=== PATIENT | female | born 1940 | race Caucasian/White ===

== ENCOUNTER 2020-06-24 12:06 | Outpatient (REF) | payer MEDICARE, SELFPAY ==
--- NOTE | 2020-06-24 | MM_ITS ---
EXAMINATION: MM SCREENING DIGITAL BREAST TOMOSYNTHESIS, BILATERAL CLINICAL INFORMATION: Screening. Asymptomatic. Family history breast cancer, mother. The lifetime risk of breast cancer based on the Tyrer-Cuzick Model is 3%. COMPARISON: Mammography: 06/20/2019, 06/03/2018 TECHNIQUE: Digital breast tomosynthesis is performed in both the craniocaudal and mediolateral oblique views along with computer-aided detection (CAD). Synthesized 2D images are generated from the tomosynthesis. FINDINGS: There are scattered areas of fibroglandular density (ACR BI-RADS breast composition Category b). There are no significant masses, abnormal calcifications, or other abnormalities. Parenchymal pattern is similar to prior exam. IMPRESSION: No mammographic evidence of malignancy. ASSESSMENT: BI-RADS 1: Negative RECOMMENDATION: Routine annual mammography screening. This patient's information was entered into a reminder system with a target due date for their next mammogram.
--- NOTE | 2020-06-24 13:29 | MM_ITS ---
EXAMINATION: BONE DENSITOMETRY CLINICAL INDICATION: Postmenopausal. COMPARISON: This is the patient's baseline examination. TECHNIQUE: Using a Source Audio DXA System (software version: 13.1) manufactured by [employer], dual-energy x-ray absorptiometry was performed of the lumbar spine and left hip. The images are of good technical quality. Summary results are attached. FINDINGS: AP SPINE L1-L4: BMD 1.318 g/cm2, Z-score 3.0, T-score 1.1, normal. LEFT FEMUR, NECK: BMD 0.716 g/cm2, Z-score -0.2, T-score -2.3, osteopenia. LEFT FEMUR, TOTAL: BMD 0.737 g/cm2, Z-score -0.2, T-score -2.1, osteopenia. IDENTIFIED RISK FACTORS: Height loss, secondary osteoporosis, glucocorticoids (chronic), menopause. HISTORY OF FRACTURE: None listed. MEDICATIONS: Calcium supplements or multivitamin, vitamin D. IMPRESSION: 1. DIAGNOSIS: Osteopenia based on the lowest T-score value of -2.3 in the femoral neck applying World Health Organization criteria. 2. 10-YEAR FRACTURE RISK PREDICTION, FRAX: Major osteoporotic fracture (clinical spine, forearm, hip or shoulder) 27.2%. Hip fracture 10.3%. 3. Treatment Recommendations: NOF guidelines recommend consideration for treatment in postmenopausal women and men age 50 and older presenting with the following: -A hip or vertebral (clinical or morphometric) fracture. -T-score less than or equal to -2.5 at the femoral neck or spine after appropriate evaluation to exclude secondary causes. -Low bone mass at the hip or spine and a 10-year fracture probability by FRAX of greater than or equal to 3% for hip fracture or greater than or equal to 20% for major osteoporotic fracture based on the [place] adapted WHO algorithm. 4. Other Recommendations: All treatment decisions require clinical judgment and consideration of individual patient factors, including patient preferences, comorbidities, previous drug use, risk factors not captured in the FRAX model (e.g. frailty, falls, vitamin D deficiency, increased bone turnover, interval significant decline in bone density) and possible under or overestimation of fracture risk by FRAX. Additional medical evaluation for secondary cause of low bone mineral density may be appropriate. FUTURE SCAN RECOMMENDATION: People with diagnosed cases of osteoporosis or at high risk for fracture should have regular bone mineral density tests. For patients eligible for Medicare, routine testing is allowed once every 2 years. The testing frequency can be increased to one year for patients who have rapidly progressing disease, those who are receiving or discontinuing medical therapy to restore bone mass, or have additional risk factors.
== END 2020-06-24 12:07 | disposition home or self-care (01) ==
LOC: HO.MAMMO 12:06
PROVIDERS: PCP Internal Medicine; Visit Provider Internal Medicine
DX: Z12.31 Encounter for screening mammogram for malignant neoplasm of breast (principal); M81.0 Age-related osteoporosis without current pathological fracture; Z80.3 Family history of malignant neoplasm of breast; Z79.52 Long term (current) use of systemic steroids; Z78.0 Asymptomatic menopausal state
CPT/HCPCS: 77063; 77067; 77080; 78014

== ENCOUNTER 2020-12-03 10:58 | Outpatient (REF) | payer MEDICARE, SELFPAY ==
[2020-12-03 13:14] LABS: MANUAL DIFF FLAG NO
[2020-12-03 13:37] LABS: Basophils Percent Auto 0.2 % (0-2); Eosinophils Percent Auto 0.1 % (0-4); Hematocrit 41.2 % (37-47); Hemoglobin 13.6 g/dl (12.0-16.0); Imm Gran Pct Auto 2.1 % (0.0-0.4); Lymphocytes Absolute Auto 1.9 X10*3/uL (1.2-4.9); Lymphocytes Percent Auto 13.4 % (20-40); Mean Corpuscular Hemoglobin 31.4 pg (27.0-33.0); Mean Corpuscular Volume 95.2 fL (80-98); Mean Platelet Volume 10.7 fL (9.4-12.3); Monocytes Absolute Auto 1.4 X10*3/uL (0.1-1.2); Monocytes Percent Auto 9.9 % (2-11); Neutrophils Absolute Auto 10.6 X10*3/uL (2.0-8.3); Neutrophils Percent Auto 74.3 % (45-73); Platelet Count 316 X10*3/uL (160-400); Red Blood Count 4.33 X10*6/uL (4.20-5.50); Red Cell Distribution Width 13.3 % (11.0-16.0); White Blood Count 14.3 X10*3/uL (4.8-10.8)
[2020-12-03 13:41] LABS: Alanine Aminotransferase 36 U/L (0-31); Albumin Level 3.6 g/dL (3.5-5.0); Alkaline Phosphatase 93 U/L (39-117); Anion Gap 14 (12-20); Aspartate Amino Transferase 41 U/L (5-31); Blood Urea Nitrogen 15 mg/dL (9-16); Calcium 8.9 mg/dL (8.4-10.2); Carbon Dioxide 29 mmol/L (22-29); Chloride 99 mmol/L (96-108); Estimated Glomerular Filt Rate > 60; Glucose Random 99 mg/dL (60-115); Potassium 4.2 mmol/L (3.3-5.1); Sodium 138 mmol/L (135-145); Total Protein 7.1 g/dL (6.5-8.0)
[2020-12-03 14:02] LABS: Glucose Urine UA NEG (NEG); Leukocyte Esterase Urine NEG (NEG); Nitrite Urine POS (NEG); PH 5.5 (5.0-8.0); Specific Gravity - Urine 1.025 (1.005-1.025); Urine Blood NEG (NEG); Urine Ketones 15 MG/DL (NEG); Urine Protein 1+ MG/DL (NEG-TRACE)
[2020-12-03 14:05] LABS: Appearance Urine CLOUDY; Color Urine YELLOW
[2020-12-03 14:29] LABS: Bacteria Urine 3+ /LPF; RBC Urine 0-2 /HPF (0); Squamous Epithelial Cell Urine 1+ /LPF
== END 2020-12-03 10:59 | disposition home or self-care (01) ==
LOC: HO.10HDL 10:58
PROVIDERS: Visit Provider Internal Medicine
DX: R10.13 Epigastric pain (principal)
CPT/HCPCS: 36415; 80053; 81001; 85025

== ENCOUNTER 2020-12-12 12:21 | Outpatient (REF) | payer MEDICARE, SELFPAY ==
--- NOTE | ~2020-12-12 | US_ITS ---
EXAMINATION: US ABDOMEN LIMITED CLINICAL INFORMATION: Other specified abnormal findings of blood chemistry. COMPARISON: None TECHNIQUE: Real-time imaging of the right upper quadrant abdominal viscera. FINDINGS: PANCREAS: There is an anechoic cyst in body of the pancreas measuring 0.8 x 0.6 x 0.8 cm. LIVER: Normal. The liver is normal in size. The liver contour is normal. Parenchymal echogenicity is normal. No focal hepatic lesion. There is no intrahepatic biliary duct dilatation seen. GALLBLADDER: Normal. The gallbladder is physiologically distended without evidence of stones, sludge, polyps, wall thickening or pericholecystic fluid. COMMON BILE DUCT: Normal in caliber measuring 0.6 cm in diameter. RIGHT KIDNEY: Normal. No hydronephrosis. No renal calculi or focal parenchymal lesions. The kidney measures 10.8 cm in maximum dimension. FREE FLUID: None. US/US abdomen limited IMPRESSION: There is an anechoic cyst in the body of the pancreas measuring 0.8 x 0.6 x 0.8 cm. Liver, gallbladder, CBD and the right kidney appears unremarkable
== END 2020-12-12 12:22 | disposition home or self-care (01) ==
LOC: HO.US 12:21
PROVIDERS: Visit Provider Internal Medicine
DX: R79.89 Other specified abnormal findings of blood chemistry (principal)
CPT/HCPCS: 76705

== ENCOUNTER 2021-03-04 12:23 | Outpatient (REF) | payer MEDICARE, SELFPAY ==
[2021-03-04 13:54] LABS: MANUAL DIFF FLAG NO
[2021-03-04 14:10] LABS: Basophils Percent Auto 0.5 % (0-2); Eosinophils Absolute Auto 0.1 X10*3/uL (0.0-0.4); Eosinophils Percent Auto 0.8 % (0-4); Hematocrit 42.2 % (37-47); Hemoglobin 13.4 g/dl (12.0-16.0); Imm Gran Abs Auto 0.01 X10*3/uL (0.00-0.03); Imm Gran Pct Auto 0.2 % (0.0-0.4); Lymphocytes Absolute Auto 1.9 X10*3/uL (1.2-4.9); Lymphocytes Percent Auto 31.7 % (20-40); Mean Corpuscular HGB Conc 31.8 g/dl (31.0-35.0); Mean Corpuscular Hemoglobin 31.2 pg (27.0-33.0); Mean Corpuscular Volume 98.4 fL (80-98); Mean Platelet Volume 11.6 fL (9.4-12.3); Monocytes Absolute Auto 0.4 X10*3/uL (0.1-1.2); Monocytes Percent Auto 6.7 % (2-11); Neutrophils Absolute Auto 3.6 X10*3/uL (2.0-8.3); Neutrophils Percent Auto 60.1 % (45-73); Platelet Count 250 X10*3/uL (160-400); Red Blood Count 4.29 X10*6/uL (4.20-5.50); Red Cell Distribution Width 13.2 % (11.0-16.0); White Blood Count 5.9 X10*3/uL (4.8-10.8)
[2021-03-04 14:34] LABS: Cholesterol 179 mg/dL; HDL Cholesterol 70 mg/dL; LDL Cholesterol Calculated 83 mg/dl; Triglycerides 133 mg/dL
[2021-03-05 07:28] LABS: HBS Num1 1.61 mIU/mL (0-7.99); HBsAGNum1 0.17 S/CO (0.00-0.99); Hepatitis B Core Antibody Nonreactive (Nonreactive); Hepatitis B Surface Antigen Negative (Negative); ~HepC Num1 0.06 S/CO (0.00-0.79); ~Hepatitis B Surface Antibody NONREACTIVE (Nonreactive); ~Hepatitis C Antibody Nonreactive (Nonreactive)
== END 2021-03-04 12:24 | disposition home or self-care (01) ==
LOC: HO.10HDL 12:23
PROVIDERS: Visit Provider Internal Medicine
DX: E78.00 Pure hypercholesterolemia, unspecified (principal); R79.89 Other specified abnormal findings of blood chemistry; R94.5 Abnormal results of liver function studies; K86.2 Cyst of pancreas
CPT/HCPCS: 36415; 80061; 85025; 86704; 86706; 86803; 87340

== ENCOUNTER 2021-03-26 09:54 | Outpatient (REF) | payer MEDICARE, SELFPAY ==
[2021-03-26 13:15] LABS: Appearance Urine CLEAR; Color Urine YELLOW; Glucose Urine UA NEG (NEG); Leukocyte Esterase Urine NEG (NEG); Nitrite Urine NEG (NEG); Specific Gravity - Urine <= 1.005 (1.005-1.025); Urine Blood NEG (NEG); Urine Ketones NEG (NEG); Urine Protein NEG (NEG-TRACE)
[2021-03-26 13:44] LABS: RBC Urine 0 /HPF (0); Squamous Epithelial Cell Urine TRACE /LPF; WBC Urine 0 /HPF (0-4)
== END 2021-03-26 09:55 | disposition home or self-care (01) ==
LOC: HO.10HDL 09:54
PROVIDERS: Visit Provider Internal Medicine
DX: R10.13 Epigastric pain (principal); R30.0 Dysuria
CPT/HCPCS: 81003

== ENCOUNTER 2021-04-17 12:38 | Outpatient (REF) | payer MEDICARE, SELFPAY ==
[2021-04-17 13:52] LABS: Alanine Aminotransferase 16 U/L (0-31); Albumin Level 4.3 g/dL (3.5-5.0); Alkaline Phosphatase 64 U/L (39-117); Amylase 43 U/L (28-100); Aspartate Amino Transferase 23 U/L (5-31); Bilirubin Direct 0.3 mg/dL (0.0-0.5); Bilirubin Total 1.1 mg/dL (0.0-1.0); Blood Urea Nitrogen 18 mg/dL (9-16); Estimated Glomerular Filt Rate > 60; Lipase 25 U/L (8-78); Total Protein 7.8 g/dL (6.5-8.0)
[2021-04-19 11:37] LABS: Carbohydrate Antigen 19-9 4 U/mL (<34)
== END 2021-04-17 12:39 | disposition home or self-care (01) ==
LOC: HO.10HDL 12:38
PROVIDERS: Visit Provider Internal Medicine
DX: K86.2 Cyst of pancreas (principal); R79.89 Other specified abnormal findings of blood chemistry
CPT/HCPCS: 36415; 80076; 82150; 82565; 83690; 84520; 86301

== ENCOUNTER 2021-04-28 12:55 | Outpatient (REF) | payer MEDICARE, SELFPAY ==
--- NOTE | ~2021-04-28 | CT_ITS ---
EXAMINATION: CT ABDOMEN AND PELVIS WITH CONTRAST CLINICAL INFORMATION: Elevated LFTs, pancreatic cyst. COMPARISON: None TECHNIQUE: Multidetector volumetric images were obtained from the superior aspect of the liver through the pubic symphysis following administration 85 mL of Omnipaque 350 intravenous contrast. Sagittal and coronal reformatted images were obtained on the technologist's workstation. Oral contrast: No. This CT examination was performed using dose optimization techniques as appropriate, variously including the following: *Automated exposure control *Adjustment of mA and/or kV according to patient size (this includes techniques or standardized protocols for targeted exams where dose is matched to indication/reason for exam; i.e. extremities or head) *Use of iterative reconstruction technique DLP: 335 mGy-cm FINDINGS: LUNG BASES: The lung bases are clear. The heart size is normal. LIVER, GALLBLADDER, AND BILIARY TREE: The liver is normal in size, shape, and attenuation. No focal hepatic lesion or biliary ductal dilatation is present. The gallbladder is unremarkable with no evidence of radiopaque gallstones, gallbladder wall thickening, or obvious pericholecystic inflammatory changes. PANCREAS: There is a cyst in the body of the pancreas measuring 1.0 x 0.6 x 0.6 cm. It is the same size on the ultrasound exam. No additional hypodense cyst or enhancing pancreatic mass seen. There is no pancreatic ductal dilatation. SPLEEN: Unremarkable. ADRENAL GLANDS: Unremarkable. KIDNEYS AND URETERS: Both kidneys are normal size, shape and position. No radiopaque renal calculi or hydronephrosis seen. There are bilateral extrarenal kidney pelvises. BLADDER: Unremarkable. GASTROINTESTINAL TRACT: There is scattered stool, oral contrast and gas seen throughout the colon without distention. Oral contrast-opacified small bowel loops are normal caliber. The appendix is not visualized well. There is no free air or free fluid. There are scattered diverticula seen throughout the sigmoid colon with nonspecific mild mural thickening. No pericolic fat stranding. No free fluid. ABDOMINAL WALL: No significant hernia is appreciated. LYMPH NODES: Normal. VASCULAR: Unremarkable. PELVIC VISCERA: The uterus is anteverted and appears unremarkable. No adnexal mass or free fluid seen. There are numerous collateral vessels seen in the lower pelvis, likely pelvic venous congestion. OSSEOUS STRUCTURES: There are degenerative vacuum disc phenomenon, spondylosis and loss of disc height at L2-L3 through L5-S1 disc levels. Grade 1 anterolisthesis L4-L5 is noted. There is mild superior endplate deformity L2 vertebra, likely old. No lytic process. CT/CT abdomen pelvis w con IMPRESSION: Small pancreatic head cyst appears simple cyst. The pancreas is unremarkable. The liver is mildly attenuated, but no focal lesion seen. No intrahepatic ductal dilatation. Bilateral extrarenal kidney pelvises. Sigmoid diverticulosis without diverticulitis. Suspect mild pelvic venous congestion.
[2021-04-28] MEDS: iohexoL 350 MG/ML 100 ML INFUS..BTL IV (15:24)
[2021-04-28] MEDS: Barium Sulfate Oral (Berry) 450 ML ORAL.SUSP 900 ML PO (15:24)
== END 2021-04-28 12:56 | disposition home or self-care (01) ==
LOC: HO.CT 12:55
PROVIDERS: PCP Internal Medicine; Visit Provider Internal Medicine
DX: K86.2 Cyst of pancreas (principal); R79.89 Other specified abnormal findings of blood chemistry
CPT/HCPCS: 74177; Q9967

== ENCOUNTER 2021-07-23 13:52 | Outpatient (REF) | payer MEDICARE, SELFPAY ==
--- NOTE | ~2021-07-23 | MM_ITS ---
EXAMINATION: MM SCREENING DIGITAL BREAST TOMOSYNTHESIS, BILATERAL CLINICAL INFORMATION: Screening. Asymptomatic. The lifetime risk of breast cancer based on the Tyrer-Cuzick Model is 4%. COMPARISON: Mammography: 06/24/2020, 06/20/2019, 06/03/2018 TECHNIQUE: Digital breast tomosynthesis is performed in both the craniocaudal and mediolateral oblique views along with computer-aided detection (CAD). Synthesized 2D images are generated from the tomosynthesis. FINDINGS: There are scattered areas of fibroglandular density (ACR BI-RADS breast composition Category b). There are no significant masses, abnormal calcifications, or other abnormalities. No significant changes from prior studies. MM/MM tomosynthesis screening BI IMPRESSION: No mammographic evidence of malignancy. ASSESSMENT: BI-RADS 1: Negative RECOMMENDATION: Routine annual mammography screening. This patient's information was entered into a reminder system with a target due date for their next mammogram.
== END 2021-07-23 13:53 | disposition home or self-care (01) ==
LOC: HO.MAMMO 13:52
PROVIDERS: Visit Provider Internal Medicine
DX: Z12.31 Encounter for screening mammogram for malignant neoplasm of breast (principal)
CPT/HCPCS: 77063; 77067

== ENCOUNTER 2021-10-06 14:17 | Outpatient (REF) | payer MEDICARE, SELFPAY ==
--- NOTE | ~2021-10-06 | US_ITS ---
EXAMINATION: ULTRASOUND EXTREMITY NONVASCULAR CLINICAL INFORMATION: Palpable lump. COMPARISON: None TECHNIQUE: Grayscale and color imaging of the soft tissues of the volar radial side of the left wrist. FINDINGS: Palpable abnormality corresponds to a superficial slightly complex cyst. This is lobulated in shape, and demonstrates areas of mild wall thickening and septation. This measures 1.2 x 0.8 x 1 cm. This may represent a ganglion. US/US extremity nonvascular IMPRESSION: Palpable abnormality corresponds to a minimally complex 1.2 x 0.8 x 1 cm cyst. This may represent a ganglion.
== END 2021-10-06 14:18 | disposition home or self-care (01) ==
LOC: HO.HMGCX 14:17
PROVIDERS: PCP Internal Medicine; Visit Provider Nurse Practitioner Family
DX: R22.30 Localized swelling, mass and lump, unspecified upper limb (principal)
CPT/HCPCS: 76882

== ENCOUNTER 2021-10-07 09:53 | Outpatient (REF) | payer MEDICARE, SELFPAY ==
[2021-10-07 13:44] LABS: MANUAL DIFF FLAG NO
[2021-10-07 13:47] LABS: Basophils Percent Auto 0.4 % (0-2); Eosinophils Absolute Auto 0.2 X10*3/uL (0.0-0.4); Eosinophils Percent Auto 2.2 % (0-4); Hematocrit 43.4 % (37.0-47.0); Hemoglobin 13.8 g/dl (12.0-16.0); Imm Gran Abs Auto 0.02 X10*3/uL (0.00-0.03); Imm Gran Pct Auto 0.3 % (0.0-0.4); Lymphocytes Absolute Auto 2.4 X10*3/uL (1.2-4.9); Lymphocytes Percent Auto 34.3 % (20-40); Mean Corpuscular HGB Conc 31.8 g/dl (31.0-35.0); Mean Corpuscular Hemoglobin 31.2 pg (27.0-33.0); Mean Corpuscular Volume 98.2 fL (80.0-98.0); Mean Platelet Volume 11.2 fL (9.4-12.3); Monocytes Absolute Auto 0.6 X10*3/uL (0.1-1.2); Monocytes Percent Auto 8.1 % (2-11); Neutrophils Absolute Auto 3.8 x10*3/uL (2.0-8.3); Neutrophils Percent Auto 54.7 % (45-73); Platelet Count 284 X10*3/uL (160-400); Red Blood Count 4.42 X10*6/uL (4.20-5.50); Red Cell Distribution Width 12.7 % (11.0-16.0); White Blood Count 6.9 X10*3/uL (4.8-10.8)
[2021-10-07 14:32] LABS: Alanine Aminotransferase 14 U/L (0-31); Albumin Level 4.1 g/dL (3.5-5.0); Alkaline Phosphatase 61 U/L (39-117); Anion Gap 14 (12-20); Aspartate Amino Transferase 23 U/L (5-31); Bilirubin Total 0.8 mg/dL (0.0-1.0); Blood Urea Nitrogen 17 mg/dL (9-16); Calcium 9.5 mg/dL (8.4-10.2); Carbon Dioxide 27 mmol/L (22-29); Chloride 104 mmol/L (96-108); Cholesterol 171 mg/dL; Estimated Glomerular Filt Rate > 60; Glucose Random 83 mg/dL (60-115); HDL Cholesterol 63 mg/dL; LDL Cholesterol Calculated 79 mg/dl; Potassium 4.2 mmol/L (3.3-5.1); Sodium 141 mmol/L (135-145); Total Protein 7.7 g/dL (6.5-8.0); Triglycerides 147 mg/dL
[2021-10-07 14:41] LABS: Thyroid Stimulating Hormone 1.08 uIU/mL (0.32-4.0); Vitamin D 25-OH Total 38.4 ng/mL (>30)
[2021-10-07 15:41] LABS: Folate 10.9 ng/mL (> or = 4.0); Vitamin B12 349 pg/mL (200-900)
== END 2021-10-07 09:54 | disposition home or self-care (01) ==
LOC: HO.10HDL 09:53
PROVIDERS: Visit Provider Internal Medicine
DX: E03.9 Hypothyroidism, unspecified (principal); E78.00 Pure hypercholesterolemia, unspecified; E78.1 Pure hyperglyceridemia
CPT/HCPCS: 36415; 80053; 80061; 82306; 82607; 82746; 84439; 84443; 85025

== ENCOUNTER → 2021-11-28 10:19 | Outpatient (BNVA) | payer MEDICARE, SELFPAY | PROVIDERS: PCP Internal Medicine; Visit Provider Surgery | DX: M67.432 Ganglion, left wrist (principal) | CPT/HCPCS: 99202 ==

== ENCOUNTER → 2022-04-17 14:59 | Outpatient (REF) | payer MEDICARE, SELFPAY ==
--- NOTE | 2022-04-17 15:06 | ECG_ITS ---
Test Reason : cp Blood Pressure : / mmHG Vent. Rate : 066 BPM Atrial Rate : 066 BPM P-R Int : 176 ms QRS Dur : 094 ms QT Int : 382 ms P-R-T Axes : 132 168 191 degrees QTc Int : 400 ms Suspect limb lead reversal, interpretation assumes no reversal Unusual P axis, possible ectopic atrial rhythm Right axis deviation ST & T wave abnormality, consider inferior ischemia Abnormal ECG No previous ECGs available Referred By: Helena Dhillon Electronically Signed By:
[2022-04-17 16:13] LABS: Blood Urea Nitrogen 17 mg/dL (9-16); Estimated Glomerular Filt Rate > 60
[2022-04-22 08:52] LABS: Carbohydrate Antigen 19-9 8 U/mL (<34)
== END ==
LOC: HO.CARD 14:59
PROVIDERS: Absent Provider Internal Medicine; PCP Internal Medicine; Visit Provider Nurse Practitioner Family
DX: Z01.818 Encounter for other preprocedural examination (principal); K86.2 Cyst of pancreas
CPT/HCPCS: 36415; 82565; 84520; 86301; 93005

== ENCOUNTER 2022-04-22 10:01 | Outpatient (REF) | payer MEDICARE, SELFPAY ==
--- NOTE | ~2022-04-22 | CT_ITS ---
EXAMINATION: CT ABDOMEN WITH CONTRAST CLINICAL INFORMATION: Pancreatic cyst. COMPARISON: CT abdomen and pelvis 04/28/2021. TECHNIQUE: Contiguous axial thin section helical images of the abdomen were performed following the administration of oral contrast and 85 mL of Omnipaque 350 intravenous contrast. The data set was reformatted in the coronal and sagittal planes and reviewed on an independent workstation. This CT examination was performed using dose optimization techniques as appropriate, variously including the following: *Automated exposure control *Adjustment of mA and/or kV according to patient size (this includes techniques or standardized protocols for targeted exams where dose is matched to indication/reason for exam; i.e. extremities or head) *Use of iterative reconstruction technique DLP: 136 mGy-cm FINDINGS: LUNG BASES: There is plate-like atelectasis in the left lower lobe and lingula. The heart size is normal. LIVER, GALLBLADDER, AND BILIARY TREE: The liver is homogeneous in density, normal size and contour. No focal lesion or intrahepatic duct dilatation seen. PANCREAS: There is a 1.0 x 0.7 cm cyst in the mid segment of pancreas with minimal distal ductal prominence best visualized on axial image 23/3. SPLEEN: The spleen is unremarkable and normal size. ADRENAL GLANDS AND KIDNEYS: Bilateral adrenal glands are symmetrical and normal. Both kidneys have symmetrical nephrograms and are normal size, shape and position. Both kidney nephrograms are normal size, shape and position. No radiopaque calculi, renal cysts or hydronephrosis seen. There are bilateral extrarenal kidney pelves. BOWEL LOOPS: There is scattered stool, oral contrast and gas seen throughout the colon without distention. The small bowel loops are normal caliber. Appendix is not visualized. No inflammatory process seen in the visualized images. LYMPH NODES: Normal. VASCULAR: Unremarkable. BONES: There is lateral thoracic scoliosis with degenerative disc changes at almost all lumbar disc levels with mild lateral spondylosis. CT/CT abdomen w con IMPRESSION: Stable 1 cm pancreatic body cyst. There is minimal distal pancreatic duct dilatation. No metastatic lesion seen in the abdomen or the liver at this time. No abnormality involving the liver or the spleen. Mild colonic diverticulosis. Fleischner guidelines were followed.
[2022-04-22] MEDS: iohexoL 350 MG/ML 100 ML INFUS..BTL IV (12:27)
[2022-04-22] MEDS: Barium Sulfate Oral (Vanilla) 450 ML ORAL.SUSP PO (12:28)
== END 2022-04-22 10:02 | disposition home or self-care (01) ==
LOC: HO.CT 10:01
PROVIDERS: PCP Internal Medicine; Visit Provider Internal Medicine
DX: K86.2 Cyst of pancreas (principal)
CPT/HCPCS: 74160; Q9967

== ENCOUNTER 2022-07-27 13:17 | Outpatient (REF) | payer MEDICARE, SELFPAY ==
--- NOTE | ~2022-07-27 | MM_ITS ---
EXAMINATION: MM SCREENING DIGITAL BREAST TOMOSYNTHESIS, BILATERAL CLINICAL INFORMATION: Screening. Asymptomatic. COMPARISON: Mammography: July 23, 2021 and studies dating back to March 25, 2016 TECHNIQUE: Digital breast tomosynthesis is performed in both the craniocaudal and mediolateral oblique views along with computer-aided detection (CAD). Synthesized 2D images are generated from the tomosynthesis. FINDINGS: There are scattered areas of fibroglandular density (ACR BI-RADS breast composition Category b). There are no significant masses, abnormal calcifications, or other abnormalities. MM/MM tomosynthesis screening BI IMPRESSION: No significant changes from prior exam. ASSESSMENT: BI-RADS 1: Negative RECOMMENDATION: Routine annual mammography screening. This patient's information was entered into a reminder system with a target due date for their next mammogram.
== END 2022-07-27 13:18 | disposition home or self-care (01) ==
LOC: HO.MAMMO 13:17
PROVIDERS: PCP Internal Medicine; Visit Provider Internal Medicine
DX: Z12.31 Encounter for screening mammogram for malignant neoplasm of breast (principal)
CPT/HCPCS: 77063; 77067

== ENCOUNTER 2022-08-20 13:19 | Outpatient (REF) | payer MEDICARE, SELFPAY ==
--- NOTE | ~2022-08-20 | MM_ITS ---
EXAMINATION: BONE DENSITOMETRY CLINICAL INDICATION: Age-related osteoporosis without current pathological fracture. COMPARISON: Baseline BD dated 06/24/2020. TECHNIQUE: Using a [employer] DXA System (software version: 13.1) manufactured by [employer], dual-energy x-ray absorptiometry was performed of the lumbar spine and left hip. The images are of good technical quality. Summary results are attached. FINDINGS: AP SPINE L1-L4 (excluding L2 and L3): The data of L1-L4 has been changed to exclude the L2 and L3 vertebral bodies, because degenerative changes at these levels may cause overestimation of lumbar spine density. Current: BMD 1.204 g/cm2, Z-score 2.3, T-score 0.3, normal, 3.4% decrease from baseline (<5% change is not significant). Baseline: BMD 1.246 g/cm2. LEFT FEMUR, NECK: Current: BMD 0.656 g/cm2, Z-score -0.4, T-score -2.7, osteoporosis. Baseline: BMD 0.716 g/cm2. LEFT FEMUR, TOTAL: Current: BMD 0.686 g/cm2, Z-score -0.4, T-score -2.6, osteoporosis, 6.9% decrease from baseline (<5% change is not significant). Baseline: BMD 0.737 g/cm2. IDENTIFIED RISK FACTORS: Height loss, history of fracture (adult), rheumatoid arthritis, menopause. HISTORY OF FRACTURE: Shoulder. MEDICATIONS: Calcium supplements or multivitamin, vitamin D. MM/XR DEXA axial skeleton IMPRESSION: 1. DIAGNOSIS: Osteoporosis based on the lowest T-score value of -2.7 in the femoral neck applying World Health Organization criteria. 2. 10-YEAR FRACTURE RISK PREDICTION, FRAX: According to the guidelines, FRAX calculation should only be performed on patients in the osteopenia bone density category. Therefore, FRAX was not performed on this patient. 3. Treatment Recommendations: NOF guidelines recommend consideration for treatment in postmenopausal women and men age 50 and older presenting with the following: -A hip or vertebral (clinical or morphometric) fracture. -T-score less than or equal to -2.5 at the femoral neck or spine after appropriate evaluation to exclude secondary causes. -Low bone mass at the hip or spine and a 10-year fracture probability by FRAX of greater than or equal to 3% for hip fracture or greater than or equal to 20% for major osteoporotic fracture based on the [place] adapted WHO algorithm. 4. Other Recommendations: All treatment decisions require clinical judgment and consideration of individual patient factors, including patient preferences, comorbidities, previous drug use, risk factors not captured in the FRAX model (e.g. frailty, falls, vitamin D deficiency, increased bone turnover, interval significant decline in bone density) and possible under or overestimation of fracture risk by FRAX. Additional medical evaluation for secondary cause of low bone mineral density may be appropriate. FUTURE SCAN RECOMMENDATION: People with diagnosed cases of osteoporosis or at high risk for fracture should have regular bone mineral density tests. For patients eligible for Medicare, routine testing is allowed once every 2 years. The testing frequency can be increased to one year for patients who have rapidly progressing disease, those who are receiving or discontinuing medical therapy to restore bone mass, or have additional risk factors.
== END 2022-08-20 13:20 | disposition home or self-care (01) ==
LOC: HO.MAMMO 13:19
PROVIDERS: PCP Internal Medicine; Visit Provider Internal Medicine
DX: Z13.820 Encounter for screening for osteoporosis (principal); Z78.0 Asymptomatic menopausal state; M85.859 Other specified disorders of bone density and structure, unspecified thigh; M81.0 Age-related osteoporosis without current pathological fracture
CPT/HCPCS: 77080

== ENCOUNTER 2022-09-08 14:41 | Outpatient (REF) | payer MEDICARE, SELFPAY ==
[2022-09-08 15:18] LABS: Appearance Urine Cloudy; Color Urine Yellow; Glucose Urine UA Negative (Negative); Leukocyte Esterase Urine Large (3+) (Negative); Nitrite Urine Negative (Negative); PH 6.5 (5.0-9.0); UMIC TRIGGER UACC YES; Urine Blood Moderate (2+) (Negative); Urine Ketones Negative (Negative); Urine Protein 30 (1+) mg/dL (Neg-Trace)
[2022-09-08 15:20] LABS: Bacteria Urine None Seen (None Seen); Hyaline Casts Urine 0-2 /LPF (0-2); RBC Urine >20 /HPF (0-2); Squamous Epithelial Cell Urine 0-2 /HPF (0-2); UACC Culture Trigger YES; WBC Urine >50 /HPF (0-5)
== END 2022-09-08 14:42 | disposition home or self-care (01) ==
LOC: HO.LAB 14:41
PROVIDERS: PCP Internal Medicine; Visit Provider Internal Medicine
DX: N39.0 Urinary tract infection, site not specified (principal)
CPT/HCPCS: 81001; 87086; 87088; 87186

== ENCOUNTER 2023-02-05 10:36 | Outpatient (REF) | payer MEDICARE, SELFPAY ==
[2023-02-05 13:24] LABS: MANUAL DIFF FLAG NO
[2023-02-05 13:33] LABS: Basophils Percent Auto 0.6 % (0-2); Eosinophils Absolute Auto 0.1 X10*3/uL (0.0-0.4); Eosinophils Percent Auto 1.8 % (0-4); Hematocrit 41.9 % (37.0-47.0); Hemoglobin 13.5 g/dl (12.0-16.0); Imm Gran Abs Auto 0.02 X10*3/uL (0.00-0.03); Imm Gran Pct Auto 0.3 % (0.0-0.4); Lymphocytes Absolute Auto 2.2 X10*3/uL (1.2-4.9); Lymphocytes Percent Auto 31.3 % (20-40); Mean Corpuscular HGB Conc 32.2 g/dl (31.0-35.0); Mean Corpuscular Hemoglobin 31.5 pg (27.0-33.0); Mean Corpuscular Volume 97.7 fL (80.0-98.0); Mean Platelet Volume 10.9 fL (9.4-12.3); Monocytes Absolute Auto 0.6 X10*3/uL (0.1-1.2); Monocytes Percent Auto 7.9 % (2-11); Neutrophils Absolute Auto 4.1 x10*3/uL (2.0-8.3); Neutrophils Percent Auto 58.1 % (45-73); Platelet Count 263 X10*3/uL (160-400); Red Blood Count 4.29 X10*6/uL (4.20-5.50); Red Cell Distribution Width 12.9 % (11.0-16.0); White Blood Count 7.1 X10*3/uL (4.8-10.8)
[2023-02-05 13:58] LABS: Alanine Aminotransferase 17 U/L (0-31); Alkaline Phosphatase 67 U/L (39-117); Anion Gap 11 (12-20); Aspartate Amino Transferase 23 U/L (5-31); Blood Urea Nitrogen 14 mg/dL (9-16); Calcium 9.3 mg/dL (8.4-10.2); Carbon Dioxide 28 mmol/L (22-29); Chloride 104 mmol/L (96-108); Cholesterol 172 mg/dL; Estimated Glomerular Filt Rate > 60; Glucose Random 86 mg/dL (60-115); HDL Cholesterol 63 mg/dL; LDL Cholesterol Calculated 83 mg/dl; Potassium 4.4 mmol/L (3.3-5.1); Sodium 139 mmol/L (135-145); Total Protein 7.3 g/dL (6.5-8.0); Triglycerides 134 mg/dL
[2023-02-05 14:26] LABS: Folate 12.9 ng/mL (> or = 4.0); Free T4 (Free Thyroxine) 1.12 ng/dL (0.71-1.85); Thyroid Stimulating Hormone 1.15 uIU/mL (0.32-4.0); Vitamin B12 390 pg/mL (200-900); Vitamin D 25-OH Total 47.9 ng/mL (>30)
== END 2023-02-05 10:37 | disposition home or self-care (01) ==
LOC: HO.10HDL 10:36
PROVIDERS: Visit Provider Internal Medicine
DX: E03.9 Hypothyroidism, unspecified (principal); E78.00 Pure hypercholesterolemia, unspecified; M81.0 Age-related osteoporosis without current pathological fracture
CPT/HCPCS: 36415; 80053; 80061; 82306; 82607; 82746; 84439; 84443; 85025

== ENCOUNTER 2023-08-02 13:29 | Outpatient (REF) | payer MEDICARE, SELFPAY | END 2023-08-02 13:30 | disposition home or self-care (01) | LOC: HO.MAMMO 13:29 | PROVIDERS: Visit Provider Internal Medicine | DX: Z12.31 Encounter for screening mammogram for malignant neoplasm of breast (principal) | CPT/HCPCS: 77063; 77067 ==

== ENCOUNTER → 2023-08-02 13:30 | Outpatient (BNV) | payer MEDICARE, SELFPAY | PROVIDERS: Visit Provider Radiology Diagnostic Radiology | DX: Z12.31 Encounter for screening mammogram for malignant neoplasm of breast (principal) | CPT/HCPCS: 77063; 77067 ==

== ENCOUNTER 2023-08-18 10:21 | Outpatient (AMB) | payer MEDICARE, SELFPAY ==
[2023-08-18 10:23] VITALS: BP 156/92; PULSE 72; O2SAT 98; BMI 23.5
--- NOTE | 2023-08-18 10:24 | A.OFFVIS_ITS ---
Intake Vital Signs 08/18/23 10:23 08/18/23 11:16 Height 5 ft 5 in Weight 141 lb 2 oz BMI 23.5 BP 156/92 H 140/90 H Blood Pressure Location Lt brachial Lt brachial Position Sitting Sitting Pulse 72 Pulse Source Pulse Oximeter Pulse Oximetry (%) 98 Oxygen Delivery Method Room Air Intake Visit Reasons: hypothyroid/ Physical Probate Paralegal Required: No Accompanied by: Self / Same As Patient Allergies No Known Allergies Allergy (Verified 08/18/23 10:24) Medication List - Last Reconciled 08/18/23 by Claudia Smalls MD atenolol 75 mg (1.5 x 50 mg) PO DAILY 90 days calcium carbonate-vitamin D3 600 mg-5 mcg (200 unit) caps PO collagen (bovine) 100% 1 appl topical DAILY cranberry 400 mg PO DAILY levothyroxine 100 mcg PO DAILY 90 days [id number] 500 mcg- 750 mg (Nicotinamide (with chromium)) 1 tab PO DAILY HPI hypothyroid/ Physical HPI Details 83-year-old female with hypertension, hy pothyroidism, hypercholesterolemia history of meningioma osteoporosis coming in for physical exam last seen in January 2023. Patient has bone density is up-to-date mammogram is up-to-date. [facility] Medical History (Updated 08/18/23 @ 11:11 by Claudia Smalls MD) COVID-19 virus infection Ganglion, left wrist Skin lump of arm Osteopenia Cervical spinal stenosis Hypertriglyceridemia Meningioma Osteopenia Hypothyroidism Hypertension Polymyalgia rheumatica Surgical History History of colonoscopy History of tonsillectomy and adenoidectomy History of tubal ligation Family History Father Alzheimers disease Mother Breast cancer Maternal Grandmother CVD (cardiovascular disease) Maternal Grandfather No problems noted. Paternal Grandmother CVD (cardiovascular disease) Paternal Grandfather No problems noted. Social History (Updated 08/18/23 @ 11:27 by Claudia Smalls MD) [facility] Alcohol intake: current Alcohol intake frequency: a few times a week Alcohol type: wine Comment: 3x a week 2 glasses Patient Tobacco Use Status: Former Tobacco user Tobacco use type: Cigarette Years Smoked: 1979 e-Cigarette/Vaping Use: Never Used Second Hand Smoke Exposure: Yes service: No 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al status: retired Cognitive needs: No Hearing needs: No Vision needs: Yes (Glasses) Questionnaire Medicare Wellness Checkup What is your age?: 80 or older What gender do you identify with?: female During the past 4 weeks, how much have you been bothered by emotional problems such as feeling anxious, depressed, irritable, sad or downhearted, and blue?: n ot at all During the past 4 weeks, has your physical & emotional health limited your social activities with family, friends, neighbors, or groups?: not at all During the past 4 weeks, how much bodily pain have you generally had?: very mild pain During the past 4 weeks, was someone available to help you if you needed & wanted help?: yes, as much as I wanted During the past 4 weeks, what was the hardest physical activity you could do for at least 2 minutes?: very heavy Can you get to places out of walking distance without help? (For eg., can you travel alone on buses, taxis or drive your car?): Yes Can you go shopping for groceries or clothes without someone's help?: Yes Can you prepare your own meals?: Yes Can you do your housework without help?: Yes Because of any health problems, do you need the help of another person with your personal care needs such as eating, bathing, dressing or getting around the house?: No Can you handle your own money without help?: Yes During the past 4 weeks, how would you rate your health in general?: excellent During the past 4 weeks how have things been going for you?: very well; could hardly better Are you having difficulties driving your car?: no During past 4 weeks, have you been bothered by the following: never: Falling or dizzy when standing up, Sexual problems?, Trouble eating well?, Teeth or denture problems?, Problems using the telephone? and Tiredness or fatigue? Have you fallen 2 or more times in the past year?: No Are you afraid of falling?: No Are you a smoker?: no During the past 4 weeks, how many drinks of wine, beer, or other alcoholic beverages did you have?: 2-5 drinks per week Do you exercise for about 20 minutes 3 or more times a week?: yes, most of the time Have you been given information to help with the following?: no: Hazards in your house that might hurt you? and no: Keeping track of your medications? How often do you have trouble taking medicines the way you have been told to take them?: I always take medicine as prescribed How confident are you that you can control & manage most of your health problems?: very confident What is your race?: White PHQ-9 Over the last 2 weeks, how often have you been bothered by any of the following problems? 1. Little interest or pleasure in doing things: not at all 2. Feeling down, depressed, or hopeless: not at all 3. Trouble falling or staying asleep, or sleeping too much: several days 4. Feeling tired or having little energy: not at all 5. Poor appetite or overeating: not at all 6. Feeling bad about yourself - or that you are a failure or have let yourself or your family down: not at all 7. Trouble concentrating on things, such as reading the newspaper or watching television: not at all 8. Moving or speaking so slowly that other people could have noticed. Or the opposite - being so fidgety or restless that you have been moving around a lot more than usual: not at all 9. Thoughts that you would be better off or of hurting yourself in some way: not at all Total score: 1 Depression Screening Interpretation: Positive Depression Screening Done: Yes Source: Developed by Drs. Franklyn Gutiérrez, Ariane Walsh, Handy Helm and colleagues, with an educational elayne from [employer]. Review of Systems Const Denies poor appetite and Denies weakness Eyes Denies no additional complaints ENT Reports Normal hearing present, Denies dizziness, Denies nasal congestion, Denies tinnitus and Denies sore throat Card Denies chest pain, Denies syncope, Denies rapid heart rate and Denies dyspnea Resp Denies cough and Denies dyspnea GI Denies change in stool character, Reports constipation, Denies diarrhea, Denies nausea and Denies vomiting Denies urinary frequency, Denies difficulty voiding and Denies dysuria Neuro Reports Normal hearing present, Denies confusion, Denies dizziness, Denies syncope and Denies weakness Psych Denies confusion Physical Exam Vital Signs: Last Vital Signs Pulse 72 08/18/23 10:23 BP 140/90 H 08/18/23 11:16 Pulse Ox 98 08/18/23 10:23 Oxygen Delivery Method Room Air 08/18/23 10:23 BMI result Body Mass Index 23.5 Const General: No confusion Orientation/consciousness: No confusion HEENT Head: Yes normocephalic Ears: external ears normal and TM's normal bilaterally Face and sinus: Yes normal facial exam Mouth: moist mucous membranes Throat: Yes tonsils normal Eyes Conjunctivae: conjunctivae normal Pupils: Equal, round and reactive pupils present and Pupil accommodation reflex normal Direct Ophthalmoscopy: normal light reflex Neck Neck: No lymphadenopathy Thyroid: Thyroid normal Chest Chest palpation & inspection: normal inspection of the chest Resp Effort & Inspection: normal respiratory effort and no audible wheezes Auscultation: clear to auscultation bilaterally, no crackles, no wheezes and lung sounds not diminished Cardio Rate: regular rate Rhythm: regular rhythm Peripheral pulses: radial pulses present and dorsalis pedis present GI Palpation (GI): no masses Auscultation: normal bowel sounds and normoactive bowel sounds Rectal Exam - Female: deferred Skin General skin exam: no rashes or lesions noted Rashes: no rashes Neuro General: No confusion Cranial nerves: Yes Equal, round and reactive pupils present and Yes Normal hearing present Cognition (Neuro): normal cognition Gait exam (Neuro): Normal gait present Motor exam (neuro): 5/5 motor strength present throughout Deep tendon reflexes (DTR's): Right brachioradialis reflex intensity grade: 2+, Left brachioradialis reflex intensity grade: 2+, Right patellar reflex intensity grade: 2+ and Left patellar reflex intensity grade: 2+ Extrem General: No edema Assessment & Plan Assessment & Plan (1) Medicare annual wellness visit, initial: Code(s): Z00.00 - Encounter for general adult medical examination without abnormal findings (2) Hypertension: Code(s): I10 - Essential (primary) hypertension Qualifiers: Hypertension type: essential hypertension Qualified Code(s): I10 - Essential (primary) hypertension Plan: Continue with blood pressure medication. Decrease salt intake and exercise patient on atenolol 75 mg once a day (3) Hypothyroidism: Code(s): E03.9 - Hypothyroidism, unspecified Qualifiers: Hypothyroidism type: acquired Qualified Code(s): E03.9 - Hypothyroidism, unspecified Plan: Continue with thyroid medication January 2023 last blood work (4) Hypertriglyceridemia: Code(s): E78.1 - Pure hyperglyceridemia Plan: Avoid fried foods, chicken skin, eggs, butter margarine, pastries and meat. Be it pork or beef they have a lot of cholesterol January 2023 last blood work LDL goal of less than 130 and triglyceride of less than 150 (5) Osteoporosis: Comment: August 2022 Code(s): M81.0 - Age-related osteoporosis without current pathological fracture Plan: Continue with calcium and vitamin-D and discussion about medications for bone strengthening Medications: Refilled levothyroxine 100 mcg PO DAILY 90 days 90 tabs 3RF E03.9 - Hypothyroidism, unspecified atenolol 75 mg (1.5 x 50 mg) PO DAILY 90 days 135 tabs 3RF I10 - Essential (primary) hypertension Quality Reporting (2019) Depression/Bipolar (159/160/161/177) PHQ-9: Total score: 1 Coding Level of Care Code Medicare Subsequent (G0439) Diagnoses Medicare annual wellness visit, initial Z00.00 Essential hypertension I10 Hypertension type: essential hypertension Acquired hypothyroidism E03.9 Hypothyroidism type: acquired Hypertriglyceridemia E78.1 Osteoporosis M81.0
[2023-08-18 11:16] VITALS: BP 140/90
== END 2023-08-18 11:44 | disposition home or self-care (01) ==
PROVIDERS: Visit Provider Internal Medicine
DX: Z00.00 Encounter for general adult medical examination without abnormal findings (principal); I10 Essential (primary) hypertension; E03.9 Hypothyroidism, unspecified; E78.1 Pure hyperglyceridemia; M81.0 Age-related osteoporosis without current pathological fracture; Z86.011 Personal history of benign neoplasm of the brain
CPT/HCPCS: G0439

== ENCOUNTER 2023-08-31 11:58 | Outpatient (REF) | payer MEDICARE, SELFPAY ==
[2023-08-31 14:32] LABS: Blood Urea Nitrogen 17 mg/dL (9-16); Estimated Glomerular Filt Rate > 60
[2023-09-01 09:49] LABS: Carbohydrate Antigen 19-9 16 U/mL (<34)
== END 2023-08-31 11:59 | disposition home or self-care (01) ==
LOC: HO.10HDL 11:58
PROVIDERS: Visit Provider Internal Medicine
DX: K86.2 Cyst of pancreas (principal)
CPT/HCPCS: 36415; 82565; 84520; 86301

== ENCOUNTER 2023-09-15 08:43 | Outpatient (REF) | payer MEDICARE, SELFPAY ==
[2023-09-15] MEDS: iohexoL 350 MG/ML 100 ML INFUS..BTL 85 ML IV (11:31)
== END 2023-09-15 08:44 | disposition home or self-care (01) ==
LOC: HO.CT 08:43
PROVIDERS: PCP Internal Medicine; Visit Provider Internal Medicine
DX: K86.2 Cyst of pancreas (principal)
CPT/HCPCS: 74177; Q9967

== ENCOUNTER 2023-12-23 11:10 | Outpatient (AMB) | payer MEDICARE, SELFPAY ==
[2023-12-23 11:12] VITALS: BP 144/78; PULSE 72; O2SAT 97; BMI 23.3
--- NOTE | 2023-12-23 11:12 | A.OFFPC_ITS ---
Vital Signs 12/23/23 11:12 Height 5 ft 5 in Weight 140 lb 0.8 oz BMI 23.3 BP 144/78 H Blood Pressure Location Lt brachial Position Sitting Pulse 72 Pulse Source Pulse Oximeter Pulse Oximetry (%) 97 Oxygen Delivery Method Room Air Intake Visit Reasons: Follow up Intake Note: Patient is here to follow up Tallow Pumper Required: No Allergies No Known Allergies Allergy (Verified 12/23/23 11:12) Tobacco use date assessed: 12/23/23 Fall risk assessment: No Falls in past year Last assessed Fall Risk: 12/23/23 Dental Screening Dental Screen Date: 12/23/23 Did you have a dental visit in the last 12 months?: Yes Did you have a dental problem in the last 6 months where you did not have access to dental care?: No Was dental information given to patient?: Patient has dentist HPI Follow up HPI Details 83-year-old female with hypertension, hy pothyroidism hypercholesterolemia osteoporosis last seen in July 2023. Patient's bone density is due in July 2024. Mammogram is up-to-date. Review of the notes in September [address] scan of the abdomen due to concerns about pancreatic cyst in comparison to April 2022. Assessment.: Stable cystic focus of the pancreatic head 1 x 0.7 cm noted mesenteric lymph nodes abdomen question of mesenteric adenitis/panniculitis. Small hiatal hernia colonic diverticulosis pelvic venous insufficiency grade 2 anterolisthesis L4-L5 stable superior endplate compression deformity of the L2 [facility] Medical History (Updated 12/23/23 @ 11:25 by Claudia Smalls MD) Osteopenia COVID-19 virus infection Ganglion, left wrist Skin lump of arm Cervical spinal stenosis Hypertriglyceridemia Meningioma Hypothyroidism Hypertension Polymyalgia rheumatica Surgical History History of colonoscopy History of tonsillectomy and adenoidectomy History of tubal ligation Family History Father Alzheimers disease Mother Breast cancer Maternal Grandmother CVD (cardiovascular disease) Maternal Grandfather No problems noted. Paternal Grandmother CVD (cardiovascular disease) Paternal Grandfather No problems noted. Social History (Updated 08/18/23 @ 11:27 by Claudia Smalls MD) Housing: Condominium Alcohol intake: current Alcohol intake frequency: a few times a week Alcohol type: wine Comment: 3x a week 2 glasses Patient Tobacco Use Status: Former Tobacco user Tobacco use type: Cigarette Years Smoked: 1979 e-Cigarette/Vaping Use: Never Used Second Hand Smoke Exposure: Yes service: No 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al status: retired Cognitive needs: No Hearing needs: No Vision needs: Yes (Glasses) Questionnaire Thrive Questionnaire Date Thrive assessed: 02/09/23 AUDIT C Alcohol Use Questionnaire (AUDIT-C) 1. How often do you have a drink containing alcohol?: Monthly or less 2. How many drinks containing alcohol do you have on a typical day when you are drinking?: 1 or 2 3. How often do you have six or more drinks on one occasion?: Never Total Score: 1 Score Reviewed/Action Taken: Yes SILVIA-7 AMB Questionnaire SILVIA-7 Date SILVIA - 7 assessed: 02/09/23 Source: Developed by Drs. Franklyn Gutiérrez, Ariane Walsh, Handy Helm and colleagues, with an educational elayne from [employer]. Physical exam (Primary Care) Vital Signs: Last Vital Signs Pulse 72 12/23/23 11:12 BP 144/78 H 12/23/23 11:12 Pulse Ox 97 12/23/23 11:12 Oxygen Delivery Method Room Air 12/23/23 11:12 BMI result Body Mass Index 23.3 Tobacco/Smoking Status: Tobacco use Status Tobacco use date assessed 12/23/23 12/23/23 11:20 Patient Tobacco Use Status Former Tobacco user 12/23/23 11:20 Tobacco use type Cigarette 12/23/23 11:20 e-Cigarette/Vaping Use Never Used 12/23/23 11:20 Thrive Assessment: Date of Thrive Assessment Date Thrive assessed 02/09/23 12/23/23 11:20 Const General: alert; No acute distress Eyes Conjunctivae: conjunctivae normal Resp Auscultation: clear to auscultation bilaterally Cardio Rate: regular rate Rhythm: regular rhythm GI Inspection: Yes normal to inspection Extrem General: Yes normal to inspection and No edema Assessment and Plan Assessment & Plan (1) Pancreatic cyst: Comment: April 2022, September 2023 stable 1 x 0.7 cm Code(s): K86.2 - Cyst of pancreas Plan: September 2023 MRI done stable (2) Hypertension: Code(s): I10 - Essential (primary) hypertension Qualifiers: Hypertension type: essential hypertension Qualified Code(s): I10 - Essential (primary) hypertension Plan: Continue with blood pressure medication. Decrease salt intake and exercise on atenolol 75 mg once a day. Advised to monitor the BP and record (3) Hypothyroidism: Code(s): E03.9 - Hypothyroidism, unspecified Qualifiers: Hypothyroidism type: acquired Qualified Code(s): E03.9 - Hypothyroidism, unspecified Plan: Continue with thyroid medication advised blood work (4) Osteoporosis: Comment: August 2022 Code(s): M81.0 - Age-related osteoporosis without current pathological fracture Plan: Continue with calcium and vitamin-D. (5) Ganglion, left wrist: Code(s): M67.432 - Ganglion, left wrist Plan: reassurance Orders: Orders Complete Blood Count Auto Diff Today E03.9 - Hypothyroidism, unspecified Lipid Panel Today E03.9 - Hypothyroidism, unspecified, E78.00 - Pure hypercholesterolemia, unspecified Vitamin D 25-OH Total Today E03.9 - Hypothyroidism, unspecified Comprehensive Met. Panel Today E03.9 - Hypothyroidism, unspecified Free T4 (Free Thyroxine) Today E03.9 - Hypothyroidism, unspecified Thyroid Stimulating Hormone Today E03.9 - Hypothyroidism, unspecified Vitamin B12 and Folate Today E03.9 - Hypothyroidism, unspecified Coding Level of Care Code Est Pt Level 4 (53536) Diagnoses Pancreatic cyst K86.2 Essential hypertension I10 Hypertension type: essential hypertension Acquired hypothyroidism E03.9 Hypothyroidism type: acquired Osteoporosis M81.0 Ganglion, left wrist M67.432
== END 2023-12-23 11:44 | disposition home or self-care (01) ==
PROVIDERS: PCP Internal Medicine; Visit Provider Internal Medicine
DX: K86.2 Cyst of pancreas (principal); I10 Essential (primary) hypertension; E03.9 Hypothyroidism, unspecified; M81.0 Age-related osteoporosis without current pathological fracture; M67.432 Ganglion, left wrist
CPT/HCPCS: 99214

== ENCOUNTER 2024-02-11 10:15 | Outpatient (REF) | payer MEDICARE, SELFPAY ==
[2024-02-11 13:12] LABS: MANUAL DIFF FLAG NO
[2024-02-11 13:28] LABS: Basophils Absolute Auto 0.1 X10*3/uL (0.0-0.2); Basophils Percent Auto 0.8 % (0-2); Eosinophils Absolute Auto 0.1 X10*3/uL (0.0-0.4); Eosinophils Percent Auto 1.6 % (0-4); Hemoglobin 13.4 g/dl (12.0-16.0); Imm Gran Abs Auto 0.02 X10*3/uL (0.00-0.03); Imm Gran Pct Auto 0.3 % (0.0-0.4); Lymphocytes Absolute Auto 2.2 X10*3/uL (1.2-4.9); Lymphocytes Percent Auto 35.9 % (20-40); Mean Corpuscular HGB Conc 33.5 g/dl (31.0-35.0); Mean Corpuscular Hemoglobin 32.7 pg (27.0-33.0); Mean Corpuscular Volume 97.6 fL (80.0-98.0); Mean Platelet Volume 10.4 fL (9.4-12.3); Monocytes Absolute Auto 0.5 X10*3/uL (0.1-1.2); Monocytes Percent Auto 8.4 % (2-11); Neutrophils Absolute Auto 3.3 x10*3/uL (2.0-8.3); Platelet Count 286 X10*3/uL (160-400); Red Cell Distribution Width 12.7 % (11.0-16.0); White Blood Count 6.2 X10*3/uL (4.8-10.8)
[2024-02-11 13:47] LABS: Alanine Aminotransferase 14 U/L (0-31); Albumin Level 4.1 g/dL (3.5-5.0); Alkaline Phosphatase 59 U/L (39-117); Anion Gap 11 (12-20); Aspartate Amino Transferase 23 U/L (5-31); Bilirubin Total 0.9 mg/dL (0.0-1.0); Blood Urea Nitrogen 13 mg/dL (9-16); Calcium 9.8 mg/dL (8.4-10.2); Carbon Dioxide 27 mmol/L (22-29); Chloride 107 mmol/L (96-108); Cholesterol 145 mg/dL (<200); Estimated Glomerular Filt Rate > 60; Glucose Random 98 mg/dL (60-115); HDL Cholesterol 72 mg/dL (>40); LDL Cholesterol Calculated 55 mg/dL (<100); Potassium 4.1 mmol/L (3.3-5.1); Sodium 141 mmol/L (135-145); Total Protein 7.7 g/dL (6.5-8.0); Triglycerides 93 mg/dL (<150)
[2024-02-11 14:11] LABS: Free T4 (Free Thyroxine) 1.31 ng/dL (0.71-1.85); Thyroid Stimulating Hormone 0.65 uIU/mL (0.32-4.0); Vitamin D 25-OH Total 45.1 ng/mL (>30)
[2024-02-11 14:12] LABS: Folate 9.6 ng/mL (> or = 4.0); Vitamin B12 343 pg/mL (200-900)
== END 2024-02-11 10:16 | disposition home or self-care (01) ==
LOC: HO.10HDL 10:15
PROVIDERS: Visit Provider Internal Medicine
DX: E03.9 Hypothyroidism, unspecified (principal); E78.00 Pure hypercholesterolemia, unspecified
CPT/HCPCS: 36415; 80053; 80061; 82306; 82607; 82746; 84439; 84443; 85025

== ENCOUNTER 2024-05-05 09:22 | Outpatient (AMB) | payer MEDICARE, SELFPAY ==
[2024-05-05 09:24] VITALS: BP 138/76; PULSE 74; O2SAT 99; BMI 23.3
--- NOTE | 2024-05-05 09:25 | MHC.PC.OV ---
Vital Signs 05/05/24 09:24 Height 5 ft 5 in Weight 140 lb 0.2 oz BMI 23.3 BP 138/76 Blood Pressure Location Lt brachial Position Sitting Pulse 74 Pulse Source Pulse Oximeter Pulse Oximetry (%) 99 Oxygen Delivery Method Room Air Intake Visit Reasons: Hypertension Outreach Representative Required: No Allergies No Known Allergies Allergy (Verified 05/05/24 09:25) Medication List - Last Reconciled 05/05/24 by Claudia Smalls MD atenolol 50 mg PO DAILY 90 days calcium carbonate-vitamin D3 600 mg-5 mcg (200 unit) caps PO collagen (bovine) 100% 1 appl topical DAILY cranberry 400 mg PO DAILY levothyroxine 100 mcg PO DAILY 90 days [id number]-egs-Tb-mdy-vxlht 500 mcg- 750 mg (Nicotinamide (with chromium)) 1 tab PO DAILY Tobacco use date assessed: 12/23/23 Fall risk assessment: No Falls in past year Last assessed Fall Risk: 05/05/24 Dental Screening Dental Screen Date: 12/23/23 HPI Hypertension HPI Details 83-year-old female with hypertension, hypothyroidism osteoporosis coming in for follow-up. December 2023 last seen patient's bone density is up-to-date 09/08/2022 mammogram is up-to-date. 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 patient brought in BP machine. BP at home is < 110 SBP [facility] Medical History (Updated 12/23/23 @ 11:25 by Claudia Smalls MD) Osteopenia COVID-19 virus infection Ganglion, left wrist Skin lump of arm Cervical spinal stenosis Hypertriglyceridemia Meningioma Hypothyroidism Hypertension Polymyalgia rheumatica Surgical History History of colonoscopy History of tonsillectomy and adenoidectomy History of tubal ligation Family History Father Alzheimers disease Mother Breast cancer Maternal Grandmother CVD (cardiovascular disease) Maternal Grandfather No problems noted. Paternal Grandmother CVD (cardiovascular disease) Paternal Grandfather No problems noted. Social History (Updated 08/18/23 @ 11:27 by Claudia Smalls MD) [facility]: [facility] Alcohol intake: current Alcohol intake frequency: a few times a week Alcohol type: wine Comment: 3x a week 2 glasses Patient Tobacco Use Status: Former Tobacco user Tobacco use type: Cigarette Years Smoked: 1979 e-Cigarette/Vaping Use: Never Used Second Hand Smoke Exposure: Yes service: No 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al status: retired Cognitive needs: No Hearing needs: No Vision needs: Yes (Glasses) Questionnaire Thrive Questionnaire Date Thrive assessed: 02/09/23 AUDIT C Alcohol Use Questionnaire (AUDIT-C) 1. How often do you have a drink containing alcohol?: Monthly or less 2. How many drinks containing alcohol do you have on a typical day when you are drinking?: 1 or 2 3. How often do you have six or more drinks on one occasion?: Never Total Score: 1 Score Reviewed/Action Taken: Yes SILVIA-7 AMB Questionnaire SILVIA-7 Date SILVIA - 7 assessed: 02/09/23 Source: Developed by Drs. Franklyn Gutiérrez, Ariane Walsh, Handy Helm and colleagues, with an educational elayne from [employer]. Physical exam (Primary Care) Vital Signs: Last Vital Signs Pulse 74 05/05/24 09:24 BP 138/76 05/05/24 09:24 Pulse Ox 99 05/05/24 09:24 Oxygen Delivery Method Room Air 05/05/24 09:24 BMI result Body Mass Index 23.3 Tobacco/Smoking Status: Tobacco use Status Tobacco use date assessed 12/23/23 05/05/24 09:26 Patient Tobacco Use Status Former Tobacco user 05/05/24 09:26 Tobacco use type Cigarette 05/05/24 09:26 e-Cigarette/Vaping Use Never Used 05/05/24 09:26 Thrive Assessment: Date of Thrive Assessment Date Thrive assessed 02/09/23 05/05/24 09:26 Const General: alert; No acute distress Eyes Conjunctivae: conjunctivae normal Resp Auscultation: clear to auscultation bilaterally Cardio Rate: regular rate Rhythm: regular rhythm GI Inspection: Yes normal to inspection Extrem General: Yes normal to inspection and No edema Assessment and Plan Assessment & Plan (1) Hypertension: Code(s): I10 - Essential (primary) hypertension Qualifiers: Hypertension type: essential hypertension Qualified Code(s): I10 - Essential (primary) hypertension Plan: Continue with blood pressure medication. Decrease salt intake and exercise atenolol 75 mg once a but decrease to 50 mg QD (2) Hypothyroidism: Code(s): E03.9 - Hypothyroidism, unspecified Qualifiers: Hypothyroidism type: acquired Qualified Code(s): E03.9 - Hypothyroidism, unspecified Plan: continue with thyroid med (3) Hypertriglyceridemia: Code(s): E78.1 - Pure hyperglyceridemia Plan: resolved Medications: Changed From atenolol 75 mg (1.5 x 50 mg) PO DAILY 90 days 135 tabs 3RF I10 - Essential (primary) hypertension To atenolol 50 mg PO DAILY 90 tabs 3RF 90 days I10 - Essential (primary) hypertension Coding Level of Care Code Est Pt Level 4 (61975) Diagnoses Essential hypertension I10 Hypertension type: essential hypertension Acquired hypothyroidism E03.9 Hypothyroidism type: acquired Hypertriglyceridemia E78.1
== END 2024-05-05 10:16 | disposition home or self-care (01) ==
PROVIDERS: PCP Internal Medicine; Visit Provider Internal Medicine
DX: I10 Essential (primary) hypertension (principal); E03.9 Hypothyroidism, unspecified; E78.1 Pure hyperglyceridemia
CPT/HCPCS: 99214

== ENCOUNTER 2024-05-07 16:46 | Inpatient (IN) | payer MEDICARE, SELFPAY ==
--- NOTE | ~2024-05-07 | MR_ITS ---
EXAMINATION: MR ABDOMEN WITHOUT CONTRAST CLINICAL INFORMATION: Dilated common duct. Evaluate for common duct stone. Abdominal pain. COMPARISON: Abdomen CT from 04/28/2021, 04/22/2022, 09/15/2023 and 05/07/2024. Ultrasound from 05/07/2024. TECHNIQUE: MR imaging examination of the abdomen is performed on a high-field magnet without use of intravenous contrast. The examination includes heavily T2-weighted MRCP sequences. FINDINGS: LUNG BASES: Trace right pleural effusion and mild atelectasis in posterior right lower lobe. LIVER: Liver has normal size, contour and parenchymal signal. No evidence of liver mass, cirrhotic morphology or steatosis. GALLBLADDER AND BILIARY TREE: Again noted is mild gallbladder hydrops. There is no edema within the gallbladder wall. No cholelithiasis. The common bile duct is chronically dilated. It currently measures up to 1.3 cm transverse diameter and has normal smooth contour. No focal ductal stricture or choledocholithiasis. The common duct previously measured up to 1 cm diameter on 04/28/2021, 04/22/2022 and 09/15/2023. PANCREAS: Pancreatic and peripancreatic edema from acute interstitial pancreatitis without focal organized peripancreatic collection. No pancreatic divisum. There is no evidence of a pancreatic head mass. The pancreatic duct is normal in size and measures up to 3-4 mm diameter. A simple cyst within the superior pancreatic body is 1.3 cm maximum dimension and is closely juxtaposed to the nondilated pancreatic duct; however, no overtly visible communication between this cyst and the duct. This simple cyst has a stable appearance compared to 04/28/2021 and 04/22/2022. SPLEEN: Normal. ADRENAL GLANDS: Normal. KIDNEYS: Kidneys are normal in size. No hydronephrosis. BOWEL AND PERITONEUM: No dilated bowel loops. Small amount of free fluid is present within the abdomen. There is edema of mesenteric fat in this patient with acute pancreatitis. VASCULATURE: Abdominal aorta is normal in caliber. Inferior vena cava is normal. LYMPH NODES: No pathologic sized lymph nodes in the abdomen. 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 MR/MR MRCP IMPRESSION: * Acute interstitial pancreatitis with abdominal ascites. No organized peripancreatic fluid collection. * Again noted is mild gallbladder hydrops. No evidence of cholelithiasis or choledocholithiasis. The common bile duct is chronically dilated and currently measures 1.3 cm transverse diameter compared to 1 cm on 09/15/2023. There is no evidence of an obstructing pancreatic head or ampullary lesion. * A small simple cyst within the superior pancreatic body is stable compared to 04/28/2021.
--- NOTE | ~2024-05-07 | US_ITS ---
EXAMINATION: US ABDOMEN LIMITED CLINICAL INFORMATION: Abdominal pain; question cholecystitis or pancreatitis. COMPARISON: CT abdomen and pelvis dated 05/07/2024. TECHNIQUE: Real-time imaging of the right upper quadrant abdominal viscera. FINDINGS: PANCREAS: Limited. The visualized pancreatic head and body are normal in appearance. The remainder of the pancreas is obscured from visualization by the overlying bowel gas. LIVER: Normal. The liver is normal in size. The liver contour is normal. Parenchymal echogenicity is normal. No focal hepatic lesion. There is mild intrahepatic biliary duct dilatation seen. GALLBLADDER: Normal. The gallbladder is physiologically distended without evidence of stones, sludge, polyps, wall thickening or pericholecystic fluid. COMMON BILE DUCT: Increased in caliber, measuring 1.4 cm in diameter. RIGHT KIDNEY: At the interpolar aspect, an 8 mm benign, simple cyst is seen, for which no imaging follow-up is recommended. No hydronephrosis. No renal calculi or focal parenchymal lesions. The kidney measures 10.5 cm in maximum dimension. FREE FLUID: There is minimal perihepatic and pericholecystic ascites. US/US abdomen limited IMPRESSION: The gallbladder is mildly hydropic. There is mild pericholecystic and perihepatic ascites. Common bile duct dilatation is noted to 1.4 cm, and is there is mild intrahepatic biliary ductal dilatation. No obstruction pancreatic mass or choledocholithiasis is seen. Consider further evaluation with abdominal MRI/MRCP.
--- NOTE | ~2024-05-07 | CT_ITS ---
EXAMINATION: CT ABDOMEN AND PELVIS WITH CONTRAST CLINICAL INFORMATION: Abdominal pain, new pancreatitis COMPARISON: CT abdomen/pelvis 09/15/2023 TECHNIQUE: Multiple axial images were obtained from the superior aspect of the liver through the pubic symphysis after the administration of 85 mL of intravenous Omnipaque. Images were evaluated on independent dedicated 3-D workstation and 3-D images were reconstructed with concurrent radiologist supervision and subsequently interpreted. Oral contrast was not administered. This CT examination was performed using dose optimization techniques as appropriate, variously including the following: *Automated exposure control *Adjustment of mA and/or kV according to patient size (this includes techniques or standardized protocols for targeted exams where dose is matched to indication/reason for exam; i.e. extremities or head) *Use of iterative reconstruction technique DLP: 4 7 mGy-cm FINDINGS: LUNG BASES: Hypoventilatory changes. CARDIOMEDIASTINUM: The visualized heart is normal in size without pericardial effusion. No coronary artery calcification. LIVER: Homogeneous in attenuation. Normal in size. GALLBLADDER: Hydropic. Trace pericholecystic fluid, particularly at the tip. Dependently layering gallstones BILIARY SYSTEM: Mild intrahepatic biliary ductal dilation. CBD measures 1 cm. PANCREAS: Homogeneous in attenuation without contour deforming masses. Peripancreatic edema consistent with pancreatitis. SPLEEN: Normal in size. GENITOURINARY: Bilateral kidneys demonstrate symmetric enhancement. No perinephric fluid collection. No renal calculi. No hydroureteronephrosis. ADRENAL GLANDS: Unremarkable. REPRODUCTIVE: Uterus and and bilateral adnexa are unremarkable. GASTROINTESTINAL: The visualized alimentary tract is normal in course. No evidence of obstruction. APPENDIX: The appendix is seen in its entirety and is unremarkable. PERITONEUM: No pneumoperitoneum. No intra-abdominal fluid collection. VASCULATURE: The abdominal aorta is normal in course and caliber. LYMPH NODES: No pathologically enlarged abdominal or pelvic lymph nodes. SOFT TISSUES/MUSCULOSKELETAL: Severe multilevel degenerative changes of the lumbar spine, worst at L4-L5 where there is grade 1 anterolisthesis severe bilateral neural foraminal stenosis. No acute fractures or focal CT/CT abdomen pelvis w IV con IMPRESSION: 1. Acute pancreatitis. 2. Hydropic and fluid-filled gallbladder with trace pericholecystic fluid, dilated CBD, mildly dilated intrahepatic ducts. These findings may represent early cholecystitis from Mirizzi physiology as a result of extrinsic sherri-pancreatic edema. Fleischner guidelines were followed.
--- NOTE | 2024-05-07 16:53 | ED_ITS ---
HPI - Abdominal Pain General Chief Complaint: Abdominal Pain Stated Complaint: abd pain Time Seen by Provider: 05/07/24 18:08 Source: patient, family (daughter) and RN notes reviewed Limitations: no limitations History of Present Illness HPI narrative: 83-year-old female who has a history of hypothyroidism, hypertension, presents for evaluation of abdominal pain. Patient states that around noon time, the patient was eating a banana and black Nilesh cobbler where shortly after she began to have sharp, mid abdominal pain. She has also had nausea and vomiting. The pain has been constant and is progressively worsening since that time. She denies any diarrhea. No sick contacts. She has not tried any medication for this. The patient has otherwise been feeling well. She has been eating and drinking normally. She denies any URI symptoms. Related Data Home Medications ?Medication ?Instructions ?Recorded ?Confirmed calcium carbonate 600 mg-vitamin 1 cap PO DAILY 11/21/20 05/08/24 D3 5 mcg (200 unit) capsule levomefolate 500 mcg-niacinamide 1 tab PO DAILY 01/05/22 05/08/24 750 jc-kvzfzp-Fw-selen-chrom tablet (Nicotinamide (with chromium)) cranberry 400 mg capsule 400 mg PO DAILY 02/09/23 05/08/24 levothyroxine 100 mcg tablet 100 mcg PO MOTUWETHFRSA 05/08/24 05/08/24 Previous Rx's ?Medication ?Instructions ?Recorded atenolol 50 mg tablet 50 mg PO DAILY 90 days #90 tabs 05/05/24 Allergies Allergy/AdvReac Type Severity Reaction Status Date / Time No Known Allergies Allergy Verified 05/07/24 16:56 Review of Systems Constitutional: Denies chills and Denies fever(s) Eyes: Denies change in vision and Denies other (No redness.) Cardiovascular: Denies chest pain, Denies palpitations, Denies dyspnea, Denies dyspnea on exertion and Denies orthopnea Respiratory: Denies cough, Denies dyspnea and Denies dyspnea on exertion Gastrointestinal: Reports abdominal pain, Denies melena, Reports bloating, Denies hematochezia, Denies diarrhea, Reports nausea and Reports vomiting Genitourinary: Denies dysuria and Denies urinary urgency Musculoskeletal: Denies back pain, Denies muscle weakness and Denies numbness Denies focal weakness and Denies numbness Psychiatric: Denies depression Endocrine: Denies palpitations [facility] Past Medical History Medical History Osteopenia COVID-19 virus infection Ganglion, left wrist Skin lump of arm Cervical spinal stenosis Hypertriglyceridemia Meningioma Hypothyroidism Hypertension Polymyalgia rheumatica Surgical History History of colonoscopy History of tonsillectomy and adenoidectomy History of tubal ligation Family History Family History Father Alzheimers disease Mother Breast cancer Maternal Grandmother CVD (cardiovascular disease) Maternal Grandfather No problems noted. Paternal Grandmother CVD (cardiovascular disease) Paternal Grandfather No problems noted. Social History Social History Household Members: None Housing: Condominium Alcohol intake: current Alcohol intake frequency: a few times a week Alcohol type: wine Comment: 3x a week 2 glasses Patient Tobacco Use Status: Former Tobacco user Tobacco use type: Cigarette Years Smoked: 1979 e-Cigarette/Vaping Use: Never Used Second Hand Smoke Exposure: Yes Advance Directives Date on File: 05/08/24 service: No 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al status: retired Cognitive needs: No Hearing needs: No Vision needs: Yes (Glasses) Physical Exam ED Vital Signs: Vital Signs - 24 hr 05/07/24 16:54 Temperature 97.6 F Pulse Rate 70 Respiratory Rate 18 Blood Pressure 142/78 H Pulse Oximetry 100 Oxygen Delivery Method Room Air BMI result Body Mass Index 23.0 Well-appearing and nontoxic. Appears to be uncomfortable Resp Auscultation: clear to auscultation bilaterally Cardio Rate: regular rate Rhythm: regular rhythm GI Other: Abdomen is soft. There is mid upper and mid abdominal tenderness. There is no right upper quadrant tenderness. No Llanos's sign. No peritoneal signs. No CVAT. Extrem Other: No calf tenderness or pedal edema Course Course Course Narrative: This is a Rapid Medical Exam performed in triage by Zulma Mancera PA-C. Full HPI, ROS and PE to be performed by primary ED provider. 83yo F w/PMHx hypothyroid, HTN, HLD, presenting to the ED c/o epigastric abdominal pain radiating to back after eating banana and blackberry cobbler with associated nausea and vomiting. States emesis looked red, ?blood. denies CP/SOB PE: abdomen soft w/epigastric / RUQ ttp, no CVAT Plan: EKG, labs, UA Reevaluation(s) Reevaluation #1: 7:[address] Tripathi made aware of the patient. Workup continues. 8:00 p.m. patient with leukocytosis of 13. Urinalysis unremarkable. Viral swab testing is pending at this time. CT results pending at this time. We will also order ultrasound with attention to the gallbladder for additional detail. 10:[address] returned confirming acute pancreatitis. Also comments regarding changes to the gallbladder, no stones. Ultrasound results are pending at this time. Dr. Tripathi notified. Discussed with Dr. Aguilar. Medical Decision Making Medical Decision Making [facility] Narrative: 83-year-old female who has a history of hypothyroidism, hypertension and hyper triglyceridemia presents with rather abrupt onset of abdominal pain and nausea and vomiting. Found to have lipase greater than 3000. This is new for the patient. She does have a history of pancreatic cysts which has been monitored by her PCP, last CT scan demonstrating stable cyst in August of 2023. Check CT today. IV fluids and antiemetics as well as analgesia. Patient will likely need to be brought into the hospital for further evaluation and management. Previous imaging does not demonstrate any cholelithiasis and LFTs are normal therefore suspect lower suspicion for acute cholecystitis. Previous review of patient's lipid panel without significant elevation. Patient with no recent trauma, illness, or new medications. Differential Diagnosis Differential Diagnoses: The differential diagnosis associated with the presentation includes Malignancy Pancreatitis Cholecystitis Metabolic abnormality Viral syndrome Medication reaction Admission/Observation Consideration of admission/observation: Escalation of care including admission/observation considered Patient will likely be brought into the hospital for further evaluation management Consult Healthcare Provider Management of the patient was discussed with: Hospitalist Lab Data [facility] Lab Attestation statement: I reviewed the patient's lab results. 05/08/24 04:44 05/08/24 04:43 Labs: Lab Results 05/07/24 05/07/24 05/07/24 Range/Units 17:15 17:29 19:54 WBC 13.0 H (4.8-10.8) X10*3/uL RBC 4.38 (4.20-5.50) X10*6/uL Hgb 14.3 (12.0-16.0) g/dl Hct 42.1 (37.0-47.0) % MCV 96.1 (80.0-98.0) fL MCH 32.6 (27.0-33.0) pg MCHC 34.0 (31.0-35.0) g/dl RDW 12.9 (11.0-16.0) % Plt Count 270 (160-400) X10*3/uL MPV 9.7 (9.4-12.3) fL Immature Gran % (Auto) 0.5 H (0.0-0.4) % Neut % (Auto) 78.6 H (45-73) % Lymph % (Auto) 16.3 L (20-40) % [place] % (Auto) 4.1 (2-11) % Eos % (Auto) 0.3 (0-4) % Baso % (Auto) 0.2 (0-2) % Lymph # (Auto) 2.1 (1.2-4.9) X10*3/uL [place] # (Auto) 0.5 (0.1-1.2) X10*3/uL Eos # (Auto) 0.0 (0.0-0.4) X10*3/uL Baso # (Auto) 0.0 (0.0-0.2) X10*3/uL Abs Immat Gran (auto) 0.07 H (0.00-0.03) X10*3/uL Absolute Neuts (auto) 10.2 H (2.0-8.3) x10*3/uL Absolute Nucleated RBC 0.000 (0.0-0.012) X10*3/uL Nucleated RBC % (auto) 0.0 (0.0-0.2) /100WBC Sodium 142 (135-145) mmol/L Potassium 3.6 (3.3-5.1) mmol/L Chloride 105 (96-108) mmol/L Carbon Dioxide 22 (22-29) mmol/L Anion Gap 19 (12-20) BUN 15 (9-16) mg/dL Creatinine 0.80 (0.5-1.4) mg/dL Estim Creat Clear Calc 49.8 Estimated GFR > 60 Random Glucose 126 H (60-115) mg/dL Calcium 10.1 (8.4-10.2) mg/dL Magnesium 1.7 (1.6-2.6) mg/dL Total Bilirubin 1.0 (0.0-1.0) mg/dL Direct Bilirubin 0.3 (0.0-0.5) mg/dL AST 39 H (5-31) U/L ALT 23 (0-31) U/L Alkaline Phosphatase 64 (39-117) U/L Troponin I High Sens < 2.7 (<3.5-17.0) ng/L Total Protein 8.2 H (6.5-8.0) g/dL Albumin 4.3 (3.5-5.0) g/dL Triglycerides 143 (<150) mg/dL Lipase > 3000 H (8-78) U/L Urine Color Yellow Urine Appearance Clear Urine pH 5.5 (5.0-9.0) Ur Specific [place] 1.015 (1.005-1.025) Urine Protein Negative (Neg-Trace) mg/dL Urine Glucose (UA) Negative (Negative) mg/dL Urine Ketones Trace (Negative) mg/dL Urine Blood Negative (Negative) Urine Nitrite Negative (Negative) Ur Leukocyte Esterase Small (1+) H (Negative) Urine RBC 0-2 (0-2) /HPF Urine WBC 0-5 (0-5) /HPF Ur Squamous Epith Cells 0-2 (0-2) /HPF Urine Bacteria None Seen (None Seen) Hyaline Casts 0-2 (0-2) /LPF Influenza Type A (PCR) NEGATIVE (Negative) Influenza Type B (PCR) NEGATIVE (Negative) RSV RNA Qual (PCR) NEGATIVE (Negative) SARS-CoV-2 RNA (RT-PCR) NEGATIVE (Negative) Independent Interpretation I performed an independent interpretation of an: EKG Radiology Impression Discussion of test interpretation with radiology: I have reviewed the radiologist's reading. Radiologist Impression: [address] [address] [address] Scan Report Signed Patient: Tanisha Estrella MR#: [id number] : 1940 Acct:[id number] Age/Sex: 83 / F ADM Date: 05/07/24 Loc: HO.ED Attending Dr: Ordering Physician: Oliver Grimm Date of Service: 05/07/24 Procedure(s): CT abdomen pelvis w IV con Accession Number(s): [id number] cc: Claudia Smalls MD; Oliver Grimm~ EXAMINATION: CT ABDOMEN AND PELVIS WITH CONTRAST CLINICAL INFORMATION: Abdominal pain, new pancreatitis COMPARISON: CT abdomen/pelvis 09/15/2023 TECHNIQUE: Multiple axial images were obtained from the superior aspect of the liver through the pubic symphysis after the administration of 85 mL of intravenous Omnipaque. Images were evaluated on independent dedicated 3-D workstation and 3-D images were reconstructed with concurrent radiologist supervision and subsequently interpreted. Oral contrast was not administered. This CT examination was performed using dose optimization techniques as appropriate, variously including the following: *Automated exposure control *Adjustment of mA and/or kV according to patient size (this includes techniques or standardized protocols for targeted exams where dose is matched to indication/reason for exam; i.e. extremities or head) *Use of iterative reconstruction technique DLP: 4 7 mGy-cm FINDINGS: LUNG BASES: Hypoventilatory changes. CARDIOMEDIASTINUM: The visualized heart is normal in size without pericardial effusion. No coronary artery calcification. LIVER: Homogeneous in attenuation. Normal in size. GALLBLADDER: Hydropic. Trace pericholecystic fluid, particularly at the tip. Dependently layering gallstones BILIARY SYSTEM: Mild intrahepatic biliary ductal dilation. CBD measures 1 cm. PANCREAS: Homogeneous in attenuation without contour deforming masses. Peripancreatic edema consistent with pancreatitis. SPLEEN: Normal in size. GENITOURINARY: Bilateral kidneys demonstrate symmetric enhancement. No perinephric fluid collection. No renal calculi. No hydroureteronephrosis. ADRENAL GLANDS: Unremarkable. REPRODUCTIVE: Uterus and and bilateral adnexa are unremarkable. GASTROINTESTINAL: The visualized alimentary tract is normal in course. No evidence of obstruction. APPENDIX: The appendix is seen in its entirety and is unremarkable. PERITONEUM: No pneumoperitoneum. No intra-abdominal fluid collection. VASCULATURE: The abdominal aorta is normal in course and caliber. LYMPH NODES: No pathologically enlarged abdominal or pelvic lymph nodes. SOFT TISSUES/MUSCULOSKELETAL: Severe multilevel degenerative changes of the lumbar spine, worst at L4-L5 where there is grade 1 anterolisthesis severe bilateral neural foraminal stenosis. No acute fractures or focal CT/CT abdomen pelvis w IV con IMPRESSION: 1. Acute pancreatitis. 2. Hydropic and fluid-filled gallbladder with trace pericholecystic fluid, dilated CBD, mildly dilated intrahepatic ducts. These findings may represent early cholecystitis from Mirizzi physiology as a result of extrinsic sherri-pancreatic edema. Fleischner guidelines were followed. 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 History obtained from or confirmed by: Other (Daughter) External Record Review External record reviewed: Outpatient record, Prior outpatient labs and Primary care record Prescription Management I considered prescription management with: Pain Medication Chronic Conditions Patient?s care impacted by: Hypertension Medications Administered Generic Name Dose Route Start Last Admin Trade Name Freq PRN Reason Stop Dose Admin Enoxaparin Sodium 40 mg 05/07/24 22:00 05/07/24 22:36 Enoxaparin Sodium 40 Mg/0.4 Ml Syringe SUBCUT 40 mg Q24H MOIRA Administration Lactated Ringer's 1,000 mls @ 125 mls/hr 05/07/24 22:00 05/08/24 07:55 Lr IVCONT 0 mls/hr .Q8H MOIRA Infusion Melatonin 6 mg 05/07/24 22:00 05/08/24 03:40 Melatonin 3 Mg Tablet PO 6 mg BEDTIME PRN Administration Insomnia Sodium Chloride 3 ml 05/08/24 00:00 05/08/24 07:58 0.9 % Sodium Chloride Flush 3 Ml Syringe IVFLUSH Not Given QSHIFT MOIRA Discontinued Medications Generic Name Dose Route Start Last Admin Trade Name Freq PRN Reason Stop Dose Admin Sodium Chloride 1,000 mls @ 999 mls/hr 05/07/24 19:15 05/07/24 21:19 Ns IV 05/07/24 20:15 Infused .Q1H1M MOIRA Infusion Iohexol 85 ml 05/07/24 19:41 05/07/24 19:41 Iohexol 350 Mg/Ml 100 Ml Infus..Btl IV 05/07/24 19:42 85 ml ONCE ONE Administration Morphine Sulfate 4 mg 05/07/24 19:09 05/07/24 20:04 Morphine Sulfate 4 Mg/Ml Cartridge IVPUSH 05/07/24 19:10 4 mg ONCE ONE Administration Protocol Ondansetron HCl 4 mg 05/07/24 19:09 05/07/24 20:04 Ondansetron Hcl 4 Mg/2 Ml Vial IVPUSH 05/07/24 19:10 4 mg ONCE ONE Administration Discharge Plan Discharge Clinical Impression: Acute pancreatitis Qualifiers: Pancreatitis type: unspecified pancreatitis type Acute pancreatitis complication: no infection or necrosis Qualified Code(s): K85.90 - Acute pancreatitis without necrosis or infection, unspecified Patient Disposition: Admitted As Inpatient Interventions: Admission Worksheet (ED) Last Done: 05/08/24 07:50 Discharge Date/Time: 05/08/24 08:08
[2024-05-07 16:54] VITALS: BP 142/78; PULSE 70; RESP 18; TEMP 36.4; O2SAT 100; BMI 23.0
--- NOTE | 2024-05-07 16:56 | ECG_ITS ---
Test Reason : ABDOMINAL PAIN Blood Pressure : / mmHG Vent. Rate : 062 BPM Atrial Rate : 062 BPM P-R Int : 178 ms QRS Dur : 096 ms QT Int : 442 ms P-R-T Axes : 073 009 -06 degrees QTc Int : 448 ms Normal sinus rhythm ST & T wave abnormality, consider anterior ischemia Abnormal ECG When compared with ECG of 17-APR-2022 15:05, No significant change was found Referred By: Zulma Mancera Electronically Signed By:TRACY SIN
[2024-05-07 17:21] LABS: MANUAL DIFF FLAG NO
[2024-05-07 17:22] LABS: Basophils Percent Auto 0.2 % (0-2); Eosinophils Percent Auto 0.3 % (0-4); Hematocrit 42.1 % (37.0-47.0); Hemoglobin 14.3 g/dl (12.0-16.0); Imm Gran Abs Auto 0.07 X10*3/uL (0.00-0.03); Imm Gran Pct Auto 0.5 % (0.0-0.4); Lymphocytes Absolute Auto 2.1 X10*3/uL (1.2-4.9); Lymphocytes Percent Auto 16.3 % (20-40); Mean Corpuscular Hemoglobin 32.6 pg (27.0-33.0); Mean Corpuscular Volume 96.1 fL (80.0-98.0); Mean Platelet Volume 9.7 fL (9.4-12.3); Monocytes Absolute Auto 0.5 X10*3/uL (0.1-1.2); Monocytes Percent Auto 4.1 % (2-11); Neutrophils Absolute Auto 10.2 x10*3/uL (2.0-8.3); Neutrophils Percent Auto 78.6 % (45-73); Platelet Count 270 X10*3/uL (160-400); Red Blood Count 4.38 X10*6/uL (4.20-5.50); Red Cell Distribution Width 12.9 % (11.0-16.0)
[2024-05-07 17:42] LABS: Alanine Aminotransferase 23 U/L (0-31); Albumin Level 4.3 g/dL (3.5-5.0); Alkaline Phosphatase 64 U/L (39-117); Anion Gap 19 (12-20); Aspartate Amino Transferase 39 U/L (5-31); Bilirubin Direct 0.3 mg/dL (0.0-0.5); Blood Urea Nitrogen 15 mg/dL (9-16); Calcium 10.1 mg/dL (8.4-10.2); Carbon Dioxide 22 mmol/L (22-29); Chloride 105 mmol/L (96-108); Creatinine Clr Calc Pharmacy 49.8; Estimated Glomerular Filt Rate > 60; Glucose Random 126 mg/dL (60-115); Magnesium 1.7 mg/dL (1.6-2.6); Potassium 3.6 mmol/L (3.3-5.1); Sodium 142 mmol/L (135-145); Total Protein 8.2 g/dL (6.5-8.0)
[2024-05-07 17:45] LABS: Appearance Urine Clear; Color Urine Yellow; Glucose Urine UA Negative (Negative); Leukocyte Esterase Urine Small (1+) (Negative); Nitrite Urine Negative (Negative); PH 5.5 (5.0-9.0); Specific Gravity - Urine 1.015 (1.005-1.025); UMIC TRIGGER UACC YES; Urine Blood Negative (Negative); Urine Ketones Trace mg/dL (Negative); Urine Protein Negative (Neg-Trace)
[2024-05-07 17:47] LABS: Troponin-I High Sensitivity < 2.7 ng/L (<3.5-17.0)
[2024-05-07 17:52] LABS: Lipase > 3000 U/L (8-78)
[2024-05-07 18:11] LABS: Bacteria Urine None Seen (None Seen); Hyaline Casts Urine 0-2 /LPF (0-2); RBC Urine 0-2 /HPF (0-2); Squamous Epithelial Cell Urine 0-2 /HPF (0-2); UACC Culture Trigger YES; WBC Urine 0-5 /HPF (0-5)
[2024-05-07] MEDS: iohexoL 350 MG/ML 100 ML INFUS..BTL 85 ML IV (19:41)
[2024-05-07] MEDS: 0.9 % Sodium Chloride 1,000 ML 999 ML IV (19:59)
[2024-05-07] MEDS: ondansetron HCL 4 MG/2 ML VIAL IVPUSH (20:04)
[2024-05-07] MEDS: Morphine Sulfate 4 MG/ML CARTRIDGE IVPUSH (20:04)
[2024-05-07 20:36] LABS: Influenza A PCR NEGATIVE (Negative); Influenza B PCR NEGATIVE (Negative); Resp Syncy Virus RNA Qual PCR NEGATIVE (Negative); SARS COV2 PCR INHOUSE NEGATIVE (Negative)
[2024-05-07 20:50] LABS: Triglycerides 143 mg/dL (<150)
--- NOTE | 2024-05-07 22:01 | P.HPHOSP_ITS ---
History of Present Illness Date of Service: 05/07/24 Chief Complaint: Abdominal pain This is a 83-year-old female with pertinent history of hypertension, hypothyroidism who presents to the emergency department for evaluation of abdominal pain. Patient states it started on the day of presentation. She has been having epigastric pain since noon on the day of presentation that is intermittent and radiating to the back. The pain is sharp and without any relieving factors. Also has had multiple episodes of nonbloody emesis with nausea throughout the day. Unable to tolerate p.o. intake. No history of similar episodes of pancreatitis in the past. Patient states she had a mild abdominal discomfort a few years ago and had a CT scan done when she was told that she has a pancreatic cyst. Patient has been following up and states her cyst has been stable. No fever, chills, chest discomfort, palpitations, shortness of breath, changes in urinary or bowel habits. In the emergency department, lipase found to be elevated and imaging concerning for acute pancreatitis. Review of Systems 2 Constitutional: Constitutional: Reports fatigue, Reports malaise and Reports poor appetite Cardiovascular: Cardiovascular: Reports no additional cardiovascular complaints Respiratory: Respiratory: Reports no additional respiratory complaints Gastrointestinal: Gastrointestinal: Reports abdominal pain, Reports nausea and Reports vomiting Genitourinary: Genitourinary: Reports no additional female genitourinary complaints Endocrine: Endocrine: Reports fatigue [facility] Medical History Osteopenia COVID-19 virus infection Ganglion, left wrist Skin lump of arm Cervical spinal stenosis Hypertriglyceridemia Meningioma Hypothyroidism Hypertension Polymyalgia rheumatica Family History Father Alzheimers disease Mother Breast cancer Maternal Grandmother CVD (cardiovascular disease) Maternal Grandfather No problems noted. Paternal Grandmother CVD (cardiovascular disease) Paternal Grandfather No problems noted. Surgical History History of colonoscopy History of tonsillectomy and adenoidectomy History of tubal ligation Social [facility] Alcohol intake: current Alcohol intake frequency: a few times a week Alcohol type: wine Comment: 3x a week 2 glasses Patient Tobacco Use Status: Former Tobacco user Tobacco use type: Cigarette Years Smoked: 1979 e-Cigarette/Vaping Use: Never Used Second Hand Smoke Exposure: Yes Advance Directives: Yes Advance Directives Information Provided: No Advance Directives on File: No Nutrition Risks: No Nutritional Risk service: No 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al status: retired Cognitive needs: No Hearing needs: No Vision needs: Yes (Glasses) Meds Allergies Allergy/AdvReac Type Severity Reaction Status Date / Time No Known Allergies Allergy Verified 05/07/24 16:56 Home Medications ?Medication ?Instructions ?Recorded ?Confirmed ?Last Taken ?Type calcium carbonate 600 mg-vitamin cap PO 11/21/20 05/05/24 Unknown History D3 5 mcg (200 unit) capsule collagen (bovine) 100 % topical 1 appl topical DAILY 03/04/21 05/05/24 Unknown History powder levomefolate 500 mcg-niacinamide 1 tab PO DAILY 01/05/22 05/05/24 Unknown History 750 bg-hgnmbh-Nv-selen-chrom tablet (Nicotinamide (with chromium)) cranberry 400 mg capsule 400 mg PO DAILY 02/09/23 05/05/24 Unknown History Physical Exam 2 Vital Signs and Narrative: Vital Signs: Last Vital Signs Temp 97.6 F 05/07/24 16:54 Pulse 70 05/07/24 16:54 Resp 18 05/07/24 16:54 BP 142/78 H 05/07/24 16:54 Pulse Ox 100 05/07/24 16:54 O2 Del Method Room Air 05/07/24 16:54 BMI result Body Mass Index 23.0 Middle-aged female lying in bed in no distress Neck supple, no JVD Regular rate and rhythm, S1-S2 heard Regular breath sounds bilaterally, no wheezing or crackles appreciated Abdomen with epigastric tenderness, no rigidity, no rebound tenderness Patient is awake, alert and oriented to self, place, time and person ; no focal motor deficit Psych: Normal mood No pedal edema Results Labs 05/07/24 17:15 05/07/24 17:15 Labs: Laboratory Results - last 24 hr 05/07/24 05/07/24 05/07/24 17:15 17:29 19:54 MCV 96.1 MCH 32.6 MCHC 34.0 RDW 12.9 Plt Count 270 MPV 9.7 Immature Gran % (Auto) 0.5 H Neut % (Auto) 78.6 H Lymph % (Auto) 16.3 L [place] % (Auto) 4.1 Eos % (Auto) 0.3 Baso % (Auto) 0.2 Lymph # (Auto) 2.1 [place] # (Auto) 0.5 Eos # (Auto) 0.0 Baso # (Auto) 0.0 Abs Immat Gran (auto) 0.07 H Absolute Neuts (auto) 10.2 H Absolute Nucleated RBC 0.000 Nucleated RBC % (auto) 0.0 Anion Gap 19 Estim Creat Clear Calc 49.8 Estimated GFR > 60 Random Glucose 126 H Calcium 10.1 Magnesium 1.7 Total Bilirubin 1.0 Direct Bilirubin 0.3 AST 39 H ALT 23 Alkaline Phosphatase 64 Troponin I High Sens < 2.7 Total Protein 8.2 H Albumin 4.3 Triglycerides 143 Lipase > 3000 H Urine Color Yellow Urine Appearance Clear Urine pH 5.5 Ur Specific [place] 1.015 Urine Protein Negative Urine Glucose (UA) Negative Urine Ketones Trace Urine Blood Negative Urine Nitrite Negative Ur Leukocyte Esterase Small (1+) H Urine RBC 0-2 Urine WBC 0-5 Ur Squamous Epith Cells 0-2 Urine Bacteria None Seen Hyaline Casts 0-2 Influenza Type A (PCR) NEGATIVE Influenza Type B (PCR) NEGATIVE RSV RNA Qual (PCR) NEGATIVE SARS-CoV-2 RNA (RT-PCR) NEGATIVE Imaging Radiologist's Impressions: Impressions Abdomen/Pelvis CT 05/07/24 19:42 IMPRESSION: 1. Acute pancreatitis. 2. Hydropic and fluid-filled gallbladder with trace pericholecystic fluid, dilated CBD, mildly dilated intrahepatic ducts. These findings may represent early cholecystitis from Mirizzi physiology as a result of extrinsic sherri-pancreatic edema. Fleischner guidelines were followed. Assessment and Plan (1) Acute pancreatitis: Qualifiers: Acute pancreatitis complication: no infection or necrosis Pancreatitis type: unspecified pancreatitis type Qualified Code(s): K85.90 - Acute pancreatitis without necrosis or infection, unspecified Status: Acute Plan This is a 83-year-old female with pertinent history of hypertension, hypothyroidism who presents to the emergency department for evaluation of abdominal pain. Patient states it started on the day of presentation. #. Acute pancreatitis: Will admit patient and continue IV crystalloid resuscitation. NPO for bowel rest. IV opioids p.r.n. for analgesia. Pericholecystic fluid likely in the setting of pancreatitis. Noted dilated common bile duct, will obtain MRCP although liver enzymes okay. Triglyceride level normal. No significant alcohol use #. Reactive leukocytosis. No sepsis #. Hypothyroidism: On Synthroid #. Hypertension: On atenolol Med rec pending DVT prophylaxis: Lovenox Full code Admit as inpatient and will require two night minimum hospital stay for IV crystalloid resuscitation, IV opioids (as above), which is not possible in a lesser acute setting. Quality Stroke Does the patient have a stroke diagnosis?: No VTE Prior VTE?: No VTE Risk Level:: Medical - moderate - high VTE Device Contraindication: Treatment Not Indicated VTE Drug Contraindication: N/A - Med Ordered
[2024-05-07] MEDS: Lactated Ringers 1,000 ML 125 ML IVCONT (22:36)
[2024-05-07] MEDS: Enoxaparin Sodium 40 MG/0.4 ML SYRINGE SUBCUT (22:36)
[2024-05-07 22:41] VITALS: BP 121/61; PULSE 78; RESP 18; TEMP 36.8; O2SAT 97
--- NOTE | 2024-05-07 23:41 | PC.NURSE ---
t is being admitted for Pancreatitis ( not significant alcohol use) and fluid filled gallbladder with possible cholecystitis .Pt came in with mid abd pain that started at noon yesterday after eating a banana and blueberry cobbler. A/ox4 and ambulatory. Very sweet! PMH: hypothyroid, HTN. Pain medication PRN. 20 RAC. MRCP. NPO. Normal triglycerides. Lipase greater than 3000. IV : 20g LAC
[2024-05-08] VITALS (7 sets, daily range): BP systolic 100–128; BP diastolic 55–67; PULSE 58–84; RESP 12–18; TEMP 36.1–37.1; O2SAT 94–98
[2024-05-08] MEDS: Melatonin 3 MG TABLET 6 MG PO (03:40)
[2024-05-08 04:56] LABS: MANUAL DIFF FLAG NO
[2024-05-08 04:57] LABS: Basophils Percent Auto 0.2 % (0-2); Imm Gran Abs Auto 0.05 X10*3/uL (0.00-0.03); Imm Gran Pct Auto 0.4 % (0.0-0.4); Lymphocytes Absolute Auto 1.7 X10*3/uL (1.2-4.9); Lymphocytes Percent Auto 14.6 % (20-40); Mean Corpuscular HGB Conc 33.3 g/dl (31.0-35.0); Mean Corpuscular Hemoglobin 32.3 pg (27.0-33.0); Mean Platelet Volume 9.6 fL (9.4-12.3); Monocytes Absolute Auto 0.7 X10*3/uL (0.1-1.2); Monocytes Percent Auto 5.8 % (2-11); Neutrophils Absolute Auto 9.2 x10*3/uL (2.0-8.3); Platelet Count 244 X10*3/uL (160-400); Red Blood Count 4.02 X10*6/uL (4.20-5.50); Red Cell Distribution Width 13.1 % (11.0-16.0); White Blood Count 11.6 X10*3/uL (4.8-10.8)
[2024-05-08 05:13] LABS: Anion Gap 12 (12-20); Blood Urea Nitrogen 11 mg/dL (9-16); Calcium 8.7 mg/dL (8.4-10.2); Carbon Dioxide 25 mmol/L (22-29); Chloride 107 mmol/L (96-108); Creatinine Clr Calc Pharmacy 52.4; Estimated Glomerular Filt Rate > 60; Glucose Random 119 mg/dL (60-115); Potassium 3.9 mmol/L (3.3-5.1); Sodium 140 mmol/L (135-145)
[2024-05-08] MEDS: Lactated Ringers 1,000 ML 125 ML IVCONT ×2 (07:27→19:25)
--- NOTE | 2024-05-08 07:56 | PC.NURSE ---
Med rec not yet completed by pharmacy patient with home meds at bedside asking to take morning meds, provider aware and stating okay. Brought to MRI by transport, fluids paused.
--- NOTE | 2024-05-08 09:28 | PHA.MEDREC ---
Addendum entered by Paz Rivera [facility] 05/08/24 09:33: reviewed Original Note: Pharmacy Consult ? Medication Reconciliation Pharmacy has completed the medication reconciliation. Spoke to patient to confirm med list. Patient states she takes Levothyroxine 100 mcg sat - wed and off on sundays.
--- NOTE | 2024-05-08 10:32 | MHC.CM.PN ---
IMM DELIVERED PT LIVES ALONE. PT IS INDEPENDENT/+DRIVES. +HCP, COPY AT HOME, COPY REQUESTED OR TO BRING TO PCP OFFICE [facility] [place] FILE. PCP DR. POMPA. DP: HOME, NO SERVICES IS THE GOAL. FAMILY WILL TRANSPORT HOME. CM WILL CONTINUE TO FOLLOW FOR ANY CHANGE TO DC PLAN/NEEDS.
--- NOTE | 2024-05-08 11:02 | HO.PM.IMPN ---
Subjective Subjective Date of Service: 05/09/24 Interval History: Being followed for acute pancreatitis. Patient denies abdominal pain, no nausea, no vomiting, no diarrhea is NPO receiving IV fluids. Drinks wine couple times a week. Review of Systems All other system reviewed and are negative Physical Exam Vital Signs: Vital Signs: Last Vital Signs Temp 96.9 F 05/08/24 08:52 Pulse 84 05/08/24 08:52 Resp 12 05/08/24 08:52 BP 118/59 L 05/08/24 08:52 Pulse Ox 97 05/08/24 08:52 O2 Del Method Room Air 05/08/24 08:52 BMI result Body Mass Index 23.0 Const: Other: General resting comfortably in no acute distress. Neck no JVD. CVS regular rate rhythm, Respiratory lungs clear to auscultation, no respiratory distress, no wheeze, no rhonchi. Gastrointestinal abdomen soft, mild tenderness, bowel sounds audible, no guarding , no rigidity. Extremities no edema. Neuro non focal Skin no rash now Psych appropriate affect. Objective Data Active Medications Acetaminophen (Acetaminophen 325 Mg Tablet) 650 mg PO Q6H PRN PRN Reason: Pain, Mild (Pain Scale 1-3), fever or headache Calcium Carbonate (Calcium Carbonate 750 Mg Tab.Chew) 750 mg PO Q4H PRN PRN Reason: Heartburn Enoxaparin Sodium (Enoxaparin Sodium 40 Mg/0.4 Ml Syringe) 40 mg SUBCUT Q24H [facility] Last Admin: 05/07/24 22:36 Dose: 40 mg Documented By: DARNELL Lactated Ringer's (Lr) 1,000 mls @ 125 mls/hr IVCONT .Q8H [facility] Last Infusion: 05/08/24 07:55 Dose: 0 mls/hr Documented By: KACI Magnesium Hydroxide (Milk Of Magnesia 30 Ml Oral.Susp) 30 ml PO DAILY PRN PRN Reason: Constipation Melatonin (Melatonin 3 Mg Tablet) 6 mg PO BEDTIME PRN PRN Reason: Insomnia Last Admin: 05/08/24 03:40 Dose: 6 mg Documented By: DARNELL Morphine Sulfate (Morphine Sulfate 4 Mg/Ml Cartridge) 4 mg IVPUSH Q4H PRN; Protocol PRN Reason: Pain, Severe (Pain Scale 7-10) Ondansetron HCl (Ondansetron Hcl 4 Mg/2 Ml Vial) 4 mg IVPUSH Q8H PRN PRN Reason: Nausea and Vomiting Sodium Chloride (0.9 % Sodium Chloride Flush 3 Ml Syringe) 3 ml IVFLUSH QSHIFT [facility] Last Admin: 05/08/24 07:58 Dose: Not Given Documented By: KACI Non-Admin Reason: IV Running Labs 05/09/24 05:35 05/09/24 05:35 Labs: Laboratory Results - last 24 hr 05/07/24 05/07/24 05/07/24 17:15 17:29 19:54 MCV 96.1 MCH 32.6 MCHC 34.0 RDW 12.9 Plt Count 270 MPV 9.7 Immature Gran % (Auto) 0.5 H Neut % (Auto) 78.6 H Lymph % (Auto) 16.3 L [place] % (Auto) 4.1 Eos % (Auto) 0.3 Baso % (Auto) 0.2 Lymph # (Auto) 2.1 [place] # (Auto) 0.5 Eos # (Auto) 0.0 Baso # (Auto) 0.0 Abs Immat Gran (auto) 0.07 H Absolute Neuts (auto) 10.2 H Absolute Nucleated RBC 0.000 Nucleated RBC % (auto) 0.0 Anion Gap 19 Estim Creat Clear Calc 49.8 Estimated GFR > 60 Random Glucose 126 H Calcium 10.1 Magnesium 1.7 Total Bilirubin 1.0 Direct Bilirubin 0.3 AST 39 H ALT 23 Alkaline Phosphatase 64 Troponin I High Sens < 2.7 Total Protein 8.2 H Albumin 4.3 Triglycerides 143 Lipase > 3000 H Urine Color Yellow Urine Appearance Clear Urine pH 5.5 Ur Specific [place] 1.015 Urine Protein Negative Urine Glucose (UA) Negative Urine Ketones Trace Urine Blood Negative Urine Nitrite Negative Ur Leukocyte Esterase Small (1+) H Urine RBC 0-2 Urine WBC 0-5 Ur Squamous Epith Cells 0-2 Urine Bacteria None Seen Hyaline Casts 0-2 Influenza Type A (PCR) NEGATIVE Influenza Type B (PCR) NEGATIVE RSV RNA Qual (PCR) NEGATIVE SARS-CoV-2 RNA (RT-PCR) NEGATIVE 05/08/24 05/08/24 04:43 04:44 MCV 97.0 MCH 32.3 MCHC 33.3 RDW 13.1 Plt Count 244 MPV 9.6 Immature Gran % (Auto) 0.4 Neut % (Auto) 79.0 H Lymph % (Auto) 14.6 L [place] % (Auto) 5.8 Eos % (Auto) 0.0 Baso % (Auto) 0.2 Lymph # (Auto) 1.7 [place] # (Auto) 0.7 Eos # (Auto) 0.0 Baso # (Auto) 0.0 Abs Immat Gran (auto) 0.05 H Absolute Neuts (auto) 9.2 H Absolute Nucleated RBC 0.000 Nucleated RBC % (auto) 0.0 Anion Gap 12 Estim Creat Clear Calc 52.4 Estimated GFR > 60 Random Glucose 119 H Calcium 8.7 D Magnesium Total Bilirubin Direct Bilirubin AST ALT Alkaline Phosphatase Troponin I High Sens Total Protein Albumin Triglycerides Lipase Urine Color Urine Appearance Urine pH Ur Specific [place] Urine Protein Urine Glucose (UA) Urine Ketones Urine Blood Urine Nitrite Ur Leukocyte Esterase Urine RBC Urine WBC Ur Squamous Epith Cells Urine Bacteria Hyaline Casts Influenza Type A (PCR) Influenza Type B (PCR) RSV RNA Qual (PCR) SARS-CoV-2 RNA (RT-PCR) Microbiology Microbiology Results: Microbiology 05/07/24 17:29 Urine Culture - Preliminary Urine clean catch - Clean Catch Midstream Gram negative percy Assessment and Plan (1) Acute pancreatitis: Status: Acute Plan 83-year-old female with pertinent history of hypertension, hypothyroidism who presents to the emergency department for evaluation of abdominal pain and admitted with. #. Acute pancreatitis: Unknown etiology, feels better abd pain improved. No history of alcohol abuse, normal triglyceride,, abdominal ultrasound showed CBD dilatation with mild intrahepatic biliary ductal dilatation, no obstruction, pancreatic mass or choledocholithiasis noted, hydropic and fluid -filled gallbladder cont. IVF , NPO , IV opioids p.r.n. for analgesia. Follow abdominal MRI Follow electrolytes, phosphorus, CBC GI consult #. leukocytosis. Trending down, no sepsis. #. Hypothyroidism: Continue levothyroxine #. Hypertension: Soft BP hold atenolol 50 mg DVT prophylaxis: Lovenox Full code Will require continued inpatient hospitalization for IV crystalloid resuscitation, IV opioids (as above), and further workup for acute pancreatitis and expert consultation, which is not possible in a lesser acute setting. Quality Stroke Does the patient have a stroke diagnosis?: No VTE Prior VTE?: No VTE Risk Level:: Medical - moderate - high VTE Device Contraindication: Treatment Not Indicated VTE Drug Contraindication: N/A - Med Ordered
--- NOTE | 2024-05-08 19:04 | PM.EVENT ---
Event Note Date of Service: 05/08/24 Event Note: GI Consult-Full note dictated Imp: Acute and rapidly resolving pancreatitis. Clinically stable and appears well. Denies any sig. EtOH, new meds, nor family history of pancreatitis. Diff dx: Passage of tiny biliary stone given the clinical history. Given the stable appearance of her previously known pancreatic cyst I do not think the cyst is playing a role in her presentation. Rec: Supportive care, slowly advance diet, F/U labs. Surgery consult to comment on GB U/S and possible need for CCY, although given no obvious sign of gallstones or CBD stones I would be inclined to hold off on a CCY at this point unless she has recurrent problems going forward. D/W patient in detail and she is comfortable with this plan. Thanks Time Spent With Patient Time: Total time managing care of this patient today ____ minutes.
[2024-05-08] MEDS: Enoxaparin Sodium 40 MG/0.4 ML SYRINGE SUBCUT (21:53)
[2024-05-09 03:24] VITALS: BP 110/55; PULSE 70; RESP 18; TEMP 37.1; O2SAT 96
[2024-05-09] MEDS: Lactated Ringers 1,000 ML 125 ML IVCONT ×3 (03:32→19:40)
--- NOTE | 2024-05-09 05:46 | CONS_ITS ---
DATE OF SERVICE: 05/08/2024 REASON FOR CONSULTATION: Acute pancreatitis and known history of pancreatic cyst. HISTORY OF PRESENT ILLNESS: The patient is an 83-year-old female well known to me from previous office visits, who came into the hospital yesterday with the acute onset of upper abdominal pain with associated nausea and vomiting. The patient has a known history of an asymptomatic and incidental pancreatic cyst diagnosed in 2020 on a routine abdominal ultrasound. Since then, she has been followed with periodic CT scans and CA 19-9 levels. The pancreatic cyst is felt to be quite benign and has been described as 1 cm in size without any significant changes on the periodic CT scans. There has been no sign of any worrisome changes over the years with that. The patient has never had a history of pancreatitis. She does not use any significant amount of alcohol. She denies any known family history of pancreatic disease. She has not been on any new medication and does not have any history of known gallstones or hypertriglyceridemia. Yesterday, she was feeling well but then developed the acute onset of upper abdominal pain, which was followed by some vomiting. The vomiting subsided, but her pain persisted, which prompted her ER visit. She was found to have a lipase of over [address] scan findings consistent with some pancreatitis. Since admission overnight, she has been feeling much better today. She has some mild tenderness when she palpates her abdomen, but denies any ongoing pain nor any further vomiting. She has been passing some flatus, but has not had a bowel movement. She denies any urinary symptoms and is passing urine easily. She denies any chest pain or shortness of breath. MEDICATIONS: Her medications at home included atenolol, calcium, levothyroxine. Her medications here in the hospital include acetaminophen, Lovenox, levothyroxine, melatonin, morphine p.r.n., Zofran p.r.n. PAST MEDICAL HISTORY: Known 1 cm pancreatic cyst that has been followed for 3 years. There have been no significant changes within it and no suspicious findings. CA 19-9 levels have been normal. She had a negative screening colonoscopy in 2005. Has history of hypertension and hypothyroidism. She has a history of meningioma. Her surgeries include tubal ligation, tonsils and adenoids, and cataracts. SOCIAL HISTORY: She is a . She does not smoke. She has occasional alcohol during the week, but certainly nothing significant and no recent history of binging. FAMILY HISTORY: Negative for GI malignancy nor pancreatic disease. REVIEW OF SYSTEMS: CONSTITUTIONAL: Up until the day of admission, she was feeling well with good energy and good appetite. SKIN: No rash, no pruritus. CARDIAC: No chest pain. PULMONARY: No coughing or hemoptysis. GI: As above. She had been enjoying a good appetite without any significant heartburn or dysphagia. Her bowel movements have been regular and without any signs of bleeding. There has been no signs of jaundice nor unintentional weight loss. NEUROLOGIC: No headache or seizures. URINARY: No dysuria, no hematuria. PHYSICAL EXAMINATION: GENERAL: The patient is a pleasant, alert, comfortable-appearing female. VITAL SIGNS: Have been stable and she has been afebrile. SKIN: Warm and dry. Nonjaundiced. Anicteric sclerae. Moist mucous membranes. NECK: Supple. CHEST: Clear. CARDIAC: Normal S1, S2. ABDOMEN: Soft, nondistended. Normal bowel sounds with some mild diffuse tenderness but without mass, rebound, or guarding. EXTREMITIES: Without edema. LABORATORIES: White blood cell count 13,000, hemoglobin 14.3, platelets 270,000. Normal electrolytes, BUN and creatinine. LFTs normal except for an AST of 39. Lipase was over 3000. Triglyceride level 143. IMAGING STUDIES: Have included a CT scan of the abdomen and pelvis describing some CT changes consistent with some mild pancreatitis, but without any sign of necrosis nor mass. The gallbladder appeared to be consistent with hydrops and filled with fluid without any sign of stones. The common bile duct did appear dilated, but without any sign of choledocholithiasis. Her abdominal ultrasound describes a physiologically distended gallbladder, but without any sign of stones, sludge, nor any surrounding fluid. The bile duct was 1.4 cm. She had an MRCP with MRI of the abdomen as well. This again describes gallbladder changes consistent with hydrops, but without any gallbladder wall edema. There were no gallstones. The common bile duct was 1.3 cm but again without any sign of filling defects. Of note, the common duct has been dilated up to 1 cm since at least 2020. The pancreas showed changes again consistent with some pancreatitis with some edema, but without any sign of necrosis. There was no sign of any mass. The pancreatic duct appeared normal. A simple cyst is again seen in the pancreatic body measuring 1.3 cm and appeared unchanged from previous studies in 2020 and 2021. IMPRESSION: In regard to the patient's acute pancreatitis, the etiology of that is not entirely clear given her history of no new medication, no sign of gallstones, and no history of significant alcohol use. I do not think the known pancreatic cyst is playing a role here given its very stable appearance and no pancreatic duct abnormalities. Given the changes in the gallbladder on some of the imaging studies, she may harbor some tiny stones that are just not visualized as she may very well have passed a small stone causing the acute pancreatitis, but with rapid resolution. Her normal LFTs would tend to go against that, but again this was a small stone, it may have caused her problem with the acute pancreatitis, but without causing any elevated liver tests. At this point, she appears to be very stable and without any worrisome signs. At this point, I would recommend simply continuing supportive care. I think her diet can be slowly advanced. I would recommend surgical consultation for their opinion regarding the gallbladder and her pancreatitis as to whether or not they would recommend cholecystectomy. However, in my opinion, I suspect she would not need a cholecystectomy at this time given no definitive gallstones and her rapid improvement. However, I did advise her that if she does not have a cholecystectomy in the immediate future, then I would simply observe her, but if she continues to have episodes of pancreatitis, then strongly consider a cholecystectomy going forward. I do not think she requires an ERCP given the studies negative for common duct stones. Again, I do not think the pancreatic cyst is playing a role in her symptoms and it continues to remain quite stable in size and quite benign in appearance. Therefore, I would not recommend any other intervention in that regard. Assuming she does not need a cholecystectomy during this admission in the surgeon's opinion and she continues to improve clinically, I would then simply advance her diet, then hopefully discharge her within 24 hours. I did review this in detail with the patient and she is comfortable with that plan. Thank you for the consultation. MD DEBI Barajas/JANINE / [phone]
[2024-05-09 05:59] LABS: Hematocrit 34.2 % (37.0-47.0); Hemoglobin 11.2 g/dl (12.0-16.0); Mean Corpuscular HGB Conc 32.7 g/dl (31.0-35.0); Mean Corpuscular Hemoglobin 31.8 pg (27.0-33.0); Mean Corpuscular Volume 97.2 fL (80.0-98.0); Mean Platelet Volume 10.1 fL (9.4-12.3); Platelet Count 208 X10*3/uL (160-400); Red Blood Count 3.52 X10*6/uL (4.20-5.50); Red Cell Distribution Width 13.2 % (11.0-16.0); White Blood Count 11.8 X10*3/uL (4.8-10.8)
[2024-05-09] MEDS: Levothyroxine Sodium 100 MCG TABLET PO (06:08)
[2024-05-09 06:17] LABS: Alanine Aminotransferase 59 U/L (0-31); Albumin Level 3.1 g/dL (3.5-5.0); Alkaline Phosphatase 52 U/L (39-117); Anion Gap 13 (12-20); Aspartate Amino Transferase 63 U/L (5-31); Bilirubin Direct 0.6 mg/dL (0.0-0.5); Bilirubin Total 1.7 mg/dL (0.0-1.0); Blood Urea Nitrogen 6 mg/dL (9-16); Calcium 8.7 mg/dL (8.4-10.2); Carbon Dioxide 25 mmol/L (22-29); Chloride 106 mmol/L (96-108); Creatinine Clr Calc Pharmacy 56.2; Estimated Glomerular Filt Rate > 60; Glucose Random 99 mg/dL (60-115); Phosphorus 2.7 mg/dL (2.7-4.5); Potassium 3.9 mmol/L (3.3-5.1); Sodium 140 mmol/L (135-145); Total Protein 5.9 g/dL (6.5-8.0)
[2024-05-09 06:28] LABS: Lipase 344 U/L (8-78)
[2024-05-09 07:28] VITALS: BP 114/63; PULSE 86; RESP 18; TEMP 36.6; O2SAT 94
--- NOTE | 2024-05-09 08:06 | PM.CNGS ---
History of Present Illness Consult details Consult date: 05/09/24 Narrative: Patient is an 83-year-old female who presents here with epigastric abdominal pain. Since her admission, she has had complete improvement in fact the resolution of her symptoms. Workup demonstrated findings suggestive of pancreatitis. She has never had such symptoms before. She denies any excessive alcohol use. No family history of pancreatitis. No unusual medications. Patient has not had any biliary symptoms in the past. She otherwise has regular bowel habits. Never been jaundiced before. Mild elevation of LFTs and lipase. Chart was reviewed and patient evaluated. Patient has history of pancreatic cyst. Patient was also undergone GI consultation. [facility] Past Medical History Medical History Osteopenia COVID-19 virus infection Ganglion, left wrist Skin lump of arm Cervical spinal stenosis Hypertriglyceridemia Meningioma Hypothyroidism Hypertension Polymyalgia rheumatica Family History Family History Father Alzheimers disease Mother Breast cancer Maternal Grandmother CVD (cardiovascular disease) Maternal Grandfather No problems noted. Paternal Grandmother CVD (cardiovascular disease) Paternal Grandfather No problems noted. Surgical History Surgical History History of colonoscopy History of tonsillectomy and adenoidectomy History of tubal ligation Social History Social History Household Members: None [facility] Alcohol intake: current Alcohol intake frequency: a few times a week Alcohol type: wine Comment: 3x a week 2 glasses Patient Tobacco Use Status: Former Tobacco user Tobacco use type: Cigarette Years Smoked: 1979 e-Cigarette/Vaping Use: Never Used Second Hand Smoke Exposure: Yes Advance Directives Date on File: 05/08/24 service: No 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al status: retired Cognitive needs: No Hearing needs: No Vision needs: Yes (Glasses) Meds Allergies Allergy/AdvReac Type Severity Reaction Status Date / Time No Known Allergies Allergy Verified 05/07/24 16:56 Active Medications: Current Medications Acetaminophen (Acetaminophen 325 Mg Tablet) 650 mg PO Q6H PRN PRN Reason: Pain, Mild (Pain Scale 1-3), fever or headache Calcium Carbonate (Calcium Carbonate 750 Mg Tab.Chew) 750 mg PO Q4H PRN PRN Reason: Heartburn Enoxaparin Sodium (Enoxaparin Sodium 40 Mg/0.4 Ml Syringe) 40 mg SUBCUT Q24H [facility] Last Admin: 05/08/24 21:53 Dose: 40 mg Lactated Ringer's (Lr) 1,000 mls @ 125 mls/hr IVCONT .Q8H [facility] Last Admin: 05/09/24 03:32 Dose: 125 mls/hr Levothyroxine Sodium (Levothyroxine Sodium 100 Mcg Tablet) 100 mcg PO [id number] [facility] Last Admin: 05/09/24 06:08 Dose: 100 mcg Magnesium Hydroxide (Milk Of Magnesia 30 Ml Oral.Susp) 30 ml PO DAILY PRN PRN Reason: Constipation Melatonin (Melatonin 3 Mg Tablet) 6 mg PO BEDTIME PRN PRN Reason: Insomnia Last Admin: 05/08/24 03:40 Dose: 6 mg Morphine Sulfate (Morphine Sulfate 4 Mg/Ml Cartridge) 4 mg IVPUSH Q4H PRN; Protocol PRN Reason: Pain, Severe (Pain Scale 7-10) Ondansetron HCl (Ondansetron Hcl 4 Mg/2 Ml Vial) 4 mg IVPUSH Q8H PRN PRN Reason: Nausea and Vomiting Sodium Chloride (0.9 % Sodium Chloride Flush 3 Ml Syringe) 3 ml IVFLUSH QSHIFT [facility] Last Admin: 05/09/24 06:38 Dose: Not Given Home Medications ?Medication ?Instructions ?Recorded ?Confirmed ?Last Taken ?Type calcium carbonate 600 mg-vitamin 1 cap PO DAILY 11/21/20 05/08/24 05/07/24 History D3 5 mcg (200 unit) capsule levomefolate 500 mcg-niacinamide 1 tab PO DAILY 01/05/22 05/08/24 05/07/24 History 750 me-uqdugc-Uz-selen-chrom tablet (Nicotinamide (with chromium)) cranberry 400 mg capsule 400 mg PO DAILY 02/09/23 05/08/24 05/07/24 History levothyroxine 100 mcg tablet 100 mcg PO MOTUWETHFRSA 05/08/24 05/08/24 05/07/24 History Physical Exam Vital Signs: Vital Signs: Last Vital Signs Temp 97.8 F 05/09/24 07:28 Pulse 86 05/09/24 07:28 Resp 18 05/09/24 07:28 BP 114/63 05/09/24 07:28 Pulse Ox 94 05/09/24 07:28 O2 Del Method Room Air 05/09/24 07:28 BMI result Body Mass Index 23.0 Eyes: Other: Anicteric GI: Other: Abdomen is soft, benign, nontender Results Labs 05/09/24 05:35 05/09/24 05:35 Labs: Abnormal lab results 05/09/24 Range/Units 05:35 WBC 11.8 H (4.8-10.8) X10*3/uL RBC 3.52 L (4.20-5.50) X10*6/uL Hgb 11.2 L (12.0-16.0) g/dl Hct 34.2 L (37.0-47.0) % BUN 6 L (9-16) mg/dL Total Bilirubin 1.7 H (0.0-1.0) mg/dL Direct Bilirubin 0.6 H (0.0-0.5) mg/dL AST 63 H (5-31) U/L ALT 59 H (0-31) U/L Total Protein 5.9 L (6.5-8.0) g/dL Albumin 3.1 L (3.5-5.0) g/dL Lipase 344 H (8-78) U/L Short CBC 05/09/24 Range/Units 05:35 WBC 11.8 H (4.8-10.8) X10*3/uL Hgb 11.2 L (12.0-16.0) g/dl Hct 34.2 L (37.0-47.0) % Plt Count 208 (160-400) X10*3/uL BMP 05/09/24 05:35 Sodium 140 Potassium 3.9 Chloride 106 Carbon Dioxide 25 BUN 6 L Creatinine 0.71 Calcium 8.7 Liver Function 05/09/24 Range/Units 05:35 Total Bilirubin 1.7 H (0.0-1.0) mg/dL Direct Bilirubin 0.6 H (0.0-0.5) mg/dL AST 63 H (5-31) U/L ALT 59 H (0-31) U/L Alkaline Phosphatase 52 (39-117) U/L Albumin 3.1 L (3.5-5.0) g/dL Urine 05/07/24 Range/Units 17:29 Urine Color Yellow Urine Appearance Clear Urine pH 5.5 (5.0-9.0) Ur Specific [place] 1.015 (1.005-1.025) Urine Protein Negative (Neg-Trace) mg/dL Urine Glucose (UA) Negative (Negative) mg/dL All other labs normal. Assessment and Plan (1) Acute pancreatitis: Qualifiers: Acute pancreatitis complication: no infection or necrosis Pancreatitis type: unspecified pancreatitis type Qualified Code(s): K85.90 - Acute pancreatitis without necrosis or infection, unspecified Status: Acute Plan Awaiting GI input as well as final reading of MRCP indirect further therapy based on these results. Addendum; At present, patient is completely asymptomatic. MRCP shows no concerning her acute pathology although was hydrops of gallbladder and the patient is asymptomatic at present from this. A/P continue conservative therapy. Advance diet as tolerated, out of bed, incentive spirometry, serial labs and exams. Further interventions and studies will be directed by the patient's clinical course. At present patient is stable. Procedures Date of Service Date of Service: 05/09/24
--- NOTE | 2024-05-09 12:03 | HO.PM.IMPN ---
Subjective Subjective Date of Service: 05/09/24 Interval History: Feels better tolerating clear liquid diet, mild tenderness to palpation otherwise denies pain no nausea, no vomiting, no fevers, no chills, no other acute issues overnight. Review of Systems All other system reviewed and are negative. Physical Exam Vital Signs: Vital Signs: Last Vital Signs Temp 97.8 F 05/09/24 07:28 Pulse 86 05/09/24 07:28 Resp 18 05/09/24 07:28 BP 114/63 05/09/24 07:28 Pulse Ox 94 05/09/24 07:28 O2 Del Method Room Air 05/09/24 07:28 BMI result Body Mass Index 23.0 Const: Other: General resting comfortably in no acute distress. Neck no JVD. CVS regular rate rhythm, Respiratory lungs clear to auscultation, no respiratory distress, no wheeze, no rhonchi. Gastrointestinal abdomen soft, mild diffuse tenderness, no right upper quadrant tenderness, bowel sounds audible, no guarding , no rigidity. Extremities no edema. Neuro non focal Skin no rash Psych appropriate affect. Objective Data Active Medications Acetaminophen (Acetaminophen 325 Mg Tablet) 650 mg PO Q6H PRN PRN Reason: Pain, Mild (Pain Scale 1-3), fever or headache Calcium Carbonate (Calcium Carbonate 750 Mg Tab.Chew) 750 mg PO Q4H PRN PRN Reason: Heartburn Enoxaparin Sodium (Enoxaparin Sodium 40 Mg/0.4 Ml Syringe) 40 mg SUBCUT Q24H [facility] Last Admin: 05/08/24 21:53 Dose: 40 mg Documented By: BENJAMIN Lactated Ringer's (Lr) 1,000 mls @ 125 mls/hr IVCONT .Q8H [facility] Last Admin: 05/09/24 11:05 Dose: 125 mls/hr Documented By: DABIsidoro Levothyroxine Sodium (Levothyroxine Sodium 100 Mcg Tablet) 100 mcg PO [id number] [facility] Last Admin: 05/09/24 06:08 Dose: 100 mcg Documented By: BENJAMIN Magnesium Hydroxide (Milk Of Magnesia 30 Ml Oral.Susp) 30 ml PO DAILY PRN PRN Reason: Constipation Melatonin (Melatonin 3 Mg Tablet) 6 mg PO BEDTIME PRN PRN Reason: Insomnia Last Admin: 05/08/24 03:40 Dose: 6 mg Documented By: DARNELL Morphine Sulfate (Morphine Sulfate 4 Mg/Ml Cartridge) 4 mg IVPUSH Q4H PRN; Protocol PRN Reason: Pain, Severe (Pain Scale 7-10) Ondansetron HCl (Ondansetron Hcl 4 Mg/2 Ml Vial) 4 mg IVPUSH Q8H PRN PRN Reason: Nausea and Vomiting Sodium Chloride (0.9 % Sodium Chloride Flush 3 Ml Syringe) 3 ml IVFLUSH QSHIFT [facility] Last Admin: 05/09/24 06:38 Dose: Not Given Documented By: JEMAL Non-Admin Reason: IV Running Labs 05/09/24 05:35 05/09/24 05:35 Labs: Laboratory Results - last 24 hr 05/09/24 05:35 MCV 97.2 MCH 31.8 MCHC 32.7 RDW 13.2 Plt Count 208 MPV 10.1 Absolute Nucleated RBC 0.000 Nucleated RBC % (auto) 0.0 Anion Gap 13 Estim Creat Clear Calc 56.2 Estimated GFR > 60 Random Glucose 99 Calcium 8.7 Phosphorus 2.7 Total Bilirubin 1.7 H Direct Bilirubin 0.6 H AST 63 H ALT 59 H Alkaline Phosphatase 52 Total Protein 5.9 L Albumin 3.1 L Lipase 344 H Microbiology Microbiology Results: Microbiology 05/07/24 17:29 Urine Culture - Final Urine clean catch - Clean Catch Midstream Escherichia coli Assessment and Plan (1) Acute pancreatitis: Status: Acute Plan 83-year-old female with pertinent history of hypertension, hypothyroidism who presents to the emergency department for evaluation of abdominal pain and admitted with. #. Acute pancreatitis: Unknown etiology, feels better abd pain improved. No history of alcohol abuse, normal triglyceride,, abdominal ultrasound showed CBD dilatation with mild intrahepatic biliary ductal dilatation, no obstruction, pancreatic mass or choledocholithiasis noted, hydropic and fluid -filled gallbladder abdominal MRI showed interstitial pancreatitis with abdominal ascites, mild gallbladder hydrops no evidence of cholelithiasis or choledocholithiasis. A simple cyst within the superior pancreatic body is stable Mild elevated LFTs likely due to acute pancreatitis, no worsening abdominal pain. Lipase 344 down from 3000 Seen by General surgery they recommend to follow clinical course Case discussed with Dr. Benton full gradually advanced diet monitor liver enzymes, electrolytes, phosphorus, CBC #. leukocytosis. Likely due to acute pancreatitis stable #. Hypothyroidism: Continue levothyroxine #. Hypertension: Soft BP continue to hold atenolol 50 mg DVT prophylaxis: Lovenox Full code Will require continued inpatient hospitalization for close monitoring of electrolytes, liver enzymes and follow up on clinical course for acute pancreatitis and Quality Stroke Does the patient have a stroke diagnosis?: No VTE Prior VTE?: No VTE Risk Level:: Medical - moderate - high VTE Device Contraindication: Treatment Not Indicated VTE Drug Contraindication: N/A - Med Ordered
[2024-05-09 15:56] VITALS: BP 130/69; PULSE 77; RESP 18; TEMP 36.9; O2SAT 96
[2024-05-09 19:55] VITALS: BP 124/62; PULSE 78; RESP 18; TEMP 37; O2SAT 94
[2024-05-09] MEDS: Enoxaparin Sodium 40 MG/0.4 ML SYRINGE SUBCUT (21:25)
[2024-05-10 03:48] VITALS: BP 131/59; PULSE 69; RESP 16; TEMP 36.6; O2SAT 95
[2024-05-10] MEDS: Levothyroxine Sodium 100 MCG TABLET PO (06:08)
[2024-05-10 06:35] LABS: Hematocrit 32.3 % (37.0-47.0); Hemoglobin 10.8 g/dl (12.0-16.0); Mean Corpuscular HGB Conc 33.4 g/dl (31.0-35.0); Mean Corpuscular Hemoglobin 32.1 pg (27.0-33.0); Mean Corpuscular Volume 96.1 fL (80.0-98.0); Mean Platelet Volume 10.8 fL (9.4-12.3); Platelet Count 210 X10*3/uL (160-400); Red Blood Count 3.36 X10*6/uL (4.20-5.50); White Blood Count 13.1 X10*3/uL (4.8-10.8)
[2024-05-10 07:02] LABS: Alanine Aminotransferase 37 U/L (0-31); Alkaline Phosphatase 53 U/L (39-117); Anion Gap 9 (12-20); Aspartate Amino Transferase 33 U/L (5-31); Bilirubin Direct 0.5 mg/dL (0.0-0.5); Bilirubin Total 1.5 mg/dL (0.0-1.0); Blood Urea Nitrogen 4 mg/dL (9-16); Calcium 8.9 mg/dL (8.4-10.2); Carbon Dioxide 30 mmol/L (22-29); Chloride 104 mmol/L (96-108); Creatinine Clr Calc Pharmacy 60.4; Estimated Glomerular Filt Rate > 60; Glucose Random 96 mg/dL (60-115); Lipase 97 U/L (8-78); Potassium 3.8 mmol/L (3.3-5.1); Sodium 139 mmol/L (135-145)
[2024-05-10 07:49] VITALS: BP 114/58; PULSE 67; RESP 16; TEMP 36.5; O2SAT 93
--- NOTE | 2024-05-10 07:50 | P.PNGS_ITS ---
Subjective Subjective Date of Service: 05/10/24 Interval history: Patient tolerating her diet . Passing some flatus. Mild epigastric discomfort. Labs show improvement of LFTs and lipase Physical Exam 2 Vital Signs: Vital Signs: Last Vital Signs Temp 97.7 F 05/10/24 07:49 Pulse 67 05/10/24 07:49 Resp 16 05/10/24 07:49 BP 114/58 L 05/10/24 07:49 Pulse Ox 93 05/10/24 07:49 O2 Del Method Room Air 05/10/24 07:49 BMI result Body Mass Index 23.0 GI: Other: Abdomen is soft. Mild epigastric tenderness but without evidence of guarding, rebound, or rigidity Objective Data Active Medications Acetaminophen (Acetaminophen 325 Mg Tablet) 650 mg PO Q6H PRN PRN Reason: Pain, Mild (Pain Scale 1-3), fever or headache Calcium Carbonate (Calcium Carbonate 750 Mg Tab.Chew) 750 mg PO Q4H PRN PRN Reason: Heartburn Enoxaparin Sodium (Enoxaparin Sodium 40 Mg/0.4 Ml Syringe) 40 mg SUBCUT Q24H [facility] Last Admin: 05/09/24 21:25 Dose: 40 mg Documented By: BENJAMIN Levothyroxine Sodium (Levothyroxine Sodium 100 Mcg Tablet) 100 mcg PO [id number]@0600 [facility] Last Admin: 05/10/24 06:08 Dose: 100 mcg Documented By: BENJAMIN Magnesium Hydroxide (Milk Of Magnesia 30 Ml Oral.Susp) 30 ml PO DAILY PRN PRN Reason: Constipation Melatonin (Melatonin 3 Mg Tablet) 6 mg PO BEDTIME PRN PRN Reason: Insomnia Last Admin: 05/08/24 03:40 Dose: 6 mg Documented By: DARNELL Morphine Sulfate (Morphine Sulfate 4 Mg/Ml Cartridge) 4 mg IVPUSH Q4H PRN; Protocol PRN Reason: Pain, Severe (Pain Scale 7-10) Ondansetron HCl (Ondansetron Hcl 4 Mg/2 Ml Vial) 4 mg IVPUSH Q8H PRN PRN Reason: Nausea and Vomiting Sodium Chloride (0.9 % Sodium Chloride Flush 3 Ml Syringe) 3 ml IVFLUSH QSHIFT [facility] Last Admin: 05/10/24 00:41 Dose: Not Given Documented By: BENJAMIN Non-Admin Reason: IV Running Labs 05/10/24 05:22 05/10/24 05:22 Labs: Laboratory Results - last 24 hr 05/10/24 05:22 MCV 96.1 MCH 32.1 MCHC 33.4 RDW 13.0 Plt Count 210 MPV 10.8 Absolute Nucleated RBC 0.000 Nucleated RBC % (auto) 0.0 Anion Gap 9 L Estim Creat Clear Calc 60.4 Estimated GFR > 60 Random Glucose 96 Calcium 8.9 Total Bilirubin 1.5 H Direct Bilirubin 0.5 AST 33 H ALT 37 H Alkaline Phosphatase 53 Total Protein 6.0 L Albumin 3.0 L Lipase 97 H Microbiology Microbiology Results: Microbiology 05/07/24 17:29 Urine Culture - Final Urine clean catch - Clean Catch Midstream Escherichia coli Procedures Date of Service Date of Service: 05/10/24 Progress Note: A&P Assessment and plan (1) Acute pancreatitis: Status: Acute Plan Clinically improving labs also improving. Precise etiology unclear of patient's pancreatitis. No evidence of cholelithiasis or choledocholithiasis. Hydrops of gallbladder on MRCP. At present, continue current plan. Awaiting GI input. Time Spent With Patient Time: Total time managing care of this patient today ____ minutes. Quality Stroke Does the patient have a stroke diagnosis?: No VTE Prior VTE?: No VTE Risk Level:: Medical - moderate - high VTE Device Contraindication: Treatment Not Indicated VTE Drug Contraindication: N/A - Med Ordered
[2024-05-10] MEDS: 0.9 % Sodium Chloride Flush 3 ML SYRINGE IVFLUSH (08:23)
--- NOTE | 2024-05-10 11:26 | MHC.CM.PN ---
IMM 05/08/24 Per MD rounds patient is planned for discharge today. Patient will dc to home self care. She has arranged for her spouse to provide transportation home.
--- NOTE | 2024-05-10 11:39 | PM.DS ---
DS: Providers Provider Date of Service: 05/10/24 Date of admission: 05/07/24 22:00 Date of discharge: 05/10/24 Primary care physician: Claudia Smalls MD Consults: 05/08/24 08:08 Consult to Gastroenterology Routine Consulting Provider: Franklyn Benton Reason for consultation: pancreatitis Has provider been notified: No 05/09/24 06:00 Consult to General Surgery [place]ine [place] [facility] [place] [facility] Reason for consultation: Acute pancreatitis, abnormal GB U/S, dilated CBD Has provider been notified: No DS: Diagnosis Discharge Diagnosis (1) Acute pancreatitis: Status: Acute DS: Summary Hospital Course Hospital Course: History of presenting illness: Date of Service: 05/07/24 Chief Complaint: Abdominal pain This is a 83-year-old female with pertinent history of hypertension, hypothyroidism who presents to the emergency department for evaluation of abdominal pain. Patient states it started on the day of presentation. She has been having epigastric pain since noon on the day of presentation that is intermittent and radiating to the back. The pain is sharp and without any relieving factors. Also has had multiple episodes of nonbloody emesis with nausea throughout the day. Unable to tolerate p.o. intake. No history of similar episodes of pancreatitis in the past. Patient states she had a mild abdominal discomfort a few years ago and had a CT scan done when she was told that she has a pancreatic cyst. Patient has been following up and states her cyst has been stable. No fever, chills, chest discomfort, palpitations, shortness of breath, changes in urinary or bowel habits. In the emergency department, lipase found to be elevated and imaging concerning for acute pancreatitis. Hospital course: 83-year-old female with pertinent history of hypertension, hypothyroidism who presents to the emergency department for evaluation of abdominal pain , and diagnosed to have acute pancreatitis admitted to medical floor treated with IV fluids, analgesics labs were monitored closely lipase improved significantly from 3000 to 344, etiology of pancreatitis remains unclear ,no history of alcohol abuse, normal triglyceride,, abdominal ultrasound showed CBD dilatation with mild intrahepatic biliary ductal dilatation, no obstruction, pancreatic mass or choledocholithiasis, noted hydropic and fluid filled gallbladder , abdominal MRI showed interstitial pancreatitis with abdominal ascites, mild gallbladder hydrops, no evidence of cholelithiasis or choledocholithiasis. A simple cyst within the superior pancreatic body is stable, noted to have mildly elevated LFTs that improved, patient diet was gradually advanced Currently she is asymptomatic tolerating diet therefore discharged home with recommendations to follow low-fat diet and outpatient follow-up with measuring machine tender PCP and return to check with recurrent symptoms. Persistent mild leukocytosis likely due to pancreatitis and reactive recommend outpatient follow-up. In regard to chronic medical issues hypothyroidism recommend to continue levothyroxine For hypertension noted to have soft blood pressure therefore atenolol discontinued recommend outpatient blood pressure monitoring. Time Attestation Discharge Coordination Time (in mins): 36 Quality: Safe Use of Opioids Does Pt have an Active Cancer Diagnosis on the Problem List?: No Quality: Stroke Does the patient have a stroke diagnosis?: No Physical Exam Vital Signs: Vital Signs: Last Vital Signs Temp 97.7 F 05/10/24 07:49 Pulse 67 05/10/24 07:49 Resp 16 05/10/24 07:49 BP 114/58 L 05/10/24 07:49 Pulse Ox 93 05/10/24 07:49 O2 Del Method Room Air 05/10/24 07:49 BMI result Body Mass Index 23.0 Const: Other: General resting comfortably in no acute distress. Neck no JVD. CVS regular rate rhythm, Respiratory lungs clear to auscultation, no respiratory distress, no wheeze, no rhonchi. Gastrointestinal abdomen soft, non tender, bowel sounds audible, no guarding , no rigidity. Extremities no edema. Neuro non focal Skin no rash Psych appropriate affect. DS: Data Data Completed and Pending Labs on day of discharge: Laboratory Results - last 24 hr 05/10/24 05:22 WBC 13.1 H RBC 3.36 L Hgb 10.8 L Hct 32.3 L MCV 96.1 MCH 32.1 MCHC 33.4 RDW 13.0 Plt Count 210 MPV 10.8 Absolute Nucleated RBC 0.000 Nucleated RBC % (auto) 0.0 Sodium 139 Potassium 3.8 Chloride 104 Carbon Dioxide 30 H Anion Gap 9 L BUN 4 L Creatinine 0.66 Estim Creat Clear Calc 60.4 Estimated GFR > 60 Random Glucose 96 Calcium 8.9 Total Bilirubin 1.5 H Direct Bilirubin 0.5 AST 33 H ALT 37 H Alkaline Phosphatase 53 Total Protein 6.0 L Albumin 3.0 L Lipase 97 H Discharge Plan Discharge Anticipated Discharge Date/Time: 05/10/24 11:33 Patient Disposition: Home, Self-Care Discharge Diagnosis: Acute pancreatitis Referrals: Claudia Smalls MD [Primary Care Provider] - 1 Week German Blunt MD [Physician] - 1 Week Discharge Medications: Continued levothyroxine 100 mcg tablet 100 mcg PO MOTUWETHFRSA Rx Instructions: Off Sundays calcium carbonate-vitamin D3 600 mg calcium- 200 unit capsule 1 cap PO DAILY cranberry 400 mg capsule 400 mg PO DAILY Rx Instructions: administer with a meal Nicotinamide (with chromium) 500 mcg- 750 mg tablet 1 tab PO DAILY Discontinued atenolol 50 mg tablet 50 mg PO DAILY 90 Days Qty: 90 3RF Discharge Orders: Discharge Order (Routine); Ordered 05/10/24 Ordered By: Bernarda Mena Diet: Low fat, low cholesterol Activity on Discharge: As tolerated Stand Alone Forms: Patient Portal Discharge page Print Language: Honduran Care Plan Goals: Acute pancreatitis, resolved Follow low-fat diet Health Concerns: Soft BP, hold atenolol resume atenolol 25 mg daily if noted to have systolic BP greater than 135 Plan of Treatment: Outpatient follow-up with measuring machine tender Dr. Benton call for appointment Outpatient follow-up with Dr. Smalls Assessment: As above Discharge Date/Time: 05/10/24 12:39
== END 2024-05-10 12:39 | disposition home or self-care (01) | DRG 439 ==
LOC: HO.ED 22:01 → HO.EDOVER 22:07 → HO.S3 05-08 07:49
PROVIDERS: Physician Assistant; Admitting Provider Student in an Organized Health Care Education/Training Program; Emergency Provider Emergency Medicine; PCP Internal Medicine; Visit Provider Hospitalist
DX: K85.80 Other acute pancreatitis without necrosis or infection (principal); K82.1 Hydrops of gallbladder; K86.2 Cyst of pancreas; R18.8 Other ascites; E03.9 Hypothyroidism, unspecified; I10 Essential (primary) hypertension; M35.3 Polymyalgia rheumatica; Z20.822 Contact with and (suspected) exposure to COVID-19; Z79.890 Hormone replacement therapy; Z79.899 Other long term (current) drug therapy
CPT/HCPCS: 0241U; 36415; 74177; 74181; 76705; 80048; 80076; 81001; 83690; 83735; 84100; 84478; 84484; 85025; 85027; 87086; 87088; 87186; 93005; 99285; J1650; J2270; J2405; J7120; Q9967

== ENCOUNTER → 2024-05-07 22:00 | Outpatient (BNV) | payer MEDICARE, SELFPAY | PROVIDERS: Admitting Provider Student in an Organized Health Care Education/Training Program; Emergency Provider Emergency Medicine; PCP Internal Medicine; Visit Provider Surgery | DX: K85.90 Acute pancreatitis without necrosis or infection, unspecified (principal) | CPT/HCPCS: 99222; 99232 ==

== ENCOUNTER → 2024-05-07 22:00 | Outpatient (BNV) | payer MEDICARE, SELFPAY | PROVIDERS: Admitting Provider Student in an Organized Health Care Education/Training Program; Emergency Provider Emergency Medicine; PCP Internal Medicine; Visit Provider Student in an Organized Health Care Education/Training Program | DX: K85.90 Acute pancreatitis without necrosis or infection, unspecified (principal) | CPT/HCPCS: 99222; 99232; 99233; 99239 ==

== ENCOUNTER 2024-05-17 08:10 | Outpatient (AMB) | payer MEDICARE, SELFPAY ==
--- NOTE | 2024-05-17 08:26 | A.OFFVIS_ITS ---
Intake Visit Reasons: acute pancreatitis Allergies No Known Allergies Allergy (Verified 05/07/24 16:56) HPI Comments Details: Patient was just for follow-up status post recent hospitalization for upper abdominal pain. She has complete resolution of her symptoms. Fascia was on vacation over the weekend in [place] and and has been eating , moving her bowels and has no abdominal symptoms. [facility] Medical History Osteopenia COVID-19 virus infection Ganglion, left wrist Skin lump of arm Cervical spinal stenosis Hypertriglyceridemia Meningioma Hypothyroidism Hypertension Polymyalgia rheumatica Surgical History History of colonoscopy History of tonsillectomy and adenoidectomy History of tubal ligation Family History Father Alzheimers disease Mother Breast cancer Maternal Grandmother CVD (cardiovascular disease) Maternal Grandfather No problems noted. Paternal Grandmother CVD (cardiovascular disease) Paternal Grandfather No problems noted. Social History Household Members: None Housing: Condominium Alcohol intake: current Alcohol intake frequency: a few times a week Alcohol type: wine Comment: 3x a week 2 glasses Patient Tobacco Use Status: Former Tobacco user Tobacco use type: Cigarette Years Smoked: 1979 e-Cigarette/Vaping Use: Never Used Second Hand Smoke Exposure: Yes Advance Directives Date on File: 05/08/24 service: No 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al status: retired Cognitive needs: No Hearing needs: No Vision needs: Yes (Glasses) Physical Exam Eyes Other: Anicteric GI Other: Abdomen is soft, benign. Nontender. Assessment & Plan Assessment & Plan (1) Pancreatitis: Code(s): K85.90 - Acute pancreatitis without necrosis or infection, unspecified Category: Surgical Plan At present, patient has no acute surgical issues. I do not think she needs to have her gallbladder out because I am not convinced that this was the cause of her symptoms. At present, patient has been given dietary suggestions and will otherwise follow-up p.r.n.. All questions answered. Coding Level of Care Code Est Pt Level 4 (56864) Diagnoses Pancreatitis K85.90
== END 2024-05-17 08:29 | disposition home or self-care (01) ==
PROVIDERS: PCP Internal Medicine; Visit Provider Surgery
DX: K85.90 Acute pancreatitis without necrosis or infection, unspecified (principal)
CPT/HCPCS: 99214

== ENCOUNTER → 2024-05-17 08:10 | Outpatient (BNVA) | payer MEDICARE, SELFPAY | PROVIDERS: PCP Internal Medicine; Visit Provider Surgery | DX: K85.90 Acute pancreatitis without necrosis or infection, unspecified (principal) | CPT/HCPCS: 99212 ==

== ENCOUNTER 2024-05-18 11:19 | Outpatient (AMB) | payer MEDICARE, SELFPAY ==
[2024-05-18 11:49] VITALS: BP 138/80; PULSE 67; O2SAT 97; BMI 22.8
--- NOTE | 2024-05-18 11:49 | MHC.PC.OV ---
Vital Signs 05/18/24 11:49 Height 5 ft 6 in Weight 141 lb BMI 22.8 BP 138/80 Blood Pressure Location Lt brachial Position Sitting Pulse 67 Pulse Source Pulse Oximeter Pulse Oximetry (%) 97 Oxygen Delivery Method Room Air Intake Visit Reasons: TCM Pancreatitis follow up discharged on 05/10/24 Box Spring Maker Required: No Accompanied by: Self / Same As Patient Allergies No Known Allergies Allergy (Verified 05/18/24 11:52) Medication List - Last Reconciled 05/18/24 by Clarissa Maya PA-C calcium carbonate-vitamin D3 600 mg-5 mcg (200 unit) 1 cap PO DAILY cranberry 400 mg PO DAILY levothyroxine 100 mcg PO MOTUWETHFRSA [id number] 500 mcg- 750 mg (Nicotinamide (with chromium)) 1 tab PO DAILY Tobacco use date assessed: 12/23/23 Last assessed Fall Risk: 05/18/24 Dental Screening Dental Screen Date: 12/23/23 HPI TCM Pancreatitis follow up discharged on 05/10/24 HPI Details 83-year-old female with hypertension, hypothyroidism osteoporosis coming in hospital discharge follow up. In review of the notes, patient was seen in [facility] [place] [place] [facility] 05/07/2024 for evaluation of abdominal pain found to have pancreatitis and admitted to medical floor for treatment with IV fluids, analgesics, and lab monitoring. Abdominal MRI showed interstitial pancreatitis with abdominal ascites and no evidence of gallstones. Patient became asymptomatic and tolerating diet so was discharged home with recommendations to follow a low-fat diet and outpatient follow up with Gastroenterology and primary care. Patient was discharged 05/10/2024. Patient was seen by General surgery 05/18/2024 was found to have complete resolution of her symptoms. No need for cholecystectomy and given dietary suggestions to follow up p.r.n. Patient states her bowel movements have been normal and she is no longer having abdominal pain. She has been following general surgery's recommended diet and has been doing well. She has no other concerns at this time. TCM TCM Information Date of Discharge 05/10/24 Discharged From [facility] Medical History Osteopenia COVID-19 virus infection Ganglion, left wrist Skin lump of arm Cervical spinal stenosis Hypertriglyceridemia Meningioma Hypothyroidism Hypertension Polymyalgia rheumatica Surgical History History of colonoscopy History of tonsillectomy and adenoidectomy History of tubal ligation Family History Father Alzheimers disease Mother Breast cancer Maternal Grandmother CVD (cardiovascular disease) Maternal Grandfather No problems noted. Paternal Grandmother CVD (cardiovascular disease) Paternal Grandfather No problems noted. Social History Household Members: None Housing: Condominium Alcohol intake: current Alcohol intake frequency: a few times a week Alcohol type: wine Comment: 3x a week 2 glasses Patient Tobacco Use Status: Former Tobacco user Tobacco use type: Cigarette Years Smoked: 1979 e-Cigarette/Vaping Use: Never Used Second Hand Smoke Exposure: Yes Advance Directives Date on File: 05/08/24 service: No 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al status: retired Cognitive needs: No Hearing needs: No Vision needs: Yes (Glasses) Questionnaire PHQ-9 Over the last 2 weeks, how often have you been bothered by any of the following problems? 1. Little interest or pleasure in doing things: not at all 2. Feeling down, depressed, or hopeless: not at all 3. Trouble falling or staying asleep, or sleeping too much: several days 4. Feeling tired or having little energy: not at all 5. Poor appetite or overeating: not at all 6. Feeling bad about yourself - or that you are a failure or have let yourself or your family down: not at all 7. Trouble concentrating on things, such as reading the newspaper or watching television: not at all 8. Moving or speaking so slowly that other people could have noticed. Or the opposite - being so fidgety or restless that you have been moving around a lot more than usual: not at all 9. Thoughts that you would be better off or of hurting yourself in some way: not at all Total score: 1 Depression Screening Interpretation: Positive Depression Screening Done: Yes Source: Developed by Drs. Franklyn Gutiérrez, Ariane Walsh, Handy Helm and colleagues, with an educational elayne from [employer] Thrive Questionnaire Date Thrive assessed: 05/08/24 AUDIT C Alcohol Use Questionnaire (AUDIT-C) 1. How often do you have a drink containing alcohol?: Monthly or less 2. How many drinks containing alcohol do you have on a typical day when you are drinking?: 1 or 2 3. How often do you have six or more drinks on one occasion?: Never Total Score: 1 Score Reviewed/Action Taken: Yes SILVIA-7 AMB Questionnaire SILVIA-7 Date SILVIA - 7 assessed: 05/18/24 Feeling nervous, anxious, or on edge: 0 = Not at all Not being able to stop or control worryin = Not at all Worrying too much about different things: 0 = Not at all Trouble relaxin = Not at all Being so restless that it is hard to sit still: 0 = Not at all Becoming easily annoyed or irritable: 0 = Not at all Feeling afraid as if something awful might happen: 0 = Not at all Total SILVIA-7 score (0-4 normal; 5-9 mild; 10-14 moderate; 15-21 severe): 0 Source: Developed by Drs. Franklyn Gutiérrez, Ariane Walsh, Handy Helm and colleagues, with an educational elayne from [employer] SILVIA-7 Assessment Billing SILVIA-7 Assessment Tool: SILVIA-7 Assessment 78653 Review of Systems Const Denies body aches, Denies chills and Denies fever(s) Eyes Reports no additional complaints Card Denies chest pain and Denies dyspnea Resp Denies cough and Denies dyspnea GI Denies abdominal pain, Denies constipation, Denies diarrhea, Denies nausea and Denies vomiting Reports no additional complaints Musc Reports no additional complaints and Denies abnormal gait Skin/Breast Reports system reviewed and no additional complaints, except as documented Neuro Denies abnormal gait Psych Reports no additional complaints Physical exam (Primary Care) BMI result Body Mass Index 22.8 Tobacco/Smoking Status: Tobacco use Status Tobacco use date assessed 12/23/23 05/18/24 11:49 Patient Tobacco Use Status Former Tobacco user 05/18/24 11:49 Tobacco use type Cigarette 05/18/24 11:49 e-Cigarette/Vaping Use Never Used 05/18/24 11:49 Depression Screening Interpretation: Positive Thrive Assessment: Date of Thrive Assessment Date Thrive assessed 05/08/24 05/18/24 11:49 Const General: cooperative, healthy appearing, comfortable and no acute distress Orientation/consciousness: patient oriented x3 HENMT Head: Yes normocephalic Ears: hearing grossly normal bilaterally General nose exam: Normal external nose present Eyes General: appearance normal, both eyes and all related structures Conjunctivae: conjunctivae normal Neck Neck: Yes full ROM and Yes no lymphadenopathy Resp Effort & Inspection: normal respiratory effort Cardio Rate: regular rate Rhythm: regular rhythm GI Inspection: Yes normal to inspection Palpation (GI): Soft to palpation, not firm, nontender, no guarding, not rigid and No Rebound tenderness present Skin General skin exam: no rashes or lesions noted Neuro General: patient oriented x3 Gait exam (Neuro): Normal gait present Extrem General: Yes normal to inspection, Yes full ROM and No edema Psych Affect: normal affect Attitude: cooperative Insight: Good insight present (Psych) Judgement: Good judgement present (Psych) Assessment and Plan Assessment & Plan (1) Pancreatitis: Code(s): K85.90 - Acute pancreatitis without necrosis or infection, unspecified Plan: Symptoms have resolved at this time and she has been advancing a solid diet with no issue and bowel movements have been normal. She did recently see General surgery who did not see a surgical problem and advised to follow up as needed. Continue to monitor for your symptoms and any changes in abdominal pain or bowel habits should be re-evaluated. We will order for repeat liver test to monitor downtrend. Follow up as needed. Plan This note was constructed using voice recognition software. While every effort has been made to ensure accuracy and mold making plastics sheets supervisor, still areas may have been included sometimes these areas may affect the content or meeting of the given symptoms. Total time spent caring for the patient today was 30 minutes. This includes time spent before the visit reviewing the chart, time spent during the visit, and time spent after the visit and documentation. Orders: Orders Liver Panel Today K85.90 - Acute pancreatitis without necrosis or infection, unspecified Coding Level of Care Code TCM Mod MDM <= 7 Days Diagnoses Pancreatitis K85.90 Additional Codes SILVIA-7 Assessment Billing - SILVIA-7 Assessment Tool: SILVIA-7 Assessment [id number] ([id number])
== END 2024-05-18 12:13 | disposition home or self-care (01) ==
PROVIDERS: PCP Internal Medicine
DX: K85.90 Acute pancreatitis without necrosis or infection, unspecified (principal)
CPT/HCPCS: 99213

== ENCOUNTER 2024-05-31 10:21 | Outpatient (REF) | payer MEDICARE, SELFPAY ==
[2024-05-31 13:27] LABS: Alanine Aminotransferase 12 U/L (0-31); Albumin Level 3.9 g/dL (3.5-5.0); Alkaline Phosphatase 64 U/L (39-117); Aspartate Amino Transferase 19 U/L (5-31); Bilirubin Direct 0.3 mg/dL (0.0-0.5); Bilirubin Total 0.8 mg/dL (0.0-1.0); Total Protein 7.6 g/dL (6.5-8.0)
== END 2024-05-31 10:22 | disposition home or self-care (01) ==
LOC: HO.10HDL 10:21
DX: K85.90 Acute pancreatitis without necrosis or infection, unspecified (principal)
CPT/HCPCS: 36415; 80076

== ENCOUNTER → 2024-08-07 13:15 | Outpatient (BNV) | payer MEDICARE, SELFPAY | PROVIDERS: PCP Internal Medicine; Visit Provider Internal Medicine | DX: Z12.31 Encounter for screening mammogram for malignant neoplasm of breast (principal) | CPT/HCPCS: 77063; 77067 ==

== ENCOUNTER 2024-08-07 13:18 | Outpatient (REF) | payer MEDICARE, SELFPAY ==
--- NOTE | ~2024-08-07 | MM_ITS ---
EXAMINATION: MM SCREENING DIGITAL BREAST TOMOSYNTHESIS, BILATERAL CLINICAL INFORMATION: Screening. Asymptomatic. COMPARISON: Mammography: Comparison is made with available priors TECHNIQUE: Digital breast mammography with tomosynthesis is performed in both the craniocaudal and mediolateral oblique views along with computer-aided detection (CAD). FINDINGS: There are scattered areas of fibroglandular density (ACR BI-RADS breast composition Category b). There are no significant masses, abnormal calcifications, or other abnormalities. MM/MM tomosynthesis screening BI IMPRESSION: No mammographic evidence of malignancy. ASSESSMENT: BI-RADS BI-RADS 1 - Negative RECOMMENDATION: Routine annual mammography screening. 1 year F/U This examination should not preclude the clinical evaluation of a suspicious palpable abnormality. This patient's information was entered into a reminder system with a target due date for their next mammogram. Electronically signed by: Edith Tapia DO 08/15/2024 03:20 PM ADDIE
== END 2024-08-07 13:19 | disposition home or self-care (01) ==
LOC: HO.MAMMO 13:18
PROVIDERS: PCP Internal Medicine; Visit Provider Internal Medicine
DX: Z12.31 Encounter for screening mammogram for malignant neoplasm of breast (principal)
CPT/HCPCS: 77063; 77067

== ENCOUNTER 2024-08-13 17:39 | Inpatient (IN) | payer MEDICARE, SELFPAY ==
--- NOTE | ~2024-08-13 | US_ITS ---
EXAMINATION: US ABDOMEN LIMITED CLINICAL INFORMATION: Abnormal gallbladder on CT. Acute pancreatitis. COMPARISON: MRCP 08/14/2024. CT abdomen and pelvis 08/13/2024. Ultrasound abdomen limited 05/07/2024 and 12/12/2020. TECHNIQUE: Real-time imaging of the right upper quadrant abdominal viscera. Limited visualization due to bowel gas. FINDINGS: PANCREAS: Trace fluid adjacent to the pancreatic head. Limited visualization. A 1.2 cm pancreatic cyst. A 1.3 cm pancreatic cyst was identified on MR MRCP of 05/08/2024. LIVER: Unremarkable hepatic echogenicity. Limited visualization. Mild intrahepatic biliary ductal dilatation redemonstrated. GALLBLADDER: Gallbladder again appears distended, hydropic. There is mild irregularity of the gallbladder wall. Gallbladder thickness of 0.3 cm, borderline. Small amount of pericholecystic fluid. No gallstones appreciated. COMMON BILE DUCT: Abnormal in caliber measuring 1.3 cm in diameter. RIGHT KIDNEY: No hydronephrosis. No renal calculi. Limited visualization. A 1.6 cm mid pole cyst with benign features for which no additional imaging is indicated. The kidney measures 11.1 cm in maximum dimension. FREE FLUID: None. ADDITIONAL FINDINGS: Possible small right pleural effusion incidentally noted on limited images. Small amount of perihepatic and pericholecystic ascites. US/US abdomen limited IMPRESSION: 1. Gallbladder again appears distended, hydropic. There is mild irregularity of the gallbladder wall. Gallbladder thickness of 0.3 cm, borderline. Small amount of pericholecystic fluid. No gallstones appreciated. 2. Common bile duct abnormal in caliber measuring 1.3 cm in diameter. Mild intrahepatic biliary ductal dilatation redemonstrated. 3. A 1.2 cm pancreatic cyst. A 1.3 cm pancreatic cyst was identified on MR MRCP of 05/08/2024. 4. Possible small right pleural effusion incidentally noted on limited images. 5. Small amount of perihepatic and pericholecystic ascites. Electronically signed by: Linda Voss MD 08/16/2024 10:05 AM [facility] [place]
--- NOTE | ~2024-08-13 | MR_ITS ---
EXAMINATION: MR ABDOMEN WITHOUT AND WITH CONTRAST CLINICAL INFORMATION: Abdominal pain. Dilated common bile duct. CT abdomen and pelvis 08/13/2024. COMPARISON: CT abdomen and pelvis 08/13/2024. MRI MRCP 05/08/2024. TECHNIQUE: MR imaging examination of the abdomen is performed on a high-field magnet without use of intravenous contrast. The examination includes heavily T2-weighted MRCP sequences. FINDINGS: LUNG BASES: Trace bilateral pleural effusions. LIVER, GALLBLADDER, AND BILIARY TREE: Liver is mildly enlarged measuring 19 cm in the craniocaudal dimension, similar to prior exam. No hepatic steatosis. No focal hepatic lesion. Again noted mild gallbladder hydrops with the dilated gallbladder measuring up to 4.6 cm in diameter. There is mild gallbladder wall thickening. No definite gallstones. Mild dilation of the central intrahepatic bile ducts. Stable chronic dilation of the common bile duct measuring up to 1.3 cm. No definite filling defects along the course of the CBD. PANCREAS: Again noted 1.3 cm cystic lesion within the superior body of the pancreas closely juxtaposed to the nondilated pancreatic duct. No discrete communication with the pancreatic duct. Peripancreatic edema is noted. SPLEEN: Normal size. No focal lesion. ADRENAL GLANDS: Unremarkable. KIDNEYS: The kidneys are normal in size. No hydronephrosis. Bilateral lower pole peripelvic cysts are again noted, for which no dedicated follow-up imaging is required. GASTROINTESTINAL TRACT: There is no evidence of bowel obstruction. Trace abdominopelvic ascites. There is edema of the mesenteric fat in the left mid abdomen. LYMPHOVASCULAR STRUCTURES : No dominant lymphadenopathy. The abdominal aorta is normal in caliber. Dilated left ovarian vein better visualized on recent CT. OSSEOUS: Again noted levoscoliotic curvature of the lumbar spine with advanced multilevel spondylosis of the lumbar spine. MR/MR MRCP IMPRESSION: 1. Peripancreatic edema and edema of the mesenteric fat in the left mid abdomen. Correlate for clinical signs of acute pancreatitis. 2. Mild gallbladder hydrops and wall thickening, unchanged from prior exam. Stable dilated common bile duct measuring up to 1.3 cm in transverse diameter without definite filling defects. 3. Stable simple cyst/cystic lesion within the superior pancreatic body. 4. Trace bilateral pleural effusions and abdominopelvic ascites. Electronically signed by: Magdiel Irizarry MD 08/15/2024 02:10 PM EST [facility]
--- NOTE | ~2024-08-13 | CT_ITS ---
EXAMINATION: CT ABDOMEN AND PELVIS WITH CONTRAST CLINICAL INFORMATION: Pancreatitis COMPARISON: CT abdomen pelvis 05/06/2024 TECHNIQUE: Multidetector volumetric imaging was performed from the superior aspect of the liver through the pubic symphysis with intravenous contrast. A total of 85 mL of Omnipaque 350 was utilized for the study. Sagittal and coronal reformatted images were obtained on the technologist's workstation. This CT examination was performed using dose optimization techniques as appropriate, variously including the following: *Automated exposure control *Adjustment of mA and/or kV according to patient size (this includes techniques or standardized protocols for targeted exams where dose is matched to indication/reason for exam; i.e. extremities or head) *Use of iterative reconstruction technique DLP: 430 mGy-cm FINDINGS: LUNG BASES: The visualized lung bases are unremarkable. LIVER, GALLBLADDER, AND BILIARY TREE: The liver is enlarged measuring 18 cm in greatest length. No focal hepatic lesion. The common bile duct is dilated at 1 cm. There is some mild prominent central biliary duct dilatation, slightly more than prior. The gallbladder is markedly distended/hydropic with some mild wall thickening (with some enhancement) with no evidence of definite radiopaque gallstones or obvious pericholecystic inflammatory changes. PANCREAS: Peripancreatic edema is seen. Similar finding on the 05/07/2024 CT scan but today the superior slightly worse with a slight increase in fluid. No drainable collection is seen. There is a cyst at the junction of the neck and body of pancreas measuring 1.1 x 0.8 x 0.7 cm (3:30 and medina images) which is unchanged from prior. SPLEEN: Unremarkable. ADRENAL GLANDS: Unremarkable. KIDNEYS AND URETERS: The kidneys are normal in size, shape, and attenuation. No hydronephrosis, hydroureter, or calculi seen. No perinephric stranding. BLADDER: Unremarkable. GASTROINTESTINAL TRACT: There is colonic diverticulosis without diverticulitis is The small and large bowel are unremarkable. The appendix is unremarkable. ABDOMINAL WALL: No significant hernia is appreciated. LYMPH NODES: No retroperitoneal lymphadenopathy. The VASCULAR: The portal venous system appears normal. No suspect splenic vein thrombosis is seen. No pseudoaneurysms are detected. 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 PELVIC VISCERA: The uterus and adnexa are unremarkable. There is a tiny amount of free fluid present in the pelvis. OSSEOUS STRUCTURES: Marked degenerative changes are present throughout the lumbar spine. There is grade 1 anterolisthesis of L4 upon L5. There is a scoliosis convex to right. No bony destructive lesions are seen. CT/CT abdomen pelvis w IV con IMPRESSION: 1. Peripancreatic edema is again seen, slightly worse than prior. No drainable collection is seen. Findings are compatible with pancreatitis. 2. There is a 1.1 cm cyst at the junction of the neck and body of the pancreas which is unchanged from prior. 3. The gallbladder is markedly distended/hydropic with some mild wall thickening and enhancement. No radiopaque gallstones are seen. 4. There is mildly dilated common bile duct with mild intrahepatic biliary ductal prominence, slightly worsened than prior. 5. Other incidental findings as described above. Fleischner guidelines were followed. Electronically signed by: Vinnie Zaragoza MD 08/13/2024 09:47 PM [facility] [place]
--- NOTE | 2024-08-13 17:56 | ED.ABDPAIN ---
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 MRI abdomen showed hydrops of gallbladder patient's symptoms improved remarkably cleared by the surgery and GI comes back again as since noon having the pain again in the mid abdomen radiating to the back associated with nausea vomiting x2 no fever no chills no urinary symptoms no history of kidney stone no history of alcohol use Related Data Home Medications ?Medication ?Instructions ?Recorded ?Confirmed calcium 600 mg (as 1 cap PO DAILY 11/21/20 08/13/24 carbonate)-vitamin D3 5 mcg (200 unit) capsule levomefolate 500 mcg-niacinamide 1 tab PO DAILY 01/05/22 08/13/24 750 qn-hbtxbl-Mk-selen-chrom tablet (Nicotinamide (with chromium)) cranberry 400 mg capsule 400 mg PO DAILY 02/09/23 08/13/24 levothyroxine 100 mcg tablet 100 mcg PO MOTUWETHFRSA 05/08/24 08/13/24 atenolol 50 mg tablet 50 mg PO DAILY 08/13/24 08/13/24 Allergies Allergy/AdvReac Type Severity Reaction Status Date / Time No Known Allergies Allergy Verified 08/13/24 18:03 Review of Systems Review of Systems Yes all other systems are reviewed and are negative [facility] Past Medical History Medical History Osteopenia COVID-19 virus infection Ganglion, left wrist Skin lump of arm Cervical spinal stenosis Hypertriglyceridemia Meningioma Hypothyroidism Hypertension Polymyalgia rheumatica Surgical History History of colonoscopy History of tonsillectomy and adenoidectomy History of tubal ligation Family History Family History Father Alzheimers disease Mother Breast cancer Maternal Grandmother CVD (cardiovascular disease) Maternal Grandfather No problems noted. Paternal Grandmother CVD (cardiovascular disease) Paternal Grandfather No problems noted. Social History Social History Household Members: None Housing: Condominium Alcohol intake: current Alcohol intake frequency: a few times a week Alcohol type: wine Comment: 3x a week 2 glasses Patient Tobacco Use Status: Former Tobacco user Tobacco use type: Cigarette Years Smoked: 1980 Smoked in Last 30 Days: No e-Cigarette/Vaping Use: Never Used Second Hand Smoke Exposure: Yes Use of substances other than those prescribed or required for medical reasons: No Advance Directives: Yes Advance Directives on File: Yes Advance Directives Date on File: 05/08/24 Nutrition Risks: No Nutritional Risk service: No 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al status: retired Cognitive needs: No Hearing needs: No Vision needs: Yes (Glasses) Physical Exam ED Vital Signs: Vital Signs - 24 hr 08/13/24 17:59 08/13/24 20:26 08/13/24 20:37 Temperature 97.5 F 97.9 F Pulse Rate 71 70 Respiratory Rate 16 18 16 Blood Pressure 135/82 145/77 H Pulse Oximetry 97 98 Oxygen Delivery Method Room Air Room Air 08/13/24 20:38 Temperature Pulse Rate Respiratory Rate 16 Blood Pressure 139/78 Pulse Oximetry 98 Oxygen Delivery Method Room Air BMI result Body Mass Index 23.4 Appearance: Alert. Oriented X3. No acute distress. Eyes: No pallor or icterus ENT: Pharynx normal. Oral Mucosa moist Neck: Normal inspection. Neck supple. CVS: Normal heart rate and rhythm. Pulses normal. Respiratory: No respiratory distress. Equal air entry bilateral, no wheezing/rales/rhonchi Abdomen: Soft and tenderness mid abdomen Bowel sounds are present, no mass palpable, no CVA tenderness Skin: Skin warm and dry. Normal skin color. Normal skin turgor. Extremities: No lower extremity edema. No calf tenderness Neuro: Oriented X 3. No motor deficit. Course Course Course Narrative: This is a rapid medial exam. deferred additional HPI, ROS, PE to primary provider. 84 yo female with history of pancreatic cyst, pancreatitis with admission in april, HTN, hypothyroidism here with complaints upper abdominal pain with radiation to the back/vomiting since 12pm. Feels similar to previous episode of pancreatitis. Will obtain labs, UA, EKG GIO -Pelon Milan APRN Medical Decision Making Medical Decision Making MDM Narrative: Patient has acute pancreatitis of idiopathic etiology with similar presentation few months ago with rapid improvement. Will admit patient for further evaluation by GI no drainable fluid collection noticed Differential Diagnosis Differential Diagnoses: The differential diagnosis associated with the presentation includes Admission/Observation Consideration of admission/observation: Escalation of care including admission/observation considered Consult Healthcare Provider Management of the patient was discussed with: Hospitalist Lab Data MDM Lab Attestation statement: I reviewed the patient's lab results. 08/13/24 18:52 08/13/24 18:52 Labs: Lab Results 08/13/24 08/13/24 08/13/24 Range/Units 18:14 18:52 20:04 WBC 11.4 H (4.8-10.8) X10*3/uL RBC 4.49 D (4.20-5.50) X10*6/uL Hgb 14.1 D (12.0-16.0) g/dl Hct 42.7 D (37.0-47.0) % MCV 95.1 (80.0-98.0) fL MCH 31.4 (27.0-33.0) pg MCHC 33.0 (31.0-35.0) g/dl RDW 13.2 (11.0-16.0) % Plt Count 284 D (160-400) X10*3/uL MPV 9.7 (9.4-12.3) fL Immature Gran % (Auto) 0.4 (0.0-0.4) % Neut % (Auto) 85.7 H (45-73) % Lymph % (Auto) 10.2 L (20-40) % [place] % (Auto) 3.4 (2-11) % Eos % (Auto) 0.1 (0-4) % Baso % (Auto) 0.2 (0-2) % Lymph # (Auto) 1.2 (1.2-4.9) X10*3/uL [place] # (Auto) 0.4 (0.1-1.2) X10*3/uL Eos # (Auto) 0.0 (0.0-0.4) X10*3/uL Baso # (Auto) 0.0 (0.0-0.2) X10*3/uL Abs Immat Gran (auto) 0.04 H (0.00-0.03) X10*3/uL Absolute Neuts (auto) 9.8 H (2.0-8.3) x10*3/uL Absolute Nucleated RBC 0.000 (0.0-0.012) X10*3/uL Nucleated RBC % (auto) 0.0 (0.0-0.2) /100WBC Sodium 140 (135-145) mmol/L Potassium 3.8 (3.3-5.1) mmol/L Chloride 104 (96-108) mmol/L Carbon Dioxide 27 (22-29) mmol/L Anion Gap 13 (12-20) BUN 13 (9-16) mg/dL Creatinine 0.86 (0.5-1.4) mg/dL Estim Creat Clear Calc 43.8 Estimated GFR > 60 Random Glucose 124 H (60-115) mg/dL Calcium 9.7 D (8.4-10.2) mg/dL Total Bilirubin 0.8 (0.0-1.0) mg/dL Direct Bilirubin 0.3 (0.0-0.5) mg/dL AST 59 H (5-31) U/L ALT 31 (0-31) U/L Alkaline Phosphatase 64 (39-117) U/L Troponin I High Sens Cancelled Total Protein 7.8 (6.5-8.0) g/dL Albumin 4.1 (3.5-5.0) g/dL Triglycerides (<150) mg/dL Lipase > 3000 H (8-78) U/L Urine Color Yellow Urine Appearance Clear Urine pH 7.0 (5.0-9.0) Ur Specific [place] 1.020 (1.005-1.025) Urine Protein Trace (Neg-Trace) mg/dL Urine Glucose (UA) Negative (Negative) mg/dL Urine Ketones Trace (Negative) mg/dL Urine Blood Negative (Negative) Urine Nitrite Negative (Negative) Ur Leukocyte Esterase Negative (Negative) 08/13/24 Range/Units 21:35 WBC (4.8-10.8) X10*3/uL RBC (4.20-5.50) X10*6/uL Hgb (12.0-16.0) g/dl Hct (37.0-47.0) % MCV (80.0-98.0) fL MCH (27.0-33.0) pg MCHC (31.0-35.0) g/dl RDW (11.0-16.0) % Plt Count (160-400) X10*3/uL MPV (9.4-12.3) fL Immature Gran % (Auto) (0.0-0.4) % Neut % (Auto) (45-73) % Lymph % (Auto) (20-40) % [place] % (Auto) (2-11) % Eos % (Auto) (0-4) % Baso % (Auto) (0-2) % Lymph # (Auto) (1.2-4.9) X10*3/uL [place] # (Auto) (0.1-1.2) X10*3/uL Eos # (Auto) (0.0-0.4) X10*3/uL Baso # (Auto) (0.0-0.2) X10*3/uL Abs Immat Gran (auto) (0.00-0.03) X10*3/uL Absolute Neuts (auto) (2.0-8.3) x10*3/uL Absolute Nucleated RBC (0.0-0.012) X10*3/uL Nucleated RBC % (auto) (0.0-0.2) /100WBC Sodium (135-145) mmol/L Potassium (3.3-5.1) mmol/L Chloride (96-108) mmol/L Carbon Dioxide (22-29) mmol/L Anion Gap (12-20) BUN (9-16) mg/dL Creatinine (0.5-1.4) mg/dL Estim Creat Clear Calc Estimated GFR Random Glucose (60-115) mg/dL Calcium (8.4-10.2) mg/dL Total Bilirubin (0.0-1.0) mg/dL Direct Bilirubin (0.0-0.5) mg/dL AST (5-31) U/L ALT (0-31) U/L Alkaline Phosphatase (39-117) U/L Troponin I High Sens Total Protein (6.5-8.0) g/dL Albumin (3.5-5.0) g/dL Triglycerides 84 (<150) mg/dL Lipase (8-78) U/L Urine Color Urine Appearance Urine pH (5.0-9.0) Ur Specific [place] (1.005-1.025) Urine Protein (Neg-Trace) mg/dL Urine Glucose (UA) (Negative) mg/dL Urine Ketones (Negative) mg/dL Urine Blood (Negative) Urine Nitrite (Negative) Ur Leukocyte Esterase (Negative) Independent Interpretation I performed an independent interpretation of an: EKG and CT Scan Interpretation: Normal sinus rhythm heart rate 68 beats per minute normal interval incomplete right bundle-branch block no acute STT wave changes no acute ischemia Radiology Impression Discussion of test interpretation with radiology: I have reviewed the radiologist's reading. Radiologist Impression: [address] [address] [address] Scan Report Signed Patient: Tanisha Estrella MR#: [id number] : 1940 Acct:[id number] Age/Sex: 84 / F ADM Date: 08/13/24 Loc: .ED Attending Dr: Ordering Physician: Robert Feliciano MD Date of Service: 08/13/24 Procedure(s): CT abdomen pelvis w IV con Accession Number(s): [id number] cc: Claudia Smalls MD; Robert Feliciano MD~ EXAMINATION: CT ABDOMEN AND PELVIS WITH CONTRAST CLINICAL INFORMATION: Pancreatitis COMPARISON: CT abdomen pelvis 05/06/2024 TECHNIQUE: Multidetector volumetric imaging was performed from the superior aspect of the liver through the pubic symphysis with intravenous contrast. A total of 85 mL of Omnipaque 350 was utilized for the study. Sagittal and coronal reformatted images were obtained on the technologist's workstation. This CT examination was performed using dose optimization techniques as appropriate, variously including the following: *Automated exposure control *Adjustment of mA and/or kV according to patient size (this includes techniques or standardized protocols for targeted exams where dose is matched to indication/reason for exam; i.e. extremities or head) *Use of iterative reconstruction technique DLP: 430 mGy-cm FINDINGS: LUNG BASES: The visualized lung bases are unremarkable. LIVER, GALLBLADDER, AND BILIARY TREE: The liver is enlarged measuring 18 cm in greatest length. No focal hepatic lesion. The common bile duct is dilated at 1 cm. There is some mild prominent central biliary duct dilatation, slightly more than prior. The gallbladder is markedly distended/hydropic with some mild wall thickening (with some enhancement) with no evidence of definite radiopaque gallstones or obvious pericholecystic inflammatory changes. PANCREAS: Peripancreatic edema is seen. Similar finding on the 05/07/2024 CT scan but today the superior slightly worse with a slight increase in fluid. No drainable collection is seen. There is a cyst at the junction of the neck and body of pancreas measuring 1.1 x 0.8 x 0.7 cm (3:30 and [facility] images) which is unchanged from prior. SPLEEN: Unremarkable. ADRENAL GLANDS: Unremarkable. KIDNEYS AND URETERS: The kidneys are normal in size, shape, and attenuation. No hydronephrosis, hydroureter, or calculi seen. No perinephric stranding. BLADDER: Unremarkable. GASTROINTESTINAL TRACT: There is colonic diverticulosis without diverticulitis is The small and large bowel are unremarkable. The appendix is unremarkable. ABDOMINAL WALL: No significant hernia is appreciated. LYMPH NODES: No retroperitoneal lymphadenopathy. The VASCULAR: The portal venous system appears normal. No suspect splenic vein thrombosis is seen. No pseudoaneurysms are detected. 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 PELVIC VISCERA: The uterus and adnexa are unremarkable. There is a tiny amount of free fluid present in the pelvis. OSSEOUS STRUCTURES: Marked degenerative changes are present throughout the lumbar spine. There is grade 1 anterolisthesis of L4 upon L5. There is a scoliosis convex to right. No bony destructive lesions are seen. CT/CT abdomen pelvis w IV con IMPRESSION: 1. Peripancreatic edema is again seen, slightly worse than prior. No drainable collection is seen. Findings are compatible with pancreatitis. 2. There is a 1.1 cm cyst at the junction of the neck and body of the pancreas which is unchanged from prior. 3. The gallbladder is markedly distended/hydropic with some mild wall thickening and enhancement. No radiopaque gallstones are seen. 4. There is mildly dilated common bile duct with mild intrahepatic biliary ductal prominence, slightly worsened than prior. 5. Other incidental findings as described above. Fleischner guidelines were followed. Electronically signed by: Vinnie Zaragoza MD 08/13/2024 09:47 PM [facility] Medications Administered Generic Name Dose Route Start Last Admin Trade Name Freq PRN Reason Stop Dose Admin Enoxaparin Sodium 40 mg 08/13/24 23:00 08/14/24 00:45 Enoxaparin Sodium 40 Mg/0.4 Ml Syringe SUBCUT 40 mg Q24H MOIRA Administration Lactated Ringer's 1,000 mls @ 125 mls/hr 08/13/24 21:45 08/13/24 22:03 Lr IVCONT 125 mls/hr .Q8H MOIRA Administration Morphine Sulfate 4 mg 08/13/24 22:12 08/14/24 00:45 Morphine Sulfate 4 Mg/Ml Cartridge IVPUSH 4 mg Q4H PRN Administration Pain, Severe (Pain Scale 7-10) Protocol Sodium Chloride 3 ml 08/14/24 00:00 08/14/24 00:54 0.9 % Sodium Chloride Flush 3 Ml Syringe IVFLUSH Not Given QSHIFT MOIRA Discontinued Medications Generic Name Dose Route Start Last Admin Trade Name Freq PRN Reason Stop Dose Admin Sodium Chloride 1,000 mls @ 999 mls/hr 08/13/24 19:58 08/13/24 21:40 Ns IV 08/13/24 20:58 Infused .Q1H1M ONE Infusion Iohexol 85 ml 08/13/24 21:16 08/13/24 21:16 Iohexol 350 Mg/Ml 100 Ml Infus..Btl IV 08/13/24 21:17 85 ml ONCE ONE Administration Morphine Sulfate 4 mg 08/13/24 20:06 08/13/24 20:37 Morphine Sulfate 4 Mg/Ml Cartridge IVPUSH 08/13/24 20:07 4 mg ONCE ONE Administration Protocol Ondansetron HCl 4 mg 08/13/24 20:07 08/13/24 20:36 Ondansetron Hcl 4 Mg/2 Ml Vial IVPUSH 08/13/24 20:08 4 mg ONCE ONE Administration Discharge Plan Discharge Clinical Impression: Acute pancreatitis Patient Disposition: Admitted As Inpatient
[2024-08-13 17:59] VITALS: BP 135/82; PULSE 71; RESP 16; TEMP 36.4; O2SAT 97; BMI 23.4
--- NOTE | 2024-08-13 18:01 | ECG_ITS ---
Test Reason : EPIGASTRIC PAIN Blood Pressure : / mmHG Vent. Rate : 068 BPM Atrial Rate : 068 BPM P-R Int : 192 ms QRS Dur : 096 ms QT Int : 420 ms P-R-T Axes : 066 021 030 degrees QTc Int : 446 ms Normal sinus rhythm Possible Left atrial enlargement Incomplete right bundle branch block Nonspecific ST and T wave abnormality Abnormal ECG When compared with ECG of 07-MAY-2024 17:01, No significant changes seen Referred By: Abigail Milan Electronically Signed By:EMILY RAMIREZ
[2024-08-13 18:56] LABS: MANUAL DIFF FLAG NO
[2024-08-13 19:05] LABS: Basophils Percent Auto 0.2 % (0-2); Eosinophils Percent Auto 0.1 % (0-4); Hematocrit 42.7 % (37.0-47.0); Hemoglobin 14.1 g/dl (12.0-16.0); Imm Gran Abs Auto 0.04 X10*3/uL (0.00-0.03); Imm Gran Pct Auto 0.4 % (0.0-0.4); Lymphocytes Absolute Auto 1.2 X10*3/uL (1.2-4.9); Lymphocytes Percent Auto 10.2 % (20-40); Mean Corpuscular Hemoglobin 31.4 pg (27.0-33.0); Mean Corpuscular Volume 95.1 fL (80.0-98.0); Mean Platelet Volume 9.7 fL (9.4-12.3); Monocytes Absolute Auto 0.4 X10*3/uL (0.1-1.2); Monocytes Percent Auto 3.4 % (2-11); Neutrophils Absolute Auto 9.8 x10*3/uL (2.0-8.3); Neutrophils Percent Auto 85.7 % (45-73); Platelet Count 284 X10*3/uL (160-400); Red Blood Count 4.49 X10*6/uL (4.20-5.50); Red Cell Distribution Width 13.2 % (11.0-16.0); White Blood Count 11.4 X10*3/uL (4.8-10.8)
[2024-08-13 19:22] LABS: Alanine Aminotransferase 31 U/L (0-31); Albumin Level 4.1 g/dL (3.5-5.0); Alkaline Phosphatase 64 U/L (39-117); Anion Gap 13 (12-20); Aspartate Amino Transferase 59 U/L (5-31); Bilirubin Direct 0.3 mg/dL (0.0-0.5); Bilirubin Total 0.8 mg/dL (0.0-1.0); Blood Urea Nitrogen 13 mg/dL (9-16); Calcium 9.7 mg/dL (8.4-10.2); Carbon Dioxide 27 mmol/L (22-29); Chloride 104 mmol/L (96-108); Creatinine Clr Calc Pharmacy 43.8; Estimated Glomerular Filt Rate > 60; Glucose Random 124 mg/dL (60-115); Potassium 3.8 mmol/L (3.3-5.1); Sodium 140 mmol/L (135-145); Total Protein 7.8 g/dL (6.5-8.0)
[2024-08-13 19:34] LABS: Lipase > 3000 U/L (8-78)
[2024-08-13 20:15] LABS: Appearance Urine Clear; Color Urine Yellow; Glucose Urine UA Negative (Negative); Leukocyte Esterase Urine Negative (Negative); Nitrite Urine Negative (Negative); Urine Blood Negative (Negative); Urine Ketones Trace mg/dL (Negative); Urine Protein Trace mg/dL (Neg-Trace)
--- NOTE | 2024-08-13 20:24 | PC.NURSE ---
Patient is alert and oriented x4, VSS. Patient complaints of 10/10 epigastric pain with mild nausea. Patient observed ambulating to a restroom independently with a steady gait. 20 G IV line established in R AC. Patient's daughter at bedside, call richards within patients reach.
[2024-08-13 20:26] VITALS: BP 145/77; PULSE 70; RESP 18; TEMP 36.6; O2SAT 98
[2024-08-13] MEDS: 0.9 % Sodium Chloride 1,000 ML 999 ML IV (20:36)
[2024-08-13] MEDS: ondansetron HCL 4 MG/2 ML VIAL IVPUSH (20:36)
[2024-08-13 20:37] VITALS: RESP 16
[2024-08-13] MEDS: Morphine Sulfate 4 MG/ML CARTRIDGE IVPUSH (20:37)
[2024-08-13 20:38] VITALS: BP 139/78; RESP 16; O2SAT 98
--- NOTE | 2024-08-13 20:39 | PC.NURSE ---
Patient medicated per MAR.
[2024-08-13] MEDS: iohexoL 350 MG/ML 100 ML INFUS..BTL 85 ML IV (21:16)
[2024-08-13 21:50] LABS: Triglycerides 84 mg/dL (<150)
[2024-08-13] MEDS: Lactated Ringers 1,000 ML 125 ML IVCONT (22:03)
--- NOTE | 2024-08-13 22:13 | PM.IMHP ---
History of Present Illness Date of Service: 08/13/24 Chief Complaint: Abdominal pain This is a 84-year-old female with pertinent history of hypertension, hypothyroidism who presents to the emergency department for evaluation of abdominal pain. Patient states it started on the day of presentation. She has been having epigastric pain since noon on the day of presentation that is constant and radiating to the back. The pain is sharp and without any relieving factors. It feels similar to the pain of pancreatitis for which she was admitted 2 months ago. Also has had multiple episodes of nonbloody emesis with nausea throughout the day. Unable to tolerate p.o. intake. She states that she has had a stable pancreatic cyst for many years now. No fever, chills, chest discomfort, palpitations, shortness of breath, changes in urinary or bowel habits. In the emergency department, lipase found to be elevated and imaging concerning for acute pancreatitis. Of note, patient was admitted in April, for acute pancreatitis when etiology of the pancreatitis was unclear. Review of Systems Constitutional: Constitutional: Reports fatigue and Reports poor appetite Cardiovascular: Cardiovascular: Reports no additional cardiovascular complaints Respiratory: Respiratory: Reports no additional respiratory complaints Gastrointestinal: Gastrointestinal: Reports abdominal pain, Reports nausea and Reports vomiting Genitourinary: Genitourinary: Reports no additional female genitourinary complaints Endocrine: Endocrine: Reports fatigue [facility] Medical History Osteopenia COVID-19 virus infection Ganglion, left wrist Skin lump of arm Cervical spinal stenosis Hypertriglyceridemia Meningioma Hypothyroidism Hypertension Polymyalgia rheumatica Family History Father Alzheimers disease Mother Breast cancer Maternal Grandmother CVD (cardiovascular disease) Maternal Grandfather No problems noted. Paternal Grandmother CVD (cardiovascular disease) Paternal Grandfather No problems noted. Surgical History History of colonoscopy History of tonsillectomy and adenoidectomy History of tubal ligation Social History Household Members: None [facility] Alcohol intake: current Alcohol intake frequency: a few times a week Alcohol type: wine Comment: 3x a week 2 glasses Patient Tobacco Use Status: Former Tobacco user Tobacco use type: Cigarette Years Smoked: 1980 Smoked in Last 30 Days: No e-Cigarette/Vaping Use: Never Used Second Hand Smoke Exposure: Yes Use of substances other than those prescribed or required for medical reasons: No Advance Directives: Yes Advance Directives on File: Yes Advance Directives Date on File: 05/08/24 service: No 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al status: retired Cognitive needs: No Hearing needs: No Vision needs: Yes (Glasses) Meds Allergies Allergy/AdvReac Type Severity Reaction Status Date / Time No Known Allergies Allergy Verified 08/13/24 18:03 Active Medications: Current Medications Lactated Ringer's (Lr) 1,000 mls @ 125 mls/hr IVCONT .Q8H MOIRA Last Admin: 08/13/24 22:03 Dose: 125 mls/hr Home Medications ?Medication ?Instructions ?Recorded ?Confirmed ?Last Taken ?Type calcium 600 mg (as 1 cap PO DAILY 11/21/20 08/13/24 05/07/24 History carbonate)-vitamin D3 5 mcg (200 unit) capsule levomefolate 500 mcg-niacinamide 1 tab PO DAILY 01/05/22 08/13/24 05/07/24 History 750 vc-gjruqs-Kv-selen-chrom tablet (Nicotinamide (with chromium)) cranberry 400 mg capsule 400 mg PO DAILY 02/09/23 08/13/24 05/07/24 History levothyroxine 100 mcg tablet 100 mcg PO MOTUWETHFRSA 05/08/24 08/13/24 05/07/24 History atenolol 50 mg tablet 50 mg PO DAILY 08/13/24 08/13/24 Unknown History Physical Exam Vital Signs and Narrative: Vital Signs: Last Vital Signs Temp 97.9 F 08/13/24 20:26 Pulse 70 08/13/24 20:26 Resp 16 08/13/24 20:38 BP 139/78 08/13/24 20:38 Pulse Ox 98 08/13/24 20:38 O2 Del Method Room Air 08/13/24 20:38 BMI result Body Mass Index 23.4 Middle-aged female lying in bed in no distress Neck supple, no JVD Regular rate and rhythm, S1-S2 heard Regular breath sounds bilaterally, no wheezing or crackles appreciated Abdomen with epigastric tenderness, no rigidity, no rebound tenderness Patient is awake, alert and oriented to self, place, time and person ; no focal motor deficit Psych: Normal mood No pedal edema Results Labs 08/13/24 18:52 08/13/24 18:52 Labs: Laboratory Results - last 24 hr 08/13/24 08/13/24 08/13/24 18:14 18:52 20:04 MCV 95.1 MCH 31.4 MCHC 33.0 RDW 13.2 Plt Count 284 D MPV 9.7 Immature Gran % (Auto) 0.4 Neut % (Auto) 85.7 H Lymph % (Auto) 10.2 L [place] % (Auto) 3.4 Eos % (Auto) 0.1 Baso % (Auto) 0.2 Lymph # (Auto) 1.2 [place] # (Auto) 0.4 Eos # (Auto) 0.0 Baso # (Auto) 0.0 Abs Immat Gran (auto) 0.04 H Absolute Neuts (auto) 9.8 H Absolute Nucleated RBC 0.000 Nucleated RBC % (auto) 0.0 Anion Gap 13 Estim Creat Clear Calc 43.8 Estimated GFR > 60 Random Glucose 124 H Calcium 9.7 D Total Bilirubin 0.8 Direct Bilirubin 0.3 AST 59 H ALT 31 Alkaline Phosphatase 64 Troponin I High Sens Cancelled Total Protein 7.8 Albumin 4.1 Triglycerides Lipase > 3000 H Urine Color Yellow Urine Appearance Clear Urine pH 7.0 Ur Specific [place] 1.020 Urine Protein Trace Urine Glucose (UA) Negative Urine Ketones Trace Urine Blood Negative Urine Nitrite Negative Ur Leukocyte Esterase Negative 08/13/24 21:35 MCV MCH MCHC RDW Plt Count MPV Immature Gran % (Auto) Neut % (Auto) Lymph % (Auto) [place] % (Auto) Eos % (Auto) Baso % (Auto) Lymph # (Auto) [place] # (Auto) Eos # (Auto) Baso # (Auto) Abs Immat Gran (auto) Absolute Neuts (auto) Absolute Nucleated RBC Nucleated RBC % (auto) Anion Gap Estim Creat Clear Calc Estimated GFR Random Glucose Calcium Total Bilirubin Direct Bilirubin AST ALT Alkaline Phosphatase Troponin I High Sens Total Protein Albumin Triglycerides 84 Lipase Urine Color Urine Appearance Urine pH Ur Specific [place] Urine Protein Urine Glucose (UA) Urine Ketones Urine Blood Urine Nitrite Ur Leukocyte Esterase Imaging Radiologist's Impressions: Impressions Abdomen/Pelvis CT 08/13/24 21:02 IMPRESSION: 1. Peripancreatic edema is again seen, slightly worse than prior. No drainable collection is seen. Findings are compatible with pancreatitis. 2. There is a 1.1 cm cyst at the junction of the neck and body of the pancreas which is unchanged from prior. 3. The gallbladder is markedly distended/hydropic with some mild wall thickening and enhancement. No radiopaque gallstones are seen. 4. There is mildly dilated common bile duct with mild intrahepatic biliary ductal prominence, slightly worsened than prior. 5. Other incidental findings as described above. Fleischner guidelines were followed. Electronically signed by: Vinnie Zaragoza MD 08/13/2024 09:47 PM [facility] Assessment and Plan (1) Acute pancreatitis: Status: Acute Plan This is a 83-year-old female with pertinent history of hypertension, hypothyroidism who presents to the emergency department for evaluation of abdominal pain. Patient states it started on the day of presentation. #. Acute pancreatitis: Will admit patient and continue IV crystalloid resuscitation. NPO for bowel rest. IV opioids p.r.n. for analgesia. Pericholecystic fluid in the setting of pancreatitis. Noted dilated common bile duct which is worse compared to previous imaging, will obtain MRCP although liver enzymes okay. Triglyceride level normal. No significant alcohol use #. Reactive leukocytosis due to above. No sepsis #. Hypothyroidism: On Synthroid #. Hypertension: On atenolol Med rec pending DVT prophylaxis: Lovenox Full code Admit as inpatient and will require two night minimum hospital stay for IV crystalloid resuscitation, IV opioids (as above), which is not possible in a lesser acute setting. Specialist consult pending Quality Stroke Does the patient have a stroke diagnosis?: No VTE Prior VTE?: No VTE Risk Level:: Medical - moderate - high VTE Device Contraindication: Treatment Not Indicated VTE Drug Contraindication: N/A - Med Ordered
[2024-08-14] VITALS (7 sets, daily range): BP systolic 96–133; BP diastolic 43–74; PULSE 70–89; RESP 16–20; TEMP 36.4–36.9; O2SAT 90–94
[2024-08-14] MEDS: Morphine Sulfate 4 MG/ML CARTRIDGE IVPUSH ×2 (00:45→07:22)
[2024-08-14] MEDS: Enoxaparin Sodium 40 MG/0.4 ML SYRINGE SUBCUT ×2 (00:45→22:18)
--- NOTE | 2024-08-14 03:19 | PC.NURSE ---
Stat MR MRCP will be done this morning. Dr Tripathi aware. Patient just arrived to S3 room 368 from ED.
[2024-08-14 05:32] LABS: MANUAL DIFF FLAG NO
[2024-08-14 05:38] LABS: Basophils Percent Auto 0.2 % (0-2); Eosinophils Percent Auto 0.2 % (0-4); Hematocrit 41.4 % (37.0-47.0); Hemoglobin 13.5 g/dl (12.0-16.0); Imm Gran Abs Auto 0.04 X10*3/uL (0.00-0.03); Imm Gran Pct Auto 0.3 % (0.0-0.4); Lymphocytes Absolute Auto 2.3 X10*3/uL (1.2-4.9); Mean Corpuscular HGB Conc 32.6 g/dl (31.0-35.0); Mean Corpuscular Hemoglobin 31.3 pg (27.0-33.0); Mean Corpuscular Volume 96.1 fL (80.0-98.0); Mean Platelet Volume 10.1 fL (9.4-12.3); Monocytes Absolute Auto 0.8 X10*3/uL (0.1-1.2); Monocytes Percent Auto 6.7 % (2-11); Neutrophils Absolute Auto 9.1 x10*3/uL (2.0-8.3); Neutrophils Percent Auto 73.6 % (45-73); Platelet Count 277 X10*3/uL (160-400); Red Blood Count 4.31 X10*6/uL (4.20-5.50); Red Cell Distribution Width 13.4 % (11.0-16.0); White Blood Count 12.3 X10*3/uL (4.8-10.8)
[2024-08-14] MEDS: Lactated Ringers 1,000 ML 125 ML IVCONT ×3 (05:53→22:16)
[2024-08-14 05:54] LABS: Anion Gap 14 (12-20); Blood Urea Nitrogen 11 mg/dL (9-16); Calcium 9.5 mg/dL (8.4-10.2); Carbon Dioxide 26 mmol/L (22-29); Chloride 104 mmol/L (96-108); Creatinine Clr Calc Pharmacy 47.7; Estimated Glomerular Filt Rate > 60; Glucose Random 100 mg/dL (60-115); Potassium 3.9 mmol/L (3.3-5.1); Sodium 140 mmol/L (135-145)
[2024-08-14 08:04] LABS: Alanine Aminotransferase 25 U/L (0-31); Albumin Level 3.7 g/dL (3.5-5.0); Aspartate Amino Transferase 39 U/L (5-31); Bilirubin Direct 0.3 mg/dL (0.0-0.5); Bilirubin Total 0.9 mg/dL (0.0-1.0)
[2024-08-14 08:10] LABS: Alkaline Phosphatase 69 U/L (39-117); Lipase 1178 U/L (8-78)
--- NOTE | 2024-08-14 08:16 | PHA.MEDREC ---
Addendum entered by Dirk Rosales 08/14/24 08:46: Reviewed Original Note: Pharmacy Consult ? Medication Reconciliation Pharmacy reviewed med rec done by nursing. Spoke with patient and she told me her medications and confirmed they matched on our med rec. The patient confirmed her Levothyroxine 100mcg tab daily on Mondays, Tuesdays, Wednesday, , Wednesday and Wednesday and states she never takes it on Sundays and states shes been doing it like this for a while and its been working for her. She confirmed she took her medications yesterday morning.
--- NOTE | 2024-08-14 12:35 | MHC.CM.PN ---
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 KYM POMPA PT'S HCP DAUGHTER ASHIA MORENO, PT'S INSURANCE IS MEDICARE, IMM DELIVERED. DCP, HOME NO SERVICES VIA PRIVATE TRANSPORT.
--- NOTE | 2024-08-14 14:10 | P.PNIM_ITS ---
Subjective Subjective Date of Service: 08/14/24 Interval History: seen and examined this morning follow up for pancreatitis abdominal pain controlled with IV narcotics Review of Systems Review of Systems: Yes all other systems are reviewed and are negative Constitutional Constitutional: Denies chills and Denies fever(s) Cardiovascular Cardiovascular: Denies chest pain, Denies palpitations and Denies dyspnea Respiratory Respiratory: Denies cough and Denies dyspnea Gastrointestinal Gastrointestinal: Reports abdominal pain Endocrine Endocrine: Denies palpitations Physical Exam 2 Vital Signs: Vital Signs: Last Vital Signs Temp 97.7 F 08/14/24 11:21 Pulse 76 08/14/24 11:21 Resp 18 08/14/24 11:21 BP 103/57 L 08/14/24 11:21 Pulse Ox 93 08/14/24 11:21 O2 Del Method Room Air 08/14/24 11:21 BMI result Body Mass Index 23.4 Const: General: cooperative, comfortable, no acute distress, alert and awake Nutritional Appearance: average body habitus Orientation/consciousness: p atient oriented x3 Resp: Effort & Inspection: normal respiratory effort, able to speak in complete sentences, no respiratory distress and no use of accessory muscles A uscultation: clear to auscultation bilaterally Cardio: Rate: regular rate GI: Inspection: No distended Palpation (GI): Soft to palpation and nontender Neuro: General: patient oriented x3, moves all extremities and CN's II-XI intact bilaterally Extrem: General: Yes no pedal edema Objective Data Active Medications Acetaminophen (Acetaminophen 325 Mg Tablet) 650 mg PO Q6H PRN PRN Reason: Pain, Mild (Pain Scale 1-3), fever or headache Calcium Carbonate (Calcium Carbonate 750 Mg Tab.Chew) 750 mg PO Q4H PRN PRN Reason: Heartburn Enoxaparin Sodium (Enoxaparin Sodium 40 Mg/0.4 Ml Syringe) 40 mg SUBCUT Q24H [facility] Last Admin: 08/14/24 00:45 Dose: 40 mg Documented By: MITESH Lactated Ringer's (Lr) 1,000 mls @ 125 mls/hr IVCONT .Q8H [facility] Last Admin: 08/14/24 05:53 Dose: 125 mls/hr Documented By: BENJAMIN Levothyroxine Sodium (Levothyroxine Sodium 100 Mcg Tablet) 100 mcg PO MOTUWETHFRSA@0600 [facility] Magnesium Hydroxide (Milk Of Magnesia 30 Ml Oral.Susp) 30 ml PO DAILY PRN PRN Reason: Constipation Melatonin (Melatonin 3 Mg Tablet) 6 mg PO BEDTIME PRN PRN Reason: Insomnia Morphine Sulfate (Morphine Sulfate 4 Mg/Ml Cartridge) 4 mg IVPUSH Q4H PRN; Protocol PRN Reason: Pain, Severe (Pain Scale 7-10) Last Admin: 08/14/24 07:22 Dose: 4 mg Documented By: BONI Ondansetron HCl (Ondansetron Hcl 4 Mg/2 Ml Vial) 4 mg IVPUSH Q8H PRN PRN Reason: Nausea and Vomiting Sodium Chloride (0.9 % Sodium Chloride Flush 3 Ml Syringe) [facility] Last Admin: 08/14/24 07:07 Dose: Not Given Documented By: BONI Non-Admin Reason: IV Running Labs 08/14/24 05:04 08/14/24 05:04 Labs: Laboratory Results - last 24 hr 08/13/24 08/13/24 08/13/24 18:14 18:52 20:04 MCV 95.1 MCH 31.4 MCHC 33.0 RDW 13.2 Plt Count 284 D MPV 9.7 Immature Gran % (Auto) 0.4 Neut % (Auto) 85.7 H Lymph % (Auto) 10.2 L [place] % (Auto) 3.4 Eos % (Auto) 0.1 Baso % (Auto) 0.2 Lymph # (Auto) 1.2 [place] # (Auto) 0.4 Eos # (Auto) 0.0 Baso # (Auto) 0.0 Abs Immat Gran (auto) 0.04 H Absolute Neuts (auto) 9.8 H Absolute Nucleated RBC 0.000 Nucleated RBC % (auto) 0.0 Anion Gap 13 Estim Creat Clear Calc 43.8 Estimated GFR > 60 Random Glucose 124 H Calcium 9.7 D Total Bilirubin 0.8 Direct Bilirubin 0.3 AST 59 H ALT 31 Alkaline Phosphatase 64 Troponin I High Sens Cancelled Total Protein 7.8 Albumin 4.1 Triglycerides Lipase > 3000 H Urine Color Yellow Urine Appearance Clear Urine pH 7.0 Ur Specific [place] 1.020 Urine Protein Trace Urine Glucose (UA) Negative Urine Ketones Trace Urine Blood Negative Urine Nitrite Negative Ur Leukocyte Esterase Negative 08/13/24 08/14/24 21:35 05:04 MCV 96.1 MCH 31.3 MCHC 32.6 RDW 13.4 Plt Count 277 MPV 10.1 Immature Gran % (Auto) 0.3 Neut % (Auto) 73.6 H Lymph % (Auto) 19.0 L [place] % (Auto) 6.7 Eos % (Auto) 0.2 Baso % (Auto) 0.2 Lymph # (Auto) 2.3 [place] # (Auto) 0.8 Eos # (Auto) 0.0 Baso # (Auto) 0.0 Abs Immat Gran (auto) 0.04 H Absolute Neuts (auto) 9.1 H Absolute Nucleated RBC 0.000 Nucleated RBC % (auto) 0.0 Anion Gap 14 Estim Creat Clear Calc 47.7 Estimated GFR > 60 Random Glucose 100 Calcium 9.5 Total Bilirubin 0.9 Direct Bilirubin 0.3 AST 39 H ALT 25 Alkaline Phosphatase 69 Troponin I High Sens Total Protein 7.0 Albumin 3.7 Triglycerides 84 Lipase 1178 H Urine Color Urine Appearance Urine pH Ur Specific [place] Urine Protein Urine Glucose (UA) Urine Ketones Urine Blood Urine Nitrite Ur Leukocyte Esterase Assessment and Plan (1) Acute pancreatitis: Status: Acute Plan This is a 83-year-old female with pertinent history of hypertension, hypothyroidism who presents to the emergency department for evaluation of abdominal pain. Patient states it started on the day of presentation. Acute pancreatitis similar admission for pnacreatitis in april, at that time unclear etiology NPO for bowel rest IV opioids p.r.n. for analgesia. Triglyceride level normal. No significant alcohol use Noted dilated common bile duct which is worse compared to previous imaging, will obtain MRCP although liver enzymes okay GI consult pending lipase trending down Reactive leukocytosis due to above. No sepsis Hypothyroidism: continue Synthroid Hypertension: hold atenolol for soft bp DVT prophylaxis: Lovenox Full code Admit as inpatient and will require two night minimum hospital stay for IV crystalloid resuscitation, IV opioids (as above), which is not possible in a lesser acute setting. Specialist consult pending Quality Stroke Does the patient have a stroke diagnosis?: No VTE Prior VTE?: No VTE Risk Level:: Medical - moderate - high VTE Device Contraindication: Treatment Not Indicated VTE Drug Contraindication: N/A - Med Ordered
[2024-08-14] MEDS: Acetaminophen 325 MG TABLET 650 MG PO (17:57)
--- NOTE | 2024-08-14 19:08 | PM.EVENT ---
Event Note Date of Service: 08/14/24 Event Note: GI Consult-Full note dictated-Daughter present Imp: Recurrent acute pancreatitis of unclear etiology--? related to her known pancreatic cyst, ? occult gallstones/choledocholithiasis. She is clinically improving re: the acute pancreatitis Rec: Supportive care, NPO for now. Recheck GB U/S, check MRCP results, F/U labs in AM. We reviewed potential need for CCY, ERCP, and/or Endoscopic U/S depending on the results of the MRCP and GB U/S. D/W patient and her daughter in detail. They are comfortable with this plan. Thanks Time Spent With Patient Time: Total time managing care of this patient today ____ minutes.
[2024-08-15] VITALS (8 sets, daily range): BP systolic 100–135; BP diastolic 57–77; PULSE 71–127; RESP 17–18; TEMP 36.8–37.3; O2SAT 94–97
--- NOTE | 2024-08-15 03:59 | CONS_ITS ---
DATE OF SERVICE: 08/14/2024 REASON FOR CONSULTATION: Acute pancreatitis. HISTORY OF PRESENT ILLNESS: This has been obtained from the patient and her daughter who is with her at the bedside, as well as from the medical record. The patient is an 84-year-old female, well known to me with an underlying history of pancreatic cyst, as well as a recent episode of acute pancreatitis this past April. 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 She was admitted here in April for an episode of acute pancreatitis. That was her 1st episode of that. The etiology of that was not clear. She did have imaging with an abdominal ultrasound, CT scan, and MRI. The pancreatic cyst was noted and there was radiographic evidence of pancreatitis, but other than that there did not appear to be any other significant abnormality such as a mass, gallstones, nor choledocholithiasis. She was seen by Dr. Blunt from Surgery and he did not think she needed a cholecystectomy. She did get better very quickly from that and I did see her in June in followup and she was doing well at that point. She has continued to do well up until yesterday when she developed the recurrent episodes of acute abdominal pain with some vomiting consistent with her previous episode of pancreatitis last April. She came to the ER and was found to have pancreatitis based on her CT scan and laboratories. Since admission yesterday, she is feeling better, but is still having some tenderness in the abdomen. She has had no further vomiting. She denies any diarrhea. She has not noticed any jaundice. She denies any signs of GI bleeding at home. She does not use any significant amounts of alcohol. There is no family history of pancreatic disease. MEDICATIONS: At home included levothyroxine and atenolol. PAST MEDICAL HISTORY: Known pancreatic cyst since at least 2020. She has had multiple imaging studies in followup and CA-19-9 levels that have been negative for any worrisome changes or progression of the cyst. Acute pancreatitis in April of 2024. Hypertension. Hypothyroidism. Meningioma. Negative screening colonoscopy in 2005. She has had tubal ligation, tonsillectomy, adenoidectomy, and cataract surgery. FAMILY HISTORY: Negative for GI malignancy nor pancreatic disease. SOCIAL HISTORY: She is a . Her from pancreatic cancer. She is retired. She does not smoke nor use any significant amounts of alcohol. REVIEW OF SYSTEMS: CONSTITUTIONAL: Up until yesterday, she was feeling very well with good appetite and good energy. SKIN: No rash. No pruritus. CARDIAC: No chest pain. PULMONARY: No coughing or hemoptysis. GI: As above. URINARY: No dysuria. No hematuria. NEUROLOGIC: No headache or seizures. PHYSICAL EXAMINATION: GENERAL: The patient is a pleasant, alert, comfortable-appearing female. SKIN: Warm and dry. Nonjaundiced. Anicteric sclerae. Moist mucous membranes. NECK: Supple. CARDIAC: Normal S1, S2. ABDOMEN: Soft. Bowel sounds are normal. There was some slight tenderness in the upper abdomen. There is no palpable mass. EXTREMITIES: Without edema. LABORATORY DATA: White blood cell count 11.4, hemoglobin 14.1. Hemoglobin today is 13.5. Normal electrolytes. Lipase was over 3000 yesterday and today is 1178. Liver profiles have been normal other than minimally elevated AST of 59 yesterday and 39 today. Triglyceride level was normal at 84. Calcium level is normal at 9.5. Normal electrolytes and renal function. Her CT scan of the abdomen today shows some slightly dilated intrahepatic bile ducts and a distended gallbladder. There is no evidence of any gallstones or choledocholithiasis. The pancreas appeared consistent with pancreatitis similar to that of April of 2024. Her known pancreatic cyst at the junction of the neck and body of the pancreas was unchanged as well. IMPRESSION: The patient presents with recurrent acute pancreatitis of unclear etiology at this time. Clinically, she is already improving and does not appear toxic nor have any other worrisome findings on exam or by laboratories. At this point, I will continue supportive care and advance diet as tolerated. She will have followup laboratories in the morning. In regard to the etiology of the pancreatitis, I will check the results of the MRCP to again inspect for any sign of choledocholithiasis or any other pancreatic or biliary ductal abnormalities. She will have a repeat gallbladder ultrasound to reassess for small gallstones. I did advise her that depending upon the results of everything, then options for further workup and treatment could be a cholecystectomy, ERCP, and/or an endoscopic ultrasound. If indeed she is now found to have gallstones, then we may want another surgical consult to consider cholecystectomy. If the ultrasound does not show any sign of stones, then I would hold off on a cholecystectomy. At that point, I would then recommend endoscopic ultrasound for further evaluation of the pancreatic cyst and the pancreatic duct in regard to any etiology of pancreatitis on that basis. I would reserve ERCP for any sign of choledocholithiasis or significant pancreatic ductal disease. This has all been discussed in detail with the patient and her daughter. They are comfortable with the plan. Thank you for the consultation. MD DEBI Barajas/JANINE / [id number] MTDD
[2024-08-15] MEDS: Levothyroxine Sodium 100 MCG TABLET PO (05:11)
[2024-08-15 05:46] LABS: MANUAL DIFF FLAG NO
[2024-08-15 05:49] LABS: Basophils Percent Auto 0.2 % (0-2); Eosinophils Percent Auto 0.1 % (0-4); Hematocrit 36.7 % (37.0-47.0); Hemoglobin 12.1 g/dl (12.0-16.0); Imm Gran Abs Auto 0.07 X10*3/uL (0.00-0.03); Imm Gran Pct Auto 0.5 % (0.0-0.4); Lymphocytes Absolute Auto 1.4 X10*3/uL (1.2-4.9); Lymphocytes Percent Auto 10.3 % (20-40); Mean Corpuscular Hemoglobin 31.9 pg (27.0-33.0); Mean Corpuscular Volume 96.8 fL (80.0-98.0); Mean Platelet Volume 10.2 fL (9.4-12.3); Monocytes Absolute Auto 0.9 X10*3/uL (0.1-1.2); Monocytes Percent Auto 6.6 % (2-11); Neutrophils Percent Auto 82.3 % (45-73); Platelet Count 239 X10*3/uL (160-400); Red Blood Count 3.79 X10*6/uL (4.20-5.50); Red Cell Distribution Width 13.4 % (11.0-16.0); White Blood Count 13.4 X10*3/uL (4.8-10.8)
[2024-08-15] MEDS: Lactated Ringers 1,000 ML 125 ML IVCONT ×2 (06:03→14:07)
[2024-08-15 06:08] LABS: Alanine Aminotransferase 13 U/L (0-31); Albumin Level 3.4 g/dL (3.5-5.0); Alkaline Phosphatase 54 U/L (39-117); Anion Gap 15 (12-20); Aspartate Amino Transferase 27 U/L (5-31); Bilirubin Direct 0.6 mg/dL (0.0-0.5); Bilirubin Total 1.5 mg/dL (0.0-1.0); Blood Urea Nitrogen 8 mg/dL (9-16); Calcium 8.7 mg/dL (8.4-10.2); Carbon Dioxide 23 mmol/L (22-29); Chloride 101 mmol/L (96-108); Creatinine Clr Calc Pharmacy 51.6; Estimated Glomerular Filt Rate > 60; Glucose Fasting 96 mg/dL (60-99); Lipase 175 U/L (8-78); Potassium 3.7 mmol/L (3.3-5.1); Sodium 135 mmol/L (135-145); Total Protein 6.4 g/dL (6.5-8.0)
[2024-08-15] MEDS: Morphine Sulfate 4 MG/ML CARTRIDGE 2 MG IVPUSH (06:09)
--- NOTE | 2024-08-15 14:39 | P.PNIM_ITS ---
Subjective Subjective Date of Service: 08/15/24 Interval History: seen and examined this morning follow up pancreatitis still with abdominal pain, no nausea or vomtiting Review of Systems Review of Systems: Yes all other systems are reviewed and are negative Constitutional Constitutional: Denies chills and Denies fever(s) Physical Exam 2 Vital Signs: Vital Signs: Last Vital Signs Temp 98.3 F 08/15/24 11:43 Pulse 127 H 08/15/24 11:43 Resp 18 08/15/24 11:43 BP 125/74 08/15/24 11:43 Pulse Ox 95 08/15/24 11:43 O2 Del Method Room Air 08/15/24 11:43 BMI result Body Mass Index 23.4 Const: General: cooperative, comfortable, no acute distress, alert and awake Nutritional Appearance: average body habitus Orientation/consciousness: p atient oriented x3 Resp: Effort & Inspection: normal respiratory effort, able to speak in complete sentences, no respiratory distress and no use of accessory muscles A uscultation: clear to auscultation bilaterally Cardio: Rate: regular rate GI: Inspection: No distended Palpation (GI): Soft to palpation and nontender Neuro: General: patient oriented x3, moves all extremities and CN's II-XI intact bilaterally Extrem: General: Yes no pedal edema Objective Data Active Medications Acetaminophen (Acetaminophen 325 Mg Tablet) 650 mg PO Q6H PRN PRN Reason: Pain, Mild (Pain Scale 1-3), fever or headache Last Admin: 08/14/24 17:57 Dose: 650 mg Documented By: BONI Calcium Carbonate (Calcium Carbonate 750 Mg Tab.Chew) 750 mg PO Q4H PRN PRN Reason: Heartburn Enoxaparin Sodium (Enoxaparin Sodium 40 Mg/0.4 Ml Syringe) 40 mg SUBCUT Q24H [facility] Last Admin: 08/14/24 22:18 Dose: 40 mg Documented By: MAURA Lactated Ringer's (Lr) 1,000 mls @ 125 mls/hr IVCONT .Q8H [facility] Last Admin: 08/15/24 14:07 Dose: 125 mls/hr Documented By: UMER Levothyroxine Sodium (Levothyroxine Sodium 100 Mcg Tablet) 100 mcg PO MOTUWETHFRSA@0600 [facility] Last Admin: 08/15/24 05:11 Dose: 100 mcg Documented By: MAURA Magnesium Hydroxide (Milk Of Magnesia 30 Ml Oral.Susp) 30 ml PO DAILY PRN PRN Reason: Constipation Melatonin (Melatonin 3 Mg Tablet) 6 mg PO BEDTIME PRN PRN Reason: Insomnia Morphine Sulfate (Morphine Sulfate 4 Mg/Ml Cartridge) 2 mg IVPUSH Q4H PRN; Protocol PRN Reason: Pain, Severe (Pain Scale 7-10) Last Admin: 08/15/24 06:09 Dose: 2 mg Documented By: MAURA Ondansetron HCl (Ondansetron Hcl 4 Mg/2 Ml Vial) 4 mg IVPUSH Q8H PRN PRN Reason: Nausea and Vomiting Sodium Chloride (0.9 % Sodium Chloride Flush 3 Ml Syringe) 3 ml IVFLUSH QSHIFT [facility] Last Admin: 08/15/24 08:02 Dose: Not Given Documented By: UMER Non-Admin Reason: IV Running Labs 08/15/24 05:22 08/15/24 05:22 Labs: Laboratory Results - last 24 hr 08/15/24 05:22 MCV 96.8 MCH 31.9 MCHC 33.0 RDW 13.4 Plt Count 239 MPV 10.2 Immature Gran % (Auto) 0.5 H Neut % (Auto) 82.3 H Lymph % (Auto) 10.3 L [place] % (Auto) 6.6 Eos % (Auto) 0.1 Baso % (Auto) 0.2 Lymph # (Auto) 1.4 [place] # (Auto) 0.9 Eos # (Auto) 0.0 Baso # (Auto) 0.0 Abs Immat Gran (auto) 0.07 H Absolute Neuts (auto) 11.0 H Absolute Nucleated RBC 0.000 Nucleated RBC % (auto) 0.0 Anion Gap 15 Estim Creat Clear Calc 51.6 Estimated GFR > 60 Fasting Glucose 96 Calcium 8.7 D Total Bilirubin 1.5 H Direct Bilirubin 0.6 H AST 27 ALT 13 Alkaline Phosphatase 54 Total Protein 6.4 L Albumin 3.4 L Lipase 175 H Assessment and Plan (1) Acute pancreatitis: Status: Acute Plan This is a 83-year-old female with pertinent history of hypertension, hypothyroidism who presents to the emergency department for evaluation of abdominal pain. Patient states it started on the day of presentation. Acute pancreatitis similar admission for pnacreatitis in april, at that time unclear etiology NPO for bowel rest IV opioids p.r.n. for analgesia. Triglyceride level normal. No significant alcohol use Noted dilated common bile duct which is slightly worse compared to previous imaging lipase trending down slight increase in bili MRI, abdominal US pending GI following Reactive leukocytosis due to above. No sepsis Hypothyroidism: continue Synthroid Hypertension: atenolol on hold for soft bp, HR increasing, bp stable, will start lower dose of atenolol monitor closely DVT prophylaxis: Lovenox Full code requires ongoing inpatient hospital stay for IV crystalloid resuscitation, IV opioids (as above), which is not possible in a lesser acute setting. Specialist consult pending Quality Stroke Does the patient have a stroke diagnosis?: No VTE Prior VTE?: No VTE Risk Level:: Medical - moderate - high VTE Device Contraindication: Treatment Not Indicated VTE Drug Contraindication: N/A - Med Ordered
[2024-08-15] MEDS: atenoloL 25 MG TABLET PO (15:13)
--- NOTE | 2024-08-15 18:52 | PM.GIPN ---
Subjective Subjective Date of Service: 08/15/24 Interval History: Patient reports feeling better. Tolerating liquids. Denies pain but her abdomen is tender . No N/V. Passing flatus and urine Critical Care Time (minutes): 0 Physical Exam Vital Signs: Vital Signs: Last Vital Signs Temp 98.6 F 08/15/24 15:05 Pulse 114 H 08/15/24 15:08 Resp 17 08/15/24 15:05 BP 135/77 08/15/24 15:05 Pulse Ox 97 08/15/24 15:05 O2 Del Method Room Air 08/15/24 15:05 BMI result Body Mass Index 23.4 Const: General: cooperative, healthy appearing, comfortable, no acute distress, well developed, alert and awake Eyes: Sclerae: sclerae normal GI: Other: Abd-Soft, Nondistended, no mass, slight epigastric tenderness Objective Data Labs 08/15/24 05:22 08/15/24 05:22 Labs: Laboratory Results - last 24 hr 08/15/24 05:22 WBC 13.4 H RBC 3.79 L Hgb 12.1 Hct 36.7 L MCV 96.8 MCH 31.9 MCHC 33.0 RDW 13.4 Plt Count 239 MPV 10.2 Immature Gran % (Auto) 0.5 H Neut % (Auto) 82.3 H Lymph % (Auto) 10.3 L [place] % (Auto) 6.6 Eos % (Auto) 0.1 Baso % (Auto) 0.2 Lymph # (Auto) 1.4 [place] # (Auto) 0.9 Eos # (Auto) 0.0 Baso # (Auto) 0.0 Abs Immat Gran (auto) 0.07 H Absolute Neuts (auto) 11.0 H Absolute Nucleated RBC 0.000 Nucleated RBC % (auto) 0.0 Sodium 135 Potassium 3.7 Chloride 101 Carbon Dioxide 23 Anion Gap 15 BUN 8 L Creatinine 0.73 Estim Creat Clear Calc 51.6 Estimated GFR > 60 Fasting Glucose 96 Calcium 8.7 D Total Bilirubin 1.5 H Direct Bilirubin 0.6 H AST 27 ALT 13 Alkaline Phosphatase 54 Total Protein 6.4 L Albumin 3.4 L Lipase 175 H Imaging MRI - abdomen: Radiologist's impression: IMPRESSION: 1. Peripancreatic edema and edema of the mesenteric fat in the left mid abdomen. Correlate for clinical signs of acute pancreatitis. 2. Mild gallbladder hydrops and wall thickening, unchanged from prior exam. Stable dilated common bile duct measuring up to 1.3 cm in transverse diameter without definite filling defects. 3. Stable simple cyst/cystic lesion within the superior pancreatic body. 4. Trace bilateral pleural effusions and abdominopelvic ascites. Procedures Date of Service Date of Service: 08/15/24 Progress Note: A&P Assessment and plan (1) Acute pancreatitis: Status: Acute (2) Pancreatic cyst: Status: Acute Assessment and Plan: Imp: She has rapidly improved similar to her previous episode over the summer and currently appears well. Etiology of her pancreatitis remains unclear....? related to the pancreatic cyst with effect on the pancreatic duct, nonvisualized tiny stones in her gallbladder and common bile duct, occult pancreatic neoplasm? Rec: Await final U/S report, although it appears negative for stones. F/U labs in AM. If she remains stable then advance diet and try to discharge later in the day on Wednesday, 08/16. I will then arrange for an outpatient Endoscopic U/S and possible ERCP at [facility]. I did advise her that if the pancreatitis recurs once she is home she should go to [facility] ER for admission and they can do the testing there as an inpatient. She understood and was comfortable with the plan Thanks Time Spent With Patient Time: Total time managing care of this patient today ____ minutes. Quality Stroke Does the patient have a stroke diagnosis?: No VTE Prior VTE?: No VTE Risk Level:: Medical - moderate - high VTE Device Contraindication: Treatment Not Indicated VTE Drug Contraindication: N/A - Med Ordered
[2024-08-15] MEDS: Enoxaparin Sodium 40 MG/0.4 ML SYRINGE SUBCUT (22:03)
[2024-08-16 03:47] VITALS: BP 105/55; PULSE 85; RESP 16; TEMP 37.1; O2SAT 95
[2024-08-16] MEDS: Levothyroxine Sodium 100 MCG TABLET PO (05:31)
[2024-08-16 07:13] LABS: Alanine Aminotransferase 8 U/L (0-31); Albumin Level 3.4 g/dL (3.5-5.0); Alkaline Phosphatase 62 U/L (39-117); Anion Gap 15 (12-20); Aspartate Amino Transferase 24 U/L (5-31); Bilirubin Direct 0.6 mg/dL (0.0-0.5); Bilirubin Total 1.6 mg/dL (0.0-1.0); Blood Urea Nitrogen 6 mg/dL (9-16); Calcium 8.8 mg/dL (8.4-10.2); Carbon Dioxide 25 mmol/L (22-29); Chloride 100 mmol/L (96-108); Estimated Glomerular Filt Rate > 60; Glucose Random 95 mg/dL (60-115); Lipase 33 U/L (8-78); Potassium 3.6 mmol/L (3.3-5.1); Sodium 136 mmol/L (135-145); Total Protein 6.8 g/dL (6.5-8.0)
[2024-08-16 08:00] VITALS: BP 149/72; PULSE 77; RESP 16; TEMP 36.9; O2SAT 92
[2024-08-16 08:33] VITALS: BP 117/63; PULSE 84; RESP 16; TEMP 37.1; O2SAT 93
[2024-08-16] MEDS: atenoloL 25 MG TABLET PO (08:37)
[2024-08-16] MEDS: 0.9 % Sodium Chloride Flush 3 ML SYRINGE IVFLUSH (08:38)
--- NOTE | 2024-08-16 11:42 | MHC.CM.PN ---
EMR REVIEWED AND PER MD ROUNDS, PT'S DIET WILL BE ADVANCED, IF TOLERATED, MAY DC LATER TODAY. CM WILL CONTINUE TO FOLLOW FOR PLAN.
[2024-08-16 12:00] VITALS: BP 118/65; PULSE 76; RESP 16; TEMP 36.9; O2SAT 95
--- NOTE | 2024-08-16 12:44 | PM.DS ---
DS: Providers Provider Date of Service: 08/16/24 Date of admission: 08/13/24 22:12 Date of discharge: 08/16/24 Primary care physician: Claudia Smalls MD Consults: 08/13/24 22:15 Consult to Gastroenterology Routine Consulting Provider: Franklyn Benton Reason for consultation: pancreatitis DS: Diagnosis Discharge Diagnosis (1) Acute pancreatitis: Status: Acute (2) Pancreatic cyst: Status: Acute DS: Summary Hospital Course Hospital Course: 84-year-old female with pertinent history of hypertension, hypothyroidism who presents to the emergency department for evaluation of abdominal pain. Patient states it started on the day of presentation. She has been having epigastric pain since noon on the day of presentation that is constant and radiating to the back. The pain is sharp and without any relieving factors. It feels similar to the pain of pancreatitis for which she was admitted 2 months ago. Also has had multiple episodes of nonbloody emesis with nausea throughout the day. Unable to tolerate p.o. intake. She states that she has had a stable pancreatic cyst for many years now. No fever, chills, chest discomfort, palpitations, shortness of breath, changes in urinary or bowel habits. In the emergency department, lipase found to be elevated and imaging concerning for acute pancreatitis. Of note, patient was admitted in April, for acute pancreatitis when etiology of the pancreatitis was unclear. Hospital Course Patient admitted to general medical floor and initially kept NPO. Was seen by GI in consultation. This presentation was similar to past presentations; ultrasound was done which did not show any acute changes and failed to demonstrate any stones. Her diet was advanced and she tolerated this well. At this point she will be discharged to home and will follow up with Dr. Benton in the office for outpatient workup. Time Attestation Discharge Coordination Time (in mins): 35 Quality: Safe Use of Opioids Does Pt have an Active Cancer Diagnosis on the Problem List?: No Quality: Stroke Does the patient have a stroke diagnosis?: No Physical Exam Vital Signs: Vital Signs: Last Vital Signs Temp 98.4 F 08/16/24 12:00 Pulse 76 08/16/24 12:00 Resp 16 08/16/24 12:00 BP 118/65 08/16/24 12:00 Pulse Ox 95 08/16/24 12:00 O2 Del Method Room Air 08/16/24 12:00 BMI result Body Mass Index 23.4 Const: Other: Awake alert no acute distress Resp: Other: Clear to auscultation bilaterally no rales rhonchi or wheezes Cardio: Other: No S4; positive S1-S2; no S3 murmurs rubs or gallops GI: Other: Soft nontender nondistended normoactive bowel sounds Extrem: Other: No edema bilaterally DS: Data Data Completed and Pending Labs on day of discharge: Laboratory Results - last 24 hr 08/16/24 05:56 Sodium 136 Potassium 3.6 Chloride 100 Carbon Dioxide 25 Anion Gap 15 BUN 6 L Creatinine 0.66 Estim Creat Clear Calc 57.0 Estimated GFR > 60 Random Glucose 95 Calcium 8.8 Total Bilirubin 1.6 H Direct Bilirubin 0.6 H AST 24 ALT 8 Alkaline Phosphatase 62 Total Protein 6.8 Albumin 3.4 L Lipase 33 Discharge Plan Discharge Anticipated Discharge Date/Time: 08/16/24 11:55 Patient Disposition: Home, Self-Care Discharge Diagnosis: Acute pancreatitis Referrals: Po,Claudia Mojica MD [Primary Care Provider] - 1 Week Discharge Medications: Continued levothyroxine 100 mcg tablet 100 mcg PO MOTUWETHFRSA@0600 Rx Instructions: Off Sundays atenolol 50 mg tablet 50 mg PO DAILY calcium carbonate-vitamin D3 600 mg calcium- 200 unit capsule 1 cap PO DAILY cranberry 400 mg capsule 400 mg PO DAILY Rx Instructions: administer with a meal Nicotinamide (with chromium) 500 mcg- 750 mg tablet 1 tab PO DAILY Discharge Orders: Discharge Order (Routine); Ordered 08/16/24 Ordered By: Sharif Moore Diet: Advance to usual diet Activity on Discharge: As tolerated Stand Alone Forms: Patient Portal Discharge page Print Language: Andorran Care Plan Goals: Resume all medications as taken prior to the hospital. There have been no changes to your regimen Health Concerns: Continued to advance her diet with small amounts each day. Plan of Treatment: Dr. Benton's office will call you for follow up endoscopy date Assessment: See discharge summary Discharge Date/Time: 08/16/24 15:48
--- NOTE | 2024-08-16 13:23 | MHC.CM.PN ---
DP: PT HAS BEEN MEDICALLY CLEARED FOR DC HOME, NO SERVICES. PT HAS OWN RIDE HOME
== END 2024-08-16 15:48 | disposition home or self-care (01) | DRG 439 ==
LOC: HO.ED 21:04 → HO.EDOVER 22:16 → HO.S3 08-14 01:25
PROVIDERS: Internal Medicine; Nurse Practitioner Family; Physician Assistant Medical; Admitting Provider Student in an Organized Health Care Education/Training Program; Emergency Provider Internal Medicine; PCP Internal Medicine; Visit Provider Hospitalist
DX: K85.90 Acute pancreatitis without necrosis or infection, unspecified (principal); K86.2 Cyst of pancreas; E03.9 Hypothyroidism, unspecified; I10 Essential (primary) hypertension; M35.3 Polymyalgia rheumatica; Z87.891 Personal history of nicotine dependence; Z79.890 Hormone replacement therapy; Z79.899 Other long term (current) drug therapy
CPT/HCPCS: 36415; 74177; 74181; 76705; 80048; 80076; 81003; 83690; 84478; 85025; 93005; 99285; J1650; J2270; J2405; J7120; Q9967

== ENCOUNTER → 2024-08-13 18:01 | Outpatient (BNV) | payer MEDICARE, SELFPAY | PROVIDERS: Admitting Provider Student in an Organized Health Care Education/Training Program; Emergency Provider Internal Medicine; PCP Internal Medicine; Visit Provider Internal Medicine | DX: R94.31 Abnormal electrocardiogram [ECG] [EKG] (principal) | CPT/HCPCS: 93010 ==

== ENCOUNTER → 2024-08-13 22:12 | Outpatient (BNV) | payer MEDICARE, SELFPAY | PROVIDERS: Admitting Provider Student in an Organized Health Care Education/Training Program; Emergency Provider Internal Medicine; PCP Internal Medicine; Visit Provider Student in an Organized Health Care Education/Training Program | DX: K85.90 Acute pancreatitis without necrosis or infection, unspecified (principal); K86.2 Cyst of pancreas | CPT/HCPCS: 99222; 99232; 99239 ==

== ENCOUNTER 2024-08-28 09:53 | Outpatient (AMB) | payer MEDICARE, SELFPAY ==
--- NOTE | 2024-08-28 09:55 | A.OFFPC_ITS ---
Vital Signs 08/28/24 09:56 Height 5 ft 5 in Weight 136 lb 8 oz BMI 22.7 BP 130/72 Blood Pressure Location Lt brachial Position Sitting Pulse 73 Pulse Source Pulse Oximeter Pulse Oximetry (%) 98 Oxygen Delivery Method Room Air Intake Visit Reasons: HDF/HMC/Pancreatitis/DC 08/16/24 Intake Note: Patient is here for hospital discharge follow up. Patient was discharged from [facility] on 08/16/24. Information Security Risk Analyst Required: No Deputy Harbormaster: Not Required per policy Accompanied by: Self / Same As Patient Allergies No Known Allergies Allergy (Verified 08/28/24 09:56) Medication List - Last Reconciled 08/28/24 by Clarissa Maya PA-C atenolol 50 mg PO DAILY calcium carbonate-vitamin D3 600 mg-5 mcg (200 unit) 1 cap PO DAILY cranberry 400 mg PO DAILY levothyroxine 100 mcg PO MOTUWETHFRSA@0600 [id number] 500 mcg- 750 mg (Nicotinamide (with chromium)) 1 tab PO DAILY Tobacco use date assessed: 08/28/24 Fall risk assessment: No Falls in past year Last assessed Fall Risk: 08/28/24 Dental Screening Dental Screen Date: 12/23/23 HPI HDF/HMC/Pancreatitis/DC 08/16/24 HPI Details 84-year-old female with past medical his tory of hypertension, hypothyroidism, osteoporosis last seen April 2024 coming in for hospital discharge follow up. In review of the notes patient was seen in [facility] ED 08/13/2024 for epigastric pain while in the ED lipase elevated and imaging concerning for pancreatitis and patient was admitted for further evaluation. Patient was seen by GI consultation, diet was advanced and patient was tolerating p.o. advised to follow up outpatient with Dr. Benton. Patient was discharged home 08/16/2024. Patient has appointment scheduled with Dr. Benton in December and has ERCP scheduled for 09/07/2024. Her pain has resolved at this time and she has advanced diet back to normal diet. Denies any nausea, vomiting, diarrhea or abdominal pain at this time. She has no acute concerns. [facility] Medical History Pancreatic cyst Osteopenia COVID-19 virus infection Ganglion, left wrist Skin lump of arm Cervical spinal stenosis Hypertriglyceridemia Meningioma Hypothyroidism Hypertension Polymyalgia rheumatica Surgical History History of colonoscopy History of tonsillectomy and adenoidectomy History of tubal ligation Family History Father Alzheimers disease Mother Breast cancer Maternal Grandmother CVD (cardiovascular disease) Maternal Grandfather No problems noted. Paternal Grandmother CVD (cardiovascular disease) Paternal Grandfather No problems noted. Social History Household Members: None Housing: Condominium Do you presently have visiting nurse or other home services: No Alcohol intake: current Alcohol intake frequency: a few times a week Alcohol type: wine Comment: 3x a week 2 glasses Patient Tobacco Use Status: Former Tobacco user Tobacco use type: Cigarette Years Smoked: 1979 e-Cigarette/Vaping Use: Never Used Second Hand Smoke Exposure: Yes Advance Directives Date on File: 05/08/24 service: No 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al status: retired Cognitive needs: No Hearing needs: No Vision needs: Yes (Glasses) Questionnaire Thrive Questionnaire Date Thrive assessed: 08/14/24 SILVIA-7 AMB Questionnaire SILVIA-7 Date SILVIA - 7 assessed: 05/18/24 Source: Developed by Drs. Franklyn Gutiérrez, Ariane Walsh, Handy Helm and colleagues, with an educational elayne from [employer]. Review of Systems Const Denies body aches, Denies chills, Denies fever(s), Denies headache(s) and Denies poor appetite Eyes Reports no additional complaints ENT Denies dysphagia, Denies dizziness, Denies headache(s) and Denies odynophagia Card Denies chest pain, Denies syncope, Denies edema, Denies irregular heart rhythm, Denies lightheadedness and Denies dyspnea Resp Denies cough and Denies dyspnea GI Denies abdominal pain, Denies constipation, Denies dysphagia, Denies diarrhea, Denies nausea, Denies odynophagia and Denies vomiting Reports no additional complaints Musc Reports no additional complaints and Denies abnormal gait Skin/Breast Reports system reviewed and no additional complaints, except as documented Neuro Denies abnormal gait, Denies dizziness, Denies syncope and Denies headache(s) Psych Reports no additional complaints Physical exam (Primary Care) Vital Signs: Last Vital Signs Pulse 73 08/28/24 09:56 BP 130/72 08/28/24 09:56 Pulse Ox 98 08/28/24 09:56 Oxygen Delivery Method Room Air 08/28/24 09:56 BMI result Body Mass Index 22.7 Tobacco/Smoking Status: Tobacco use Status Tobacco use date assessed 08/28/24 08/28/24 10:01 Patient Tobacco Use Status Former Tobacco user 08/28/24 10:01 Tobacco use type Cigarette 08/28/24 10:01 e-Cigarette/Vaping Use Never Used 08/28/24 10:01 Thrive Assessment: Date of Thrive Assessment Date Thrive assessed 08/14/24 08/28/24 10:01 Const General: cooperative, healthy appearing, comfortable and no acute distress Orientation/consciousness: patient oriented x3 HENMT Head: Yes normocephalic Ears: hearing grossly normal bilaterally General nose exam: Normal external nose present Eyes General: appearance normal, both eyes and all related structures Conjunctivae: conjunctivae normal Neck Neck: Yes full ROM and Yes no lymphadenopathy Resp Effort & Inspection: normal respiratory effort Auscultation: clear to auscultation bilaterally, no crackles, no rales, no rhonchi and no wheezes Cardio Rate: regular rate Rhythm: regular rhythm GI Palpation (GI): Soft to palpation, not firm, nontender, no guarding, not rigid, no masses and No Rebound tenderness present Skin General skin exam: no rashes or lesions noted Neuro General: patient oriented x3 Gait exam (Neuro): Normal gait present Extrem General: Yes normal to inspection, Yes full ROM and No edema Psych Affect: normal affect Attitude: cooperative Insight: Good insight present (Psych) Judgement: Good judgement present (Psych) Coding Level of Care Code Est Pt Level 3 (06642) Diagnoses Pancreatitis K85.90 Essential hypertension I10 Hypertension type: essential hypertension Hypertriglyceridemia E78.1 Assessment & Plan Assessment & Plan (1) Pancreatitis: Code(s): K85.90 - Acute pancreatitis without necrosis or infection, unspecified Category: Surgical Plan: Patient had episode of recurrent pancreatitis she does have stable pancreatic cysts on imaging. Advised to follow up with Dr. Benton for outpatient workup of recurrent pancreatitis. Scheduled ERCP August 2024 (2) Hypertension: Code(s): I10 - Essential (primary) hypertension Category: Medical Qualifiers: Hypertension type: essential hypertension Qualified Code(s): I10 - Essential (primary) hypertension Plan: Continue on current blood pressure medication. Avoid salt intake and encourage healthy diet and regular exercise. (3) Hypertriglyceridemia: Code(s): E78.1 - Pure hyperglyceridemia Category: Medical Plan: Avoid foods that are high in cholesterol such as red meat, fried foods, eggs and baked goods. Triglyceride goal of less than 150 and LDL goal of less than 130. Plan This note was constructed using voice recognition software. While every effort has been made to ensure accuracy and electrical line worker, still areas may have been included sometimes these areas may affect the content or meeting of the given symptoms. Total time spent caring for the patient today was 20 minutes. This includes time spent before the visit reviewing the chart, time spent during the visit, and time spent after the visit and documentation. Orders: Orders Lipid Panel Today E78.00 - Pure hypercholesterolemia, unspecified
[2024-08-28 09:56] VITALS: BP 130/72; PULSE 73; O2SAT 98; BMI 22.7
== END 2024-08-28 10:29 | disposition home or self-care (01) ==
PROVIDERS: PCP Internal Medicine
DX: K85.90 Acute pancreatitis without necrosis or infection, unspecified (principal); I10 Essential (primary) hypertension; E78.1 Pure hyperglyceridemia

== ENCOUNTER → 2024-08-28 09:53 | Outpatient (BNVA) | payer MEDICARE, SELFPAY | PROVIDERS: PCP Internal Medicine | DX: K85.90 Acute pancreatitis without necrosis or infection, unspecified (principal); I10 Essential (primary) hypertension; E78.1 Pure hyperglyceridemia | CPT/HCPCS: 99212 ==

== ENCOUNTER 2024-08-30 10:50 | Outpatient (REF) | payer MEDICARE, SELFPAY ==
[2024-08-30 13:12] LABS: Cholesterol 128 mg/dL (<200); HDL Cholesterol 45 mg/dL (>40); LDL Cholesterol Calculated 58 mg/dL (<100); Triglycerides 125 mg/dL (<150)
== END 2024-08-30 10:51 | disposition home or self-care (01) ==
LOC: HO.10HDL 10:50
DX: E78.00 Pure hypercholesterolemia, unspecified (principal)
CPT/HCPCS: 36415; 80061

== ENCOUNTER 2024-09-18 10:41 | Outpatient (REF) | payer MEDICARE, SELFPAY ==
--- NOTE | ~2024-09-18 | XR_ITS ---
EXAMINATION: XR HAND 3 OR MORE VIEWS LEFT, XR HAND 3 OR MORE VIEWS RIGHT HISTORY: M79.642 - Pain in left hand COMPARISON: There are no prior studies available for comparison. FINDINGS: Six views of the bilateral hands are submitted. The bones are osteopenic. There is no fracture or dislocation. On the right, there is moderate narrowing of the MCP joints. There is volar subluxation of the 2nd 3rd, and 4th MCP joints. There are small osteophytes noted involving the head of the 3rd metacarpal. There is lateral subluxation at the 5th MCP joint. On the left, there is narrowing and volar subluxation of the 2nd, 3rd, and 4th MCP joints. The soft tissues are unremarkable. XR/XR hand RT min 3V IMPRESSION: Narrowing and subluxation of the MCP joints of the bilateral hands as described. Electronically signed by: Franklyn Balderrama MD 09/26/2024 01:04 PM ADDIE
--- NOTE | ~2024-09-18 | XR_ITS ---
EXAMINATION: XR HAND 3 OR MORE VIEWS LEFT, XR HAND 3 OR MORE VIEWS RIGHT HISTORY: M79.642 - Pain in left hand COMPARISON: There are no prior studies available for comparison. FINDINGS: Six views of the bilateral hands are submitted. The bones are osteopenic. There is no fracture or dislocation. On the right, there is moderate narrowing of the MCP joints. There is volar subluxation of the 2nd 3rd, and 4th MCP joints. There are small osteophytes noted involving the head of the 3rd metacarpal. There is lateral subluxation at the 5th MCP joint. On the left, there is narrowing and volar subluxation of the 2nd, 3rd, and 4th MCP joints. The soft tissues are unremarkable. XR/XR hand LT min 3V IMPRESSION: Narrowing and subluxation of the MCP joints of the bilateral hands as described. Electronically signed by: Franklyn Balderrama MD 09/26/2024 01:04 PM ADDIE
== END 2024-09-18 10:42 | disposition home or self-care (01) ==
LOC: HO.HOSX 10:41
PROVIDERS: Visit Provider Physician Assistant
DX: M79.641 Pain in right hand (principal); M79.642 Pain in left hand; S63.296A Dislocation of distal interphalangeal joint of right little finger, initial encounter; M65.341 Trigger finger, right ring finger; M72.0 Palmar fascial fibromatosis [Dupuytren]
CPT/HCPCS: 73130; 99202

== ENCOUNTER 2024-09-18 14:31 | Outpatient (AMB) | payer MEDICARE, SELFPAY ==
--- NOTE | 2024-09-18 14:40 | A.OFFVIS_ITS ---
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 Patient reports bilateral hand pain and finger locking and catching for a little over 3 years that has been gradually getting worse with her right hand being the worse. She was seen a couple of years ago at [facility] and was referred to OT and a brace was given to use with activities. Hx of trigger finger injections in both hands. She has had numbness and tingling in mostly all of her fingers. No recent tx. 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 She denies injury. She states she does have a history of trigger finger. No surgery on either hand. She states for a couple of years she has noticed some triggering and has also experienced something that resembles a dislocation of her MCP joints in her right hand. She is able to self reduce these. She also has a fibrotic nodule in the palmar aspect of her right hand. She did see a hand specialist at [facility] who gave her a hand orthosis. She states she does not wear this often as she recommended. She is right-hand dominant. She does notice on the left hand there is some triggering and also some early subluxation of the digits. COUNT INCLUDES THE [facility] Medical History (Updated 09/18/24 @ 15:08 by Yumiko Hernandez PA-C) Pancreatic cyst Osteopenia COVID-19 virus infection Ganglion, left wrist Skin lump of arm Cervical spinal stenosis Hypertriglyceridemia Meningioma Hypothyroidism Hypertension Polymyalgia rheumatica Surgical History Hx of endoscopy History of colonoscopy History of tonsillectomy and adenoidectomy History of tubal ligation Family History Father Alzheimers disease Mother Breast cancer Maternal Grandmother CVD (cardiovascular disease) Maternal Grandfather No problems noted. Paternal Grandmother CVD (cardiovascular disease) Paternal Grandfather No problems noted. Social History Household Members: None Housing: Condominium Do you presently have visiting nurse or other home services: No Alcohol intake: current Alcohol intake frequency: a few times a week Alcohol type: wine Comment: 3x a week 2 glasses Patient Tobacco Use Status: Former Tobacco user Tobacco use type: Cigarette Years Smoked: 1979 e-Cigarette/Vaping Use: Never Used Second Hand Smoke Exposure: Yes Advance Directives Date on File: 05/08/24 service: No 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al status: retired Cognitive needs: No Hearing needs: No Vision needs: Yes (Glasses) Review of Systems Const All systems reviewed & are unremarkable except as noted in HPI and below Physical Exam Const General: cooperative and no acute distress Orientation/consciousness: patient oriented x3 Resp Effort & Inspection: normal respiratory effort and able to speak in complete sentences Cardio Peripheral pulses: Peripheral pulses 2+ throughout Neuro General: patient oriented x3 Extrem Other: Right hand skin intact. Notable ulnar deviation of her 4th and 5th digit. Dupuytren's along the palmar aspect of the right hand in line with the 2nd and 3rd digit. She does have triggering along the ring finger. With flexion and extension of the MCPs there is notable subluxation and reduction of the MCP joints from the 2nd 3rd 4th and 5th digit. Left hand skin intact. Triggering of the ring finger present. No significant subluxation through the MCP joints. Neurovascularly intact. Results Reviewed Results Reviewed: X-rays of the right hand obtained in the office today show subluxation of the small finger MCP joint. There is also notable ulnar deviation at the MCP joints of the 2nd 3rd and 4th digit. 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 X-rays of the left hand obtained in the office today are negative for any acute or chronic abnormalities. Assessment & Plan Assessment & Plan (1) Trigger ring finger of right hand: Code(s): M65.341 - Trigger finger, right ring finger Category: Medical (2) Dupuytren's contracture of right hand: Code(s): M72.0 - Palmar fascial fibromatosis [Dupuytren] Category: Medical (3) Dislocation of MCP joint of hand: Code(s): S63.269A - Dislocation of metacarpophalangeal joint of unspecified finger, initial encounter Category: Medical (4) Trigger finger, left ring finger: Code(s): M65.342 - Trigger finger, left ring finger Category: Medical Plan I discussed with the patient the likely condition at this time which seems to be at the very least subluxation of her MCP joints of the right hand which are self reducible. She also seems to have some triggering of her fingers along with a Dupuytren's contracture. At the very least we may be able to perform a trigger released or Dupuytren's release. I did briefly discuss the extent of this procedure and the healing process. I did discuss the potential for a fusion of her MCP joint to prevent subluxation or dislocation of the joint so that she would at least have some function of her hand to do fine motor skills. I told her she would need to meet with Dr. Smith directly to discuss this further to see if it would even be an option. She is open to discussion and will be booked with Dr. Smith to further discuss. I did offer to perform an EMG study since she was experiencing some numbness in bilateral hands only in the morning. I explained this could be positional. She would like to see how this goes over the next few weeks. She will contact us if she changes her mind and would like to proceed. Otherwise follow up with Dr. Smith to discuss further treatment options. Orders: Orders XR hand RT min 3V 09/18/24 M79.641 - Pain in right hand XR hand LT min 3V 09/18/24 M79.642 - Pain in left hand Coding Level of Care Code New Pt Level 4 (59723) Complex EM visit Add On [id number] Diagnoses Trigger ring finger of right hand M65.341 Dupuytren's contracture of right hand M72.0 Dislocation of MCP joint of hand S63.269A Trigger finger, left ring finger M65.342
== END 2024-09-18 15:08 | disposition home or self-care (01) ==
PROVIDERS: PCP Internal Medicine; Visit Provider Orthopaedic Surgery
DX: M65.341 Trigger finger, right ring finger (principal); M72.0 Palmar fascial fibromatosis [Dupuytren]; S63.269A Dislocation of metacarpophalangeal joint of unspecified finger, initial encounter; M65.342 Trigger finger, left ring finger
CPT/HCPCS: 99204; G2211

== ENCOUNTER → 2024-09-18 14:34 | Outpatient (BNV) | payer MEDICARE, SELFPAY | PROVIDERS: Visit Provider Radiology Diagnostic Radiology | DX: S63.200A Unspecified subluxation of right index finger, initial encounter (principal); S63.202A Unspecified subluxation of right middle finger, initial encounter; S63.204A Unspecified subluxation of right ring finger, initial encounter; S63.201A Unspecified subluxation of left index finger, initial encounter; S63.203A Unspecified subluxation of left middle finger, initial encounter; S63.205A Unspecified subluxation of left ring finger, initial encounter | CPT/HCPCS: 73130 ==

== ENCOUNTER 2024-09-25 11:29 | Outpatient (AMB) | payer MEDICARE, SELFPAY ==
--- NOTE | 2024-09-25 11:32 | A.OFFVIS_ITS ---
Vital Signs 09/25/24 11:38 Height 5 ft 5 in Weight 138 lb BMI 23.0 BP 154/70 H Blood Pressure Location Lt brachial Position Sitting Pulse 74 Intake Visit Reasons: Acute pancreatitis Intake Note: Patient referred by Dr. Benton for lap cholectomy and IOC. Diagnosed with acute pancreatitis. Patient c/o: denies diarrhea, constipation. No jaundice. Finishing Technician Required: No Accompanied by: Self / Same As Patient Allergies No Known Allergies Allergy (Verified 09/25/24 11:37) HPI Comments Details: Patient presents here. She was seen in the summer because of bouts of gallstone pancreatitis. Workup including a recent endoscopic ultrasound demonstrates microlithiasis of the gallbladder. She was seen by GI who referred her here for laparoscopic possible open cholecystectomy and cholangiogram. Patient has had recurrent bouts of gallstone pancreatitis and would like to have the culprit gallbladder removed. As noted above, patient was seen in the summer. Chart was reviewed and patient evaluated [facility] Medical History (Updated 09/18/24 @ 15:08 by Yumiko Hernandez PA-C) Pancreatic cyst Osteopenia COVID-19 virus infection Ganglion, left wrist Skin lump of arm Cervical spinal stenosis Hypertriglyceridemia Meningioma Hypothyroidism Hypertension Polymyalgia rheumatica Surgical History Hx of endoscopy History of colonoscopy History of tonsillectomy and adenoidectomy History of tubal ligation Family History Father Alzheimers disease Mother Breast cancer Maternal Grandmother CVD (cardiovascular disease) Maternal Grandfather No problems noted. Paternal Grandmother CVD (cardiovascular disease) Paternal Grandfather No problems noted. Social History Household Members: None Housing: Condominium Do you presently have visiting nurse or other home services: No Alcohol intake: current Alcohol intake frequency: a few times a week Alcohol type: wine Comment: 3x a week 2 glasses Patient Tobacco Use Status: Former Tobacco user Tobacco use type: Cigarette Years Smoked: 1979 e-Cigarette/Vaping Use: Never Used Second Hand Smoke Exposure: Yes Advance Directives Date on File: 05/08/24 service: No 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al status: retired Cognitive needs: No Hearing needs: No Vision needs: Yes (Glasses) Physical Exam Vital Signs: Last Vital Signs Pulse 74 09/25/24 11:38 BP 154/70 H 09/25/24 11:38 BMI result Body Mass Index 23.0 Eyes Other: Anicteric Chest Other: Chest breath sounds bilaterally hs 1 in 2 GI Other: Abdomen is soft, benign. Prior tubal ligation Assessment & Plan Assessment & Plan (1) Gallstone pancreatitis: Code(s): K85.10 - Biliary acute pancreatitis without necrosis or infection Category: Surgical Plan Risks, benefits, alternatives laparoscopic possible open cholecystectomy with cholangiogram were reviewed with the patient and included but not limited to bleeding, infection, recurrence of symptoms, numbness, pain, scarring, bowel or bile duct injury or leak and the patient wishes to proceed. All questions answered. Arrangements were made for this Coding Level of Care Code Est Pt Level 5 (66687) Diagnoses Gallstone pancreatitis K85.10
[2024-09-25 11:38] VITALS: BP 154/70; PULSE 74; BMI 23.0
== END 2024-09-25 13:08 | disposition home or self-care (01) ==
PROVIDERS: PCP Internal Medicine; Referring Provider Internal Medicine; Visit Provider Surgery
DX: K85.10 Biliary acute pancreatitis without necrosis or infection (principal)
CPT/HCPCS: 99214

== ENCOUNTER → 2024-09-25 11:29 | Outpatient (BNVA) | payer MEDICARE, SELFPAY | PROVIDERS: PCP Internal Medicine; Referring Provider Internal Medicine; Visit Provider Surgery | DX: K85.10 Biliary acute pancreatitis without necrosis or infection (principal) | CPT/HCPCS: 99212 ==

== ENCOUNTER 2024-09-28 12:28 | Outpatient (AMB) | payer MEDICARE, SELFPAY ==
[2024-09-28 12:40] VITALS: BP 122/68; PULSE 77; O2SAT 98; BMI 22.8
--- NOTE | 2024-09-28 12:40 | AM.OFFVISMDC ---
Intake Vital Signs 09/28/24 12:40 Height 5 ft 5 in Weight 137 lb BMI 22.8 BP 122/68 Blood Pressure Location Lt brachial Position Sitting Pulse 77 Pulse Source Pulse Oximeter Pulse Oximetry (%) 98 Oxygen Delivery Method Room Air Intake Visit Reasons: AWV G0438 Allergies No Known Allergies Allergy (Verified 09/28/24 12:41) Medication List - Last Reconciled 09/28/24 by Claudia Smalls MD atenolol 50 mg PO DAILY calcium carbonate-vitamin D3 600 mg-5 mcg (200 unit) 1 cap PO DAILY cranberry 400 mg PO DAILY levothyroxine 100 mcg PO MOTUWETHFRSA@0600 ixlowelqx-U2-cgc-Ks-lba-uinvl 500 mcg- 750 mg (Nicotinamide (with chromium)) 1 tab PO DAILY HPI AWV G0438 HPI Details The patient is an 84-year-old female presenting for an annual wellness visit and management of chronic conditions including recent hospitalizations for recurrent pancreatitis. She has a history of essential hypertension, hypothyroidism, osteoporosis, microlithiasis, and gallstone pancreatitis. Recurrent pancreatitis episodes have been persistent, with multiple recent hospital admissions. An endoscopy showed microlithiasis, and the patient is scheduled for a laparoscopic cholecystectomy due to gallstone pancreatitis. She was initially evaluated by gastroenterology and advised against an ERCP due to the presence of jack particles rather than a definite stone, posing a risk of further complications. The patient also has a diagnosis of hiatal hernia identified during a procedure with no significant reflux symptoms aside from occasional burping. Her blood pressure was notably low during a recent hospitalization, resulting in temporary cessation of atenolol, now resumed at 50 mg once daily for blood pressure control. Hyperlipidemia was once noted but now is under control. The patient reports a history of osteoporosis, with concerns regarding bisphosphonate treatment (notably alendronate) and its side effects, expressed disinterest in treatment initiation without prior fracture history. She also has concerns regarding her hands, including a diagnosis of trigger finger managed conservatively. She reports experiencing symptoms of possible carpal tunnel syndrome. - Vaccinations: Up-to-date on tetanus, shingles, flu, pneumonia, and COVID-19 vaccinations - Bone density concerns discussed: Patient is not keen on bisphosphonate therapy without fracture history - Dietary guidance: Emphasis on plant proteins and reduced animal proteins - Regular aerobic exercises reported - Triglycerides discussed and noted to be under control - Reports limited alcohol consumption (one martini or two glasses of wine, 2-3 times per week) - Previously smoked, currently abstaining from tobacco - No recreational drug use - Engages in regular aerobic exercises and daily morning exercises - Mentioned previously knitting, which may have contributed to hand symptoms - Cardiovascular: Denies dizziness, chest pain, syncope - Gastrointestinal: Denies nausea, vomiting, reports past pancreatitis - Musculoskeletal: Denies falls recently, reports trigger finger symptoms - Neurological: Reports hand numbness and possible carpal tunnel symptoms - ENT: Denies difficulty swallowing, reports postnasal drip, absent hearing issues - Genitourinary: Reports variable nocturia up to 4-5 times PFSH Medical History (Updated 09/28/24 @ 13:05 by Claudia Smalls MD) Pancreatic cyst Osteopenia COVID-19 virus infection Ganglion, left wrist Skin lump of arm Cervical spinal stenosis Meningioma Hypothyroidism Hypertension Polymyalgia rheumatica Surgical History (Updated 09/25/24 @ 11:50 by German Blunt MD) Hx of endoscopy History of colonoscopy History of tonsillectomy and adenoidectomy History of tubal ligation Family History Father Alzheimers disease Mother Breast cancer Maternal Grandmother CVD (cardiovascular disease) Maternal Grandfather No problems noted. Paternal Grandmother CVD (cardiovascular disease) Paternal Grandfather No problems noted. Social History Household Members: None Housing: Condominium Do you presently have visiting nurse or other home services: No Alcohol intake: current Alcohol intake frequency: a few times a week Alcohol type: wine Comment: 3x a week 2 glasses Patient Tobacco Use Status: Former Tobacco user Tobacco use type: Cigarette Years Smoked: 1979 e-Cigarette/Vaping Use: Never Used Second Hand Smoke Exposure: Yes Advance Directives Date on File: 05/08/24 service: No 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al status: retired Cognitive needs: No Hearing needs: No Vision needs: Yes (Glasses) Questionnaire Medicare Wellness Checkup What is your age?: 80 or older What gender do you identify with?: female During the past 4 weeks, how much have you been bothered by emotional problems such as feeling anxious, depressed, irritable, sad or downhearted, and blue?: slightly During the past 4 weeks, has your physical & emotional health limited your social activities with family, friends, neighbors, or groups?: not at all During the past 4 weeks, how much bodily pain have you generally had?: no pain During the past 4 weeks, was someone available to help you if you needed & wanted help?: yes, as much as I wanted During the past 4 weeks, what was the hardest physical activity you could do for at least 2 minutes?: heavy Can you get to places out of walking distance without help? (For eg., can you travel alone on buses, taxis or drive your car?): Yes Can you go shopping for groceries or clothes without someone's help?: Yes Can you prepare your own meals?: Yes Can you do your housework without help?: Yes Because of any health problems, do you need the help of another person with your personal care needs such as eating, bathing, dressing or getting around the house?: No Can you handle your own money without help?: Yes During the past 4 weeks, how would you rate your health in general?: very good During the past 4 weeks how have things been going for you?: pretty well Are you having difficulties driving your car?: no Do you always fasten your seat belt when you are in a car?: yes, usually During past 4 weeks, have you been bothered by the following: never: Falling or dizzy when standing up, Sexual problems?, Trouble eating well?, Teeth or denture problems?, Problems using the telephone? and Tiredness or fatigue? Have you fallen 2 or more times in the past year?: No Are you afraid of falling?: Yes Are you a smoker?: no During the past 4 weeks, how many drinks of wine, beer, or other alcoholic beverages did you have?: 2-5 drinks per week Do you exercise for about 20 minutes 3 or more times a week?: yes, all the time Have you been given information to help with the following?: no: Hazards in your house that might hurt you? and no: Keeping track of your medications? How often do you have trouble taking medicines the way you have been told to take them?: I always take medicine as prescribed How confident are you that you can control & manage most of your health problems?: very confident What is your race?: White PHQ-9 Over the last 2 weeks, how often have you been bothered by any of the following problems? 1. Little interest or pleasure in doing things: not at all 2. Feeling down, depressed, or hopeless: not at all 3. Trouble falling or staying asleep, or sleeping too much: several days 4. Feeling tired or having little energy: not at all 5. Poor appetite or overeating: not at all 6. Feeling bad about yourself - or that you are a failure or have let yourself or your family down: not at all 7. Trouble concentrating on things, such as reading the newspaper or watching television: not at all 8. Moving or speaking so slowly that other people could have noticed. Or the opposite - being so fidgety or restless that you have been moving around a lot more than usual: not at all 9. Thoughts that you would be better off or of hurting yourself in some way: not at all Total score: 1 Depression Screening Interpretation: Positive Depression Screening Done: Yes Source: Developed by Drs. Franklyn Gutiérrez, Ariane Walsh, Handy Helm and colleagues, with an educational elayne from [employer]. Thrive Questionnaire Date Thrive assessed: 09/28/24 I am a: Patient What is your living situation today?: I have a steady place to live Within the past 12 months, did the food you bought not last and you didn't have the money to get more?: Never true Within the past 12 months, did you worry whether your food would run out before you got money to buy more?: Never true Do you have trouble paying for medicines?: No Do you have trouble getting transportation to medical appointments?: No Do you have trouble paying your heating and electricity bill?: No Do you have trouble taking care of your child, family member or friend?: No Do you have trouble with day-to-day activities such as bathing, preparing meals, shopping, managing finances, etc.?: No Are you currently unemployed and looking for a job?: No Are you interested in more education?: No Currently or been in a relationship where the following occur: No concerns reported THRIVE Score: 0 SILVIA-7 AMB Questionnaire SILVIA-7 Date SILVIA - 7 assessed: 09/28/24 Feeling nervous, anxious, or on edge: 0 = Not at all Not being able to stop or control worryin = Not at all Worrying too much about different things: 0 = Not at all Trouble relaxin = Not at all Being so restless that it is hard to sit still: 0 = Not at all Becoming easily annoyed or irritable: 0 = Not at all Feeling afraid as if something awful might happen: 0 = Not at all Total SILVIA-7 score (0-4 normal; 5-9 mild; 10-14 moderate; 15-21 severe): 0 Source: Developed by Drs. Franklyn Gutiérrez, Ariane Walsh, Handy Helm and colleagues, with an educational elayne from [employer]. Review of Systems Const Denies poor appetite and Denies weakness Eyes Denies no additional complaints ENT Reports Normal hearing present, Denies dizziness, Denies nasal congestion, Denies tinnitus and Denies sore throat Card Denies chest pain, Denies syncope, Denies rapid heart rate and Denies dyspnea Resp Denies cough and Denies dyspnea GI Denies change in stool character, Reports constipation, Denies diarrhea, Denies nausea and Denies vomiting Denies urinary frequency, Denies difficulty voiding and Denies dysuria Neuro Reports Normal hearing present, Denies confusion, Denies dizziness, Denies syncope and Denies weakness Psych Denies confusion Physical Exam Vital Signs: Last Vital Signs Pulse 77 09/28/24 12:40 BP 122/68 09/28/24 12:40 Pulse Ox 98 09/28/24 12:40 Oxygen Delivery Method Room Air 09/28/24 12:40 BMI result Body Mass Index 22.8 Const General: No confusion Orientation/consciousness: No confusion HEENT Head: Yes normocephalic Ears: external ears normal and TM's normal bilaterally Face and sinus: Yes normal facial exam Mouth: moist mucous membranes Throat: Yes tonsils normal Eyes Conjunctivae: conjunctivae normal Pupils: Equal, round and reactive pupils present and Pupil accommodation reflex normal Direct Ophthalmoscopy: normal light reflex Neck Neck: No lymphadenopathy Thyroid: Thyroid normal Chest Chest palpation & inspection: normal inspection of the chest Resp Effort & Inspection: normal respiratory effort and no audible wheezes Auscultation: clear to auscultation bilaterally, no crackles, no wheezes and lung sounds not diminished Cardio Rate: regular rate Rhythm: regular rhythm Peripheral pulses: radial pulses present and dorsalis pedis present GI Palpation (GI): no masses Auscultation: normal bowel sounds and normoactive bowel sounds Rectal Exam - Female: deferred Skin General skin exam: no rashes or lesions noted Rashes: no rashes Neuro General: No confusion Cranial nerves: Yes Equal, round and reactive pupils present and Yes Normal hearing present Cognition (Neuro): normal cognition Gait exam (Neuro): Normal gait present Motor exam (neuro): 5/5 motor strength present throughout Deep tendon reflexes (DTR's): Right brachioradialis reflex intensity grade: 2+, Left brachioradialis reflex intensity grade: 2+, Right patellar reflex intensity grade: 2+ and Left patellar reflex intensity grade: 2+ Extrem General: No edema Assessment & Plan Assessment & Plan (1) Medicare annual wellness visit, subsequent: Code(s): Z00.00 - Encounter for general adult medical examination without abnormal findings (2) Gallstone pancreatitis: Code(s): K85.10 - Biliary acute pancreatitis without necrosis or infection (3) Trigger finger, left ring finger: Code(s): M65.342 - Trigger finger, left ring finger (4) Dupuytren's contracture of right hand: Code(s): M72.0 - Palmar fascial fibromatosis [Dupuytren] (5) Hypertension: Code(s): I10 - Essential (primary) hypertension Qualifiers: Hypertension type: essential hypertension Qualified Code(s): I10 - Essential (primary) hypertension (6) Hypothyroidism: Code(s): E03.9 - Hypothyroidism, unspecified Qualifiers: Hypothyroidism type: acquired Qualified Code(s): E03.9 - Hypothyroidism, unspecified (7) Osteoporosis: Comment: August 2022 Code(s): M81.0 - Age-related osteoporosis without current pathological fracture Plan: decline bone density. Plan - Labs: Blood count, sodium, potassium, kidney function within normal limits; cholesterol and triglycerides within target levels - Procedures: Endoscopy revealed microlithiasis and a 3 cm sliding hiatal hernia - Continue current hypertension management with atenolol 50 mg daily - Monitor thyroid function under current medication regimen - Proceed with planned laparoscopic cholecystectomy for gallstone pancreatitis - Manage osteoporosis through lifestyle modifications; medication deferred - Monitor lipid levels regularly; maintain dietary and lifestyle modifications - For trigger finger, continue conservative management; follow-up as needed - Evaluate for carpal tunnel syndrome; consider orthopedic assessment if symptoms persist - Regular follow-up visits to monitor chronic conditions During our discussion, I outlined the current management of her chronic conditions, including the risks and benefits of her medications. The expected laparoscopic cholecystectomy was reviewed, covering the reasons for proceeding based on her recurrent pancreatitis and microlithiasis findings. I confirmed the status of her vaccinations and evaluated her concerns regarding osteoporosis treatment alternatives, noting the absence of recent fractures precludes the necessity. We also discussed her overall bone health and the potential side effects of bisphosphonates. I reassured her on lifestyle factors to mitigate her chronic conditions, encouraging adherence to her current healthy lifestyle practices and follow-up if any new symptoms develop. - Prepare for upcoming laparoscopic cholecystectomy as scheduled - Continue taking prescribed medications, including atenolol, calcium, and vitamin D - Maintain a healthy diet with emphasis on plant proteins, reduce high-fat foods if experiencing diarrhea - Regular physical activity as discussed - Monitor blood pressure regularly and report any significant changes - Follow up in six months or sooner if symptoms worsen or new symptoms develop - Continue to avoid smoking and moderate alcohol consumption - Use hand supports as needed for comfort with hand symptoms - Report any new or worsening symptoms promptly Medications: Refilled atenolol 50 mg PO DAILY 90 tabs 3RF Quality Reporting (2019) Depression/Bipolar (159/160/161/177) PHQ-9: Total score: 1 Coding Level of Care Code Medicare Subsequent (G0439) Diagnoses Medicare annual wellness visit, subsequent Z00.00 Gallstone pancreatitis K85.10 Trigger finger, left ring finger M65.342 Dupuytren's contracture of right hand M72.0 Essential hypertension I10 Hypertension type: essential hypertension Acquired hypothyroidism E03.9 Hypothyroidism type: acquired Osteoporosis M81.0
== END 2024-09-28 13:28 | disposition home or self-care (01) ==
PROVIDERS: PCP Internal Medicine; Visit Provider Internal Medicine
DX: Z00.00 Encounter for general adult medical examination without abnormal findings (principal); K85.10 Biliary acute pancreatitis without necrosis or infection; M65.342 Trigger finger, left ring finger; M72.0 Palmar fascial fibromatosis [Dupuytren]; I10 Essential (primary) hypertension; E03.9 Hypothyroidism, unspecified; M81.0 Age-related osteoporosis without current pathological fracture

== ENCOUNTER 2024-10-12 08:03 | Day surgery (SDC) | payer MEDICARE, SELFPAY ==
[2024-10-10 13:54] VITALS: BMI 22.8
--- NOTE | 2024-10-11 10:46 | MHC.SHP ---
Pre-Procedural Eval Section A - 24 Hr Update-Section A only Date of Service: 10/12/24 The patient is an INPATIENT: No Changes since office visit: No Cold of Flu in the past 2 weeks, No New Medical Problems, No Changes in Medication and No Patient answered all questions Section B - Complete if H&P > 30 days Chief Complaint: Biliary acute pancreatitis without necrosis or inf Allergies: Allergies Allergy/AdvReac Type Severity Reaction Status Date / Time No Known Allergies Allergy Verified 09/28/24 12:41 Review of Systems Sugical H&P ROS: Negative: Constitution, Cardiovascular, Respiratory, Neurological, Psychiatric, Hem-Onc, Allergic/Immunologic, Gastrointestinal, Genitourinary, Musculoskeletal, Integumentary, Endocrine and Eyes/Ears/Nose/Throat Exam Surgical H&P Exam: Normal: HEENT, Normal: Heart, Normal: Lungs, Normal: Extremities, Normal: Abdomen, Normal: Skin and Normal: Neurological Plan I have reviewed the history and physical and performed a pertinent physical examination on my patient. No changes have occurred unless specified. Time Spent With Patient Time: Total time managing care of this patient today ____ minutes.
--- NOTE | ~2024-10-12 | FL_ITS ---
EXAMINATION: FL GUIDANCE ONLY HISTORY: LAP ZO WITH CHOLANGIOGRAM COMPARISON: Correlation is made with an MRCP dated 08/14/2024. TECHNIQUE: Fluoroscopy time: 1 minute, 11.6 seconds. Cumulative Dose: 13.70 mGy. Images: 5. FINDINGS: Images demonstrate opacification of the common bile duct, pancreatic duct, and intrahepatic biliary radicles. The common bile duct is dilated. There is a filling defect in the common bile duct which may represent an air bubble or calculus. The pancreatic duct in the head is dilated. There is a change in caliber of the pancreatic duct in the region of the pancreatic neck. There is extravasation of contrast. FL/FL guidance in OR IMPRESSION: Fluoroscopy during procedure. Please see procedure report for additional information. Electronically signed by: Franklyn Balderrama MD 10/13/2024 07:57 AM ADDIE RP
[2024-10-12 08:58] VITALS: BP 137/81; PULSE 67; RESP 14; TEMP 36.6; O2SAT 98; BMI 22.5
[2024-10-12] MEDS: Lactated Ringers 1,000 ML 100 ML IVCONT (09:20)
--- NOTE | 2024-10-12 11:15 | P.CONAN_ITS ---
Documented by User: Lyssa Lopez NP 10/11/24 09:24 HPI - Anesthesia Eval Consult details Narrative: 84yo F for Cholecystectomy Laparoscopic, possible open with cholangiogram PMFSH Active Problems Active Problems: All Active Problems Medicare annual wellness visit, subsequent (Acute) Gallstone pancreatitis (Acute) Trigger finger, left ring finger (Acute) Dislocation of MCP joint of hand (Acute) Dupuytren's contracture of right hand (Acute) Trigger ring finger of right hand (Acute) Pancreatitis (Acute) Medicare annual wellness visit, initial (Acute) Osteoporosis (Acute) Ganglion, left wrist (Acute) Cataract (Acute) Preoperative clearance (Acute) LFT elevation (Acute) Contact dermatitis (Acute) Dyspepsia (Acute) Meningioma (Acute) Hypothyroidism (Acute) Hypertension (Acute) Past Medical History Medical History Pancreatic cyst Osteopenia COVID-19 virus infection Ganglion, left wrist Skin lump of arm Cervical spinal stenosis Meningioma Hypothyroidism Hypertension Polymyalgia rheumatica Family History Family History Father Alzheimers disease Mother Breast cancer Maternal Grandmother CVD (cardiovascular disease) Maternal Grandfather No problems noted. Paternal Grandmother CVD (cardiovascular disease) Paternal Grandfather No problems noted. Surgical History Surgical History Hx of endoscopy History of colonoscopy History of tonsillectomy and adenoidectomy History of tubal ligation Social History Social History Household Members: None Housing: Condominium Are you a primary skin care therapist to a significant other at home: No Do you presently have visiting nurse or other home services: No Alcohol intake: current Alcohol intake frequency: 0-2 drinks per day Alcohol type: wine Comment: 3x a week 2 glasses Patient Tobacco Use Status: Former Tobacco user Tobacco use type: Cigarette Years Smoked: 1979 e-Cigarette/Vaping Use: Never Used Second Hand Smoke Exposure: Yes Use of substances other than those prescribed or required for medical reasons: No Have you been hit, kicked, punched, or otherwise hurt by someone within the past year? If so, by whom?: No Are you DNR?: No Advance Directives: No Advance Directives Information Provided: Yes Advance Directives on File: No Advance Directives Date on File: 05/08/24 Recently lost weight without trying: No Nutrition Risks: No Nutritional Risk Patient : No service: No 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al status: retired Cognitive needs: No Hearing needs: No Vision needs: Yes (Glasses) Meds Allergies Allergy/AdvReac Type Severity Reaction Status Date / Time No Known Allergies Allergy Verified 10/12/24 09:03 Home Medications ?Medication ?Instructions ?Recorded ?Confirmed ?Last Taken ?Type calcium 600 mg (as 1 cap PO DAILY 11/21/20 10/10/24 08/13/24 History carbonate)-vitamin D3 5 mcg (200 unit) capsule levomefolate 500 mcg-niacinamide 1 tab PO DAILY 01/05/22 10/10/24 08/13/24 History 750 sg-agheao-Fm-selen-chrom tablet (Nicotinamide (with chromium)) cranberry 400 mg capsule 400 mg PO DAILY 02/09/23 10/10/24 08/13/24 History levothyroxine 100 mcg tablet 100 mcg PO MOTUWETHFRSA@0600 05/08/24 10/12/24 10/12/24 History Exam Height,Weight and Vital Signs: Height 5 ft 5 in Weight 62.142 kg Assessment and Plan Assessment Anesthesia Assessment: Chart Reviewed Documented by User: Hilda Davidson DO 10/12/24 11:54 [facility] [place] Past Medical History Medical History Pancreatic cyst Osteopenia COVID-19 virus infection Ganglion, left wrist Skin lump of arm Cervical spinal stenosis Meningioma Hypothyroidism Hypertension Polymyalgia rheumatica Family History Family History Father Alzheimers disease Mother Breast cancer Maternal Grandmother CVD (cardiovascular disease) Maternal Grandfather No problems noted. Paternal Grandmother CVD (cardiovascular disease) Paternal Grandfather No problems noted. Family history of problems with anesthesia: No Surgical History Surgical History Hx of endoscopy History of colonoscopy History of tonsillectomy and adenoidectomy History of tubal ligation History of Problems with Anesthesia: No Social History Social History Household Members: None [facility] Are you a primary skin care therapist to a significant other at home: No Do you presently have visiting nurse or other home services: No Alcohol intake: current Alcohol intake frequency: 0-2 drinks per day Alcohol type: wine Comment: 3x a week 2 glasses Patient Tobacco Use Status: Former Tobacco user Tobacco use type: Cigarette Years Smoked: 1979 e-Cigarette/Vaping Use: Never Used Second Hand Smoke Exposure: Yes Use of substances other than those prescribed or required for medical reasons: No Have you been hit, kicked, punched, or otherwise hurt by someone within the past year? If so, by whom?: No Are you DNR?: No Advance Directives: No Advance Directives Information Provided: Yes Advance Directives on File: No Advance Directives Date on File: 05/08/24 Recently lost weight without trying: No Nutrition Risks: No Nutritional Risk Patient : No service: No 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al status: retired Cognitive needs: No Hearing needs: No Vision needs: Yes (Glasses) Meds Allergies Allergy/AdvReac Type Severity Reaction Status Date / Time No Known Allergies Allergy Verified 10/12/24 09:03 Home Medications ?Medication ?Instructions ?Recorded ?Confirmed ?Last Taken ?Type calcium 600 mg (as 1 cap PO DAILY 11/21/20 10/10/24 08/13/24 History carbonate)-vitamin D3 5 mcg (200 unit) capsule levomefolate 500 mcg-niacinamide 1 tab PO DAILY 01/05/22 10/10/24 08/13/24 History 750 fu-efkuvv-Wx-selen-chrom tablet (Nicotinamide (with chromium)) cranberry 400 mg capsule 400 mg PO DAILY 02/09/23 10/10/24 08/13/24 History levothyroxine 100 mcg tablet 100 mcg PO MOTUWETHFRSA@0600 05/08/24 10/12/24 10/12/24 History Exam Exam Date and Time: 10/12/24 1115 Height,Weight and Vital Signs: Height 5 ft 5 in Weight 62.142 kg Vital Signs Temperature 97.9 F 10/12/24 08:58 Pulse Rate 67 10/12/24 08:58 Respiratory Rate 14 10/12/24 08:58 Blood Pressure 137/81 10/12/24 08:58 Pulse Oximetry 98 10/12/24 08:58 Oxygen Delivery Method Room Air 10/12/24 08:58 Temperature 97.9 F 10/12/24 08:58 Pulse Rate 67 10/12/24 08:58 Respiratory Rate 14 10/12/24 08:58 Blood Pressure 137/81 10/12/24 08:58 Pulse Oximetry 98 10/12/24 08:58 Oxygen Delivery Method Room Air 10/12/24 08:58 Airway Mallampati Class: II TM Dist: >3cm Neck ROM: Full Loose/Missing/Broken Teeth: No (patient denies any loose or broken teeth) Heart: S1S2 Lungs: CTAB Assessment and Plan Assessment Anesthesia Assessment: Anesthesia Plan Discussed and Chart Reviewed Final Anesthetic Review Family History of Problems with Anesthesia: No History of Problems with Anesthesia: No NPO: Yes ASA Class: II Final Preanesthetic Review: No Changes in Pt Med Stat, Meds/Allgs Chart Reviewed, Consent Obtained/Reviewed and Anes Risks/Benef Reviewed Patient Risk: Low Procedure Risk: Intermediate Anesthetic Plan Anesthetic Plan: GA and Agree w/ Assess. and Plan Disposition: Standard PACU
[2024-10-12 12:50] VITALS: BP 117/60; PULSE 60; RESP 12; TEMP 36.1; O2SAT 97
[2024-10-12 12:55] VITALS: BP 134/70; PULSE 60; RESP 14; O2SAT 100
[2024-10-12 13:00] VITALS: BP 142/65; PULSE 60; RESP 14; O2SAT 100
[2024-10-12 13:05] VITALS: BP 133/73; PULSE 59; RESP 14; O2SAT 100
--- NOTE | 2024-10-12 13:08 | P.OP_ITS ---
Operative Note Operative Note Date of Service: 10/12/24 Narrative: Preoperative diagnosis: [] Symptomatic gallbladder, history of gallstone pancreatitis Postop diagnosis: [] The same, incarcerated umbilical hernia (2 cm in size) Procedure [] laparoscopic cholecystectomy with cholangiogram, primary open repair of incarcerated umbilical hernia. Surgeon: [] Jose Raul Java Front End Web Developer: [] Quynh Type of Anesthesia: [] General Indication for surgery: [] Intraoperative findings demonstrated a gallbladder with significant omental adhesions to it. Patient had a very dilated common bile duct which was visualized directly as well as on cholangiogram. Cholangiogram demonstrated free flow of contrast into the extrahepatic biliary system but it just trickled into the duodenum. Question of a distal common bile duct either stone or stricture. This will be addressed postoperatively when the patient sees me with GI consultation. Findings: [] Patient brought to the operating room, placed on operative table supine position, after an adequate level of general anesthesia was induced, the patient's abdomen is prepped and draped in usual sterile fashion using a supraumbilical curvilinear incision, Mccall technique was used to insufflate abdominal cavity to 15 mm of CO2 after the umbilical hernia was dissected free from the posterior aspect of the umbilicus and opened. Incarcerated omental contents were reduced.. Upper midline and right subcostal ports were placed under direct laparoscopic view, the patient placed in reverse Trendelenburg position, tilted to the left. Findings were as noted above. Gallbladder was grasped using laparoscopic graspers and retracted superiorly and laterally. All of dense omental adhesions swept off the gallbladder with the hilum was approached. Markedly dilated common bile duct as noted above was encountered. Cystic artery and cystic duct were each identified, circumferentially skeletonized, traced directly into the gallbladder, and critical view obtained. A clip was placed on the gallbladder side of the cystic duct and a cholecy stodochotomytomy performed and cholangiogram catheter placed into the cystic duct and findings of the cholangiogram were as noted above. Cystic duct proximally was clipped x3 and cystic duct transected. Cystic artery was similarly clipped proximally x2, distally x1, and transected. Gallbladder which was moderately intrahepatic was then cauterized in the gallbladder fossa using Bovie. Specimen placed in an Endo-Catch bag, a retrieved through the umbilical port. Abdominal cavity was very copiously irrigated and secured hemostasis. All ports removed under direct laparoscopic view. Wounds were closed in the following manner; umbilical wound which was the site of the hernia which was used as the umbilical port site, had its fascia reapproximated using interrupted 0 Vicryl sutures. Skin wounds were closed using subcuticular 4-0 Vicryl sutures followed by Steri-Strips and sterile dressings. Wounds were infiltrated 0.5% Marcaine at completion. Sponge, needle, and instrument counts reported correct. Patient tolerated the procedure well and emerged from anesthesia stable condition. EBL minimal
[2024-10-12 13:20] VITALS: BP 129/66; PULSE 71; RESP 18; TEMP 36.4; O2SAT 98
== END 2024-10-12 14:05 | disposition home or self-care (01) ==
PROVIDERS: PCP Internal Medicine; Visit Provider Surgery
PROC: 0FT44ZZ Resection of Gallbladder, Percutaneous Endoscopic Approach (ICD-10-PCS; CPT 47562; principal; 2024-10-12 11:00)
DX: K81.1 Chronic cholecystitis (principal); K82.8 Other specified diseases of gallbladder; K83.8 Other specified diseases of biliary tract; K42.0 Umbilical hernia with obstruction, without gangrene; Q44.1 Other congenital malformations of gallbladder; K86.2 Cyst of pancreas; I10 Essential (primary) hypertension; E03.9 Hypothyroidism, unspecified; M85.80 Other specified disorders of bone density and structure, unspecified site; M35.3 Polymyalgia rheumatica; Z79.899 Other long term (current) drug therapy; Z87.891 Personal history of nicotine dependence
CPT/HCPCS: 47563; 49592; 88304; C1726; J0131; J0690; J1100; J1610; J2003; J2371; J2405; J2704; J2795; J3010; Q9967

== ENCOUNTER → 2024-10-12 08:03 | Outpatient (BNV) | payer MEDICARE, SELFPAY | PROVIDERS: PCP Internal Medicine; Visit Provider Surgery | DX: K85.10 Biliary acute pancreatitis without necrosis or infection (principal); K42.0 Umbilical hernia with obstruction, without gangrene | CPT/HCPCS: 47562 ==

== ENCOUNTER 2024-10-23 11:12 | Outpatient (AMB) | payer MEDICARE, SELFPAY ==
--- NOTE | 2024-10-23 11:14 | MHC.OFFVIS ---
Intake Visit Reasons: S/P lap kael Intake Note: Patient here s/p laparoscopic cholecystectomy with cholangiogram, primary open repair of incarcerated umbilical hernia. Patient reports incisions healing well. Patient c/o: no longer taking rx pain meds. Surgery: 10-12-[address] Driver Required: No Accompanied by: Self / Same As Patient Allergies No Known Allergies Allergy (Verified 10/23/24 11:16) HPI Comments Details: Status post laparoscopic cholecystectomy with cholangiogram and incidental umbilical hernia repair. She is doing quite well. Tolerating a diet. Having regular bowel habits. No GI issues or complaints. Increasing her activity level. At present no incisional issues. [facility] Medical History (Updated 10/18/24 @ 15:44 by BHUPINDER Corbin) Incarcerated inguinal hernia (10/12/24) Pancreatic cyst Osteopenia COVID-19 virus infection Ganglion, left wrist Skin lump of arm Cervical spinal stenosis Meningioma Hypothyroidism Hypertension Polymyalgia rheumatica Surgical History (Updated 10/23/24 @ 11:31 by German Blunt MD) History of cholecystectomy Hx of endoscopy History of colonoscopy History of tonsillectomy and adenoidectomy History of tubal ligation Family History Father Alzheimers disease Mother Breast cancer Maternal Grandmother CVD (cardiovascular disease) Maternal Grandfather No problems noted. Paternal Grandmother CVD (cardiovascular disease) Paternal Grandfather No problems noted. Social History Household Members: None Housing: Condominium Are you a primary lawn care worker to a significant other at home: No Do you presently have visiting nurse or other home services: No Alcohol intake: current Alcohol intake frequency: 0-2 drinks per day Alcohol type: wine Comment: 3x a week 2 glasses Patient Tobacco Use Status: Former Tobacco user Tobacco use type: Cigarette Years Smoked: 1979 e-Cigarette/Vaping Use: Never Used Second Hand Smoke Exposure: Yes Advance Directives Date on File: 05/08/24 service: No 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al status: retired Cognitive needs: No Hearing needs: No Vision needs: Yes (Glasses) Physical Exam Eyes Other: Anicteric GI Other: Abdomen is soft. All wounds clean dry and intact healing well Assessment & Plan Assessment & Plan (1) Status post laparoscopic cholecystectomy: Code(s): Z90.49 - Acquired absence of other specified parts of digestive tract Category: Surgical Plan From a surgical perspective, patient was doing well will otherwise follow-up p.r.n.. I spoke with Dr. Benton, her furnishings conservator regarding her cholangiogram findings , and he told me that the patient was scheduled to see him for follow-up as well. We will confirm that with his office. All questions answered. Coding Level of Care Code Global (47451) Diagnoses Status post laparoscopic cholecystectomy Z90.49
--- OUTSIDE RECORDS SUMMARY | 2024-10-23 12:27 | XMS_ITS | Clinical Summary ---
Author Organization [employer] [facility] Address [address] [place] [address] Care Team Providers Care Superintendent Factory Name Role Phone Unavailable Primary Care Provider Unavailabl e Surgical History Surgery Date Site/Laterality Comments APPENDECTOMY PROCEDURE:APPENDECTOMY TUBAL LIGATION PROCEDURE:TUBAL LIGATION TONSILLECTOMY PROCEDURE:TONSILLECTOMY COLONOSCOPY 2008 PROCEDURE:COLONOSCOPY;COMMENT:Normal Dr Benton Medical History Medical History Date Comments Hypertension DX:Hypertension Hypothyroidism DX:Hypothyroidis m Osteopenia DX:Osteopenia;CO MMENT:03/2016 Osteopenia T-1.5 hip FRAX 25%/5.3% History of tobacco abuse DX:Hist ory of tobacco abuse;COMMENT:Quit > 10 years ago Screening for colon cancer DX:Sc reening for colon cancer;COMMENT:[address] Benton Screening for osteoporosis DX:Sc reening for osteoporosis;COMMENT:2011, 03/2016 Osteopenia Screening for breast cancer DX:S creening for breast cancer;COMMENT:02/2015 benign, 03/2016 benign, 04/2017 benign, 05/2018 neg PMR (polymyalgia rheumatica) ([facility]) 2014 DX:PMR (polymyalgia rheumatica) ([facility]);COMMENT:tapered off Prednisone 01/2016 Dr Smith Cervical spinal stenosis DX:Cerv ical spinal stenosis;COMMENT:02/2015 MRI-C mild stenosis C4-5 with severe cervical spondylosis Syncope DX:Syncope Meningioma, cerebral ([facility]/HCC) D X:Meningioma, cerebral ([facility]);COMMENT:01/2019 MRI-B: small parasagittal posterior frontal meningioma: repeat MRI 6 months Family History Medical History Relation Name Comments Arthritis Brother No Known Problems Daughter 1 No Known Problems Daughter 2 No Known Problems Daughter 3 No Known Problems Daughter 4 Dementia Father Hyperlipidemia Maternal Grandmother Cancer Mother Cancer Mother's Sister 1 Cancer Mother's Sister 2 No Known Problems Son Relation Name Status Comments Brother Alive Daughter 1 Alive Daughter 2 Alive Daughter 3 Alive Daughter 4 Alive Father Maternal Grandfather Maternal Grandmother Mother Breast Mother's Sister 1 Mother's Sister 2 Paternal Grandfather Paternal Grandmother Son Alive Social History Tobacco Use Types Packs/Day Years Used Date Smoking Tobacco: Former Cigarettes Q uit: 03/01/2008 Smokeless Tobacco: Never Alcohol Use Standard Drinks/Week Comments Yes 0 (1 standard drink = 0.6 oz pur e alcohol) Sex and Gender Information Value Date Recorded Sex Assigned at Not on file Gender Identity Not on file Sexual Orientation Not on file Obstetrics History Plan of Treatment Health Maintenance Due Date Last Done Comments Zoster Vaccines (1 of 2) 1990 Pneumococcal Vaccine: 65+ Ye ars (1 of 1 - PCV) 2005 RSV Immunization Patients 60 + Years Old (1 - 1-dose 75+ series) 2015 COVID-19 Vaccine ( - 2023-2 5 season) 2024 Influenza Vaccine (#1) 2024 06/02/2018 DTaP,Tdap,and Td Vaccines (2 - Td or Tdap) 03/01/2028 03/01/2018 HIB Vaccines Aged Out No longer eligi ble based on patient's age to complete this topic HPV Vaccines Aged Out No longer eligi ble based on patient's age to complete this topic Hepatitis A Vaccines Aged Out No long er eligible based on patient's age to complete this topic Hepatitis B Vaccines Aged Out No long er eligible based on patient's age to complete this topic IPV Vaccines Aged Out No longer eligi ble based on patient's age to complete this topic MMR Vaccines Aged Out No longer eligi ble based on patient's age to complete this topic Meningococcal ACWY Vaccine Aged Out N o longer eligible based on patient's age to complete this topic RSV Immunization Patients Un kemi 20 months Aged Out No longer eligible b ased on patient's age to complete this topic Varicella Vaccines Aged Out No longer eligible based on patient's age to complete this topic
--- OUTSIDE RECORDS SUMMARY | 2024-10-23 12:27 | XMS_ITS | Clinical Summary ---
Author Organization [facility] Address [address] [place] [address] Care Team Providers Care Senior Ui Software Engineer Name Role Phone Unavailable Primary Care Provider Unavailabl e Allergies No known active allergies Medications Medication Sig Dispensed Refills Start Date End Date Status Calcium Carbonate-Vit D-Min (CALCIUM 1200 PO) Take by mouth. 0 Active atenolol (TENORMIN) tablet 50 mg Taking 1 1/2 tablets for a total of 75 mg daily 135 tablet 3 08/19/2019 Active levothyroxine (SYNTHROID, LEVOXYL) tablet 100 mcgIndications:Hypoth yroidism, unspecified type Take 1 tablet (100 mcg total) by mouth every morning on an empty stomach. 90 tablet 3 05/16/2020 Active Active Problems Problem Noted Date Diagnosed Date Essential hypertension 03/01/2018 Hypothyroidism 03/01/2018 Osteopenia Immunizations Name Administration Dates Next Due Influenza Trivalent (Fluzone High Dose) 0.7 mL (65yrs &>) 06/02/2018 Tdap 03/01/2018 Family History Medical History Relation Name Comments Arthritis Brother No Sig Med Hx Daughter 1 No Sig Med Hx Daughter 2 No Sig Med Hx Daughter 3 No Sig Med Hx Daughter 4 Dementia Father Cancer Maternal Aunt 1 Cancer Maternal Aunt 2 Hyperlipidemia Maternal Grandmother Cancer Mother No Sig Med Hx Son Relation Name Status Comments Brother Alive Daughter 1 Alive Daughter 2 Alive Daughter 3 Alive Daughter 4 Alive Father Maternal Aunt 1 Maternal Aunt 2 Maternal Grandfather Maternal Grandmother Mother Breast Paternal Grandfather Paternal Grandmother Son Alive Social History Tobacco Use Types Packs/Day Years Used Date Smoking Tobacco: Former Cigarettes Q uit: 03/01/2008 Smokeless Tobacco: Never Alcohol Use Standard Drinks/Week Comments Yes 0 (1 standard drink = 0.6 oz pur e alcohol) socail Sex and Gender Information Value Date Recorded Sex Assigned at Female 01/03/2019 11:50 AM EDT Gender Identity Female 01/03/2019 11:50 AM EDT Sexual Orientation Straight 01/03/2019 11 :50 AM EDT Last Filed Vital Signs Vital Sign Reading Time Taken Comments Blood Pressure 130/80 06/27/2019 10:37 AM EDT Pulse 65 06/27/2019 10:37 AM EDT Temperature 36.6 ??C (97.8 ??F) 06/27/2019 10:37 AM E DT Respiratory Rate 16 06/27/2019 10:37 AM EDT Oxygen Saturation 99% 06/27/2019 10:37 AM EDT Inhaled Oxygen Concentration - - Weight 64.6 kg (142 lb 6.4 oz) 06/27/2019 10:37 AM EDT Height 166.4 cm (5' 5.5 ) 06/27/2019 10:37 AM ED T Body Mass Index 23.34 06/27/2019 10:37 AM EDT Plan of Treatment Health Maintenance Due Date Last Done Comments COVID-19 Vaccine (#1) 1940 Pneumococcal Vaccine (1 of 1 - PCV) 2005 RSV Adult > 60+ Yrs or (1 - 1-dose 75+ series) 2015 Depression Screening 06/27/2020 06/27/2019, 06/27/2019, 06/27/2019, Additional history exists Fall Risk Assessment 06/27/2020 06/27/2019, 06/27/2019, 06/27/2019, Additional history exists Preventative Health Evaluation 06/27/2020 06/27/2019, 06/27/2019, 06/02/2018 Osteoporosis Screening (DEXA Scan) 12/25/2021 12/26/2019 (Declined), 03/20/2016 Influenza Vaccine (#1) 2024 06/02/2018 DTap / Tdap / Td (2 - Td or Tdap) 03/01/2028 03/01/2018 Shingrix-Zoster Vaccine Completed 03/03/2019, 11/29 Hepatitis B Vaccines Aged Out No long er eligible based on patient's age to complete this topic RSV Ped < 20 months Aged Out No longe r eligible based on patient's age to complete this topic
== END 2024-10-23 11:25 | disposition home or self-care (01) ==
PROVIDERS: PCP Internal Medicine; Visit Provider Surgery
DX: Z90.49 Acquired absence of other specified parts of digestive tract (principal)
CPT/HCPCS: 99024

== ENCOUNTER → 2024-10-23 11:12 | Outpatient (BNVA) | payer MEDICARE, SELFPAY | PROVIDERS: PCP Internal Medicine; Visit Provider Surgery | DX: Z90.49 Acquired absence of other specified parts of digestive tract (principal) | CPT/HCPCS: 99212 ==

== ENCOUNTER 2024-10-24 09:29 | Outpatient (AMB) | payer MEDICARE, SELFPAY ==
--- NOTE | 2024-10-24 09:47 | MHC.OFFVIS ---
Intake Visit Reasons: OV- R hand MCP, chronic subluxation, ? fusion Intake Note: Tanisha 84 yr old female presents today to discuss the potential for a right hand fusion of her MCP joint to prevent subluxation or dislocation of the joint, trigger release and dupuytren's contracture. Currently states she is doing well but continues to have wrist pain. She brought in a brace that was made for her a while back when she was seen with to keep her fingers extended but she has not worn it in a while. Allergies No Known Allergies Allergy (Verified 10/24/24 09:55) HPI HPI OV- R hand MCP, chronic subluxation, ? fusion: Details: Tanisha is an 84 year old right hand dominant woman who presents with multiple complaints. Her chief complaint today is of locking and catching of her left ring finger. She is hopeful that this might be a trigger finger, and something that we can fix. She was last seen by Elissa on 09/18/2024. At that time she was noted to have active subluxation of the right small finger MCP joint which is also reducible by the patient. This has been happening for some time, and she brought in a hand orthosis that had been given to her by the OT is that work with Dr. Hoskins. She said she was told to wear it when she does activities like gardening, but finds that it really does not help, and thus she does not wear it. She is worried about the Dupuytren's cords that she has an each of her palms and wonders if Xiaflex might be indicated, as she has been reading about that. She also complains of numbness in all her fingers bilaterally. Symptoms intermittent, but daily. She denies this being worse at night ON LICENSE OF [facility] Medical History (Updated 10/24/24 @ 12:17 by Cuong Mujica) Incarcerated inguinal hernia (10/12/24) Pancreatic cyst Osteopenia COVID-19 virus infection Ganglion, left wrist Skin lump of arm Cervical spinal stenosis Meningioma Hypothyroidism Hypertension Polymyalgia rheumatica Surgical History (Updated 10/23/24 @ 11:31 by German Blunt MD) History of cholecystectomy Hx of endoscopy History of colonoscopy History of tonsillectomy and adenoidectomy History of tubal ligation Family History Father Alzheimers disease Mother Breast cancer Maternal Grandmother CVD (cardiovascular disease) Maternal Grandfather No problems noted. Paternal Grandmother CVD (cardiovascular disease) Paternal Grandfather No problems noted. Social History (Updated 10/24/24 @ 09:57 by RUBIA Barros) Household Members: None Housing: Condominium Are you a primary palliative care physician to a significant other at home: No Do you presently have visiting nurse or other home services: No Alcohol intake: current Alcohol intake frequency: 0-2 drinks per day Alcohol type: wine Comment: 3x a week 2 glasses Patient Tobacco Use Status: Former Tobacco user Tobacco use type: Cigarette Years Smoked: 1979 e-Cigarette/Vaping Use: Never Used Second Hand Smoke Exposure: Yes Advance Directives Date on File: 05/08/24 service: No 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al status: retired 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 Cognitive needs: No Hearing needs: No Vision needs: Yes (Glasses) Review of Systems Const All systems reviewed & are unremarkable except as noted in HPI and below Physical Exam Const General: cooperative, healthy appearing and no acute distress Orientation/consciousness: patient oriented x3 HEENT Head: Yes normocephalic and Yes atraumatic Eyes EOM: EOMs intact bilaterally Resp Effort & Inspection: normal respiratory effort and able to speak in complete sentences Cardio Jugular venous distension: no JVD Skin General skin exam: turgor normal Rashes: no rashes Neuro General: patient oriented x3 Extrem Other: Evaluation of Bilateral Upper Extremity: The patient is alert, oriented, and in no acute distress Neuro: Median, Ulnar, Radial nerves motor and sensory intact and sensation is normal to the tips of all digits Vascular: Cap refill brisk ROM: She can make a fist and extend all her digits Occasional subluxation of the small finger with activity, which resolves on its own. Subluxation of the left ring finger EDC tendon ulnarly when making a fist Skin: No lacerations or abrasions. General: No Ecchymosis. No Erythema or evidence of infection. There is a Dupuytrens cord in the right hand traversing the mid-palm, without contractures There is a Dupuytrens cord in the left hand traversing the 1st webspace, without contractures Radiographs: 3 views of the bilateral hands from 09/18/24 were reviewed by me today in clinic. On the left: no fractures or dislocations. There are some arthritic changes at the IP joint of the thumb, and in the 1st 3rd and 4th MCP joints. Some generalized arthritic changes that are fairly mild. On the right: No fractures. The 5th MCP joint is ulnarly subluxated/dislocated in this radiograph. Her arthritic changes are somewhat worse on the right particularly in the DRUJ. 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 She is hesitant to proceed with surgery, given her age and the fact that she lives alone, but she is willing to consider this option if necessary 2. Left Dupuytrens disease With a cord traversing the 1st webspace No evidence of contracture 3. Right Dupuytrens disease With a cord traversing the mid-palm No evidence of contracture I educated her about this condition She is able to place her hands flat on a table surface No intervention warranted at this time, neither surgery nor Xiaflex 4. Right small finger MCP joint subluxation Occurs with certain hand motions Not particularly painful I do not recommend an arthrodesis She has an old hand orthosis from Dr. Hoskins, which unfortunately does not prevent subluxation with activities If this becomes more problematic, next steps would include sending her to OT for a new orthosis, to decrease subluxation when worn with activities 5. Bilateral hand numbness To all digits Symptoms intermittent, but daily I educated her about carpal & cubital tunnel syndrome I ordered a NCS to assess for peripheral nerve compression She will follow up when completed for review Please note that greater than 40 minutes was spent with this patient going over the history, evaluating the patient and radiographs, formulating possible treatment options, discussing them with the patient, and documenting the visit. Scribed for Christal Smith MD by Cuong Mujica, medical assistant secretary, on 10/24/24 at 10:10 AM, EST. 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
--- OUTSIDE RECORDS SUMMARY | 2024-10-24 09:59 | XMS_ITS | Clinical Summary ---
Author Organization [facility] Address [address] [place] [address] Care Team Providers Care Middle School Art Teacher Name Role Phone Unavailable Primary Care Provider [...]
--- OUTSIDE RECORDS SUMMARY | 2024-10-24 09:59 | XMS_ITS | Clinical Summary ---
Author Organization [facility] Address [address] [place] [address] Care Team Providers Care Knot Saw Operator Name Role Phone Unavailable Primary Care Provider [...] 04/2017 benign, 05/2018 neg PMR (polymyalgia rheumatica) ([facility]) 2014 DX:PMR (polymyalgia rheumatica) ([facility]);COMMENT:tapered off Prednisone 01/2016 Dr Smith Cervical spinal stenosis DX:Cerv ical spinal stenosis;COMMENT:02/2015 MRI-C mild stenosis C4-5 with severe cervical spondylosis Syncope DX:Syncope Meningioma, cerebral ([facility]/HCC) D X:Meningioma, cerebral ([facility]);COMMENT:01/2019 MRI-B: small parasagittal posterior frontal meningioma: repeat [...]
== END 2024-10-24 10:35 | disposition home or self-care (01) ==
PROVIDERS: PCP Internal Medicine; Visit Provider Orthopaedic Surgery
DX: M66.242 Spontaneous rupture of extensor tendons, left hand (principal); S63.216A Subluxation of metacarpophalangeal joint of right little finger, initial encounter; M72.0 Palmar fascial fibromatosis [Dupuytren]
CPT/HCPCS: 99215

== ENCOUNTER → 2024-10-24 09:29 | Outpatient (BNVA) | payer MEDICARE, SELFPAY | PROVIDERS: PCP Internal Medicine; Visit Provider Orthopaedic Surgery | DX: M66.242 Spontaneous rupture of extensor tendons, left hand (principal); M72.0 Palmar fascial fibromatosis [Dupuytren]; S63.269D Dislocation of metacarpophalangeal joint of unspecified finger, subsequent encounter | CPT/HCPCS: 99212 ==

== ENCOUNTER 2024-10-27 11:53 | Outpatient (REF) | payer MEDICARE, SELFPAY ==
--- OUTSIDE RECORDS SUMMARY | 2024-10-27 12:54 | XMS_ITS | Patient Health Record ---
Author Organization [facility] Address [address] [place] [address] Care Team Providers Care Aws Solution Architect Name Role Phone Po Claudia MONIQUE Primary Care Provider Franklyn Johnson Unavailable [phone] ALLERGIES No Known Allergies RESULTS Component Value Reference Range Notes Liver Panel Reviewed date:05/09/2024 09:04:30 AM Interpretation: Performing Lab:[facility], [address] [place] [phone] Notes/Report: Bilirubin Total 1.7 0.0-1.0 mg/dL Bilirubin Direct 0.6 0.0-0.5 mg/dL Aspartate Amino Transferase 63 5-31 U/L Alanine Aminotransferase 59 0-31 U/L Total Protein 5.9 6.5-8.0 g/dL Albumin Level 3.1 3.5-5.0 g/dL Alkaline Phosphatase 52 39-117 U/L Basic Metabolic Panel Reviewed date:05/09/2024 09:04:44 AM Interpretation: Performing Lab:[address] [phone] Notes/Report: Sodium 140 135-145 mmol/L Potassium 3.9 3.3-5.1 mmol/L Chloride 106 96-108 mmol/L Carbon Dioxide 25 22-29 mmol/L Anion Gap 13 12-20 Blood Urea Nitrogen 6 9-16 mg/dL Creatinine 0.71 0.5-1.4 mg/dL Creatinine Clr Calc Pharmacy 56.2 Provided height and weight: 167.64 cm, 64.6 kg. eGFR (calculated from the MDRD study equation) and eCrCl (calculated from the Cockcroft-Gault equation) are based on different parameters and may not yield comparable results. If eCrCl result is absurd, please check patient's height/weight. Estimated Glomerular Filt Rate > 60 NOTE: For -Nepalese individuals, multiply the result by 1.210. Chronic Kidney Disease: Estimated GFR < 60 mL/min/1.73m2 Severe Kidney Disease: Estimated GFR < 15 mL/min/1.73m2 Glucose Random 99 60-115 mg/dL Calcium 8.7 8.4-10.2 mg/dL Phosphorus Reviewed date:05/09/2024 09:04:50 AM Interpretation: Performing Lab:[facility], [address] [place] [phone] Notes/Report: Phosphorus 2.7 2.7-4.5 mg/dL Lipase Reviewed date:05/09/2024 09:04:57 AM Interpretation: Performing Lab:[facility], [address] [place] [phone] Notes/Report: Lipase 344 8-78 U/L Liver Panel Reviewed date:05/10/2024 04:41:30 PM Interpretation: Performing Lab:[facility], [address] [place] [phone] Notes/Report: Bilirubin Total 1.5 0.0-1.0 mg/dL Bilirubin Direct 0.5 0.0-0.5 mg/dL Aspartate Amino Transferase 33 5-31 U/L Alanine Aminotransferase 37 0-31 U/L Total Protein 6.0 6.5-8.0 g/dL Albumin Level 3.0 3.5-5.0 g/dL Alkaline Phosphatase 53 39-117 U/L Basic Metabolic Panel Reviewed date:05/10/2024 04:41:44 PM Interpretation: Performing Lab:[facility], [address] [place] [phone] Notes/Report: Sodium 139 135-145 mmol/L Potassium 3.8 3.3-5.1 mmol/L Chloride 104 96-108 mmol/L Carbon Dioxide 30 22-29 mmol/L Anion Gap 9 12-20 Blood Urea Nitrogen 4 9-16 mg/dL Creatinine 0.66 0.5-1.4 mg/dL Creatinine Clr Calc Pharmacy 60.4 Provided height and weight: 167.64 cm, 64.6 kg. eGFR (calculated from the MDRD study equation) and eCrCl (calculated from the Cockcroft-Gault equation) are based on different parameters and may not yield comparable results. If eCrCl result is absurd, please check patient's height/weight. Estimated Glomerular Filt Rate > 60 NOTE: For -Nepalese individuals, multiply the result by 1.210. Chronic Kidney Disease: Estimated GFR < 60 mL/min/1.73m2 Severe Kidney Disease: Estimated GFR < 15 mL/min/1.73m2 Glucose Random 96 60-115 mg/dL Calcium 8.9 8.4-10.2 mg/dL Lipase Reviewed date:05/10/2024 04:41:51 PM Interpretation: Performing Lab:[facility], [address] [place] [phone] Notes/Report: Lipase 97 8-78 U/L Complete Blood Count Auto Di ff Reviewed date:08/15/2024 01:01:42 PM Interpretation: Performing Lab:[facility], [address] [place] [phone] Notes/Report: White Blood Count 13.4 4.8-10.8 X10*3/uL Red Blood Count 3.79 4.20-5.50 X10*6/uL Hemoglobin 12.1 12.0-16.0 g/dl Hematocrit 36.7 37.0-47.0 % Mean Corpuscular Volume 96.8 80.0-98.0 fL Mean Corpuscular Hemoglobin 31.9 27.0-33.0 pg Mean Corpuscular HGB Conc 33.0 31.0-35.0 g/dl Red Cell Distribution Width 13.4 11.0-16.0 % Platelet Count 239 160-400 X10*3/uL Mean Platelet Volume 10.2 9.4-12.3 fL Neutrophils Percent Auto 82.3 45-73 % Imm Gran Pct Auto 0.5 0.0-0.4 % Lymphocytes Percent Auto 10.3 20-40 % Monocytes Percent Auto 6.6 2-11 % Eosinophils Percent Auto 0.1 0-4 % Basophils Percent Auto 0.2 0-2 % NRBC Pct Auto 0.0 0.0-0.2 /100WBC Neutrophils Absolute Auto 11.0 2.0-8.3 x10*3/u L Imm Gran Abs Auto 0.07 0.00-0.03 X10*3/uL Lymphocytes Absolute Auto 1.4 1.2-4.9 X10*3/u L Monocytes Absolute Auto 0.9 0.1-1.2 X10*3/uL Eosinophils Absolute Auto 0.0 0.0-0.4 X10*3/u L Basophils Absolute Auto 0.0 0.0-0.2 X10*3/uL NRBC Abs Auto 0.000 0.0-0.012 X10*3/uL Liver Panel Reviewed date:08/15/2024 01:02:00 PM Interpretation: Performing Lab:[facility], [address] [place] [phone] Notes/Report: Bilirubin Total 1.5 0.0-1.0 mg/dL Bilirubin Direct 0.6 0.0-0.5 mg/dL Aspartate Amino Transferase 27 5-31 U/L Alanine Aminotransferase 13 0-31 U/L Total Protein 6.4 6.5-8.0 g/dL Albumin Level 3.4 3.5-5.0 g/dL Alkaline Phosphatase 54 39-117 U/L Basic Metabolic Panel Fastin g Reviewed date:08/15/2024 01:02:23 PM Interpretation: Performing Lab:[facility], [address] [place] [phone] Notes/Report: Sodium 135 135-145 mmol/L Potassium 3.7 3.3-5.1 mmol/L Chloride 101 96-108 mmol/L Carbon Dioxide 23 22-29 mmol/L Anion Gap 15 12-20 Blood Urea Nitrogen 8 9-16 mg/dL Creatinine 0.73 0.5-1.4 mg/dL Creatinine Clr Calc Pharmacy 51.6 Provided height and weight: 165.1 cm, 63.8 kg. eGFR (calculated from the MDRD study equation) and eCrCl (calculated from the Cockcroft-Gault equation) are based on different parameters and may not yield comparable results. If eCrCl result is absurd, please check patient's height/weight. Estimated Glomerular Filt Rate > 60 Chronic Kidney Disease: Estimated GFR < 60 mL/min/1.73m2 Severe Kidney Disease: Estimated GFR < 15 mL/min/1.73m2 Glucose Fasting 96 60-99 mg/dL Calcium 8.7 8.4-10.2 mg/dL Lipase Reviewed date:08/15/2024 01:02:31 PM Interpretation: Performing Lab:[facility], [address] [place] [phone] Notes/Report: Lipase 175 8-78 U/L US abdomen limited Reviewed date:08/16/2024 11:49:39 PM Interpretation: Performing Lab: Notes/Report: [address] [address] Ultrasound Report Signed Patient: Tanisha Arrieta MR#: [id number] : 1940 Acct:[id number] Age/Sex: 84 / F ADM Date: 08/13/24 Loc: HO.S3 368-[address]: Carlotta BLUNT Ordering Physician: Franklyn Benton MD Date of Service: 08/15/24 Procedure(s): US abdomen limited Accession Number(s): [id number] cc: Claudia Smalls MD; Franklyn Benton MD EXAMINATION: US ABDOMEN LIMITED CLINICAL INFORMATION: Abnormal gallbladder on CT. Acute pancreatitis. COMPARISON: MRCP 08/14/2024. CT abdomen and pelvis 08/13/2024. Ultrasound abdomen limited 05/07/2024 and 12/12/2020. TECHNIQUE: Real-time imaging of the right upper quadrant abdominal viscera. Limited visualization due to bowel gas. FINDINGS: PANCREAS: Trace fluid adjacent to the pancreatic head. Limited visualization. A 1.2 cm pancreatic cyst. A 1.3 cm pancreatic cyst was identified on MR MRCP of 05/08/2024. LIVER: Unremarkable hepatic echogenicity. Limited visualization. Mild intrahepatic biliary ductal dilatation redemonstrated. GALLBLADDER: Gallbladder again appears distended, hydropic. There is mild irregularity of the gallbladder wall. Gallbladder thickness of 0.3 cm, borderline. Small amount of pericholecystic fluid. No gallstones appreciated. COMMON BILE DUCT: Abnormal in caliber measuring 1.3 cm in diameter. RIGHT KIDNEY: No hydronephrosis. No renal calculi. Limited visualization. A 1.6 cm mid pole cyst with benign features for which no additional imaging is indicated. The kidney measures 11.1 cm in maximum dimension. FREE FLUID: None. ADDITIONAL FINDINGS: Possible small right pleural effusion incidentally noted on limited images. Small amount of perihepatic and pericholecystic ascites. US/US abdomen limited IMPRESSION: 1. Gallbladder again appears distended, hydropic. There is mild irregularity of the gallbladder wall. Gallbladder thickness of 0.3 cm, borderline. Small amount of pericholecystic fluid. No gallstones appreciated. 2. Common bile duct abnormal in caliber measuring 1.3 cm in diameter. Mild intrahepatic biliary ductal dilatation redemonstrated. 3. A 1.2 cm pancreatic cyst. A 1.3 cm pancreatic cyst was identified on MR MRCP of 05/08/2024. 4. Possible small right pleural effusion incidentally noted on limited images. 5. Small amount of perihepatic and pericholecystic ascites. Electronically signed by: Linda Voss MD 08/16/2024 10:05 AM [facility] Dictated By: Linda Voss MD Signed By: <Electronically signed by Linda Voss MD in OV> 08/16/24 1005 DD/ 0737 TD/TT: 08/15/24 0751 Hand Upper And Bottom Lacer: Liver Panel Reviewed date:08/16/2024 11:49:04 PM Interpretation: Performing Lab:[facility], [address] [place] [phone] Notes/Report: Bilirubin Total 1.6 0.0-1.0 mg/dL Bilirubin Direct 0.6 0.0-0.5 mg/dL Aspartate Amino Transferase 24 5-31 U/L Alanine Aminotransferase 8 0-31 U/L Total Protein 6.8 6.5-8.0 g/dL Albumin Level 3.4 3.5-5.0 g/dL Alkaline Phosphatase 62 39-117 U/L Basic Metabolic Panel Reviewed date:08/16/2024 11:49:11 PM Interpretation: Performing Lab:[facility], [address] [place] [phone] Notes/Report: Sodium 136 135-145 mmol/L Potassium 3.6 3.3-5.1 mmol/L Chloride 100 96-108 mmol/L Carbon Dioxide 25 22-29 mmol/L Anion Gap 15 12-20 Blood Urea Nitrogen 6 9-16 mg/dL Creatinine 0.66 0.5-1.4 mg/dL Creatinine Clr Calc Pharmacy 57.0 Provided height and weight: 165.1 cm, 63.8 kg. eGFR (calculated from the MDRD study equation) and eCrCl (calculated from the Cockcroft-Gault equation) are based on different parameters and may not yield comparable results. If eCrCl result is absurd, please check patient's height/weight. Estimated Glomerular Filt Rate > 60 Chronic Kidney Disease: Estimated GFR < 60 mL/min/1.73m2 Severe Kidney Disease: Estimated GFR < 15 mL/min/1.73m2 Glucose Random 95 60-115 mg/dL Calcium 8.8 8.4-10.2 mg/dL Lipase Reviewed date:08/16/2024 11:49:19 PM Interpretation: Performing Lab:[facility], [address] [place] [phone] Notes/Report: Lipase 33 8-78 U/L REASON FOR REFERRAL Reason pancreatitis gallsto taina Diagnosis 1 Pancreatitis, gallst one (K85.10) [facility] Referring Provider First Name Franklyn Referring Provider Last Name Chetan Referring Provider Speciality Gastroente rology Referred Provider German Blunt Referral Priority Routine Referral Appointment Date 09/25/2024 MEDICATIONS Medication SIG (Take, Route, Frequency, Duration) Notes Start Date End Date Status Nicotinamide w/Wdcq-Faldgi-DI Active Cranberry 425 MG as directed Orally Active Atenolol 50 MG 1 tablet and half Or al Once a day Active Levothyroxine Sodium 100 MCG Oral for 90 Active Calcium + Vitamin D3 600-5 MG-MCG 1 tablet with a meal Orally Once a day for 30 day(s) Active IMMUNIZATIONS Vaccine Route Administration Date Status Comme nts Influenza Unknown 05/21/2020 Administered Influenza Unknown 05/21/2021 Administered Influenza Unknown 06/23/2023 Administered SOCIAL HISTORY Tobacco Use: Social History Observation Description Date Details (start date - stop date) Never Smoker NA - NA Sex Assigned At : Social History Observation Description Sex Assigned At Unknown Tobacco Use/Smoking Question Answer Notes Patient is a nonsmoker Alcohol Screen Question Answer Notes Did you have a drink contain ing alcohol in the past year? Yes How often did you have a dri nk containing alcohol in the past year? Never (0 point) How many drinks did you have on a typical day when you were drinking in the past year? 1 or 2 drinks (0 point) How often did you have 6 or more drinks on one occasion in the past year? Never (0 point) Points 0 Interpretation Negative PROBLEMS Problem Type ICD Code Onset Dates Problem Status W/U Status Risk SNOMED Code Notes Problem Pancreatic cyst (K86.2) Active confirmed 98936076 Problem Elevated liver function tests (R79.89) Active confirmed 848673720 Problem History of acute pancreatitis (Z87.19) Active confirmed History of gastrointestinal disease (790389630) VITAL SIGNS Blood pressure diastolic 00 mm Hg 10/24/2024 Height 65 in 10/24/2024 Blood pressure systolic 00 mm Hg 10/24/2024 Weight 131 lbs 10/24/2024 BMI 21.80 kg/m2 10/24/2024 Encounters Encounter Location Date Provider Diagnosis [facility] [address] [place] [phone] 07/06/2024 Franklyn Benton Pancreatic cyst K86. 2 and History of acute pancreatitis Z87.19 [facility] [address] [place] [phone] 10/24/2024 Franklyn Benton Elevated liver function tests R79.89 ; Pancreatic cyst K86.2 and History of acute pancreatitis Z87.19 [facility] [address] [place] [phone] 08/19/2024 Franklyn Benton [facility] [address] [address] 09/08/2024 Franklyn Benton ASSESSMENTS Encounter Date Diagnosis Assessment Notes Treatment Notes Treatment Clinical Notes 07/06/2024 Pancreatic cyst (ICD-10 - K86.2) Call me as needed 07/06/2024 History of acute pancreatitis (ICD-10 - Z87.19) 10/24/2024 Elevated liver function tests (ICD-10 - R79.89) 10/24/2024 Pancreatic cyst (ICD-10 - K86.2) 10/24/2024 History of acute pancreatitis (ICD-10 - Z87.19) PLAN OF TREATMENT Pending Test Test Name Order Date BUN 04/14/2022 BUN 04/17/2021 BUN 07/07/2023 CREATININE 04/14/2022 CREATININE 04/17/2021 LIVER PROFILE 04/17/2021 LIVER PROFILE 10/24/2024 CA 19-9 07/07/2023 CA 19-9 04/14/2022 CA 19-9 04/17/2021 CT ABD WITH CONTRAST 04/14/2022 CT ABD & PELVIS WITH CONTRAST 04/17/2021 CT ABD & PELVIS WITH CONTRAST 07/07/2023 Creatinine 07/07/2023 Insurance Providers Payer Name Payer Address Payer Phone Subscriber Number Group Number Insured Name Patient Relationship to Insured Coverage Start Date Coverage End Date MEDICARE OF [place] [address] [place] [address] [phone] [id number] TANISHA ARRIETA Self - patient is the insured [employer] ATT[employer] CLAIMS [address] [place] [address] [phone] [id number] TANISHA ARRIETA Self - patient is the insured MEDICAL (GENERAL) HISTORY Medical History History ICD Code Hypertension Hypothyroidism Denies [place],DM,CVA,Lung disease,renal dise ase Meningioma Negative screening colonoscopy in 12/2007 < 1 cm pancreatic cyst in th e body of the pancreas seen incidentally on an U/S in 11/2020--she has had normal CA 19-9 levels and negative F/U CT's Acute pancreatitis in April of 2024 and July of 2024 of unclear etiology. A workup with ultrasound, CT scan, an MRI were negative other than her known pancreatic cyst. She went for an endoscopic ultrasound with Dr. Franco at [facility] who described some evidence of microlithiasis in the gallbladder and common bile duct. He did not see any suspicion for a pancreatic neoplasm although did describe her known pancreatic cyst. Based on her history and his findings he recommended a cholecystectomy with intraoperative cholangiogram. He held off on ERCP at that time due to a periampullary diverticulum. Surgical History Surgery Date(Month/Year) Tubal ligation Tonsillectomy Adenoidectomy Cataract surgery 04/2022 Cholecystectomy with an IOC-Dr. Blunt
--- OUTSIDE RECORDS SUMMARY | 2024-10-27 12:54 | XMS_ITS | Clinical Summary ---
Author Organization [facility] Address [address] [place] [address] Care Team Providers Care Commercial Crabber Name Role Phone Unavailable Primary Care Provider [...] 04/2017 benign, 05/2018 neg PMR (polymyalgia rheumatica) ([facility]) 2014 DX:PMR (polymyalgia rheumatica) ([facility]);COMMENT:tapered off Prednisone 01/2016 Dr Smith Cervical spinal stenosis DX:Cerv ical spinal stenosis;COMMENT:02/2015 MRI-C mild stenosis C4-5 with severe cervical spondylosis Syncope DX:Syncope Meningioma, cerebral ([facility]/H[facility]) D X:Meningioma, cerebral ([facility]);COMMENT:01/2019 MRI-B: small parasagittal posterior frontal meningioma: repeat [...]
--- OUTSIDE RECORDS SUMMARY | 2024-10-27 12:54 | XMS_ITS | Clinical Summary ---
Author Organization [facility] Address [address] [place] [address] Care Team Providers Care Concrete Building Assembler Name Role Phone Unavailable Primary Care Provider [...]
--- OUTSIDE RECORDS SUMMARY | 2024-10-27 12:54 | XMS_ITS ---
Author Organization [facility] Address [address] [place] [address] Care Team Providers Care Associate Property Manager Name Role Phone Claudia Smalls MD Primary Care Provider Franklyn Johnson Unavailable [phone] ALLERGIES No Known Allergies REASON FOR VISIT s/ p cholescystectomy, Dr. Jose Raul barrera soon appt MEDICATIONS Medication SIG (Take, Route, Frequency, Duration) Notes Start Date End Date Status Nicotinamide w/Xwsb-Pyktzm-TN Active Cranberry 425 MG as directed Orally Active Atenolol 50 MG 1 tablet and half Or al Once a day Active Levothyroxine Sodium 100 MCG Oral for 90 Active Calcium + Vitamin D3 600-5 MG-MCG 1 tablet with a meal Orally Once a day for 30 day(s) Active SOCIAL HISTORY Tobacco Use: Social History Observation [...] Never (0 point) Points 0 Interpretation Negative VITAL SIGNS BMI 21.80 kg/m2 10/24/2024 Blood pressure systolic 00 mm Hg 10/24/19 25 Blood pressure diastolic 00 mm Hg 025 Height 65 in 10/24/2024 Weight 131 lbs 10/24/2024 Encounters Encounter Location Date Provider Diagnosis [facility] [address] [place] [address] 10/24/2024 Franklyn Benton Elevated liver function tests R79.89 ; Pancreatic cyst K86.2 and History of acute pancreatitis Z87.19 ASSESSMENTS Encounter Date Diagnosis Assessment Notes Treatment Notes Treatment Clinical Notes 10/24/2024 Elevated liver function tests (ICD-10 - R79.89) 10/24/2024 Pancreatic cyst (ICD-10 - K86.2) 10/24/2024 History of acute pancreatitis (ICD-10 - Z87.19) PLAN OF TREATMENT Pending Test Test Name Order Date LIVER PROFILE 10/24/2024
--- OUTSIDE RECORDS SUMMARY | 2024-10-27 12:54 | XMS_ITS ---
Author Organization [facility] Address [address] [place] [phone] Care Team Providers Care Physical Fitness Teacher Name Role Phone Claudia Smalls MD Primary Care Provider Franklyn Johnson [phone] REASON FOR VISIT Needs to see Dr. Blunt Encounters Encounter Location Date Provider Diagnosis [facility] [address] [place] [phone] 09/08/2024 Franklyn Benton PLAN OF TREATMENT No Information
--- OUTSIDE RECORDS SUMMARY | 2024-10-27 12:54 | XMS_ITS ---
Author Organization [facility] Address [address] [place] [address] Care Team Providers Care It Help Desk Associate Name Role Phone Po Claudia MONIQUE Primary Care Provider Franklyn Johnson [phone] REASON FOR VISIT Needs [facility] referral Encounters Encounter Location Date Provider Diagnosis [facility] [address] [place] [address] 08/19/2024 Franklyn Benton PLAN OF TREATMENT No Information
[2024-10-27 13:31] LABS: Alanine Aminotransferase 10 U/L (0-31); Albumin Level 3.8 g/dL (3.5-5.0); Alkaline Phosphatase 77 U/L (39-117); Aspartate Amino Transferase 23 U/L (5-31); Bilirubin Direct 0.2 mg/dL (0.0-0.5); Bilirubin Total 0.5 mg/dL (0.0-1.0)
== END 2024-10-27 11:54 | disposition home or self-care (01) ==
LOC: HO.LAB 11:53
PROVIDERS: PCP Internal Medicine; Visit Provider Internal Medicine
DX: R79.89 Other specified abnormal findings of blood chemistry (principal)
CPT/HCPCS: 36415; 80076

== ENCOUNTER 2024-11-27 15:24 | Outpatient (AMB) | payer MEDICARE, SELFPAY ==
--- NOTE | 2024-11-27 15:33 | MHC.PC.OV ---
Vital Signs 11/27/24 15:35 Height 5 ft 5 in Weight 138 lb 2 oz BMI 23.0 BP 130/70 Blood Pressure Location Lt brachial Position Sitting Pulse 88 Pulse Source Pulse Oximeter Temp 97.3 F Temp Source Temporal Artery Scan Pulse Oximetry (%) 97 Oxygen Delivery Method Room Air Intake Visit Reasons: discuss anxiety Intake Note: Patient is here to follow up on Anxiety. Benefits Representative Required: No Communication Center Operator: Not Required per policy Accompanied by: Self / Same As Patient Allergies No Known Allergies Allergy (Verified 11/27/24 15:34) Medication List - Last Reconciled 11/27/24 by Claudia Smalls MD atenolol 50 mg PO DAILY calcium carbonate-vitamin D3 600 mg-5 mcg (200 unit) 1 cap PO DAILY cranberry fruit 400 mg PO DAILY levothyroxine 100 mcg PO MOTUWETHFRSA@0600 [id number] 500 mcg- 750 mg (Nicotinamide (with chromium)) 1 tab PO DAILY Tobacco use date assessed: 11/27/24 Fall risk assessment: No Falls in past year Last assessed Fall Risk: 11/27/24 Dental Screening Dental Screen Date: 11/27/24 Did you have a dental visit in the last 12 months?: Yes Did you have a dental problem in the last 6 months where you did not have access to dental care?: No Was dental information given to patient?: Patient has dentist HPI discuss anxiety HPI Details NCV 12/2024 but will not do the proceedure. feeling anxious and wants to take as needed med PFSH Medical History Incarcerated inguinal hernia (10/12/24) Pancreatic cyst Osteopenia COVID-19 virus infection Ganglion, left wrist Skin lump of arm Cervical spinal stenosis Meningioma Hypothyroidism Hypertension Polymyalgia rheumatica Surgical History History of cholecystectomy Hx of endoscopy History of colonoscopy History of tonsillectomy and adenoidectomy History of tubal ligation Family History Father Alzheimers disease Mother Breast cancer Maternal Grandmother CVD (cardiovascular disease) Maternal Grandfather No problems noted. Paternal Grandmother CVD (cardiovascular disease) Paternal Grandfather No problems noted. 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 Cognitive needs: No Hearing needs: No Vision needs: Yes (Glasses) Questionnaire Thrive Questionnaire Date Thrive assessed: 09/28/24 SILVIA-7 AMB Questionnaire SILVIA-7 Date SILVIA - 7 assessed: 11/27/24 Feeling nervous, anxious, or on edge: 3 = Nearly every day Not being able to stop or control worryin = Not at all Worrying too much about different things: 0 = Not at all Trouble relaxin = Nearly every day Being so restless that it is hard to sit still: 2 = More than half the days Becoming easily annoyed or irritable: 1 = Several days Feeling afraid as if something awful might happen: 3 = Nearly every day Total SILVIA-7 score (0-4 normal; 5-9 mild; 10-14 moderate; 15-21 severe): 12 Source: Developed by Drs. Franklyn Gutiérrez, Ariane Walsh, Handy Helm and colleagues, with an educational elayne from [employer] Physical exam (Primary Care) Vital Signs: Last Vital Signs Temp 97.3 F 11/27/24 15:35 Pulse 88 11/27/24 15:35 BP 130/70 11/27/24 15:35 Pulse Ox 97 11/27/24 15:35 Oxygen Delivery Method Room Air 11/27/24 15:35 BMI result Body Mass Index 23.0 Tobacco/Smoking Status: Tobacco use Status Tobacco use date assessed 11/27/24 11/27/24 15:41 Patient Tobacco Use Status Former Tobacco user 11/27/24 15:41 Tobacco use type Cigarette 11/27/24 15:41 e-Cigarette/Vaping Use Never Used 11/27/24 15:41 Thrive Assessment: Date of Thrive Assessment Date Thrive assessed 09/28/24 11/27/24 15:41 Const General: alert; No acute distress Eyes Conjunctivae: conjunctivae normal Resp Auscultation: clear to auscultation bilaterally Cardio Rate: regular rate Rhythm: regular rhythm GI Inspection: Yes normal to inspection Extrem General: Yes normal to inspection and No edema Coding Level of Care Code Est Pt Level 4 (54416) Diagnoses Status post laparoscopic cholecystectomy Z90.49 Essential hypertension I10 Hypertension type: essential hypertension Acquired hypothyroidism E03.9 Hypothyroidism type: acquired Generalized anxiety disorder F41.1 Assessment & Plan Assessment & Plan (1) Status post laparoscopic cholecystectomy: Code(s): Z90.49 - Acquired absence of other specified parts of digestive tract Category: Surgical Plan: Has followed up with the surgeon as well as with the gastroenterology (2) Hypertension: Code(s): I10 - Essential (primary) hypertension Category: Medical Qualifiers: Hypertension type: essential hypertension Qualified Code(s): I10 - Essential (primary) hypertension Plan: Continue with blood pressure medication. Decrease salt intake and exercise on atenolol 50 mg once a day (3) Hypothyroidism: Code(s): E03.9 - Hypothyroidism, unspecified Category: Medical Qualifiers: Hypothyroidism type: acquired Qualified Code(s): E03.9 - Hypothyroidism, unspecified Plan: Continue with thyroid medication (4) Generalized anxiety disorder: Code(s): F41.1 - Generalized anxiety disorder Category: Medical Plan History of Present Illness The patient is an 84-year-old female presenting with acute anxiety management and recent hand pain. She has essential hypertension, hypothyroidism, and osteoporosis, with recent surgical history involving a cholecystectomy for gallstone pancreatitis. The patient continues with normal liver function and follows up routinely with her surgical and gastroenterology teams. 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 Additionally, she reports persistent anxiety, especially worried about her historical meningioma. While showing no current progression, her anxiety persists. She opts for intermittent rather than regular medication for anxiety management, despite a family history of using such medications. Health Maintenance - Cholecystectomy in September 2024 for gallstone pancreatitis - Normal liver function tests (Oct 27, 2024) - Bone density test for osteoporosis (Aug 2022) - Colonoscopy performed in 2008 - Upcoming mammogram planned for July 2024 - Continues management of cholesterol with good levels reported as LDL 58 Social History - Lives alone - Children use medications for anxiety, although patient herself prefers as-needed medication - Exercises regularly - Experiences variable balance, attributed to long-standing vertigo Review of Systems - Neurological: Reports anxiety episodes and disturbances in balance, denies dizziness. - Musculoskeletal: Reports hand pain, especially at night, with associated sleep disturbances. Physical Exam - Neurological- No complaints of headaches or dizziness observed. - Musculoskeletal- Hand examination noted pain with specific maneuvers. Results - Labs: Normal liver function and blood count (August 15, ). - Tests and Diagnostics: Intraoperative cholangiogram normal, no signs suggestive of ERCP need. CAT scan in 2019 for meningioma, stable findings. Plan The patient will manage her acute anxiety with as-needed alprazolam, considering potential post-dose impairment precautions. The prescription provided supports this choice. For continued hand pain, an intervention plan with upcoming orthopedic surgery is in place, alongside a pending nerve conduction test. Monitoring of the meningioma remains prudent, aimed at long-term stability with no intervention change. Ongoing management of chronic conditions and follow-up with scheduled health maintenance activities. Patient was informed and verbally consented to the use of an ambient scribe for clinic note documentation during this visit. Discussion Notes I discussed anxiety management options with the patient, highlighting the benefits and potential effects of as-needed vs. regular medications. A low-dose prescription for alprazolam was provided, emphasizing post-dose caution for at least eight-hour intervals to avoid impairment risks like driving. Regarding her hand condition, surgical intervention was reviewed, with pre-procedural tests including a nerve conduction study to dictate decisions. The stable nature of her meningioma was reassuring, recommending continued monitoring without active treatment alterations. We discussed the importance of routine follow-ups about hypertension and thyroid management while sustaining preventative care schedules, including upcoming surgical and screening appointments. Patient Instructions - Take alprazolam as prescribed only when needed, allowing at least eight hours before activities like driving. - Attend scheduled appointment for nerve conduction test. - Follow up on December 22 for hand surgery as planned. - Continue current hypertension and thyroid medications as instructed. - Return to clinic for any new symptoms or concerns. - Maintain regular follow-ups and scheduled health maintenance visits. - Report any new or worsening symptoms promptly, particularly related to anxiety, balance, or other health concerns. Medications: New alprazolam 0.25 mg PO BEDTIME PRN 10 tabs 0RF sleep F41.1 - Generalized anxiety disorder
[2024-11-27 15:35] VITALS: BP 130/70; PULSE 88; TEMP 36.3; O2SAT 97; BMI 23.0
--- OUTSIDE RECORDS SUMMARY | 2024-11-27 17:34 | XMS_ITS | Patient Health Record ---
Author Organization [facility] Address [address] [place] [address] Care Team Providers Care Industrial Radiographer Name Role Phone Po Claudia MONIQUE Primary Care Provider Franklyn Johnson Unavailable [phone] Allergies No Known Allergies Results Component Value Reference Range Notes Liver Panel Reviewed date:05/09/2024 09:04:30 AM Interpretation: Performing Lab:[facility], [address] [place] [phone] Notes/Report: Bilirubin Total 1.7 0.0-1.0 mg/dL Bilirubin Direct 0.6 0.0-0.5 mg/dL Aspartate Amino Transferase 63 5-31 U/L Alanine Aminotransferase 59 0-31 U/L Total Protein 5.9 6.5-8.0 g/dL Albumin Level 3.1 3.5-5.0 g/dL Alkaline Phosphatase 52 39-117 U/L Basic Metabolic Panel Reviewed date:05/09/2024 09:04:44 AM Interpretation: Performing Lab:[address] [address] Notes/Report: Sodium 140 135-145 mmol/L Potassium 3.9 [...] Glomerular Filt Rate > 60 NOTE: For -Guamanian individuals, multiply the result by 1.210. Chronic Kidney Disease: Estimated GFR < 60 mL/min/1.73m2 Severe Kidney Disease: Estimated GFR < 15 mL/min/1.73m2 Glucose Random 99 60-115 mg/dL Calcium 8.7 8.4-10.2 mg/dL Phosphorus Reviewed date:05/09/2024 09:04:50 AM Interpretation: Performing Lab:[facility], [address] [place] [phone] Notes/Report: Phosphorus 2.7 2.7-4.5 mg/dL Lipase Reviewed date:05/09/2024 09:04:57 AM Interpretation: Performing Lab:[facility], [address] [place] [phone] Notes/Report: Lipase 344 8-78 U/L Liver Panel Reviewed date:05/10/2024 04:41:30 PM Interpretation: Performing Lab:[facility], [address] [place] [phone] Notes/Report: Bilirubin Total 1.5 0.0-1.0 mg/dL Bilirubin Direct 0.5 0.0-0.5 mg/dL Aspartate Amino Transferase 33 5-31 U/L Alanine Aminotransferase 37 0-31 U/L Total Protein 6.0 6.5-8.0 g/dL Albumin Level 3.0 3.5-5.0 g/dL Alkaline Phosphatase 53 39-117 U/L Basic Metabolic Panel Reviewed date:05/10/2024 04:41:44 PM Interpretation: Performing Lab:[facility], [address] [place] [phone] Notes/Report: Sodium 139 135-145 mmol/L Potassium 3.8 [...] Glomerular Filt Rate > 60 NOTE: For -Guamanian individuals, multiply the result by 1.210. Chronic Kidney Disease: Estimated GFR < 60 mL/min/1.73m2 Severe Kidney Disease: Estimated GFR < 15 mL/min/1.73m2 Glucose Random 96 60-115 mg/dL Calcium 8.9 8.4-10.2 mg/dL Lipase Reviewed date:05/10/2024 04:41:51 PM Interpretation: Performing Lab:[facility], [address] [place] [phone] Notes/Report: Lipase 97 8-78 U/L Complete Blood Count Auto Di ff Reviewed date:08/15/2024 01:01:42 PM Interpretation: Performing Lab:[facility], [address] [place] [phone] Notes/Report: White Blood Count 13.4 4.8-10.8 X10*3/uL [...] Panel Reviewed date:08/15/2024 01:02:00 PM Interpretation: Performing Lab:[facility], [address] [place] [phone] Notes/Report: Bilirubin Total 1.5 0.0-1.0 mg/dL Bilirubin Direct 0.6 0.0-0.5 mg/dL Aspartate Amino Transferase 27 5-31 U/L Alanine Aminotransferase 13 0-31 U/L Total Protein 6.4 6.5-8.0 g/dL Albumin Level 3.4 3.5-5.0 g/dL Alkaline Phosphatase 54 39-117 U/L Basic Metabolic Panel Fastin g Reviewed date:08/15/2024 01:02:23 PM Interpretation: Performing Lab:[facility], [address] [place] [phone] Notes/Report: Sodium 135 135-145 mmol/L Potassium 3.7 [...] Lipase Reviewed date:08/15/2024 01:02:31 PM Interpretation: Performing Lab:[facility], [address] [place] [phone] Notes/Report: Lipase 175 8-78 U/L US abdomen limited Reviewed date:08/16/2024 11:49:39 PM Interpretation: Performing Lab: Notes/Report: [address] [address] Ultrasound Report Signed Patient: Tanisha Arrieta MR#: [id number] : 1940 Acct:[id number] Age/Sex: 84 / F ADM Date: 08/13/24 Loc: HO.S3 368-[address]: Carlotta BLUNT Ordering Physician: Franklyn Benton MD Date of Service: 08/15/24 Procedure(s): US abdomen limited Accession Number(s): [id number] cc: Claudia Smalls MD; Franklyn Benton MD [...] by: Linda Voss MD 08/16/2024 10:05 AM [facility] Dictated By: Linda Voss MD Signed By: <Electronically signed by Linda Voss MD in OV> 08/16/24 1005 DD/ 0737 TD/TT: 08/15/24 0751 Time Signal Wirer: [place] [address] Ultrasound Report Signed Patient: Tanisha Arrieta MR#: [id number] : 1940 Acct:[id number] Age/Sex: 84 / F ADM Date: 08/13/24 Loc: .S3 368-[address]: Bear BLUNT Ordering Physician: Franklyn Benton MD Date of Service: 08/15/24 Procedure(s): US abd omen limited Accession Number(s): [id number] cc: Claudia Smalls MD ; Franklyn Benton MD EXAMINATION: US ABDOMEN LIMITED CLINICAL INFORMATION: Abnormal gallbladder on CT. Acute pancreatitis. COMPARISON: MRCP 08/14/2024. CT abdomen and pelvis 08/13/2024. Ultrasound abdomen limited 05/07/2024 a nd 12/12/2020. TECHNIQUE: Real-time imaging of the right upper quadrant abdominal viscera. Limited visualizatio n due to bowel gas. FINDINGS: PANCREAS: Trace flui d adjacent to the pancreatic head. Limited visualization. A 1.2 cm pancreatic cyst. A 1.3 cm pancreatic cyst was identified on MR MRC P of 05/08/2024. LIVER: Unremarkable hepatic echogenicity. Limited visualization. Mild intrahepatic biliary ductal dilatation redemonstrated. GALLBLADDER: Gallbla dder again appears distended, hydropic. There is mild irregularity of the gallbladder wall. Gallbladder thickness of 0.3 cm, borderline. Smal l amount of pericholecystic fluid. No gallstones appreciated. COMMON BILE DUCT: Abnormal in caliber measuring 1.3 cm in diameter. RIGHT KIDNEY: No hydronephrosis. No renal calculi. Limited visualization. A 1.6 cm mid pole cyst with benign features for which no additional imaging i s indicated. The kidney measures 11.1 cm in maximum dimension. FREE FLUID: None. ADDITIONAL FINDINGS: Possible small right pleural effusion incidentally noted on limited tara ges. Small amount of perihepatic and pericholecystic ascites. U S/US abdomen limited IMPRESSION: 1. Gallbladder again appears distended, hydropic. There is mild irregularity of the gallbladder wall. Gallbladder thickness of 0.3 cm, borderline. Small am ount of pericholecystic fluid. No gallstones appreciated. 2. Common bile duct abnormal in caliber measuring 1.3 cm in diameter. Mild intrahepatic biliary ductal dilatation redemonstrated. 3. A 1.2 cm pancreat ic cyst. A 1.3 cm pancreatic cyst was identified on MR MRCP of 05/08/2024. 4. Possible small ri ght pleural effusion incidentally noted on limited images. 5. Small amount of perihepatic and pericholecystic ascites. Electronically casey d by: Linda Voss MD 08/16/2024 10:05 AM [facility] Dictated By: Linda Voss MD Signed By: <Electronically signed by Linda Voss MD in OV> 08/16/24 1005 DD/ 0737 TD/TT: 08/15/24 0751 Time Signal Wirer: Liver Panel Reviewed date:08/16/2024 11:49:04 PM Interpretation: Performing Lab:[facility], [address] [place] [phone] Notes/Report: Bilirubin Total 1.6 0.0-1.0 mg/dL Bilirubin Direct 0.6 0.0-0.5 mg/dL Aspartate Amino Transferase 24 5-31 U/L Alanine Aminotransferase 8 0-31 U/L Total Protein 6.8 6.5-8.0 g/dL Albumin Level 3.4 3.5-5.0 g/dL Alkaline Phosphatase 62 39-117 U/L Basic Metabolic Panel Reviewed date:08/16/2024 11:49:11 PM Interpretation: Performing Lab:[facility], [address] [place] [phone] Notes/Report: Sodium 136 135-145 mmol/L Potassium 3.6 [...] Lipase Reviewed date:08/16/2024 11:49:19 PM Interpretation: Performing Lab:[facility], [address] [place] [phone] Notes/Report: Lipase 33 8-78 U/L Liver Panel Reviewed date:11/08/2024 07:14:00 AM Interpretation: Performing Lab:[address] [phone] Notes/Report: Bilirubin Total 0.5 0.0-1.0 mg/dL Bilirubin Direct 0.2 0.0-0.5 mg/dL Aspartate Amino Transferase 23 5-31 U/L Alanine Aminotransferase 10 0-31 U/L Total Protein 8.0 6.5-8.0 g/dL Albumin Level 3.8 3.5-5.0 g/dL Alkaline Phosphatase 77 39-117 U/L Reason For Referral Reason pancreatitis gallsto taina Diagnosis 1 Pancreatitis, gallst one (K85.10) Referral Organization [facility] Referring Provider First Name Franklyn Referring Provider Last Name Benton Referring Provider Speciality Gastroente rology Referred Provider German Blunt Referral Priority Routine Referral Appointment Date 09/25/2024 Medications Medication SIG (Take, Route, Frequency, Duration) Notes Start Date End Date Status Nicotinamide w/Woke-Uecjlt-DX Active Cranberry 425 MG as directed Orally Active Atenolol 50 MG 1 tablet and half Or al Once a day Active Levothyroxine Sodium 100 MCG Oral for 90 Active Calcium + Vitamin D3 600-5 MG-MCG 1 tablet with a meal Orally Once a day for 30 day(s) Active Immunizations Vaccine Route Administration Date Status Comme nts Influenza Unknown 05/21/2020 Administered Influenza Unknown 05/21/2021 Administered Influenza Unknown 06/23/2023 Administered Social History Tobacco Use: Social History Observation Description Date Details (start date - stop date) Never Smoker NA - NA Tobacco Use/Smoking Question Answer Notes Patient is [...] Never (0 point) Points 0 Interpretation Negative Section Notes: Nonsmoker; drinks a glass of wine per day Nonsmoker; drinks a glass of wine per day Nonsmoker; drinks a glass of wine per day Nonsmoker; drinks a glass of wine per day Nonsmoker; drinks a glass of wine per day Problems Problem Type SNOMED Code ICD Code Onset Dates Problem Status W/U Status Risk Notes Problem 086408409 Elevated liver function tests (R79.89) Active confirmed Problem 92398371 Pancreatic cyst (K86.2) Active confirmed Problem History of gastrointestinal disease (245613252) History of acute pancreatitis (Z87.19) Active confirmed Vital Signs Blood pressure diastolic 00 mm Hg 10/24/2024 Height 65 in 10/24/2024 Blood pressure systolic 00 mm Hg 10/24/2024 Weight 131 lbs 10/24/2024 BMI 21.80 kg/m2 10/24/2024 Encounters Encounter Location Date Provider Diagnosis [facility] [address] [place] [address] 07/06/2024 Franklyn Benton Pancreatic cyst K86. 2 and History of acute pancreatitis Z87.19 [facility] [address] [place] [address] 10/24/2024 Franklyn Benton Elevated liver function tests R79.89 ; Pancreatic cyst K86.2 and History of acute pancreatitis Z87.19 [facility] [address] [place] [phone] 08/19/2024 Franklyn Benton [facility] [address] [place] [phone] 09/08/2024 Franklyn Benton Assessments Encounter Date Diagnosis (ICD Code) Assessment Notes Treatment Notes Treatment Clinical Notes Section Notes 07/06/2024 Pancreatic cyst (ICD-10 - K86.2) Call me as needed Overall, Tanisha appears quite well at the present time. Her recent episode of acute pancreatitis seems to have resolved completely and has not left her with any ongoing issues. We did review the etiology of that episode of pancreatitis remains unclear. She does have the long-standing history of the stable and benign-appearing pancreatic cyst, but I suspect that it is unrelated to the episode of acute pancreatitis given the normal appearance of her pancreatic duct and stable size of the cyst. Given all of her recent imaging studies during the recent hospitalization and her excellent clinical appearance presently, I don't think she needs any further imaging studies or evaluation of the pancreas at this time. We did review that if her pancreatitis recurs then she may need further evaluation with an endoscopic ultrasound of the pancreas and/or an ERCP. At this point, given her age, multiple imaging studies of the pancreatic cyst that have remained stable over the past number of years, and her excellent clinical appearance, I advised Tanisha I would not recommend any further followup of the pancreatic cyst going forward. As such, as long as things remain stable I advised her that she can see me again on a p.r.n. basis. I did advise her to certainly call if she has any recurrent problems with pancreatitis or any other problems that I can be of assistance with in the future. Tanisha was very comfortable with this plan. Thank you again for allowing me to have participated in [facility] care. Please do not hesitate to contact me if I can be of any further assistance in the future. 07/06/2024 History of acute pancreatitis (ICD-10 - Z87.19) Overall, Tanisha appears quite well at the present time. Her recent episode of acute pancreatitis seems to have resolved completely and has not left her with any ongoing issues. We did review the etiology of that episode of pancreatitis remains unclear. She does have the long-standing history of the stable and benign-appearing pancreatic cyst, but I suspect that it is unrelated to the episode of acute pancreatitis given the normal appearance of her pancreatic duct and stable size of the cyst. Given all of her recent imaging studies during the recent hospitalization and her excellent clinical appearance presently, I don't think she needs any further imaging studies or evaluation of the pancreas at this time. We did review that if her pancreatitis recurs then she may need further evaluation with an endoscopic ultrasound of the pancreas and/or an ERCP. At this point, given her age, multiple imaging studies of the pancreatic cyst that have remained stable over the past number of years, and her excellent clinical appearance, I advised Tanisha I would not recommend any further followup of the pancreatic cyst going forward. As such, as long as things remain stable I advised her that she can see me again on a p.r.n. basis. I did advise her to certainly call if she has any recurrent problems with pancreatitis or any other problems that I can be of assistance with in the future. Tanisha was very comfortable with this plan. Thank you again for allowing me to have participated in [facility] care. Please do not hesitate to contact me if I can be of any further assistance in the future. 10/24/2024 Elevated liver function tests (ICD-10 - R79.89) Overall, Tanisha appears very well and is not having any residual symptoms from the previous episodes of pancreatitis nor from her recent gallbladder surgery. I did review all of the findings on the endoscopic ultrasound and her recent surgery with her. At this point I don't think any further workup is required as the intraoperative cholangiogram did not reveal any sign of choledocholithiasis to suggest the need for an ERCP. Based on the endoscopic ultrasound findings there does not appear to be any underlying pancreatic or biliary neoplasm either. I don't think there is any sign of a significant biliary stricture on the intraoperative cholangiograms. At this point I advised Tanisha I would like her to have a liver profile to document good biliary drainage and normal LFT's. Assuming her LFTs are normal I do not think she will need any further evaluation on my part. We did review that certainly if she develops any recurrent abdominal pains, signs of jaundice, or other GI issues she would then need to contact me for reevaluation. Given her age and the stability of the pancreatic cyst on her imaging studies over the psat few years, I don't think she needs any further imaging studies of that either. If things remain well I have advised Tanihsa to see me on a p.r.n. basis. She was very comfortable with this plan. Thank you again for allowing me to have participated in Tanisha's care. Please do not hesitate to contact me if I can be of any further assistance in the future. 10/24/2024 Pancreatic cyst (ICD-10 - K86.2) Overall, Tanisha appears very well and is not having any residual symptoms from the previous episodes of pancreatitis nor from her recent gallbladder surgery. I did review all of the findings on the endoscopic ultrasound and her recent surgery with her. At this point I don't think any further workup is required as the intraoperative cholangiogram did not reveal any sign of choledocholithiasis to suggest the need for an ERCP. Based on the endoscopic ultrasound findings there does not appear to be any underlying pancreatic or biliary neoplasm either. I don't think there is any sign of a significant biliary stricture on the intraoperative cholangiograms. At this point I advised Tanisha I would like her to have a liver profile to document good biliary drainage and normal LFT's. Assuming her LFTs are normal I do not think she will need any further evaluation on my part. We did review that certainly if she develops any recurrent abdominal pains, signs of jaundice, or other GI issues she would then need to contact me for reevaluation. Given her age and the stability of the pancreatic cyst on her imaging studies over the psat few years, I don't think she needs any further imaging studies of that either. If things remain well I have advised Tanisha to see me on a p.r.n. basis. She was very comfortable with this plan. Thank you again for allowing me to have participated in [facility] care. Please do not hesitate to contact me if I can be of any further assistance in the future. 10/24/2024 History of acute pancreatitis (ICD-10 - Z87.19) Overall, Tanisha appears very well and is not having any residual symptoms from the previous episodes of pancreatitis nor from her recent gallbladder surgery. I did review all of the findings on the endoscopic ultrasound and her recent surgery with her. At this point I don't think any further workup is required as the intraoperative cholangiogram did not reveal any sign of choledocholithiasis to suggest the need for an ERCP. Based on the endoscopic ultrasound findings there does not appear to be any underlying pancreatic or biliary neoplasm either. I don't think there is any sign of a significant biliary stricture on the intraoperative cholangiograms. At this point I advised Tanisha I would like her to have a liver profile to document good biliary drainage and normal LFT's. Assuming her LFTs are normal I do not think she will need any further evaluation on my part. We did review that certainly if she develops any recurrent abdominal pains, signs of jaundice, or other GI issues she would then need to contact me for reevaluation. Given her age and the stability of the pancreatic cyst on her imaging studies over the psat few years, I don't think she needs any further imaging studies of that either. If things remain well I have advised Tanisha to see me on a p.r.n. basis. She was very comfortable with this plan. Thank you again for allowing me to have participated in [facility] care. Please do not hesitate to contact me if I can be of any further assistance in the future. Plan Of Treatment Pending Test Test Name Order Date BUN 07/07/2023 BUN 04/17/2021 BUN 04/14/2022 CREATININE 04/17/2021 CREATININE 04/14/2022 LIVER PROFILE 10/24/2024 LIVER PROFILE 04/17/2021 CA 19-9 07/07/2023 CA 19-9 04/14/2022 CA 19-9 04/17/2021 CT ABD WITH CONTRAST 04/14/2022 CT ABD & PELVIS WITH CONTRAST 04/17/2021 CT ABD & PELVIS WITH CONTRAST 07/07/2023 Creatinine 07/07/2023 Insurance Providers Payer Name Payer Address Payer Phone Subscriber Number Group Number Insured Name Patient Relationship to Insured Coverage Start Date Coverage End Date MEDICARE OF [place] [address] [place] [address] [id number] TANISHA ARRIETA Self - patient is the insured [employer] ATT[employer] CLAIMS [address] [place] [address] [phone] [id number] TANISHA ARRIETA Self - patient is the insured Medical (General) History Medical History History ICD Code Hypertension Hypothyroidism Denies ND,DM,CVA,Lung disease,renal dise ase Meningioma Negative screening colonoscopy [...] an endoscopic ultrasound with Dr. Franco at [facility] who described some evidence of microlithiasis in [...] Adenoidectomy Cataract surgery 04/2022 Cholecystectomy with an IOC- Dr. Blunt, IOC was negative for stones or stricture 10/12/2024
--- OUTSIDE RECORDS SUMMARY | 2024-11-27 17:34 | XMS_ITS | Clinical Summary ---
Author Organization [employer] [facility] Address [address] [place] [address] Care Team Providers Care Associate Professor Of Biology Name Role Phone Unavailable Primary Care Provider [...] 04/2017 benign, 05/2018 neg PMR (polymyalgia rheumatica) ([facility]) 2014 DX:PMR (polymyalgia rheumatica) ([facility]);COMMENT:tapered off Prednisone 01/2016 Dr Smith Cervical spinal stenosis DX:Cerv ical spinal stenosis;COMMENT:02/2015 MRI-C mild stenosis C4-5 with severe cervical spondylosis Syncope DX:Syncope Meningioma, cerebral ([facility]) D X:Meningioma, cerebral ([facility]);COMMENT:01/2019 MRI-B: small parasagittal posterior frontal meningioma: repeat [...] drink = 0.6 oz pur e alcohol) Comments Unknown Sex and Gender Information Value Date Recorded Sex Assigned at Not on file Legal Sex Female 10:58 PM EST Gender Identity Not on file Sexual Orientation Not on file Obstetrics History Plan of Treatment Health Maintenance Due Date Last Done Comments Pneumococcal Vaccine: 50+ Ye ars (1 of 1 - PCV) 1990 Zoster Vaccines (1 of 2) 1990 RSV Immunization Patients 60 + Years Old [...] patient's age to complete this topic Meningococcal B Vacine Aged Out No lo nger eligible based on patient's age to complete this topic RSV Immunization Patients Un kemi 20 months Aged Out No longer eligible b ased on patient's age to complete this topic Varicella Vaccines Aged Out No longer eligible based on patient's age to complete this topic
--- OUTSIDE RECORDS SUMMARY | 2024-11-27 17:34 | XMS_ITS ---
Author Organization [facility] Address [address] [place] [address] Care Team Providers Care Gold Prospector Name Role Phone Claudia Smalls MD Primary Care Provider Franklyn Johnson [phone] REASON FOR VISIT Needs to see Dr. Blunt Encounters Encounter Location Date Provider Diagnosis [facility] [address] [place] [phone] 09/08/2024 Franklyn Benton Plan Of Treatment No Information Progress Notes * DB ARRIETA CDOB:[birth year] (84 yo F)Acc No.[id number]:09/08/2024 Patient:?DB ARRIETA :1940???Age:84 Y???Sex:Female Address:[address] [place] [id number] * true * Date:? Generated for Emilyi nancy/Kendrick/eTransmitting on:?11/27/2024 05:34 PM EDT
--- OUTSIDE RECORDS SUMMARY | 2024-11-27 17:35 | XMS_ITS ---
Author Organization [facility] Address [address] [place] [address] Care Team Providers Care Body Finisher Name Role Phone Claudia Smalls MD Primary Care Provider Franklyn Johnson Unavailable [phone] Allergies No Known Allergies REASON FOR VISIT s/ p cholescystectomy, Dr. Jose Raul barrera soon appt Medications Medication SIG (Take, Route, Frequency, Duration) Notes Start Date End Date Status Nicotinamide w/Dxui-Iuzjkg-CP Active Cranberry 425 MG as directed Orally Active Atenolol 50 MG 1 tablet and half Or al Once a day Active Levothyroxine Sodium 100 MCG Oral for 90 Active Calcium + Vitamin D3 600-5 MG-MCG 1 tablet with a meal Orally Once a day for 30 day(s) Active Social History Tobacco Use: Social History Observation [...] drinks a glass of wine per day Vital Signs Blood pressure systolic 00 mm Hg 10/24/19 25 Blood pressure diastolic 00 mm Hg 025 Height 65 in 10/24/2024 Weight 131 lbs 10/24/2024 BMI 21.80 kg/m2 10/24/2024 Encounters Encounter Location Date Provider Diagnosis [facility] [address] [place] [address] 10/24/2024 Franklyn Benton Elevated liver function tests R79.89 ; Pancreatic cyst K86.2 and History of acute pancreatitis Z87.19 Assessments Encounter Date Diagnosis (ICD Code) Assessment Notes Treatment Notes Treatment Clinical Notes Section Notes 10/24/2024 Elevated liver function tests (ICD-10 [...] Treatment Pending Test Test Name Order Date LIVER PROFILE 10/24/2024 Next Appt Details Follow Up: prn, Reason: Progress Notes * TANISHA ARRIETA CDOB:[birth year] (84 yo F)Acc No.[id number]:10/24/2024 Progress Notes Patient:?TANISHA ARRIETA Provider:?Franklyn Benton MD :1940???Age:84 Y???Sex:Female D ate:10/24/2024 Address:[address] [place] [address] Pcp:Claudia Smalls MD Subjective: * Chief Complaints: * ???s/ p cholescystectomy, Dr Christiana Blunt req soon appt * HPI: ???incontinence:? I saw Tanisha in followup today in regard to her history of pancreatitis, known pancreatic cyst, and recent cholecystectomy. ?I last saw Tanisha in July when she was hospitalized with her second episode of pancreatitis of unclear etiology. Due to her negative workup and a second recurrence of pancreatitis I referred her to see Dr. Franco at [facility] for an endoscopic ultrasound. This revealed her known pancreatic cyst and no evidence of any suspicion for a pancreatic neoplasm or biliary neoplasm. Dr. Franco did feel he was seeing some microlithiasis in the gallbladder and bile duct. Based on those findings and her clinical history of unexplained pancreatitis, Dr. Franco recommended a cholecystectomy with intraoperative cholangiogram. Dr. Franco wanted to hold off on the ERCP due to the presence of a periampullary diverticulum and what he felt might be a difficult procedure. The cholecystectomy was done on October [address] Blunt. ?She describes the surgery as having gone well. The pathology report does not describe any gallstones. She has had no subsequent abdominal pain nor any signs of jaundice since the surgery. I did review the intraoperative cholangiogram with Dr. Blunt. While the bile duct and the portion of the pancreatic duct in the head of the pancreas did appear somewhat dilated, there was no evidence of any filling defects. The bile duct did not appear to have any significant stricture or other suspicious findings. ?Since her surgery she has been feeling well. She denies any residual abdominal pain. She enjoys a good appetite. She has not noticed any signs of jaundice. She denies any fevers. Her bowel movements have been regular and without any signs of bleeding. * ROS:?General/Constitutional:?Change in appetite?denies.?Chills?denies.?Fatigue?denies.?Ophthalmologic:?Comments?all negative.?ENT:?Comments?all negative.?Respiratory:?hemoptysis?denies.?Cough?denies.?Cardiovascular:?Chest pain?denies.?Orthopnea?denies.?Gastrointestinal:?Comments?See HPI for details.?Genitourinary:?Hematuria?denies.?Dysuria?denies.?Musculoskeletal:?Painful joints?denies.?Weakness?denies.?Skin:?Itching?denies.?Rash?denies.?Neurologic:?Headache?denies.?Seizures?denies.?Psychiatric:?Comments?all negative.? * Medical History:? * Surgical History:?Tubal liga tion Tonsillectomy Adenoidectomy Cataract surgery holecystectomy with an IOC-Dr. Blunt, IOC was negative for stones or stricture 10/12/2024 * Hospitalization/Major Diagno stic Procedure:?No Hospitalization History. * Family History:?Father: dece ased.?Mother: .? No colorectal cancer nor pancreatic disease daughter - colon polyps olinda daughter breast ca. * Social History:?Tobacco Use:?Tobacco Use/Smoking?Patient is a?nonsmoker.?Drugs/Alcohol:?Alcohol Screen?Did you have a drink containing alcohol in the past year??Yes,?How often did you have a drink containing alcohol in the past year??Never (0 point),?How many drinks did you have on a typical day when you were drinking in the past year??1 or 2 drinks (0 point),?How often did you have 6 or more drinks on one occasion in the past year??Never (0 point),?Points?0,?Interpretation?Negative.?Miscellaneous:?Marital status: --her from pancreatic cancer. Occupation: retired. ???Nonsmoker; drinks a glass of wine per day. * Medications:?TakingCranberry 425 MG Capsule as directed Orally Nicotinamide w/Uizg-Uzkzdj-QX Calcium + Vitamin D3 600-5 MG-MCG Tablet 1 tablet with a meal Orally Once a dayLevothyroxine Sodium 100 MCG Tablet Oral Atenolol 50 MG Tablet 1 tablet and half Oral Once a dayMedication List reviewed and reconciled with the patientTaking Cranberry 425 MG Capsule as directed Orally Taking Nicotinamide w/Ytmu-Phljqx-OC Taking Calcium + Vitamin D3 600-5 MG-MCG Tablet 1 tablet with a meal Orally Once a dayTaking Levothyroxine Sodium 100 MCG Tablet Oral Taking Atenolol 50 MG Tablet 1 tablet and half Oral Once a dayMedication List reviewed and reconciled with the patient * Allergies:?N.K.D.A.yes[Aller gies Verified] Objective: * Vitals:?Wt: 131 lbs, Ht: 65 in, BMI:21.80 Index, BP: 00/00 mm Hg. * Examination: ???General Examination: ?GENERAL APPEARANCE:?pleasant, well nourished, well developed, in no acute distress.?EYES:?sclera non-icteric.?ORAL CAVITY:?mucosa moist.?NECK/THYROID:?no cervical lymphadenopathy, neck supple.?SKIN:?nonjaundiced, no spider angiomata.?HEART:?S1, S2 normal.?LUNGS:?clear to auscultation bilaterally.?ABDOMEN:?normal bowel sounds, no guarding or rigidity, no guarding or rigidity, no masses palpable, soft, nontender, nondistended.?EXTREMITIES:?no edema.?NEUROLOGIC:?alert and oriented.? Assessment: * Assessment: 1.?Elevated liver function t ests - R79.89 (Primary)?2.?Pancreatic cyst - K86.2?3.?History of acute pancreatitis - Z87.19? Overall, Tanisha appears v belinda well and is not having any residual [...] of any further assistance in the future. Plan: * Treatment: * Procedure Codes:?1036F TOBAC CO [id number] BP SCR NOT PRFRM REC REASON NOS * Preventive Medicine:? ??Urinary Incontinence:?Urinary Incontinence?Assessment:?Absent,?Plan of care documented:?No, reason not specified.? ??Screenings:?Fall Risk Screening?Fall Risk Assessment:?No falls in the past year,?Screening:?No falls in the past year,?Assessment:?Not performed, no reason specified,?Plan of Care:?Not documented, no reason specified.? * Follow Up:?prn * * Sign off status: Completed true * Provider:?Franklyn Benton MD Date:? 025 Generated for Kari cruz/Kendrick/Melia on:?11/27/2024 05:34 PM EDT History and Physical Notes * HPI (History of Present Illness) Category Sub-Category Detail Notes Category Not es incontinence I saw Tanisha in followup today in regard to her history of pancreatitis, known pancreatic cyst, and recent cholecystectomy. I last saw Tanisha in July when she was hospitalized with her second episode of pancreatitis of unclear etiology. Due to her negative workup and a second recurrence of pancreatitis I referred her to see Dr. Franco at [facility] for an endoscopic ultrasound. This revealed her known pancreatic cyst and no evidence of any suspicion for a pancreatic neoplasm or biliary neoplasm. Dr. Franco did feel he was seeing some microlithiasis in the gallbladder and bile duct. Based on those findings and her clinical history of unexplained pancreatitis, Dr. Franco recommended a cholecystectomy with intraoperative cholangiogram. Dr. Franco wanted to hold off on the ERCP due to the presence of a periampullary diverticulum and what he felt might be a difficult procedure. The cholecystectomy was done on October [address] Blunt. She describes the surgery as having gone well. The pathology report does not describe any gallstones. She has had no subsequent abdominal pain nor any signs of jaundice since the surgery. I did review the intraoperative cholangiogram with Dr. Blunt. While the bile duct and the portion of the pancreatic duct in the head of the pancreas did appear somewhat dilated, there was no evidence of any filling defects. The bile duct did not appear to have any significant stricture or other suspicious findings. Since her surgery she has been feeling well. She denies any residual abdominal pain. She enjoys a good appetite. She has not noticed any signs of jaundice. She denies any fevers. Her bowel movements have been regular and without any signs of bleeding. Examination Category Sub-Category Detail Notes Category Not es General Examination GENERAL APPEARANCE: pleasant , well nourished, well developed, in no acute distress HEAD: EYES: sclera non-icteric EARS: NOSE: THROAT: NECK/THYROID: no cervical lymphade nopathy, neck supple HEART: S1, S2 normal CHEST: LUNGS: clear to auscultatio n bilaterally ABDOMEN: normal bowel sounds, no guarding or rigidity, no guarding or rigidity, no masses palpable, soft, nontender, nondistended NEUROLOGIC: alert and oriented SKIN: nonjaundiced, no spi kemi angiomata EXTREMITIES: no edema PERIPHERAL PULSES: BACK: BREASTS: MUSCULOSKELETAL: MALE GENITOURINARY: LYMPH NODES: RECTAL EXAM: FEMALE GENITOURINARY: ORAL CAVITY: mucosa moist
--- OUTSIDE RECORDS SUMMARY | 2024-11-27 17:35 | XMS_ITS | Clinical Summary ---
Author Organization [facility] Address [address] [place] [address] Care Team Providers Care Dialysis Biomed Technician Name Role Phone Unavailable Primary Care Provider [...]
--- OUTSIDE RECORDS SUMMARY | 2024-11-27 17:35 | XMS_ITS ---
Author Organization [facility] Address [address] [place] [address] Care Team Providers Care Manager Cost Name Role Phone Claudia Smalls MD Primary Care Provider Franklyn Johnson [phone] REASON FOR VISIT Needs [facility] GI referral Encounters Encounter Location Date Provider Diagnosis [facility] [address] [place] [phone] 08/19/2024 Franklyn Benton Plan Of Treatment No Information Progress Notes * DB ARRIETA CDOB:[birth year] (84 yo F)Acc No.[id number]:08/19/2024 Patient:?MEENAKSHI DB Colmenares :1940???Age:84 Y???Sex:Female Address:[address] [place] [address] Subjective: * Chief Complaints: * ???Needs [facility] GI referra l * Medical History:? * Surgical History:? * Hospitalization/Major Diagno stic Procedure:? * Medications:? Objective: Assessment: Plan: * Treatment: * Procedure Codes:? * true * Date:? Generated for Kari cruz/Kendrick/Melia on:?11/27/2024 05:34 PM EDT
== END 2024-11-27 16:03 | disposition home or self-care (01) ==
PROVIDERS: PCP Internal Medicine; Visit Provider Internal Medicine
DX: Z90.49 Acquired absence of other specified parts of digestive tract (principal); I10 Essential (primary) hypertension; E03.9 Hypothyroidism, unspecified; F41.1 Generalized anxiety disorder

== ENCOUNTER → 2024-11-27 15:24 | Outpatient (BNVA) | payer MEDICARE, SELFPAY | PROVIDERS: PCP Internal Medicine; Visit Provider Internal Medicine | DX: I10 Essential (primary) hypertension (principal); E03.9 Hypothyroidism, unspecified; F41.1 Generalized anxiety disorder; Z90.49 Acquired absence of other specified parts of digestive tract | CPT/HCPCS: 99212 ==

== ENCOUNTER 2024-12-14 11:04 | Outpatient (AMB) | payer MEDICARE, SELFPAY ==
--- NOTE | 2024-12-14 11:05 | AM.OFFWIN_ITS ---
Intake Vital Signs 12/14/24 11:22 Height 5 ft 5 in Weight 137 lb BMI 22.8 BP 122/80 Blood Pressure Location Rt brachial Position Sitting Pulse 78 Pulse Source Pulse Oximeter Temp 97.8 F Temp Source Oral Pulse Oximetry (%) 97 Oxygen Delivery Method Room Air Intake Visit Reasons: EP ? UTI Intake Note: Patient here for urgency to urinate, off balance, leg weakness that has been going on for a while now. Patient Tobacco Use Status: Former Tobacco user Allergies No Known Allergies Allergy (Verified 12/14/24 11:20) Do you need a note to return to daycare/school/sports/work: No HPI HPI Comments History of Present Illness Details History of Present Illness - The patient is an 84-year-old female p resenting with her daughter with a concern for a urinary tract infection. She reports urinary urgency and frequency, notably intensifying at night, yet denies experiencing pain with urination or pain in the lower back and abdomen or fevers. - The patient exhibits generalized weakn ess and has had incidents of recent falls following a cholecystectomy performed two months ago. Her daughter adds that she seems more confused than her baseline, recently. - Anxiety with a recent onset post-surge ry has been treated with Zoloft. Physical Exam General: Cooperative, healthy appearing, comfortable, no acute distress and well developed Orientation: Patient oriented x3 Limitations: No limitations Head: Normal to inspection Ears: Hearing grossly normal bilaterally Nose: Normal External nose present Face and sinus: Normal facial exam Eyes: Appearance normal, both eyes and all related structures Neck: Normal visual inspection and Yes full ROM Respiratory: Normal respiratory effort and able to speak in complete sentences. Skin: No rashes or lesions noted Neuro: Patient oriented x3 Extremities:normal bilaterally PFSH Medical History Incarcerated inguinal hernia (10/12/24) Pancreatic cyst Osteopenia COVID-19 virus infection Ganglion, left wrist Skin lump of arm Cervical spinal stenosis Meningioma Hypothyroidism Hypertension Polymyalgia rheumatica Surgical History History of cholecystectomy Hx of endoscopy History of colonoscopy History of tonsillectomy and adenoidectomy History of tubal ligation Family History Father Alzheimers disease Mother Breast cancer Maternal Grandmother CVD (cardiovascular disease) Maternal Grandfather No problems noted. Paternal Grandmother CVD (cardiovascular disease) Paternal Grandfather No problems noted. 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 Cognitive needs: No Hearing needs: No Vision needs: Yes (Glasses) Review of Systems Const All systems reviewed & are unremarkable except as noted in HPI and below Physical Exam Vital Signs: Last Vital Signs Temp 97.8 F 12/14/24 11:22 Pulse 78 12/14/24 11:22 BP 122/80 12/14/24 11:22 Pulse Ox 97 12/14/24 11:22 Oxygen Delivery Method Room Air 12/14/24 11:22 BMI result Body Mass Index 22.8 Results AMB Urinalysis, Automated UA Leukoctes 0 Tyler/uL Last Edit by RUBIA Hi on 12/14/24 11:33 UA Nitrite Negative Last Edit by RUBIA Hi on 12/14/24 11:33 UA Urobilinogen 0.2 mg/dL Last Edit by RUBIA Hi on 12/14/24 11:33 UA Protein 15 mg/dL Last Edit by RUBIA Hi on 12/14/24 11:33 UA pH 6.0 Last Edit by RUBIA Hi on 12/14/24 11:33 UA Blood 0 Santo/uL Last Edit by RUBIA Hi on 12/14/24 11:33 UA Specific [place] 1.015 Last Edit by RUBIA Hi on 12/14/24 11:33 UA Ketone Negative Last Edit by Rosie Dee [facility] on 12/14/24 11:33 UA Bilirubin 0 mg/dL Last Edit by Rosie Dee [facility] on 12/14/24 11:33 UA Glucose 0 mg/dL Last Edit by Rosie Dee [facility] on 12/14/24 11:33 Assessment & Plan Assessment & Plan (1) UTI (urinary tract infection): Code(s): N39.0 - Urinary tract infection, site not specified Qualifiers: Urinary tract infection type: acute cystitis Hematuria presence: without hematuria Qualified Code(s): N30.00 - Acute cystitis without hematuria Plan: To address the possible urinary tract infection despite a negative urinalysis, cefuroxime will be administered. The patient is advised to take the medication every 12 hours for five days. As the patient was only able to provide a scant amount of urine, we did not have enough to send a culture. We did send the pt [facility] with a kit to collect a culture to do within 24 to 48 hours, as she is starting antibiotics. No allergies to antibiotics were noted. If the patient's condition does not improve, follow-up with their primary care provider is recommended. Patient was informed and verbally consented to the use of an ambient scribe for clinic note documentation during this visit. Orders: Orders AMB Urinalysis Automated Today Z13.9 - Encounter for screening, unspecified Medications: New cefuroxime axetil 500 mg PO Q12H 10 tabs 0RF Coding Level of Care Code Est Pt Level 3 (22655) Diagnoses Acute cystitis without hematuria N30.00 Urinary tract infection type: acute cystitis Hematuria presence: without hematuria
[2024-12-14 11:22] VITALS: BP 122/80; PULSE 78; TEMP 36.6; O2SAT 97; BMI 22.8
--- OUTSIDE RECORDS SUMMARY | 2024-12-14 14:37 | XMS_ITS | Clinical Summary ---
Author Organization [facility] Address [address] [place] [address] Care Team Providers Care Iuss Analyst Name Role Phone Unavailable Primary Care Provider [...] 04/2017 benign, 05/2018 neg PMR (polymyalgia rheumatica) ([facility]) 2014 DX:PMR (polymyalgia rheumatica) ([facility]);COMMENT:tapered off Prednisone 01/2016 Dr Smith Cervical spinal stenosis DX:Cerv ical spinal stenosis;COMMENT:02/2015 MRI-C mild stenosis C4-5 with severe cervical spondylosis Syncope DX:Syncope Meningioma, cerebral ([facility]) D X:Meningioma, cerebral ([facility]);COMMENT:01/2019 MRI-B: small parasagittal posterior frontal meningioma: repeat [...]
--- OUTSIDE RECORDS SUMMARY | 2024-12-14 14:37 | XMS_ITS ---
Author Organization [facility] Address [address] [place] [phone] Care Team Providers Care Commercial Sheet Metal Foreman Name Role Phone Claudia Smalls MD Primary Care Provider Franklyn Johnson [phone] REASON FOR VISIT Needs to see Dr. Blunt Encounters Encounter Location Date Provider Diagnosis [facility] [address] [place] [phone] 09/08/2024 Franklyn Benton Plan Of Treatment No Information Progress Notes * DB ARRIETA CDOB:[birth year] (84 yo F)Acc No.[id number]:09/08/2024 Patient:?DB ARRIETA :1940???Age:84 Y???Sex:Female Address:[address] [place] [address] * true * Date:? Generated for Emilyi nancy/Kendrick/eTransmitting on:?12/14/2024 02:37 PM EDT
--- OUTSIDE RECORDS SUMMARY | 2024-12-14 14:38 | XMS_ITS | Patient Health Record ---
Author Organization [facility] Address [address] [place] [address] Care Team Providers Care Hosiery Mater Name Role Phone Po Claudia MONIQUE Primary Care Provider Franklyn Johnson Unavailable [phone] Allergies No Known Allergies Results Component Value Reference Range Notes Liver Panel Reviewed date:05/09/2024 09:04:30 AM Interpretation: Performing Lab:[facility], [address] [place] [phone] Notes/Report: Bilirubin Total 1.7 0.0-1.0 mg/dL Bilirubin Direct 0.6 0.0-0.5 mg/dL Aspartate Amino Transferase 63 5-31 U/L Alanine Aminotransferase 59 0-31 U/L Total Protein 5.9 6.5-8.0 g/dL Albumin Level 3.1 3.5-5.0 g/dL Alkaline Phosphatase 52 39-117 U/L Basic Metabolic Panel Reviewed date:05/09/2024 09:04:44 AM Interpretation: Performing Lab:[address] [phone] Notes/Report: Sodium 140 135-145 mmol/L Potassium 3.9 [...] Glomerular Filt Rate > 60 NOTE: For -Maldivian individuals, multiply the result by 1.210. Chronic Kidney Disease: Estimated GFR < 60 mL/min/1.73m2 Severe Kidney Disease: Estimated GFR < 15 mL/min/1.73m2 Glucose Random 99 60-115 mg/dL Calcium 8.7 8.4-10.2 mg/dL Phosphorus Reviewed date:05/09/2024 09:04:50 AM Interpretation: Performing Lab:[facility], [address] [place] [phone] Notes/Report: Phosphorus 2.7 2.7-4.5 mg/dL Lipase Reviewed date:05/09/2024 09:04:57 AM Interpretation: Performing Lab:[facility], [address] [place] [phone] Notes/Report: Lipase 344 8-78 U/L Liver Panel Reviewed date:05/10/2024 04:41:30 PM Interpretation: Performing Lab:[facility], [address] [place] [phone] Notes/Report: Bilirubin Total 1.5 0.0-1.0 mg/dL Bilirubin Direct 0.5 0.0-0.5 mg/dL Aspartate Amino Transferase 33 5-31 U/L Alanine Aminotransferase 37 0-31 U/L Total Protein 6.0 6.5-8.0 g/dL Albumin Level 3.0 3.5-5.0 g/dL Alkaline Phosphatase 53 39-117 U/L Basic Metabolic Panel Reviewed date:05/10/2024 04:41:44 PM Interpretation: Performing Lab:[facility], [address] [place] [phone] Notes/Report: Sodium 139 135-145 mmol/L Potassium 3.8 [...] Glomerular Filt Rate > 60 NOTE: For -Maldivian individuals, multiply the result by 1.210. Chronic Kidney Disease: Estimated GFR < 60 mL/min/1.73m2 Severe Kidney Disease: Estimated GFR < 15 mL/min/1.73m2 Glucose Random 96 60-115 mg/dL Calcium 8.9 8.4-10.2 mg/dL Lipase Reviewed date:05/10/2024 04:41:51 PM Interpretation: Performing Lab:[facility], [address] [place] [phone] Notes/Report: Lipase 97 8-78 U/L Complete Blood Count Auto Di ff Reviewed date:08/15/2024 01:01:42 PM Interpretation: Performing Lab:[facility], [address] [place] [phone] Notes/Report: White Blood Count 13.4 4.8-10.8 X10*3/uL [...] Panel Reviewed date:08/15/2024 01:02:00 PM Interpretation: Performing Lab:[facility], [address] [place] [phone] Notes/Report: Bilirubin Total 1.5 0.0-1.0 mg/dL Bilirubin Direct 0.6 0.0-0.5 mg/dL Aspartate Amino Transferase 27 5-31 U/L Alanine Aminotransferase 13 0-31 U/L Total Protein 6.4 6.5-8.0 g/dL Albumin Level 3.4 3.5-5.0 g/dL Alkaline Phosphatase 54 39-117 U/L Basic Metabolic Panel Fastin g Reviewed date:08/15/2024 01:02:23 PM Interpretation: Performing Lab:[facility], [address] [place] [phone] Notes/Report: Sodium 135 135-145 mmol/L Potassium 3.7 [...] Lipase Reviewed date:08/15/2024 01:02:31 PM Interpretation: Performing Lab:[facility], [address] [place] [phone] Notes/Report: Lipase 175 8-78 U/L US abdomen limited Reviewed date:08/16/2024 11:49:39 PM Interpretation: Performing Lab: Notes/Report: [address] [address] Ultrasound Report Signed Patient: Tanisha Arrieta MR#: [id number] : 1940 Acct:[id number] Age/Sex: 84 / F ADM Date: 08/13/24 Loc: HO.S3 368-[address]: Carlotta BLUNT Ordering Physician: Franklyn Benton MD Date of Service: 08/15/24 Procedure(s): US abdomen limited Accession Number(s): [id number] cc: Claudia Smalls MD; Franklyn Benton MD [...] by: Linda Voss MD 08/16/2024 10:05 AM [facility] Dictated By: Linda Voss MD Signed By: <Electronically signed by Linda Voss MD in OV> 08/16/24 1005 DD/ 0737 TD/TT: 08/15/24 0751 Lunchroom Aide: [place] [address] Ultrasound Report Signed Patient: Tanisha Arrieta MR#: [id number] : 1940 Acct:[id number] Age/Sex: 84 / F ADM Date: 08/13/24 Loc: .S3 368-[address]: Bear BLUNT Ordering Physician: Franklyn Benton MD Date of Service: 08/15/24 Procedure(s): US abd omen limited Accession Number(s): [id number] cc: Claudia Smalls MD ; Franklyn Benotn MD EXAMINATION: US ABDOMEN LIMITED CLINICAL INFORMATION: [...] by: Linda Voss MD 08/16/2024 10:05 AM [facility] Dictated By: Linda Voss MD Signed By: <Electronically signed by Linda Voss MD in OV> 08/16/24 1005 DD/ 0737 TD/TT: 08/15/24 0751 Lunchroom Aide: Liver Panel Reviewed date:08/16/2024 11:49:04 PM Interpretation: Performing Lab:[facility], [address] [place] [phone] Notes/Report: Bilirubin Total 1.6 0.0-1.0 mg/dL Bilirubin Direct 0.6 0.0-0.5 mg/dL Aspartate Amino Transferase 24 5-31 U/L Alanine Aminotransferase 8 0-31 U/L Total Protein 6.8 6.5-8.0 g/dL Albumin Level 3.4 3.5-5.0 g/dL Alkaline Phosphatase 62 39-117 U/L Basic Metabolic Panel Reviewed date:08/16/2024 11:49:11 PM Interpretation: Performing Lab:[facility], [address] [place] [phone] Notes/Report: Sodium 136 135-145 mmol/L Potassium 3.6 [...] Lipase Reviewed date:08/16/2024 11:49:19 PM Interpretation: Performing Lab:[facility], [address] [place] [phone] Notes/Report: Lipase 33 8-78 U/L Liver Panel Reviewed date:11/08/2024 07:14:00 AM Interpretation: Performing Lab:[address] [phone] Notes/Report: Bilirubin Total 0.5 0.0-1.0 mg/dL Bilirubin Direct 0.2 0.0-0.5 mg/dL Aspartate Amino Transferase 23 5-31 U/L Alanine Aminotransferase 10 0-31 U/L Total Protein 8.0 6.5-8.0 g/dL Albumin Level 3.8 3.5-5.0 g/dL Alkaline Phosphatase 77 39-117 U/L Reason For Referral Reason pancreatitis gallsto taina Diagnosis 1 Pancreatitis, gallst one (K85.10) Referral Organization [facility] Referring Provider First Name Franklyn Referring Provider Last Name Benton Referring Provider Speciality Gastroente rology Referred Provider German Blunt Referral Priority Routine Referral Appointment Date 09/25/2024 Medications Medication SIG (Take, Route, Frequency, Duration) Notes Start Date End Date Status Nicotinamide w/Yxwq-Qtykol-MZ Active Cranberry 425 MG as directed Orally [...] Problem Status W/U Status Risk Notes Problem 439430015 Elevated liver function tests (R79.89) Active confirmed Problem 58655232 Pancreatic cyst (K86.2) Active confirmed Problem History of gastrointestinal disease (909275954) History of acute pancreatitis (Z87.19) Active confirmed Vital Signs Blood pressure diastolic 00 mm Hg 10/24/2024 Height 65 in 10/24/2024 Blood pressure systolic 00 mm Hg 10/24/2024 Weight 131 lbs 10/24/2024 BMI 21.80 kg/m2 10/24/2024 Encounters Encounter Location Date Provider Diagnosis [facility] [address] [place] [address] 07/06/2024 Franklyn Benton Pancreatic cyst K86. 2 and History of acute pancreatitis Z87.19 [facility] [address] [place] [address] 10/24/2024 Franklyn Benton Elevated liver function tests R79.89 ; Pancreatic cyst K86.2 and History of acute pancreatitis Z87.19 [facility] [address] [place] [phone] 08/19/[address] [facility] [address] [place] [phone] 09/08/2024 Franklyn Benton Assessments Encounter Date Diagnosis [...] [place] [address] [place] [address] [id number] TANISHA ARRIETA Self - patient is the insured [employer] CLAIMS [address] [place] [address] [id number] TANISHA ARRIETA Self - patient is [...] an endoscopic ultrasound with Dr. Franco at [facility] who described some evidence of microlithiasis [...]
--- OUTSIDE RECORDS SUMMARY | 2024-12-14 14:38 | XMS_ITS ---
Author Organization [facility] Address [address] [place] [address] Care Team Providers Care Jewelry Appraiser Name Role Phone Claudia Smalls MD Primary Care Provider Franklyn Johnson [phone] REASON FOR VISIT Needs [facility] GI referral Encounters Encounter Location Date Provider Diagnosis [facility] [address] [place] [phone] 08/19/2024 Franklyn Benton Plan Of Treatment No Information Progress Notes * DB ARRIETA CDOB:[birth year] (84 yo F)Acc No.[id number]:08/19/2024 Patient:?MEENAKSHI DB Colmenares :1940???Age:84 Y???Sex:Female Address:[address] [place] [address] Subjective: * Chief Complaints: * ???Needs [facility] GI referra l * Medical History:? * Surgical History:? * Hospitalization/Major Diagno stic Procedure:? * Medications:? Objective: Assessment: Plan: * Treatment: * Procedure Codes:? * true * Date:? Generated for Kari cruz/Kendrick/Waynesmitting on:?12/14/2024 02:38 PM EDT
--- OUTSIDE RECORDS SUMMARY | 2024-12-14 14:38 | XMS_ITS ---
Author Organization [facility] Address [address] [place] [address] Care Team Providers Care Assistant Corporate Controller Name Role Phone Claudia Smalls MD Primary Care Provider Franklyn Johnson Unavailable [phone] Allergies No Known Allergies REASON FOR VISIT s/ p cholescystectomy, Dr. Jose Raul barrera soon appt Medications Medication SIG (Take, Route, Frequency, Duration) Notes Start Date End Date Status Nicotinamide w/Rduk-Jbswgc-UF Active Cranberry 425 MG as directed Orally [...] 10/24/2024 Encounters Encounter Location Date Provider Diagnosis [facility] [address] [place] [address] 10/24/2024 Franklyn Benton Elevated liver function tests [...] intraoperative cholangiograms. At this point I advised aTnisha I would like her to have a [...] * TANISHA ARRIETA CDOB:[birth year] (84 yo F)Acc No.[id number]:10/24/2024 Progress Notes Patient:?TANISHA ARRIETA Provider:?Franklyn Benton MD :1940???Age:84 Y???Sex:Female D ate:10/24/2024 Address:[address] [place] [address] Pcp:Claudia Smalls MD Subjective: * Chief Complaints: [...] referred her to see Dr. Franco at [facility] for an endoscopic ultrasound. This revealed [...] 425 MG Capsule as directed Orally Nicotinamide w/Hdaw-Lcsqhw-HZ Calcium + Vitamin D3 600-5 MG-MCG Tablet 1 tablet with a meal Orally Once a dayLevothyroxine Sodium 100 MCG Tablet Oral Atenolol 50 MG Tablet 1 tablet and half Oral Once a dayMedication List reviewed and reconciled with the patientTaking Cranberry 425 MG Capsule as directed Orally Taking Nicotinamide w/Uwcw-Raorke-WW Taking Calcium + Vitamin D3 600-5 MG-MCG [...] * Treatment: * Procedure Codes:?1036F TOBAC CO [id number]-[id number] BP SCR NOT PRFRM REC REASON NOS [...] MD Date:? 025 Generated for Kari cruz/Kendrick/Melia on:?12/14/2024 02:37 PM EDT History and Physical Notes * [...] referred her to see Dr. Franco at [facility] for an endoscopic ultrasound. This revealed [...]
--- OUTSIDE RECORDS SUMMARY | 2024-12-14 14:38 | XMS_ITS | Clinical Summary ---
Author Organization [facility] Address [address] [place] [address] Care Team Providers Care Passenger Car Upholsterer Apprentice Name Role Phone Unavailable Primary Care Provider [...]
== END 2024-12-14 12:01 | disposition home or self-care (01) ==
PROVIDERS: PCP Internal Medicine; Visit Provider Physician Assistant
DX: Z13.9 Encounter for screening, unspecified (principal); N30.00 Acute cystitis without hematuria

== ENCOUNTER → 2024-12-14 11:04 | Outpatient (BNVA) | payer MEDICARE, SELFPAY | PROVIDERS: PCP Internal Medicine; Visit Provider Physician Assistant | DX: N30.00 Acute cystitis without hematuria (principal) | CPT/HCPCS: 81003; 87086; 99212 ==

== ENCOUNTER 2024-12-14 21:00 | Outpatient (REF) | payer MEDICARE, SELFPAY | END 2024-12-14 21:01 | disposition home or self-care (01) | LOC: HO.HMGCLNP 21:00 | PROVIDERS: Visit Provider Physician Assistant | DX: Z13.89 Encounter for screening for other disorder (principal) | CPT/HCPCS: 87086 ==

== ENCOUNTER 2024-12-15 10:45 | Outpatient (REF) | payer MEDICARE, SELFPAY | END 2024-12-15 10:46 | disposition home or self-care (01) | LOC: HO.LAB 10:45 | PROVIDERS: Visit Provider Physician Assistant | DX: Z13.89 Encounter for screening for other disorder (principal) ==

== ENCOUNTER 2024-12-21 13:38 | Outpatient (REF) | payer MEDICARE, SELFPAY ==
--- NOTE | 2024-12-21 13:42 | EMG_ITS ---
Chief complaint: Bilateral hand numbness, left worse than right Exam: ulnar deviation of fingers, no atrophy Reason for referral: Evaluate for Carpal Tunnel Syndrome Referred by: Dr. Smith Procedure done: Bilateral upper extremities NCS/EMG Precautions and/or limitations: None The limb temperature was monitored continuously and remained between 32-36 degrees C during the performance of the NCS. Ulnar motor NCS was performed with moderate elbow flexion between 70-90 degrees, with across-elbow distance of 10 cm. Nerve Conduction Studies Anti Sensory Summary Table ?Stim Site NR Onset (ms) Norm Onset (ms) Peak (ms) Norm Peak (ms) O-P Amp (?V) Norm O-P Amp Site1 Site2 Delta-0 (ms) Dist (cm) Reji (m/s) Norm Reji (m/s) Left Median Anti Sensory (2nd Digit) Wrist ? 3.9 4.8 <3.6 1.6 >10 Wrist 2nd Digit 3.9 14.0 36 Right Median Anti Sensory (2nd Digit) Wrist ? 3.6 4.9 <3.6 6.3 >10 Wrist 2nd Digit 3.6 14.0 39 Right Radial Anti Sensory (Thumb) Forearm ? 2.0 2.4 <3.1 6.3 Forearm Thumb 2.0 0.0 Left Ulnar Anti Sensory (5th Digit) Wrist ? 2.7 3.8 <3.7 8.2 >15.0 Wrist 5th Digit 2.7 14.0 52 Right Ulnar Anti Sensory (5th Digit) Wrist ? 0.9 3.5 <3.7 16.2 >15.0 Wrist 5th Digit 0.9 14.0 156 Motor Summary Table ?Stim Site NR Onset (ms) Norm Onset (ms) O-P Amp (mV) Norm O-P Amp iAmp (mV) Amp (1st) (%) Site1 Site2 Delta-0 (ms) Dist (cm) Reji (m/s) Norm Reji (m/s) Left Median Motor (Abd Poll Brev) Wrist ? 6.2 <3.9 2.4 >4.5 3.1 100.0 Elbow Wrist 4.3 20.0 47 >45 Elbow ? 10.5 2.3 3.0 95.8 Right Median Motor (Abd Poll Brev) Wrist ? 5.9 <3.9 1.7 >4.5 2.2 100.0 Elbow Wrist 4.8 20.0 42 >45 Elbow ? 10.7 1.1 1.2 64.7 Left Ulnar Motor (Abd Dig Minimi) Wrist ? 3.0 <3.0 6.0 >5 7.2 100.0 B Elbow Wrist 3.5 18.0 51 >45 B Elbow ? 6.5 4.8 6.2 80.0 A Elbow B Elbow 2.3 10.0 43 >45 A Elbow ? 8.8 5.2 6.7 86.7 Right Ulnar Motor (Abd Dig Minimi) Wrist ? 3.0 <3.0 5.2 >5 6.7 100.0 B Elbow Wrist 4.3 20.0 47 >45 B Elbow ? 7.3 5.2 6.4 100.0 A Elbow B Elbow 1.5 10.0 67 >45 A Elbow ? 8.8 5.3 6.4 101.9 EMG ?Side Muscle Nerve Root Ins Act Fibs Psw Amp Dur Poly Recrt Int Pat Comment Right 1stDorInt Ulnar C8-T1 Nml Nml Nml Nml Nml 0 Nml Complete Right Biceps Musculocut C5-6 Nml Nml Nml Nml Nml 0 Nml Complete Right Triceps Radial C6-7-8 Nml Nml Nml Nml Nml 0 Nml Complete Right Deltoid Axillary C5-6 Nml Nml Nml Nml Nml 0 Nml Complete Left 1stDorInt Ulnar C8-T1 Nml Nml Nml Nml Nml 0 Nml Complete Left FlexCarRad Median C6-7 Nml Nml Nml Nml Nml 0 Nml Complete Left Biceps Musculocut C5-6 Incr 1+ 1+ Nml Nml 0 Nml Complete Left Triceps Radial C6-7-8 Nml Nml Nml Nml Nml 0 Nml Complete Left Deltoid Axillary C5-6 Nml Nml Nml Nml Nml 0 Nml Complete Left FlexCarpiUln Ulnar C8,T1 Nml Nml Nml Nml Nml 0 Nml Complete Paraspinal EMG ?Side Muscle Nerve Root Ins Act Fibs Psw Comment Right Cervical Upper Rami Nml Nml Nml Right Cervical Mid Rami Nml Nml Nml Right Cervical Lower Rami Nml Nml Nml Left Cervical Upper Rami Nml Nml Nml Left Cervical Mid Rami Incr 2+ 2+ CRDs Left Cervical Lower Rami Nml Nml Nml FINDINGS: Right median motor nerve showed prolonged distal latency, small amplitude and slow conduction velocity. Left median motor nerve showed prolonged distal latency, small amplitude and normal conduction velocity. Left ulnar motor nerve showed normal distal latency, normal amplitude and slow conduction velocity across the elbow. Bilateral median sensory nerves showed prolonged peak latency and small amplitude. Left ulnar sensory showed prolonged peak latency and small amplitude. All other nerves tested were within normal. Concentric needle EMG was performed in selected muscles of the bilateral upper extremities and cervical paraspinals. Study revealed signs of electric abnormalities as shown in the table above. Left biceps showed increased insertional activity, PSWs and fibrillations. Left cervical mid paraspinals showed increased insertional activity, PSWs, fibrillations and CRDs. IMPRESSION: 1. This is an abnormal study. 2. There is electrodiagnostic evidence for bilateral moderate-severe median neuropathy at the wrist, consistent with Carpal Tunnel Syndrome. 3. There is electrodiagnostic evidence for left ulnar neuropathy at the elbow. 4. There is electrodiagnostic evidence for left chronic C5-6 radiculopathy. Thank you for your kind referral. Anusha Frias MD, GELY Board Certified, [place] [employer] and [employer] (ABPMR) Board Certified, [place] [employer] Electrodiagnostic [employer] (ABEM) CODIN [phone] x 2 MTDD
--- OUTSIDE RECORDS SUMMARY | 2024-12-21 14:55 | XMS_ITS ---
Author Organization [facility] Address [address] [place] [address] Care Team Providers Care Inclusion Paraeducator Name Role Phone Claudia Smalls MD Primary Care Provider Franklyn Johnson [phone] REASON FOR VISIT Needs to see Dr. Blunt Encounters Encounter Location Date Provider Diagnosis [facility] [address] [place] [address] 09/08/2024 Franklyn Benton Plan Of Treatment No Information Progress Notes * DB ARRIETA CDOB:[birth year] (84 yo F)Acc No.[id number]:09/08/2024 Patient:?DB ARRIETA :1940???Age:84 Y???Sex:Female Address:[address] [place] [address] * true * Date:? Generated for Emilyi nancy/Kendrick/eTransmitting on:?12/21/2024 02:55 PM EDT
--- OUTSIDE RECORDS SUMMARY | 2024-12-21 14:55 | XMS_ITS | Clinical Summary ---
Author Organization [facility] Address [address] [place] [address] Care Team Providers Care Hospital Chief Financial Officer Name Role Phone Unavailable Primary Care Provider [...] 04/2017 benign, 05/2018 neg PMR (polymyalgia rheumatica) ([facility]) 2014 DX:PMR (polymyalgia rheumatica) ([facility]);COMMENT:tapered off Prednisone 01/2016 Dr Smith Cervical spinal stenosis DX:Cerv ical spinal stenosis;COMMENT:02/2015 MRI-C mild stenosis C4-5 with severe cervical spondylosis Syncope DX:Syncope Meningioma, cerebral ([facility]) D X:Meningioma, cerebral ([facility]);COMMENT:01/2019 MRI-B: small parasagittal posterior frontal meningioma: repeat [...] Vaccines (1 of 2) 1990 RSV Immunization Adult Patie nts (1 - 1-dose 75+ series) 2015 COVID-19 [...]
--- OUTSIDE RECORDS SUMMARY | 2024-12-21 14:56 | XMS_ITS ---
Author Organization [facility] Address [address] [place] [address] Care Team Providers Care Podiatrist Name Role Phone Claudia Smalls MD Primary Care Provider Franklyn Johnson [phone] REASON FOR VISIT pancreatitis Encounters Encounter Location Date Provider Diagnosis [facility] [address] [facility] [address] [place] [address] 12/21/2024 Franklyn Benton Plan Of Treatment No Information Progress Notes * MEENAKSHI, DB CDOB:[birth year] (84 yo F)Acc No.[id number]:12/21/2024 Progress Notes Patient:?DB ARRIETA Provider:?Franklyn Benton MD :1940???Age:84 Y???Sex:Female D ate:12/21/2024 Address:[address] [place], [place] [phone] Pcp:Claudia Smalls MD Subjective: * Chief Complaints: * ???1. Pancreatitis. * Medical History:? Objective: * Vitals:? Assessment: Plan: * Treatment: * * The named appointment provid er may or may not be the originator of this progress note, and it is not deemed complete until electronically signed by the appointment provider. Sign off status: Pending * Provider:?Franklyn Benton MD Date:? 025 Generated for Printi nancy/Kendrick/eTransmitting on:?12/21/2024 02:55 PM EDT
--- OUTSIDE RECORDS SUMMARY | 2024-12-21 14:56 | XMS_ITS | Patient Health Record ---
Author Organization [facility] Address [address] [place] [address] Care Team Providers Care Compensation Coordinator Name Role Phone Po Claudia MONIQUE Primary Care Provider Franklyn Johnson Unavailable [phone] Allergies No Known Allergies Results Component Value Reference Range Notes Liver Panel Reviewed date:05/09/2024 09:04:30 AM Interpretation: Performing Lab:[facility], [address] [place] [phone] Notes/Report: Bilirubin Total 1.7 0.0-1.0 mg/dL Bilirubin Direct 0.6 0.0-0.5 mg/dL Aspartate Amino Transferase 63 5-31 U/L Alanine Aminotransferase 59 0-31 U/L Total Protein 5.9 6.5-8.0 g/dL Albumin Level 3.1 3.5-5.0 g/dL Alkaline Phosphatase 52 39-117 U/L Basic Metabolic Panel Reviewed date:05/09/2024 09:04:44 AM Interpretation: Performing Lab:[address] [phone] Notes/Report: Sodium 140 135-145 mmol/L Potassium 3.9 [...] Glomerular Filt Rate > 60 NOTE: For -Maltese individuals, multiply the result by 1.210. Chronic Kidney Disease: Estimated GFR < 60 mL/min/1.73m2 Severe Kidney Disease: Estimated GFR < 15 mL/min/1.73m2 Glucose Random 99 60-115 mg/dL Calcium 8.7 8.4-10.2 mg/dL Phosphorus Reviewed date:05/09/2024 09:04:50 AM Interpretation: Performing Lab:[facility], [address] [place] [phone] Notes/Report: Phosphorus 2.7 2.7-4.5 mg/dL Lipase Reviewed date:05/09/2024 09:04:57 AM Interpretation: Performing Lab:[facility], [address] [place] [phone] Notes/Report: Lipase 344 8-78 U/L Liver Panel Reviewed date:05/10/2024 04:41:30 PM Interpretation: Performing Lab:[facility], [address] [place] [phone] Notes/Report: Bilirubin Total 1.5 0.0-1.0 mg/dL Bilirubin Direct 0.5 0.0-0.5 mg/dL Aspartate Amino Transferase 33 5-31 U/L Alanine Aminotransferase 37 0-31 U/L Total Protein 6.0 6.5-8.0 g/dL Albumin Level 3.0 3.5-5.0 g/dL Alkaline Phosphatase 53 39-117 U/L Basic Metabolic Panel Reviewed date:05/10/2024 04:41:44 PM Interpretation: Performing Lab:[facility], [address] [place] [phone] Notes/Report: Sodium 139 135-145 mmol/L Potassium 3.8 [...] Glomerular Filt Rate > 60 NOTE: For -Maltese individuals, multiply the result by 1.210. Chronic Kidney Disease: Estimated GFR < 60 mL/min/1.73m2 Severe Kidney Disease: Estimated GFR < 15 mL/min/1.73m2 Glucose Random 96 60-115 mg/dL Calcium 8.9 8.4-10.2 mg/dL Lipase Reviewed date:05/10/2024 04:41:51 PM Interpretation: Performing Lab:[facility], [address] [place] [phone] Notes/Report: Lipase 97 8-78 U/L Complete Blood Count Auto Di ff Reviewed date:08/15/2024 01:01:42 PM Interpretation: Performing Lab:[facility], [address] [place] [phone] Notes/Report: White Blood Count 13.4 4.8-10.8 X10*3/uL [...] Panel Reviewed date:08/15/2024 01:02:00 PM Interpretation: Performing Lab:[facility], [address] [place] [phone] Notes/Report: Bilirubin Total 1.5 0.0-1.0 mg/dL Bilirubin Direct 0.6 0.0-0.5 mg/dL Aspartate Amino Transferase 27 5-31 U/L Alanine Aminotransferase 13 0-31 U/L Total Protein 6.4 6.5-8.0 g/dL Albumin Level 3.4 3.5-5.0 g/dL Alkaline Phosphatase 54 39-117 U/L Basic Metabolic Panel Fastin g Reviewed date:08/15/2024 01:02:23 PM Interpretation: Performing Lab:[facility], [address] [place] [phone] Notes/Report: Sodium 135 135-145 mmol/L Potassium 3.7 [...] Lipase Reviewed date:08/15/2024 01:02:31 PM Interpretation: Performing Lab:[facility], [address] [place] [phone] Notes/Report: Lipase 175 8-78 U/L US abdomen limited Reviewed date:08/16/2024 11:49:39 PM Interpretation: Performing Lab: Notes/Report: [address] [address] Ultrasound Report Signed Patient: Tanisha Arrieta MR#: [id number] : 1940 Acct:[id number] Age/Sex: 84 / F ADM Date: 08/13/24 Loc: HO.S3 368-[address]: Carlotta BLUNT Ordering Physician: Franklyn Benton MD Date of Service: 08/15/24 Procedure(s): US abdomen limited Accession Number(s): [id number] cc: Claudia Smalls MD; Franklyn Benton MD [...] by: Linda Voss MD 08/16/2024 10:05 AM [facility] Dictated By: Linda Voss MD Signed By: <Electronically signed by Linda Voss MD in OV> 08/16/24 1005 DD/ 0737 TD/TT: 08/15/24 0751 Melter Loader: [place] [id number] Ultrasound Report Signed Patient: Tanisha Arrieta MR#: [id number] : 1940 Acct:[id number] Age/Sex: 84 / F ADM Date: 08/13/24 Loc: .S3 368-[address]: Bear BLUNT Ordering Physician: Franklyn Benton MD Date of Service: 08/15/24 Procedure(s): US abd omen limited Accession Number(s): [id number] cc: Claudia Smalls MD ; Franklyn Benton [...] by: Linda Voss MD 08/16/2024 10:05 AM [facility] Dictated By: Linda Voss MD Signed By: <Electronically signed by Linda Voss MD in OV> 08/16/24 1005 DD/ 0737 TD/TT: 08/15/24 0751 Melter Loader: Liver Panel Reviewed date:08/16/2024 11:49:04 PM Interpretation: Performing Lab:[facility], [address] [place] [phone] Notes/Report: Bilirubin Total 1.6 0.0-1.0 mg/dL Bilirubin Direct 0.6 0.0-0.5 mg/dL Aspartate Amino Transferase 24 5-31 U/L Alanine Aminotransferase 8 0-31 U/L Total Protein 6.8 6.5-8.0 g/dL Albumin Level 3.4 3.5-5.0 g/dL Alkaline Phosphatase 62 39-117 U/L Basic Metabolic Panel Reviewed date:08/16/2024 11:49:11 PM Interpretation: Performing Lab:[facility], [address] [place] [phone] Notes/Report: Sodium 136 135-145 mmol/L Potassium 3.6 [...] Lipase Reviewed date:08/16/2024 11:49:19 PM Interpretation: Performing Lab:[facility], [address] [place] [phone] Notes/Report: Lipase 33 8-78 U/L Liver Panel Reviewed date:11/08/2024 07:14:00 AM Interpretation: Performing Lab:[address] [phone] Notes/Report: Bilirubin Total 0.5 0.0-1.0 mg/dL Bilirubin Direct 0.2 0.0-0.5 mg/dL Aspartate Amino Transferase 23 5-31 U/L Alanine Aminotransferase 10 0-31 U/L Total Protein 8.0 6.5-8.0 g/dL Albumin Level 3.8 3.5-5.0 g/dL Alkaline Phosphatase 77 39-117 U/L Reason For Referral Reason pancreatitis gallsto taina Diagnosis 1 Pancreatitis, gallst one (K85.10) Referral Organization [facility] Referring Provider First Name Franklyn Referring Provider Last Name Benton Referring Provider Speciality Gastroente rology Referred Provider German Blunt Referral Priority Routine Referral Appointment Date 09/25/2024 Medications Medication SIG (Take, Route, Frequency, Duration) Notes Start Date End Date Status Nicotinamide w/Pzcp-Ozfqqn-YL Active Cranberry 425 MG as directed Orally [...] Problem Status W/U Status Risk Notes Problem [id number] Elevated liver function tests (R79.89) Active confirmed Problem 94463582 Pancreatic cyst (K86.2) Active confirmed Problem History of gastrointestinal disease (493119569) History of acute pancreatitis (Z87.19) Active confirmed Vital Signs Blood pressure diastolic 00 mm Hg 10/24/2024 Height 65 in 10/24/2024 Blood pressure systolic 00 mm Hg 10/24/2024 Weight 131 lbs 10/24/2024 BMI 21.80 kg/m2 10/24/2024 Encounters Encounter Location Date Provider Diagnosis [facility] [address] [place] [address] 07/06/2024 Franklyn Benton Pancreatic cyst K86. 2 and History of acute pancreatitis Z87.19 [facility] [address] [place] [address] 10/24/2024 Franklyn Benton Elevated liver function tests R79.89 ; Pancreatic cyst K86.2 and History of acute pancreatitis Z87.19 [facility] [address] [place] [phone] 08/19/2024 Franklyn Benton [facility] [address] [place] [phone] 09/08/2024 Franklyn Benton Assessments Encounter Date Diagnosis [...] [place] [address] [place] [address] [id number] TANISHA ARRIETA Self - patient is the insured [employer] CLAIMS [address] [place] [address] [id number] TANISHA ARRIETA Self - patient is [...] an endoscopic ultrasound with Dr. Franco at [facility] who described some evidence of microlithiasis [...]
--- OUTSIDE RECORDS SUMMARY | 2024-12-21 14:56 | XMS_ITS | Clinical Summary ---
Author Organization [facility] Address [address] [place] [address] Care Team Providers Care Resource Teacher Name Role Phone Unavailable Primary Care [...]
--- OUTSIDE RECORDS SUMMARY | 2024-12-21 14:56 | XMS_ITS ---
Author Organization [facility] Address [address] [place] [address] Care Team Providers Care Trash Collector Truck Driver Name Role Phone Claudia Smalls MD Primary Care Provider Franklyn Johnson Unavailable [phone] Allergies No Known Allergies REASON FOR VISIT s/ p cholescystectomy, Dr. Jose Raul barrera soon appt Medications Medication SIG (Take, Route, Frequency, Duration) Notes Start Date End Date Status Nicotinamide w/Jfou-Ujtuot-JJ Active Cranberry 425 MG as directed Orally [...] 10/24/2024 Encounters Encounter Location Date Provider Diagnosis [facility] [address] [place] [address] 10/24/2024 Franklyn Benton Elevated liver function tests [...] * TANISHA ARRIETA CDOB:[birth year] (84 yo F)Acc No.[id number]:10/24/2024 Progress Notes Patient:?TANISHA ARRIETA Provider:?Franklyn Benton MD :1940???Age:84 Y???Sex:Female D ate:10/24/2024 Address:[address] [place] [address] Pcp:Claudia Smalls MD Subjective: * Chief Complaints: [...] referred her to see Dr. Franco at [facility] for an endoscopic ultrasound. This revealed her [...] 425 MG Capsule as directed Orally Nicotinamide w/Xytz-Ubjqyv-NZ Calcium + Vitamin D3 600-5 MG-MCG Tablet 1 tablet with a meal Orally Once a dayLevothyroxine Sodium 100 MCG Tablet Oral Atenolol 50 MG Tablet 1 tablet and half Oral Once a dayMedication List reviewed and reconciled with the patientTaking Cranberry 425 MG Capsule as directed Orally Taking Nicotinamide w/Qsra-Iwylsh-NZ Taking Calcium + Vitamin D3 600-5 MG-MCG [...] * Treatment: * Procedure Codes:?1036F TOBAC CO NON-MNWWE1002 BP SCR NOT PRFRM REC REASON NOS [...] MD Date:? 025 Generated for Kari cruz/Kendrick/Melia on:?12/21/2024 02:55 PM EDT History and Physical Notes * [...] pancreatitis I referred her to see Dr. Fracno at [facility] for an endoscopic ultrasound. This revealed her [...]
== END 2024-12-21 13:39 | disposition home or self-care (01) ==
LOC: HO.NEURO 13:38
PROVIDERS: PCP Internal Medicine; Visit Provider Orthopaedic Surgery
DX: G56.13 Other lesions of median nerve, bilateral upper limbs (principal); G56.22 Lesion of ulnar nerve, left upper limb; M54.12 Radiculopathy, cervical region
CPT/HCPCS: 95860; 95886; 95911; 99212

== ENCOUNTER → 2024-12-21 13:42 | Outpatient (BNV) | payer MEDICARE, SELFPAY | PROVIDERS: PCP Internal Medicine; Visit Provider Physical Medicine & Rehabilitation | DX: G56.03 Carpal tunnel syndrome, bilateral upper limbs (principal); G56.22 Lesion of ulnar nerve, left upper limb; M54.12 Radiculopathy, cervical region | CPT/HCPCS: 95886; 95911 ==

== ENCOUNTER 2024-12-21 14:42 | Outpatient (AMB) | payer MEDICARE, SELFPAY ==
--- NOTE | 2024-12-21 14:50 | A.OFFPC_ITS ---
Vital Signs 3 12/21/24 14:51 Height 5 ft 5 in Weight 133 lb 6 oz BMI 22.2 BP 120/68 Blood Pressure Location Lt brachial Position Sitting Pulse 67 Pulse Source Pulse Oximeter Temp 97.5 F Temp Source Temporal Artery Scan Pulse Oximetry (%) 97 Oxygen Delivery Method Room Air Intake Visit Reasons: falling/growth on head Intake Note: Patient is here to follow up on health concerns and falls. Bindery Machine Tender Required: No Signal Maintainer Helper: Present Accompanied by: Daughter Allergies sertraline Adverse Reaction (Intermediate, Verified 12/21/24 14:51) Diarrhea Medication List - Last Reconciled 12/21/24 by Clarissa Maya PA-C alprazolam 0.25 mg PO BEDTIME PRN atenolol 50 mg PO DAILY calcium carbonate-vitamin D3 600 mg-5 mcg (200 unit) 1 cap PO DAILY cranberry fruit 400 mg PO DAILY levothyroxine 100 mcg PO MOTUWETHFRSA@0600 ehlvwtmyv-S8-aih-Ch-dfy-vrfif 500 mcg- 750 mg (Nicotinamide (with chromium)) 1 tab PO DAILY Tobacco use date assessed: 12/21/24 Fall risk assessment: 2 + Falls in past year Last assessed Fall Risk: 12/21/24 Dental Screening Dental Screen Date: 11/27/24 HPI falling/growth on head 2 HPI0 Details 84-year-old female with past medical his tory of hypertension, hypothyroidism, osteoporosis last seen 11/2024 coming in for acute problem. In review of the notes, patient was recently seen in walk-in clinic 12/14/2024 for feeling off balance with leg weakness treated for urinary tract infection with cefuroxime. Patient recently completed nerve conduction study of upper extremities showing bilateral median neuropathy, left ulnar neuropathy at the elbow and left chronic C5-C6 radiculopathy. The patient is an 84-year-old female presenting with recurrent falls and worsening balance issues. She notes a significant increase in falls post- gallbladder surgery in September, fearing to fall and describing noticeable changes in her gait and balance. Additionally, she reports difficulty rising from seated positions due to leg weakness, exacerbation post-anesthesia, and fear-induced gait adaptation. Neurological issues include confirmed bilateral carpal tunnel syndrome, moderate to severe, notably impacting the left hand along with ulnar neuropathy. Historical medical conditions include polymyalgia rheumatica, previously alleviated with prednisone. Recently, anxiety and depressive symptoms have heightened, exacerbated by discontinuation of Zoloft initiated weeks prior with noted adverse gastrointestinal effects. Discovery of a scalp mass, noted to be soft and non-tender. [facility] Medical History Incarcerated inguinal hernia (10/12/24) Pancreatic cyst Osteopenia COVID-19 virus infection Ganglion, left wrist Skin lump of arm Cervical spinal stenosis Meningioma Hypothyroidism Hypertension Polymyalgia rheumatica Surgical History History of cholecystectomy Hx of endoscopy History of colonoscopy History of tonsillectomy and adenoidectomy History of tubal ligation Family History Father Alzheimers disease Mother Breast cancer Maternal Grandmother CVD (cardiovascular disease) Maternal Grandfather No problems noted. Paternal Grandmother CVD (cardiovascular disease) Paternal Grandfather No problems noted. 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 Franklyn Gutiérrez, Ariane Walsh, Handy Helm and colleagues, with an educational elayne from [email or web address]. Review of Systems Const Denies body aches, Denies chills, Denies fever(s), Denies headache(s) and Denies poor appetite Eyes Reports no additional complaints ENT Denies dizziness and Denies headache(s) Card Denies chest pain, Denies syncope, Denies edema, Denies irregular heart rhythm, Denies lightheadedness and Denies dyspnea Resp Denies cough and Denies dyspnea GI Denies abdominal pain, Denies constipation, Denies diarrhea, Denies nausea and Denies vomiting Reports no additional complaints Musc Reports abnormal gait and Reports muscle weakness Skin/Breast Reports system reviewed and no additional complaints, except as documented Neuro Reports abnormal gait, Denies dizziness, Denies syncope and Denies headache(s) Psych Reports no additional complaints Physical exam (Primary Care) Vital Signs: Last Vital Signs Temp 97.5 F 12/21/24 14:51 Pulse 67 12/21/24 14:51 BP 120/68 12/21/24 14:51 Pulse Ox 97 12/21/24 14:51 Oxygen Delivery Method Room Air 12/21/24 14:51 BMI result Body Mass Index 22.2 Tobacco/Smoking Status: Tobacco use Status Tobacco use date assessed 12/21/24 12/21/24 14:59 Patient Tobacco Use Status Former Tobacco user 12/21/24 14:51 Tobacco use type Cigarette 12/21/24 14:51 e-Cigarette/Vaping Use Never Used 12/21/24 14:51 Thrive Assessment: Date of Thrive Assessment Date Thrive assessed 09/28/24 12/21/24 14:51 Const General: cooperative, healthy appearing, comfortable and no acute distress Orientation/consciousness: patient oriented x3 HENMT Head: Yes normocephalic Head images: 2 1. Soft, nontender scalp mass with smooth borders non mobile Ears: hearing grossly normal bilaterally General nose exam: Normal external nose present Eyes General: appearance normal, both eyes and all related structures Conjunctivae: conjunctivae normal Pupils: Equal, round and reactive pupils present Neck Neck: Yes full ROM and Yes no lymphadenopathy Resp Effort & Inspection: normal respiratory effort Auscultation: clear to auscultation bilaterally, no crackles, no rales, no rhonchi and no wheezes Cardio Rate: regular rate Rhythm: regular rhythm Skin General skin exam: no rashes or lesions noted Neuro General: patient oriented x3 Cranial nerves: Yes CN's II-XII intact bilaterally and Yes Equal, round and reactive pupils present Gait exam (Neuro): Normal gait present Motor exam (neuro): 5/5 motor strength present throughout, Pronator motor function not present, no tremor noted and no asterixis Romberg Test: Negative Extrem General: Yes normal to inspection, Yes full ROM and No edema Psych Affect: normal affect Attitude: cooperative Insight: Good insight present (Psych) Judgement: Good judgement present (Psych) Coding Level of Care Code Est Pt Level 4 (11167) Diagnoses Head mass R22.0 Frequent falls R29.6 Lower extremity weakness R29.898 Generalized anxiety disorder F41.1 Assessment & Plan Assessment & Plan (1) Head mass: Code(s): R22.0 - Localized swelling, mass and lump, head Category: Medical Plan: A CAT scan with contrast is ordered to assess potential intracranial complications or growth newly discovered scalp mass. Coordination for scheduling the CAT scan, required pre-procedural blood work, and additional follow-up consultations is ongoing. Regular symptom monitoring will determine the necessity for subsequent interventions. (2) Frequent falls: Code(s): R29.6 - Repeated falls Category: Medical Plan: A referral for physical therapy will address leg weakness and balance issues. An in-home chair lift has been recommended for safety, with liaising through the medical supply chain for insurance coverage. (3) Lower extremity weakness: Code(s): R29.898 - Other symptoms and signs involving the musculoskeletal system Category: Medical Plan: A referral for physical therapy will address leg weakness and balance issues. An in-home chair lift has been recommended for safety, with liaising through the medical supply chain for insurance coverage. (4) Generalized anxiety disorder: Code(s): F41.1 - Generalized anxiety disorder Category: Medical Plan: Plan to start on fluoxetine for management of anxiety advised patient to reach out if symptoms develop. Plan This note was constructed using voice recognition software. While every effort has been made to ensure accuracy and brass cleaner, still areas may have been included sometimes these areas may affect the content or meeting of the given symptoms. Total time spent caring for the patient today was 20 minutes. This includes time spent before the visit reviewing the chart, time spent during the visit, and time spent after the visit and documentation. Patient was informed and verbally consented to the use of an ambient scribe for clinic note documentation during this visit. Orders: Orders 2 CT head/brain w IV con 12/21/24 R22.0 - Localized swelling, mass and lump, head Basic Metabolic Panel 12/21/24 R22.0 - Localized swelling, mass and lump, head PT Evaluation and Treatment 12/21/24 R29.6 - Repeated falls, R29.898 - Other symptoms and signs involving the musculoskeletal system Erythrocyte Sedimentation Rate 12/21/24 R22.0 - Localized swelling, mass and lump, head Medications: New 2 fluoxetine 10 mg PO DAILY 30 tabs 2RF
[2024-12-21 14:51] VITALS: BP 120/68; PULSE 67; TEMP 36.4; O2SAT 97; BMI 22.2
--- OUTSIDE RECORDS SUMMARY | 2024-12-21 16:10 | XMS_ITS | Clinical Summary ---
Author Organization [facility] Address [address] [place] [address] Care Team Providers Care Technician'S Helper Name Role Phone Unavailable Primary Care Provider [...] 04/2017 benign, 05/2018 neg PMR (polymyalgia rheumatica) ([facility]) 2014 DX:PMR (polymyalgia rheumatica) ([facility]);COMMENT:tapered off Prednisone 01/2016 Dr Smith Cervical spinal stenosis DX:Cerv ical spinal stenosis;COMMENT:02/2015 MRI-C mild stenosis C4-5 with severe cervical spondylosis Syncope DX:Syncope Meningioma, cerebral ([facility]/HCC) D X:Meningioma, cerebral ([facility]);COMMENT:01/2019 MRI-B: small parasagittal posterior frontal [...]
--- OUTSIDE RECORDS SUMMARY | 2024-12-21 16:10 | XMS_ITS | Clinical Summary ---
Author Organization [facility] Address [address] [place] [address] Care Team Providers Care Paper Stacker Name Role Phone Unavailable Primary Care Provider [...]
== END 2024-12-21 16:29 | disposition home or self-care (01) ==
LOC: HO.HMCH 14:42
PROVIDERS: PCP Internal Medicine
DX: R22.0 Localized swelling, mass and lump, head (principal); R29.6 Repeated falls; R29.898 Other symptoms and signs involving the musculoskeletal system; F41.1 Generalized anxiety disorder

== ENCOUNTER 2024-12-27 11:29 | Outpatient (AMB) | payer MEDICARE, SELFPAY ==
--- NOTE | 2024-12-27 11:31 | MHC.OFFVIS ---
Vital Signs 12/27/24 11:33 Height 5 ft 5 in Weight 133 lb BMI 22.1 Intake Visit Reasons: OV-EMG review RT hand Intake Note: Tanisha is an 84 year old right hand dominant woman who presents today with her daughter for an EMG review of her bilateral upper extremities. Her symptoms have increased. EMG/NCS done on 12/21/24 IMPRESSION: 1. This is an abnormal study. 2. There is electrodiagnostic evidence for bilateral moderate-severe median neuropathy at the wrist, consistent with Carpal Tunnel Syndrome. 3. There is electrodiagnostic evidence for left ulnar neuropathy at the elbow. 4. There is electrodiagnostic evidence for left chronic C5-6 radiculopathy. Allergies sertraline Adverse Reaction (Intermediate, Verified 12/27/24 11:33) Diarrhea HPI HPI OV-EMG review RT hand: Details: Tanisha is an 84 year old right hand dominant woman who presents today with her daughter for an EMG review of her bilateral upper extremities. Her symptoms have increased. Patient reports that her numbness and tingling is in the 1st 3 fingers of bilateral hands, denies any numbness or tingling in the ulnar ring or small fingers of the bilateral hands. No other acute complaints or concerns at this time. EMG/NCS done on 12/21/24 IMPRESSION: 1. This is an abnormal study. 2. There is electrodiagnostic evidence for bilateral moderate-severe median neuropathy at the wrist, consistent with Carpal Tunnel Syndrome. 3. There is electrodiagnostic evidence for left ulnar neuropathy at the elbow. 4. There is electrodiagnostic evidence for left chronic C5-6 radiculopathy. [facility] Medical History Incarcerated inguinal hernia (10/12/24) Pancreatic cyst Osteopenia COVID-19 virus infection Ganglion, left wrist Skin lump of arm Cervical spinal stenosis Meningioma Hypothyroidism Hypertension Polymyalgia rheumatica Surgical History History of cholecystectomy Hx of endoscopy History of colonoscopy History of tonsillectomy and adenoidectomy History of tubal ligation Family History Father Alzheimers disease Mother Breast cancer Maternal Grandmother CVD (cardiovascular disease) Maternal Grandfather No problems noted. Paternal Grandmother CVD (cardiovascular disease) Paternal Grandfather No problems noted. 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 Cognitive needs: No Hearing needs: No Vision needs: Yes (Glasses) Review of Systems Const All systems reviewed & are unremarkable except as noted in HPI and below Physical Exam Vital Signs: BMI result Body Mass Index 22.1 Const General: cooperative, healthy appearing and no acute distress Orientation/consciousness: patient oriented x3 HEENT Head: Yes normocephalic and Yes atraumatic Eyes EOM: EOMs intact bilaterally Resp Effort & Inspection: normal respiratory effort and able to speak in complete sentences Cardio Jugular venous distension: no JVD Skin General skin exam: turgor normal Rashes: no rashes Neuro General: patient oriented x3 Extrem Other: Evaluation of Bilateral Upper Extremity: The patient is alert, oriented, and in no acute distress Neuro: Diminished sensation noted of the left hand in the median nerve distribution Normal sensation of the ulnar nerve distribution of the left hand and of the entire right hand in the office today Vascular: Cap refill brisk ROM: She can make a fist and extend all her digits Occasional subluxation of the small finger with activity, which resolves on its own. Subluxation of the left ring finger EDC tendon ulnarly when making a fist Skin: No lacerations or abrasions. General: No Ecchymosis. No Erythema or evidence of infection. 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 Carpal tunnel syndrome, left Symptoms intermittent, daily, worse at night I educated the patient about the condition. I discussed both operative and nonoperative treatment options. The patient would like to proceed with surgery. The risks and benefits of operative treatment were discussed with the patient and the patient wishes to proceed with surgery. These risks include, but are not limited to, risk of damage to blood vessels, nerves, tendons, infection, recurrence, incomplete relief of preoperative symptoms, persistent pain, possible need for further surgery, and the risks associated with regional blocks and/or anesthesia. Plan is to take the patient to the operating room at some point in the next few weeks for the following procedures: 1. Left carpal tunnel release under local All of the preoperative paperwork including the consent was discussed today. All of the patient's questions were answered in the clinic today. The patient understands that they will be in contact with our surgical processor to discuss scheduling their procedure. Patient denies diabetes, blood thinners, asthma, heart issues, lung issues, kidney issues, or current smoking. 2. Carpal tunnel syndrome, right Patient would like to proceed with operative intervention on the left prior to any intervention of the right Patient is educated if she is recovering well from left-sided surgery at her postop appointment, we can get right side booked at that time Patient was amenable to this plan 3. Left cubital tunnel syndrome Patient asymptomatic No acute intervention indicated Coding Level of Care Code Est Pt Level 4 (53274) Diagnoses Bilateral carpal tunnel syndrome G56.03 Cubital tunnel syndrome on left G56.22
[2024-12-27 11:33] VITALS: BMI 22.1
--- OUTSIDE RECORDS SUMMARY | 2024-12-27 13:37 | XMS_ITS | Patient Health Record ---
Author Organization [facility] Address [address] [place] [address] Care Team Providers Care Monument Carver Name Role Phone Po Claudia MONIQUE Primary Care Provider Franklyn Johnson Unavailable [phone] Allergies No Known Allergies Results Component Value Reference Range Notes Liver Panel Reviewed date:05/09/2024 09:04:30 AM Interpretation: Performing Lab:[facility], [address] [place] [phone] Notes/Report: Bilirubin Total 1.7 0.0-1.0 mg/dL Bilirubin Direct 0.6 0.0-0.5 mg/dL Aspartate Amino Transferase 63 5-31 U/L Alanine Aminotransferase 59 0-31 U/L Total Protein 5.9 6.5-8.0 g/dL Albumin Level 3.1 3.5-5.0 g/dL Alkaline Phosphatase 52 39-117 U/L Basic Metabolic Panel Reviewed date:05/09/2024 09:04:44 AM Interpretation: Performing Lab:[address] [address] Notes/Report: Sodium 140 135-145 mmol/L Potassium 3.9 [...] Glomerular Filt Rate > 60 NOTE: For -Qatari individuals, multiply the result by 1.210. Chronic Kidney Disease: Estimated GFR < 60 mL/min/1.73m2 Severe Kidney Disease: Estimated GFR < 15 mL/min/1.73m2 Glucose Random 99 60-115 mg/dL Calcium 8.7 8.4-10.2 mg/dL Phosphorus Reviewed date:05/09/2024 09:04:50 AM Interpretation: Performing Lab:[facility], [address] [place] [phone] Notes/Report: Phosphorus 2.7 2.7-4.5 mg/dL Lipase Reviewed date:05/09/2024 09:04:57 AM Interpretation: Performing Lab:[facility], [address] [place] [phone] Notes/Report: Lipase 344 8-78 U/L Liver Panel Reviewed date:05/10/2024 04:41:30 PM Interpretation: Performing Lab:[facility], [address] [place] [phone] Notes/Report: Bilirubin Total 1.5 0.0-1.0 mg/dL Bilirubin Direct 0.5 0.0-0.5 mg/dL Aspartate Amino Transferase 33 5-31 U/L Alanine Aminotransferase 37 0-31 U/L Total Protein 6.0 6.5-8.0 g/dL Albumin Level 3.0 3.5-5.0 g/dL Alkaline Phosphatase 53 39-117 U/L Basic Metabolic Panel Reviewed date:05/10/2024 04:41:44 PM Interpretation: Performing Lab:[facility], [address] [place] [phone] Notes/Report: Sodium 139 135-145 mmol/L Potassium 3.8 [...] Glomerular Filt Rate > 60 NOTE: For -Qatari individuals, multiply the result by 1.210. Chronic Kidney Disease: Estimated GFR < 60 mL/min/1.73m2 Severe Kidney Disease: Estimated GFR < 15 mL/min/1.73m2 Glucose Random 96 60-115 mg/dL Calcium 8.9 8.4-10.2 mg/dL Lipase Reviewed date:05/10/2024 04:41:51 PM Interpretation: Performing Lab:[facility], [address] [place] [phone] Notes/Report: Lipase 97 8-78 U/L Complete Blood Count Auto Di ff Reviewed date:08/15/2024 01:01:42 PM Interpretation: Performing Lab:[facility], [address] [place] [phone] Notes/Report: White Blood Count 13.4 4.8-10.8 X10*3/uL [...] Panel Reviewed date:08/15/2024 01:02:00 PM Interpretation: Performing Lab:[facility], [address] [place] [phone] Notes/Report: Bilirubin Total 1.5 0.0-1.0 mg/dL Bilirubin Direct 0.6 0.0-0.5 mg/dL Aspartate Amino Transferase 27 5-31 U/L Alanine Aminotransferase 13 0-31 U/L Total Protein 6.4 6.5-8.0 g/dL Albumin Level 3.4 3.5-5.0 g/dL Alkaline Phosphatase 54 39-117 U/L Basic Metabolic Panel Fastin g Reviewed date:08/15/2024 01:02:23 PM Interpretation: Performing Lab:[facility], [address] [place] [phone] Notes/Report: Sodium 135 135-145 mmol/L Potassium 3.7 [...] Lipase Reviewed date:08/15/2024 01:02:31 PM Interpretation: Performing Lab:[facility], [address] [place] [phone] Notes/Report: Lipase 175 8-78 U/L US abdomen limited Reviewed date:08/16/2024 11:49:39 PM Interpretation: Performing Lab: Notes/Report: [address] [address] Ultrasound Report Signed Patient: Tanisha Arrieta MR#: [id number] : 1940 Acct:[id number] Age/Sex: 84 / F ADM Date: 08/13/24 Loc: HO.S3 368-[address]: Carlotta BLUNT Ordering Physician: Franklyn Benton MD Date of Service: 08/15/24 Procedure(s): US abdomen limited Accession Number(s): [id number] cc: Claudia Smalls MD; Franklyn Benton MD [...] by: Linda Voss MD 08/16/2024 10:05 AM [facility] Dictated By: Linda Voss MD Signed By: <Electronically signed by Linda Voss MD in OV> 08/16/24 1005 DD/ 0737 TD/TT: 08/15/24 0751 Lehr Operator: [place] [address] Ultrasound Report Signed Patient: Tanisha Arrieta MR#: [id number] : 1940 Acct:[id number] Age/Sex: 84 / F ADM Date: 08/13/24 Loc: .S3 368-[address]: Bear BLUNT Ordering Physician: Franklyn Benton MD Date of Service: 08/15/24 Procedure(s): US abd omen limited Accession Number(s): [id number] cc: Claudia Smalls MD ; Franklyn Benton [...] by: Linda Voss MD 08/16/2024 10:05 AM [facility] Dictated By: Linda Voss MD Signed By: <Electronically signed by Linda Voss MD in OV> 08/16/24 1005 DD/ 0737 TD/TT: 08/15/24 0751 Lehr Operator: Liver Panel Reviewed date:08/16/2024 11:49:04 PM Interpretation: Performing Lab:[facility], [address] [place] [phone] Notes/Report: Bilirubin Total 1.6 0.0-1.0 mg/dL Bilirubin Direct 0.6 0.0-0.5 mg/dL Aspartate Amino Transferase 24 5-31 U/L Alanine Aminotransferase 8 0-31 U/L Total Protein 6.8 6.5-8.0 g/dL Albumin Level 3.4 3.5-5.0 g/dL Alkaline Phosphatase 62 39-117 U/L Basic Metabolic Panel Reviewed date:08/16/2024 11:49:11 PM Interpretation: Performing Lab:[facility], [address] [place] [phone] Notes/Report: Sodium 136 135-145 mmol/L Potassium 3.6 [...] Lipase Reviewed date:08/16/2024 11:49:19 PM Interpretation: Performing Lab:[facility], [address] [place] [phone] Notes/Report: Lipase 33 8-78 U/L Liver Panel Reviewed date:11/08/2024 07:14:00 AM Interpretation: Performing Lab:[address] [phone] Notes/Report: Bilirubin Total 0.5 0.0-1.0 mg/dL Bilirubin Direct 0.2 0.0-0.5 mg/dL Aspartate Amino Transferase 23 5-31 U/L Alanine Aminotransferase 10 0-31 U/L Total Protein 8.0 6.5-8.0 g/dL Albumin Level 3.8 3.5-5.0 g/dL Alkaline Phosphatase 77 39-117 U/L Reason For Referral Reason pancreatitis gallsto taina Diagnosis 1 Pancreatitis, gallst one (K85.10) Referral Organization [facility] Referring Provider First Name Franklyn Referring Provider Last Name Benton Referring Provider Speciality Gastroente rology Referred Provider German Blunt Referral Priority Routine Referral Appointment Date 09/25/2024 Medications Medication SIG (Take, Route, Frequency, Duration) Notes Start Date End Date Status Nicotinamide w/Zxfh-Mzrvpn-QS Active Cranberry 425 MG as directed Orally [...] Problem Status W/U Status Risk Notes Problem [id number] Elevated liver function tests (R79.89) Active confirmed Problem 26318524 Pancreatic cyst (K86.2) Active confirmed Problem History of gastrointestinal disease (396346174) History of acute pancreatitis (Z87.19) Active confirmed Vital Signs Blood pressure diastolic 00 mm Hg 10/24/2024 Height 65 in 10/24/2024 Blood pressure systolic 00 mm Hg 10/24/2024 Weight 131 lbs 10/24/2024 BMI 21.80 kg/m2 10/24/2024 Encounters Encounter Location Date Provider Diagnosis [facility] [address] [place] [address] 07/06/2024 Franklyn Benton Pancreatic cyst K86. 2 and History of acute pancreatitis Z87.19 [facility] [address] [place] [address] 10/24/2024 Franklyn Benton Elevated liver function tests R79.89 ; Pancreatic cyst K86.2 and History of acute pancreatitis Z87.19 [facility] [address] [place] [phone] 08/19/2024 Franklyn Benton [facility] [address] [place] [phone] 09/08/2024 Franklyn Benton Assessments Encounter Date Diagnosis [...] [place] [address] [place] [address] [id number] TANISHA ARRIETA Self - patient is the insured [employer] CLAIMS [address] [place] [address] [id number] TANISHA ARRIETA Self - patient is the insured Medical (General) History Medical History History ICD Code Hypertension Hypothyroidism Denies IA,DM,CVA,Lung disease,renal dise ase Meningioma Negative screening colonoscopy [...] an endoscopic ultrasound with Dr. Franco at [facility] who described some evidence of microlithiasis in [...]
--- OUTSIDE RECORDS SUMMARY | 2024-12-27 13:37 | XMS_ITS | Clinical Summary ---
Author Organization [facility] Address [address] [place] [address] Care Team Providers Care Vb Developer Name Role Phone Unavailable Primary Care Provider [...] 04/2017 benign, 05/2018 neg PMR (polymyalgia rheumatica) ([facility]) 2014 DX:PMR (polymyalgia rheumatica) ([facility]);COMMENT:tapered off Prednisone 01/2016 Dr Smith Cervical spinal stenosis DX:Cerv ical spinal stenosis;COMMENT:02/2015 MRI-C mild stenosis C4-5 with severe cervical spondylosis Syncope DX:Syncope Meningioma, cerebral ([facility]/HCC) D X:Meningioma, cerebral ([facility]);COMMENT:01/2019 MRI-B: small parasagittal posterior frontal meningioma: repeat [...] age to complete this topic Meningococcal B Vaccine Aged Out No l onger eligible based on patient's age to complete this topic RSV Immunization Patients Un kemi 20 months Aged Out No longer eligible b ased on patient's age to complete this topic Varicella Vaccines Aged Out No longer eligible based on patient's age to complete this topic
--- OUTSIDE RECORDS SUMMARY | 2024-12-27 13:37 | XMS_ITS ---
Author Organization [facility] Address [address] [place] [address] Care Team Providers Care Potato Pancake Frier Name Role Phone Claudia Smalls MD Primary Care Provider Franklyn Johnson [phone] REASON FOR VISIT Needs to see Dr. Blunt Encounters Encounter Location Date Provider Diagnosis [facility] [address] [place] [phone] 09/08/2024 Franklyn Benton Plan Of Treatment No Information Progress Notes * DB ARRIETA CDOB:[birth year] (84 yo F)Acc No.[id number]:09/08/2024 Patient:?DB ARRIETA :1940???Age:84 Y???Sex:Female Address:[address] [place] [address] * true * Date:? Generated for Emilyi nancy/Kendrick/eTransmitting on:?12/27/2024 01:37 PM EDT
--- OUTSIDE RECORDS SUMMARY | 2024-12-27 13:38 | XMS_ITS ---
Author Organization [facility] Address [address] [place] [address] Care Team Providers Care Latex Spooler Name Role Phone Claudia Smalls MD Primary Care Provider Franklyn Johnson [phone] REASON FOR VISIT pancreatitis Encounters Encounter Location Date Provider Diagnosis [facility] [address] [facility] [address] [place] [phone] 12/21/2024 Franklyn Benton Plan Of Treatment No Information Progress Notes * MEENAKSHI, DB CDOB:[birth year] (84 yo F)Acc No.[id number]:12/21/2024 Progress Notes Patient:?DB ARRIETA Provider:?Franklyn Benton MD :1940???Age:84 Y???Sex:Female D ate:12/21/2024 Address:[address] [place] [phone] Pcp:Claudia Smalls MD Subjective: * Chief Complaints: * ???1. Pancreatitis. * Medical History:? Objective: * Vitals:? Assessment: Plan: * Treatment: * * The named appointment provid er may or may not be the originator of this progress note, and it is not deemed complete until electronically signed by the appointment provider. Sign off status: Pending * Provider:?Franklyn Benton MD Date:? 025 Generated for Emilyi nancy/Kendrick/eTransmitting on:?12/27/2024 01:37 PM EDT
--- OUTSIDE RECORDS SUMMARY | 2024-12-27 13:38 | XMS_ITS ---
Author Organization [facility] Address [address] [place] [address] Care Team Providers Care Paper Steamer Name Role Phone Claudia Smalls MD Primary Care Provider Franklyn Johnson Unavailable [phone] Allergies No Known Allergies REASON FOR VISIT s/ p cholescystectomy, Dr. Jose Raul barrera soon appt Medications Medication SIG (Take, Route, Frequency, Duration) Notes Start Date End Date Status Nicotinamide w/Haqs-Qyjijg-JC Active Cranberry 425 MG as directed Orally [...] 10/24/2024 Encounters Encounter Location Date Provider Diagnosis [facility] [address] [place] [address] 10/24/2024 Franklyn Benton Elevated liver function tests [...] * TANISHA ARRIETA CDOB:[birth year] (84 yo F)Acc No.[id number]:10/24/2024 Progress Notes Patient:?TANISHA ARRIETA Provider:?Franklyn Benton MD :1940???Age:84 Y???Sex:Female D ate:10/24/2024 Address:[address] [place] [address] Pcp:Claudia Smalls MD Subjective: * Chief Complaints: [...] referred her to see Dr. Franco at [facility] for an endoscopic ultrasound. This revealed [...] 425 MG Capsule as directed Orally Nicotinamide w/Etqn-Fazzoq-MT Calcium + Vitamin D3 600-5 MG-MCG Tablet 1 tablet with a meal Orally Once a dayLevothyroxine Sodium 100 MCG Tablet Oral Atenolol 50 MG Tablet 1 tablet and half Oral Once a dayMedication List reviewed and reconciled with the patientTaking Cranberry 425 MG Capsule as directed Orally Taking Nicotinamide w/Zeaj-Vlnprr-SK Taking Calcium + Vitamin D3 600-5 MG-MCG [...] * Treatment: * Procedure Codes:?1036F TOBAC CO [id number] BP SCR NOT PRFRM REC REASON NOS [...] MD Date:? 025 Generated for Kari cruz/Kendrick/Melia on:?12/27/2024 01:37 PM EDT History and Physical Notes * [...] referred her to see Dr. Franco at [facility] for an endoscopic ultrasound. This revealed [...]
--- OUTSIDE RECORDS SUMMARY | 2024-12-27 13:38 | XMS_ITS | Clinical Summary ---
Author Organization [facility] Address [address] [place] [address] Care Team Providers Care Sewer Head Name Role Phone Unavailable Primary Care Provider [...]
== END 2024-12-27 12:04 | disposition home or self-care (01) ==
LOC: HO.HOS 11:30
PROVIDERS: PCP Internal Medicine
DX: G56.03 Carpal tunnel syndrome, bilateral upper limbs (principal); G56.22 Lesion of ulnar nerve, left upper limb
CPT/HCPCS: 99214

== ENCOUNTER → 2024-12-27 11:29 | Outpatient (BNVA) | payer MEDICARE, SELFPAY | PROVIDERS: PCP Internal Medicine | DX: G56.03 Carpal tunnel syndrome, bilateral upper limbs (principal); G56.22 Lesion of ulnar nerve, left upper limb | CPT/HCPCS: 99212 ==

== ENCOUNTER 2025-01-13 14:19 | Emergency (ER) | payer MEDICARE, SELFPAY ==
--- NOTE | ~2025-01-13 | CT_ITS ---
CLINICAL HISTORY: brain mass, assess for mets CT ABDOMEN AND PELVIS WITH AND WITHOUT CONTRAST Comparison: CT/[place] - CT ABDOMEN PELVIS W IV CON - 08/13/24 21:03 EST Findings: Please see the separate report for the CT chest. The liver is mildly enlarged. There is no enhancing lesion. Normal spleen size and configuration. No lymphadenopathy. No pancreatic or adrenal mass. Interval cholecystectomy. Common bile duct measures 1.5 cm. No hydronephrosis or intrarenal calculus. No AAA. No bowel obstruction, pneumoperitoneum, or pneumatosis. No ascites or organized fluid collection. No significant mesenteric or paracolic edema. Large colonic stool burden. The appendix is identified. No acute appendicitis. Senescent changes in the uterus. Urinary bladder unremarkable. Advanced degenerative changes in the lumbar spine with dextroscoliosis. There is grade 1 spondylolisthesis at L4-5. No grossly destructive osseous lesion. IMPRESSION: 1. No evidence for metastatic disease. 2. No obstructive or acute inflammatory changes in the gastrointestinal and genitourinary tracts. This document has been electronically signed by: Edith Guillaume DO on 01/13/2025 21:02:45
--- NOTE | ~2025-01-13 | CT_ITS ---
CLINICAL HISTORY: altered mental status CT HEAD WITHOUT CONTRAST Comparison: None Findings: There is a mildly hyperdense mass in the right frontal lobe which crosses the midline and is associated with perilesional edema. The mass measures approximately 5.0 x 6.0 x 6.4 cm (Length x Height x Width). There is leftward bowing of the falx. No acute intracranial hemorrhage, extra-axial fluid collection, hydrocephalus or midline shift. Age appropriate generalized parenchymal atrophy. No sinus or mastoid fluid. Visualized orbits: Bilateral aphakia. Above-mentioned mass is associated with destructive changes in the bifrontal calvarium with scalp swelling/mass. No skull fracture. IMPRESSION: 1. Large bifrontal lobe mass crosses the midline and is associated with destructive changes in the overlying calvarium with a soft tissue component. A glioblastoma is the primary diagnostic consideration. 2. No acute hemorrhage. This document has been electronically signed by: Edith Guillaume DO on 01/13/2025 16:12:57
--- NOTE | ~2025-01-13 | XR_ITS ---
CLINICAL HISTORY: weakness 2 view chest x-ray Comparison: None Findings: Mild interstitial prominence. No consolidation, pleural effusion or pneumothorax. Cardiac silhouette is enlarged. Well corticated irregularities in the proximal right humerus may be related to degenerative changes and/or sequelae of remote trauma. IMPRESSION: Mild interstitial prominence secondary to pneumonitis or fluid overload. This document has been electronically signed by: Edith Guillaume DO on 01/13/2025 17:17:34
--- NOTE | ~2025-01-13 | MR_ITS ---
CLINICAL HISTORY: bifrontal mass on CT MRI head without/with contrast Comparison: 06/07/2020 Findings: 7.5 x 6.5 x 5.6 cm extra-axial midline frontal enhancing mass. Minimal underlying frontal lobe edema noted. Midline shift noted towards the left as well. Malignant meningioma is in the differential. Overlying skull changes better seen on CT. Extracranial scalp edema and/or soft tissue mass. No other acute abnormality identified. No acute finding on diffusion-weighted imaging. Chronic ischemic white matter disease is noted. Sinuses and mastoids are clear. Impression: Large extra-axial bifrontal mass, possible malignant meningioma This document has been electronically signed by: Elliott Jarvis MD on 01/13/2025 21:28:39
--- NOTE | ~2025-01-13 | CT_ITS ---
CLINICAL HISTORY: brain mass, assess for mets CT CHEST WITH AND WITHOUT CONTRAST Comparison: None Findings: The heart size is normal.No significant pericardial effusion. No thoracic aortic aneurysm or dissection. The thyroid gland is atrophic or surgically absent. No lymphadenopathy. No pulmonary mass or suspicious pulmonary nodule. No consolidation, pleural effusion or pneumothorax. Mild bibasilar atelectasis and/or scarring. Please see the separate report for the CT abdomen and pelvis. Old fracture in the right humeral head and neck. No destructive osseous lesion. IMPRESSION: 1. No evidence for metastatic disease. 2. No acute process. This document has been electronically signed by: Edith Guillaume DO on 01/13/2025 20:56:38
[2025-01-13 14:30] VITALS: BP 120/62; PULSE 69; RESP 18; TEMP 36.3; O2SAT 99; BMI 22.4
--- NOTE | 2025-01-13 14:31 | ECG_ITS ---
Test Reason : weakness Blood Pressure : */* mmHG Vent. Rate : 69 BPM Atrial Rate : 69 BPM P-R Int : 140 ms QRS Dur : 90 ms QT Int : 418 ms P-R-T Axes : 17 23 23 degrees QTcB Int : 447 ms Normal sinus rhythm Normal ECG When compared with ECG of 13-Aug-2024 18:15, No significant change was found Referred By: Nick House Electronically Signed By: EMILY RAMIREZ
--- NOTE | 2025-01-13 14:33 | ED_ITS ---
HPI - General Adult General Chief complaint: General Medical Stated complaint: confusion and falling Time Seen by Provider: 01/13/25 14:56 Source: patient, family (daughter), RN notes reviewed and old records reviewed Mode of arrival: ambulatory Limitations: no limitations History of Present Illness ED Provider: Ashely HPI narrative: Patient is an 84-year-old female presenting to the emergency department with daughter reporting that she has felt off balance for the past 3 weeks and has had subsequent falls. She reports positive head strike to occiput, denies loss of consciousness. She is not anticoagulated. She denies dizziness or lightheadedness, states she always falls backwards. She denies chest pain, palpitations, dyspnea, cough or fever. Denies abdominal pain. Daughter states that over the past few weeks she and other family members have noticed patient to have increased falls, and confusion which she describes as a vacant stare. She states that her sister reports patient has fallen at least 6 times in the past few days and over 20 times in the past few weeks. She has had difficulty even getting up out of a chair. They have also noticed pedal edema as well as swelling to the top of patient's head. Patient had a cholecystectomy due to gallstone pancreatitis in September, and has been declining since. Started zoloft after the surgery due to increased anxiety but was having adverse effect of diarrhea, so was switched to prozac. Daughter states patient has been falling prior to starting these medications. MD complaint: impaired balance, falls Onset (ago): week(s) Related Data Home Medications ?Medication ?Instructions ?Recorded ?Confirmed calcium 600 mg (as 1 cap PO DAILY 11/21/20 12/21/24 carbonate)-vitamin D3 5 mcg (200 unit) capsule levomefolate 500 mcg-niacinamide 1 tab PO DAILY 01/05/22 12/21/24 750 ak-fytgoe-Lq-selen-chrom tablet (Nicotinamide (with chromium)) cranberry fruit 400 mg capsule 400 mg PO DAILY 02/09/23 12/21/24 levothyroxine 100 mcg tablet 100 mcg PO MOTUWETHFRSA@0600 05/08/24 12/21/24 fluoxetine 10 mg capsule (Prozac) 10 mg PO DAILY 12/27/24 Previous Rx's ?Medication ?Instructions ?Recorded atenolol 50 mg tablet 50 mg PO DAILY #90 tabs 09/28/24 alprazolam 0.25 mg tablet 0.25 mg PO BEDTIME PRN sleep #10 11/27/24 tabs Stair lift chair #1 ea 12/22/24 citalopram 10 mg tablet 10 mg PO DAILY #90 tabs 01/14/25 Allergies Allergy/AdvReac Type Severity Reaction Status Date / Time sertraline AdvReac Intermediate Diarrhea Verified 01/13/25 14:33 Review of Systems 2 Review of Systems: As per HPI Yes all other systems are reviewed and are negative Constitutional: Constitutional: Reports as per HPI [facility] Past Medical History Medical History Incarcerated inguinal hernia (10/12/24) Pancreatic cyst Osteopenia COVID-19 virus infection Ganglion, left wrist Skin lump of arm Cervical spinal stenosis Meningioma Hypothyroidism Hypertension Polymyalgia rheumatica Surgical History History of cholecystectomy Hx of endoscopy History of colonoscopy History of tonsillectomy and adenoidectomy History of tubal ligation Family History Family History Father Alzheimers disease Mother Breast cancer Maternal Grandmother CVD (cardiovascular disease) Maternal Grandfather No problems noted. Paternal Grandmother CVD (cardiovascular disease) Paternal Grandfather No problems noted. Social History Social History Household Members: None Housing: Condominium Are you a primary healthcare insurance sales agent to a significant other at home: No Do you presently have visiting nurse or other home services: No Alcohol intake: current Alcohol intake frequency: 0-2 drinks per day Alcohol type: wine Comment: 3x a week 2 glasses Patient Tobacco Use Status: Former Tobacco user Tobacco use type: Cigarette Years Smoked: 1979 e-Cigarette/Vaping Use: Never Used Second Hand Smoke Exposure: Yes Advance Directives: Yes Advance Directives on File: Yes Advance Directives Date on File: 05/08/24 Do you have a plan to hurt others: No Plan service: No 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al status: retired 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 Cognitive needs: No Hearing needs: No Vision needs: Yes (Glasses) Physical Exam ED Vital Signs: Vital Signs - 24 hr 01/13/25 14:30 01/13/25 16:07 01/13/25 17:57 Temperature 97.4 F 97.7 F Pulse Rate 69 67 81 Respiratory Rate 18 14 12 Blood Pressure 120/62 113/64 126/69 Pulse Oximetry 99 98 98 Oxygen Delivery Method Room Air Room Air Room Air 01/13/25 22:12 01/13/25 22:19 Temperature 98.5 F 98.5 F Pulse Rate 77 77 Respiratory Rate 17 17 Blood Pressure 121/70 121/70 Pulse Oximetry 98 98 Oxygen Delivery Method Room Air Room Air BMI result Body Mass Index 22.4 Vital signs have been reviewed and appear to be correct. Blood pressure normal. Heart rate normal. Respiratory rate normal. Temperature normal. Oxygen saturation normal. Const General: cooperative, healthy appearing and no acute distress Orientation/consciousness: oriented to person, oriented to place, oriented to time and patient oriented x3 Limitations: no limitations HENMT Head: Yes normocephalic and Yes atraumatic Head images: 2 1. nontender swelling, no erythema or fluctuance Ears: external ears normal General nose exam: Normal external nose present Face and sinus: Yes face symmetric Mouth: oropharynx normal and moist mucous membranes Throat: Yes uvula midline Eyes Pupils: Equal, round and reactive pupils present Neck Neck: Yes normal visual inspection and Yes supple Resp Effort & Inspection: normal respiratory effort and able to speak in complete sentences Auscultation: clear to auscultation bilaterally Cardio Rate: regular rate Rhythm: regular rhythm Heart sounds: S1 normal heart sound present and S2 normal heart sound present GI Palpation (GI): Soft to palpation and nontender Auscultation: normoactive bowel sounds General: Yes no CVA tenderness Back/Spine/Pelvis Back: no CVA tenderness Skin General skin exam: elasticity normal and turgor normal Neuro General: oriented to person, oriented to place, oriented to time, patient oriented x3, tone normal, moves all extremities, Normal light touch and pain sensation, no focal motor deficits, CN's II-XI intact bilaterally and deep tendon reflexes 2+ bilaterally Cranial nerves: Yes Equal, round and reactive pupils present Cognition (Neuro): normal cognition Motor exam (neuro): 5/5 motor strength present throughout, Pronator motor function not present, no tremor noted, Normal motor muscle tone present throughout and Motor abnormalities not present Coordination: jxiojw-nh-xuba test normal and tdju-so-[id number] test normal Romberg Test: Negative Extrem General: Yes full ROM, Yes no calf tenderness and Yes pedal edema (L>R) Psych Mental Status: mental status grossly normal Affect: normal affect Thought process: Normal thought process present Course Course Course Narrative: RME, this is a rapid medical exam performed by [facility] please refer to primary provider for complete H&P- 84 year old female presents for evaluation of weakness, confusion, and leg swelling. Her daughter states that the patient has had a rapid decline activities daily living over the last 3 months since having a cholecystectomy due to gallstone pancreatitis. She is very forgetful and off balance. She has had several falls. Plan for labs, urinalysis, CT scan of head. The patient has no focal deficits. She was started on Prozac a few weeks ago Reevaluation(s) Reevaluation #1: Received call from radiologist regarding CT head results concerning for glioblastoma. Contacted radiology, these images not compared to MRIs from 2018 and 2019. Case discussed with attending MD, Dr. Arvizu, who feels today's imaging represent new mass, and patient should be transferred. Call out to [facility]. Time: 16:39 Reevaluation #2: Spoke with Edwige from neurosurgery at [facility]. She recommends having goals of care discussion with patient and family. Results discussed with patient and daughter and goals of care discussed. Patient and daughter requesting transfer to [facility] for further evaluation. Time: 16:56 Reevaluation #3: Spoke with Alison from medicine at [facility], they are able to accept patient as a transfer, neurosurgery wants patient transferred to neuro floor, but no beds available tonight, beds possibly available tomorrow. Discussed with patient who is agreeable. Time: 17:20 Additional Reevaluation(s): 01/13/25 17:33 Reached out to hospitalist, Dr. Chavez, who is not comfortable with admission. Reached out to medical oncology physician, Dr. Roblero who recommends reaching out to [facility] if family agreeable, also obtaining MRI while patient remains here. Edwige neurosurgery JOSE RAUL also recommending CT chest, abdomen, pelvis w and w/out contrast to assess for mets, recommends holding off on IV dexamethasone at this time. Exams ordered. 01/13/25 1900 Patient signed out to JOSE RAUL Cedillo pending transfer. Consultations Consultation #1: Speaking with the neuro oncologist at [facility], Dr. Angelique Perez, they are happily accepting the patient, I discussed with them the patient's comorbidities, medications she is on, additional imaging that we are obtaining, we will be awaiting a bed assignment. We are not to be giving any steroids. Time: 19:27 Consultation #2: [facility] called back, the patient has a bed, she will be transferred as a direct admit. We are arranging for transport now. Patient and family made aware, the patient consented for transfer. Radiology is generating a disc Time: 21:29 Medications Administered Discontinued Medications Generic Name Dose Route Start Last Admin Trade Name Freq PRN Reason Stop Dose Admin Gadobutrol 7.5 ml 01/13/25 20:51 01/13/25 20:51 Gadobutrol 7.5 Ml Vial IVPUSH 01/13/25 20:52 6.5 ml ONCE ONE Administration Iohexol 85 ml 01/13/25 19:50 01/13/25 19:51 Iohexol 350 Mg/Ml 100 Ml Infus..Btl IV 01/13/25 19:51 85 ml ONCE ONE Administration Medical Decision Making Medical Decision Making [facility] Narrative: Patient is an 84-year-old female presenting to the emergency department with daughter reporting that she has felt off balance for the past 3 weeks and has had subsequent falls. On exam patient is awake, A+Ox3, VS WNL, afebrile, normal neurological exam without focal deficits, physical exam findings as above. Given reported symptoms and physical exam findings, initial differential includes but is not limited to ICH, malignancy/mass, electrolyte abnormality, UTI, viral illness, pneumonia, new onset CHF. Labs notable for no leukocytosis, mild anemia not at transfusable level, slightly elevated BNP. X-ray chest notable for mild interstitial prominence likely due to fluid overload. CT head notable for large bifrontal lobe mass which crosses the midline associated with destructive changes in the overlying calvarium with a soft tissue component. My interpretation is in agreement with the radiologist's interpretation. See course for remainder of clinical decision making. Differential Diagnosis Differential Diagnoses: The differential diagnosis associated with the presentation includes As per MDM Admission/Observation Consideration of admission/observation: Escalation of care including admission/observation considered Consult Healthcare Provider Management of the patient was discussed with: Hospitalist and Granulator Operator (JOSE RAUL Gibbons neurosurgery at [facility]; admission nurse coordinator [facility]) Lab Data [facility] Lab Attestation statement: I reviewed the patient's lab results. As per MDM 01/13/25 15:06 01/13/25 15:06 Labs: Lab Results 01/13/25 01/13/25 Range/Units 15:06 15:13 WBC 10.3 (4.8-10.8) X10*3/uL RBC 3.85 L (4.20-5.50) X10*6/uL Hgb 11.9 L (12.0-16.0) g/dl Hct 36.1 L (37.0-47.0) % MCV 93.8 (80.0-98.0) fL MCH 30.9 (27.0-33.0) pg MCHC 33.0 (31.0-35.0) g/dl RDW 13.8 (11.0-16.0) % Plt Count 304 D (160-400) X10*3/uL MPV 9.1 L (9.4-12.3) fL Immature Gran % (Auto) 0.3 (0.0-0.4) % Neut % (Auto) 69.5 (45-73) % Lymph % (Auto) 20.0 (20-40) % Rogers % (Auto) 9.2 (2-11) % Eos % (Auto) 0.6 (0-4) % Baso % (Auto) 0.4 (0-2) % Lymph # (Auto) 2.1 (1.2-4.9) X10*3/uL Rogers # (Auto) 1.0 (0.1-1.2) X10*3/uL Eos # (Auto) 0.1 (0.0-0.4) X10*3/uL Baso # (Auto) 0.0 (0.0-0.2) X10*3/uL Abs Immat Gran (auto) 0.03 (0.00-0.03) X10*3/uL Absolute Neuts (auto) 7.1 (2.0-8.3) x10*3/uL Absolute Nucleated RBC 0.000 (0.0-0.012) X10*3/uL Nucleated RBC % (auto) 0.0 (0.0-0.2) /100WBC Sodium 139 (135-145) mmol/L Potassium 4.2 (3.3-5.1) mmol/L Chloride 104 (96-108) mmol/L Carbon Dioxide 25 (22-29) mmol/L Anion Gap 14 (12-20) BUN 16 (9-16) mg/dL Creatinine 0.73 (0.5-1.4) mg/dL Estim Creat Clear Calc 51.6 Estimated GFR > 60 Random Glucose 92 (60-115) mg/dL Calcium 10.4 H D (8.4-10.2) mg/dL Magnesium 1.7 (1.6-2.6) mg/dL Total Bilirubin 1.0 (0.0-1.0) mg/dL Direct Bilirubin 0.3 (0.0-0.5) mg/dL AST 29 (5-31) U/L ALT 9 (0-31) U/L Alkaline Phosphatase 80 (39-117) U/L Ammonia 25 (13-55) umol/L B-Natriuretic Peptide 147 H (<100) pg/mL Total Protein 8.2 H (6.5-8.0) g/dL Albumin 4.0 (3.5-5.0) g/dL Lipase 14 (8-78) U/L Urine Color Yellow Urine Appearance Clear Urine pH 7.0 (5.0-9.0) Ur Specific Henrietta <= 1.005 (1.005-1.025) Urine Protein Negative (Neg-Trace) mg/dL Urine Glucose (UA) Negative (Negative) mg/dL Urine Ketones Negative (Negative) mg/dL Urine Blood Negative (Negative) Urine Nitrite Negative (Negative) Ur Leukocyte Esterase Negative (Negative) Urine RBC 0-2 (0-2) /HPF Urine WBC 0-5 (0-5) /HPF Ur Squamous Epith Cells 0-2 (0-2) /HPF Urine Bacteria None Seen (None Seen) Hyaline Casts 0-2 (0-2) /LPF Influenza Type A (PCR) NEGATIVE (Negative) Influenza Type B (PCR) NEGATIVE (Negative) RSV RNA Qual (PCR) NEGATIVE (Negative) SARS-CoV-2 RNA (RT-PCR) NEGATIVE (Negative) Independent Interpretation I performed an independent interpretation of an: Plain X-Ray and CT Scan Radiology Impression Discussion of test interpretation with radiology: I have reviewed the radiologist's reading. Radiologist Impression: IMPRESSION: 1. Large bifrontal lobe mass crosses the midline and is associated with destructive changes in the overlying calvarium with a soft tissue component. A glioblastoma is the primary diagnostic consideration. 2. No acute hemorrhage. IMPRESSION: Mild interstitial prominence secondary to pneumonitis or fluid overload. Independent Historian Clinical information obtained from an independent historian. History obtained from or confirmed by: Other (additional history provided by daughter which patient was unable to provide) External Record Review External record reviewed: Inpatient record, Office record and Outpatient record Critical Care Time Critical Care Time Critical Care Time: Yes Total Critical Care Time: 82 Attestation: I have personally provided critical care time exclusive of time spent on separately billable procedures. Time includes review of lab data, radiology results, discussion with consultants, and monitoring for potential decompensation. Intervention performed as documented. Discharge Plan Discharge Clinical Impression: Brain mass, Gait instability Patient Disposition: er [facility] Hospital Transfer Details: New large brain mass, need for Neuro-Oncology Prescriptions: No Action citalopram 10 mg tablet 10 mg PO DAILY Qty: 90 1RF levothyroxine 100 mcg tablet 100 mcg PO MOTUWETHFRSA@0600 Rx Instructions: Off Sundays calcium carbonate-vitamin D3 600 mg calcium- 200 unit capsule 1 cap PO DAILY cranberry fruit 400 mg capsule 400 mg PO DAILY Rx Instructions: administer with a meal Nicotinamide (with chromium) 500 mcg- 750 mg tablet 1 tab PO DAILY fluoxetine [Prozac] 10 mg capsule 10 mg PO DAILY (DME) Stair lift chair See Rx Instructions .Route .MEDSUPPLY Qty: 1 0RF Rx Instructions: As directed atenolol 50 mg tablet 50 mg PO DAILY Qty: 90 3RF alprazolam 0.25 mg tablet 0.25 mg PO BEDTIME PRN (Reason: sleep) Qty: 10 0RF Interventions: Acute Care Transfer Worksheet (ED) Last Done: 01/13/25 22:19 Discharge Date/Time: 01/13/25 22:28 Print Language: Estonian
--- OUTSIDE RECORDS SUMMARY | 2025-01-13 15:20 | XMS_ITS | Clinical Summary ---
Author Organization [facility] Address [address] [place] [address] Care Team Providers Care Load Out Person Name Role Phone Unavailable Primary Care Provider [...]
[2025-01-13 15:22] LABS: MANUAL DIFF FLAG NO
[2025-01-13 15:24] LABS: Basophils Percent Auto 0.4 % (0-2); Eosinophils Absolute Auto 0.1 X10*3/uL (0.0-0.4); Eosinophils Percent Auto 0.6 % (0-4); Hematocrit 36.1 % (37.0-47.0); Hemoglobin 11.9 g/dl (12.0-16.0); Imm Gran Abs Auto 0.03 X10*3/uL (0.00-0.03); Imm Gran Pct Auto 0.3 % (0.0-0.4); Lymphocytes Absolute Auto 2.1 X10*3/uL (1.2-4.9); Mean Corpuscular Hemoglobin 30.9 pg (27.0-33.0); Mean Corpuscular Volume 93.8 fL (80.0-98.0); Mean Platelet Volume 9.1 fL (9.4-12.3); Monocytes Percent Auto 9.2 % (2-11); Neutrophils Absolute Auto 7.1 x10*3/uL (2.0-8.3); Neutrophils Percent Auto 69.5 % (45-73); Platelet Count 304 X10*3/uL (160-400); Red Blood Count 3.85 X10*6/uL (4.20-5.50); Red Cell Distribution Width 13.8 % (11.0-16.0); White Blood Count 10.3 X10*3/uL (4.8-10.8)
[2025-01-13 15:25] LABS: Appearance Urine Clear; Color Urine Yellow; Glucose Urine UA Negative (Negative); Leukocyte Esterase Urine Negative (Negative); Nitrite Urine Negative (Negative); Specific Gravity - Urine <= 1.005 (1.005-1.025); Urine Blood Negative (Negative); Urine Ketones Negative (Negative); Urine Protein Negative (Neg-Trace)
[2025-01-13 15:27] LABS: Bacteria Urine None Seen (None Seen); Hyaline Casts Urine 0-2 /LPF (0-2); RBC Urine 0-2 /HPF (0-2); Squamous Epithelial Cell Urine 0-2 /HPF (0-2); WBC Urine 0-5 /HPF (0-5)
[2025-01-13 15:30] LABS: Ammonia 25 umol/L (13-55)
[2025-01-13 15:42] LABS: B Type Natriuretic Peptide 147 pg/mL (<100)
[2025-01-13 15:46] LABS: Alanine Aminotransferase 9 U/L (0-31); Alkaline Phosphatase 80 U/L (39-117); Anion Gap 14 (12-20); Aspartate Amino Transferase 29 U/L (5-31); Bilirubin Direct 0.3 mg/dL (0.0-0.5); Blood Urea Nitrogen 16 mg/dL (9-16); Calcium 10.4 mg/dL (8.4-10.2); Carbon Dioxide 25 mmol/L (22-29); Chloride 104 mmol/L (96-108); Creatinine Clr Calc Pharmacy 51.6; Estimated Glomerular Filt Rate > 60; Glucose Random 92 mg/dL (60-115); Lipase 14 U/L (8-78); Magnesium 1.7 mg/dL (1.6-2.6); Potassium 4.2 mmol/L (3.3-5.1); Sodium 139 mmol/L (135-145); Total Protein 8.2 g/dL (6.5-8.0)
[2025-01-13 16:00] LABS: Influenza A PCR NEGATIVE (Negative); Influenza B PCR NEGATIVE (Negative); Resp Syncy Virus RNA Qual PCR NEGATIVE (Negative); SARS COV2 PCR INHOUSE NEGATIVE (Negative)
[2025-01-13 16:07] VITALS: BP 113/64; PULSE 67; RESP 14; TEMP 36.5; O2SAT 98
[2025-01-13 17:57] VITALS: BP 126/69; PULSE 81; RESP 12; O2SAT 98
--- NOTE | 2025-01-13 18:03 | PC.NURSE ---
assumed care of patient at 1800, patient is alert and oriented, responds appropriatly but slow to answer. patient states that she feels numbness in her hands x3 weeks. patient has IV access, pupils equal and reactive bilat. patient is in normal sinus rhythm. patient denies any headache, blurry vision, patient noted to have lump on frontal portion of head-soft non tender. patient has family at the bedside, plan of care on going.
--- NOTE | 2025-01-13 19:45 | PC.NURSE ---
MRI screening form completed with pt at this time and sent to MRI. plan for pt to go to MRI at this time.
[2025-01-13] MEDS: iohexoL 350 MG/ML 100 ML INFUS..BTL 85 ML IV (19:51)
[2025-01-13] MEDS: gadobutroL 7.5 ML VIAL IVPUSH (20:51)
--- NOTE | 2025-01-13 21:03 | MHC.EDTECH ---
unable to check VS- pt at MRI dept
--- NOTE | 2025-01-13 21:29 | PC.NURSE ---
per douglas BLUNT, pt may eat at this time. pt given gingerale and soda at this time, pt assisted in sitting up. family remains at bedside.
--- NOTE | 2025-01-13 22:06 | PC.NURSE ---
report given to Tania RIVERA at [facility] [place] [place]. ems at bedside for transport and report.
[2025-01-13 22:12] VITALS: BP 121/70; PULSE 77; RESP 17; TEMP 36.9; O2SAT 98
[2025-01-13 22:19] VITALS: BP 121/70; PULSE 77; RESP 17; TEMP 36.9; O2SAT 98
== END 2025-01-13 22:28 | disposition short-term general hospital (02) ==
PROVIDERS: Physician Assistant; Emergency Provider Emergency Medicine; PCP Internal Medicine
DX: R22.0 Localized swelling, mass and lump, head (principal); R26.89 Other abnormalities of gait and mobility; R29.6 Repeated falls; R53.1 Weakness; R60.0 Localized edema; I10 Essential (primary) hypertension; E03.9 Hypothyroidism, unspecified; Z79.899 Other long term (current) drug therapy; Z87.891 Personal history of nicotine dependence; Z03.818 Encounter for observation for suspected exposure to other biological agents ruled out
CPT/HCPCS: 0241U; 36415; 70450; 70553; 71046; 71270; 74178; 80048; 80076; 81001; 82140; 83690; 83735; 83880; 85025; 93005; 99285; A9585; Q9967

== ENCOUNTER → 2025-01-13 14:31 | Outpatient (BNV) | payer MEDICARE, SELFPAY | PROVIDERS: Emergency Provider Emergency Medicine; PCP Internal Medicine; Visit Provider Internal Medicine | DX: R53.1 Weakness (principal) | CPT/HCPCS: 93010 ==

== ENCOUNTER → 2025-01-13 14:35 | Outpatient (BNV) | payer MEDICARE, SELFPAY | PROVIDERS: Emergency Provider Emergency Medicine; PCP Internal Medicine; Visit Provider Radiology Diagnostic Radiology | DX: G93.89 Other specified disorders of brain (principal); J84.9 Interstitial pulmonary disease, unspecified | CPT/HCPCS: 70450; 71046; 71270; 74178 ==

== ENCOUNTER 2025-02-09 15:29 | Outpatient (AMB) | payer MEDICARE, SELFPAY ==
--- OUTSIDE RECORDS SUMMARY | 2025-02-09 15:32 | XMS_ITS | Clinical Summary ---
Author Organization [address] [facility] Address [address] [place] [address] Phone Care Team Providers Care Supervisor Inspection Room Name Role Phone Luis Valderrama MD Primary Care Provider [phone] Encounters Date Type Department Care Team Description 02/02/2025 Lab Requisition [facility] [address] [place] [phone] Luis Valderrama MD Encounter for other general examination 01/30/2025 Lab Requisition [facility] [address] [place] [phone] Luis Valderrama MD Encounter for other general examination 01/26/2025 Lab Requisition [facility] [address] [place] [phone] Luis Valderrama MD Encounter for other general examination from Last 3 Months Surgical History Surgery Date Site/Laterality Comments APPENDECTOMY [...] 04/2017 benign, 05/2018 neg PMR (polymyalgia rheumatica) ([facility] V24) 2014 DX:PMR (polymyalgia rheumati ca) ([facility]);COMMENT:tapered off Prednisone 01/2016 Dr Smith Cervical spinal stenosis DX:Cerv ical spinal stenosis;COMMENT:02/2015 MRI-C mild stenosis C4-5 with severe cervical spondylosis Syncope DX:Syncope Meningioma, cerebral ([facility]/ C V24, [facility] V28) DX:Meningioma, cerebral ([facility]);COMMENT:01/2019 MRI-B: small parasagittal posterior frontal [...] Health Maintenance Due Date Last Done Comments RSV Immunization Adult Patients (1 - 1-dose 75+ series) 2015 COVID-19 Vaccine ( season) 2024 Cholesterol Screening (Lipid Panel) 01/26/2025 01/03/2019 Depression Screening 01/26/2025 Falls Risk Assessment 01/26/2025 Medicare Annual Wellness Visit 01/26/2025 Osteoporosis Screening (Bone Density Screening) 01/26/2025 Social Influencers of Health Screening 01/26/2025 Hypertension/CHF/CAD Annual BMP Blood Test 02/02/2026 02/02/2025, 01/26/2025, 01/17/2025, Additional history exists DTaP,Tdap,and Td Vaccines (3 - Td or Tdap) 03/01/2028 03/01/2018, 06/02/2016 Zoster Vaccines Completed 03/02/2019, 11/24/2018 Pneumococcal Vaccine: 50+ Years Completed 01/05/2022, 11/27/2016, 12/17/2015 Influenza Vaccine Completed 07/03/2024, , 07/20/2022, Additional history exists HIB Vaccines Aged Out No longer eligi [...] to complete this topic RSV Immunization Patients Under 20 months Aged Out No longer eligible based on patient's age to complete this topic Varicella Vaccines Aged Out No longer eligible based on patient's age to complete this topic Procedures Procedure Name Priority Date/Time Associated Diagnosis Comments COMPLETE BLOOD COUNT Routine 02/02/2025 6:23 AM EDT Encounter for other general examination COMPREHENSIVE METABOLIC PANEL Routine 02/02/2025 6:23 AM EDT Encounter for other general examination SST - GOLD Routine 01/30/2025 5:30 AM EDT Encounter for other general examination LEVETIRACETAM LEVEL Routine 01/30/2025 5 :30 AM EDT Encounter for other general examination CBC WITH AUTO DIFFERENTIAL Routine 01/26/2025 6:02 AM EDT Encounter for other general examination MAGNESIUM Routine 01/26/2025 6:02 AM EDT Encounter for other general examination CBC AND DIFFERENTIAL Routine 01/26/2025 6:02 AM EDT Encounter for other general examination COMPREHENSIVE METABOLIC PANEL Routine 01/26/2025 6:02 AM EDT Encounter for other general examination from Last 3 Months Results * (ABNORMAL) Complete blood count (02/02/2025 6:23 AM EDT) [facility] WBC 6.2 4.8 - 10.8 K/mcL LAB HEMETOLOGY METHOD 02/02/2025 9:57 AM [facility] RBC 3.00(L) 3.80 - 4.80 M/mcL LAB HEMETOLOGY METHOD 02/02/2025 9:57 AM [facility] Hemoglobin 9.1(L) 11.5 - 16.0 g/dL LAB HEMETOLOGY METHOD 02/02/2025 9:57 AM [facility] Hematocrit 29.4(L) 35.0 - 47.0 % LAB HEMETOLOGY METHOD 02/02/2025 9:57 AM [facility] MCV 97.4 79.0 - 98.0 FL LAB HEMETOLOGY METHOD 02/02/2025 9:57 AM [facility] MCH 30.1 27.0 - 32.0 pcg LAB HEMETOLOGY METHOD 02/02/2025 9:57 AM [facility] MCHC 31.0(L) 32.0 - 37.0 g/dL LAB HEMETOLOGY METHOD 02/02/2025 9:57 AM [facility] RDW 14.6 11.0 - 15.0 % LAB HEMETOLOGY METHOD 02/02/2025 9:57 AM [facility] Platelets 405(H) 130 - 400 K/mcL LAB HEMETOLOGY METHOD 02/02/2025 9:57 AM EDT [facility] MPV 9.6 7.0 - 11.0 FL LAB HEMETOLOGY METHOD 02/02/2025 9:57 AM EDT [facility] NRBC 0.0 <1.0 % [facility] NRBC Absolute 0.00 <0.10 K/mcL LAB [facility] 02/02/2025 9:57 AM T [facility] Blood Venous blood specimen / Unknown Venipuncture / Unknown 02/02/2025 6:23 AM EDT 02/02/2025 9:14 AM EDT us Luis Valderrama MD LAB BLOOD ORDERABLES Final Res ult [facility] [address] [place] [address], [place] [phone] * (ABNORMAL) Comprehensive metabolic panel (02/02/2025 6:23 AM EDT) Only the most recent of2 resultswithin the time period is included. Sodium 140 133 - 145 mmol/L LAB CHEMISTRY METHOD 02/02/2025 10:30 AM [facility] Potassium 4.1 3.5 - 5.5 mmol/L LAB CHEMISTRY METHOD 02/02/2025 10:30 AM [facility] Chloride 106 96 - 110 mmol/L LAB CHEMISTRY METHOD 02/02/2025 10:30 AM [facility] CO2 26 21 - 32 mmol/L LAB CHEMISTRY METHOD 02/02/2025 10:30 AM [facility] Anion Gap 8 3 - 11 LAB CHEMISTRY METHOD 02/02/2025 10:30 AM [facility] Glucose 72 70 - 100 mg/dL LAB CHEMISTRY METHOD 02/02/2025 10:30 AM [facility] BUN 14 5 - 25 mg/dL LAB CHEMISTRY METHOD 02/02/2025 10:30 AM [facility] Creatinine 0.58 0.50 - 1.10 mg/dL LAB CHEMISTRY METHOD 02/02/2025 10:30 AM [facility] eGFR 89 >=60 mL/min/1. 73m2 LAB CHEMISTRY METHOD 02/02/2025 10:30 AM [facility] Comment:Calculation based on the Chronic Kidney Disease Epidemiology Collaboration (CKD-EPI) equation refit without adjustment for race. BUN/Creatinine Ratio 24.1 LAB CHEMISTRY METHOD 02/02/2025 10:30 AM [facility] Calcium 8.8 8.5 - 10.5 mg/dL LAB CHEMISTRY METHOD 02/02/2025 10:30 AM [facility] AST (SGOT) 22 10 - 42 unit/L LAB CHEMISTRY METHOD 02/02/2025 10:30 AM [facility] ALT (SGPT) 20 10 - 60 unit/L LAB CHEMISTRY METHOD 02/02/2025 10:30 AM [facility] Alkaline Phosphatase 102 42 - 121 unit/L LAB CHEMISTRY METHOD 02/02/2025 10:30 AM [facility] Total Protein 6.6 6.0 - 8.0 g/dL LAB CHEMISTRY METHOD 02/02/2025 10:30 AM [facility] Albumin 2.6(L) 3.2 - 5.0 g/dL LAB CHEMISTRY METHOD 02/02/2025 10:30 AM [facility] Total Bilirubin 0.3 0.0 - 1.4 mg/dL LAB CHEMISTRY METHOD 02/02/2025 10:30 AM [facility] Blood Venous blood specimen / Unknown Venipuncture / Unknown 02/02/2025 6:23 AM EDT 02/02/2025 9:14 AM EDT Luis Valderrama MD LAB BLOOD ORDERABLES Final Res ult [facility] [address] [place] [address], [place] [phone] * SST tube (01/30/2025 5:30 AM EDT) Extra Tube Hold for add-ons. 01/30/2025 12:01 PM EDT [facility] Comment:Auto resulted. Blood Venous blood specimen / Unknown Venipuncture / Unknown 01/30/2025 5:30 AM EDT 01/30/2025 10:07 AM EDT Luis Valderrama MD LAB BLOOD ORDERABLES Final Res ult Performing Organization Address [facility]/ZIP Co de Phone Number [facility] [address] [place] [address], [place] [phone] * Levetiracetam level (01/30/2025 5:30 AM EDT) Levetiracetam 14.6 3.0 - 60.0 ug/mL 02/01/2025 5:25 AM EDT [facility] Comment: Steady state trough serum or plasma levels following doses of 1000 to 3000 mg/Day: ??3 to 37 ug/mL. The same dosage regimen will typically result in peak levels of 10 to 60 ug/mL, at approximately 1.5 hours post dose. If applicable, any drug confirmation testing reported here was developed and the performance characteristics determined by [facility]. This confirmation testing has not been cleared or approved by the FDA. The laboratory is regulated under CLIA as qualified to perform high-complexity testing. This test is used for patient testing purposes. It should not be regarded as investigational or for research. Test performed at [facility], [address] , [place], [place] ??[address] ? [phone] Theresa Nicholas MD, PhD - [facility] [employer] Blood Venous blood specimen / Unknown Venipuncture / Unknown 01/30/2025 5:30 AM EDT 01/30/2025 10:07 AM EDT us Luis Valderrama MD LAB BLOOD ORDERABLES Final Res ult [facility] [address] [place], [place] [id number] * (ABNORMAL) CBC auto differential (01/26/2025 6:02 AM EDT) [facility] WBC 8.3 4.8 - 10.8 K/mcL LAB HEMETOLOGY METHOD 01/26/2025 10:56 AM [facility] RBC 3.30(L) 3.80 - 4.80 M/mcL LAB HEMETOLOGY METHOD 01/26/2025 10:56 AM [facility] Hemoglobin 10.1(L) 11.5 - 16.0 g/dL LAB HEMETOLOGY METHOD 01/26/2025 10:56 AM [facility] Hematocrit 31.8(L) 35.0 - 47.0 % LAB HEMETOLOGY METHOD 01/26/2025 10:56 AM [facility] MCV 96.1 79.0 - 98.0 FL LAB HEMETOLOGY METHOD 01/26/2025 10:56 AM [facility] MCH 30.5 27.0 - 32.0 pcg LAB HEMETOLOGY METHOD 01/26/2025 10:56 AM [facility] MCHC 31.8(L) 32.0 - 37.0 g/dL LAB HEMETOLOGY METHOD 01/26/2025 10:56 AM [facility] RDW 14.6 11.0 - 15.0 % LAB HEMETOLOGY METHOD 01/26/2025 10:56 AM [facility] Platelets 487(H) 130 - 400 K/mcL LAB HEMETOLOGY METHOD 01/26/2025 10:56 AM [facility] MPV 9.8 7.0 - 11.0 FL LAB HEMETOLOGY METHOD 01/26/2025 10:56 AM [facility] NRBC 0.0 <1.0 % LAB HEMETOLOGY METHOD 01/26/2025 10:56 AM [facility] NRBC Absolute 0.00 <0.10 K/mcL LAB HEMETOLOGY METHOD 01/26/2025 10:56 AM [facility] Neutrophils Relative 54.3 % LAB HEMETOLOGY METHOD 01/26/2025 10:56 AM [facility] Lymphocytes Relative 32.5 % LAB HEMETOLOGY METHOD 01/26/2025 10:56 AM [facility] Monocytes Relative 8.5 % LAB HEMETOLOGY METHOD 01/26/2025 10:56 AM [facility] Eosinophils Relative 3.1 % LAB HEMETOLOGY METHOD 01/26/2025 10:56 AM [facility] Basophils Relative 0.2 % LAB HEMETOLOGY METHOD 01/26/2025 10:56 AM [facility] Immature Granulocytes Relative 1.4 % LAB HEMETOLOGY METHOD 01/26/2025 10:56 AM [facility] Neutrophils Absolute 4.49 1.50 - 7.00 K/mcL LAB HEMETOLOGY METHOD 01/26/2025 10:56 AM [facility] Lymphocytes Absolute 2.69 1.00 - 5.00 K/mcL LAB HEMETOLOGY METHOD 01/26/2025 10:56 AM [facility] Monocytes Absolute 0.70 0.20 - 1.00 K/mcL LAB HEMETOLOGY METHOD 01/26/2025 10:56 AM [facility] Eosinophils Absolute 0.26 0.00 - 0.50 K/[facility] LAB HEMETOLOGY METHOD 01/26/2025 10:56 AM EDT [facility] Basophils Absolute 0.02 0.00 - 0.20 K/[facility] LAB HEMETOLOGY METHOD 01/26/2025 10:56 AM EDT [facility] Immature Granulocytes Absolute 0.12(H) 0.00 - 0.03 K/[facility] LAB HEMETOLOGY METHOD 01/26/2025 10:56 AM EDT [facility] Blood Venous blood specimen / Unknown Venipuncture / Unknown 01/26/2025 6:02 AM EDT 01/26/2025 10:07 AM EDT Luis Valderrama MD LAB BLOOD ORDERABLES Final Res ult [facility] [address] [place] [address], [place] [phone] * (ABNORMAL) Magnesium (01/26/2025 6:02 AM EDT) Magnesium 1.8(L) 1.9 - 2.6 mg/dL LAB CHEMISTRY METHOD 01/26/2025 11:34 AM EDT [facility] Blood Venous blood specimen / Unknown Venipuncture / Unknown 01/26/2025 6:02 AM EDT 01/26/2025 10:07 AM EDT Luis Valderrama MD LAB BLOOD ORDERABLES Final Res ult [facility] [address] [place] [address], [place] [phone] from Last 3 Months Insurance MEDICARE [facility] Care Teams Supervisor Inspection Room Relationship Specialty Start Date End Date Luis Valderrama MD [address] [place] [id number] PCP - General Internal Medicine 01/26/25
[2025-02-09 15:42] VITALS: BP 106/58; PULSE 90; RESP 16; TEMP 36.9; O2SAT 98; BMI 21.9
--- NOTE | 2025-02-09 15:42 | MHC.PC.OV ---
Vital Signs 02/09/25 15:42 Height 5 ft 5 in Weight 131 lb 6.4 oz BMI 21.9 BP 106/58 L Blood Pressure Location Lt brachial Position Sitting Respiration 16 Pulse 90 Pulse Source Pulse Oximeter Temp 98.5 F Temp Source Oral Pulse Oximetry (%) 98 Oxygen Delivery Method Room Air Intake Visit Reasons: [facility] 02/03 Intake Note: Patient is here for hospital discharge follow up. Patient was discharged from [facility] in [place], [place] on 02/03/2025. Silk Screen Etcher Required: No Accompanied by: Daughter Allergies sertraline Adverse Reaction (Intermediate, Verified 02/09/25 16:10) Diarrhea Medication List - Last Reconciled 02/09/25 by MARIA DEL ROSARIO Hill acetaminophen 650 mg PO Q6H PRN calcium carbonate-vitamin D3 600 mg-5 mcg (200 unit) 1 cap PO DAILY cranberry fruit 400 mg PO DAILY fluoxetine (Prozac) 10 mg PO DAILY gabapentin 100 mg PO TID levetiracetam 500 mg PO BID levothyroxine 100 mcg PO MOTUWETHFRSA@0600 [id number] 500 mcg- 750 mg (Nicotinamide (with chromium)) 1 tab PO DAILY melatonin mg PO BEDTIME pantoprazole 40 mg PO DAILY [Stair lift chair As directed] trazodone 12.5 mg PO BEDTIME Tobacco use date assessed: 02/09/25 Fall risk assessment: 2 + Falls in past year Last assessed Fall Risk: 02/09/25 Dental Screening Dental Screen Date: 02/09/25 Did you have a dental visit in the last 12 months?: Yes Did you have a dental problem in the last 6 months where you did not have access to dental care?: No Was dental information given to patient?: Patient has dentist HPI [facility] 02/03 HPI Details Patient is here for hospital discharge follow up. Patient was discharged from [facility] in [place], [place] on 02/03/2025 The patient is an 84-year-old female presenting with the primary reason of stabilizing blood pressure and managing post-operative symptoms following meningioma surgery. She initially displayed good recovery post-surgery but then experienced hypotensive episodes correlated with medication changes. A significant aspect of her history involves past episodes of gallbladder surgery in September and recent cardiac monitoring due to syncopal episodes. Neuropathic pain managed with gabapentin is another part of her ongoing management. During rehabilitation, her blood pressure was noted to fluctuate, contributing to discontinuation of atenolol. Since then, she has continued to experience palpitations but has shown slight stabilization in blood pressure. She has also undergone several other interventions, including monitoring her high calcium levels and holding calcium supplementation as recent lab work indicates elevation. Will advise after repeat labs resulted. In terms of symptomatic relief, she receives occupational therapy at home and has been referred for physical therapy. The patient has a relative anemia, but improvements are noted compared to previous results. While reporting effective relief from heart and neuro symptoms with gabapentin, she experiences carpal tunnel syndrome impacting her left hand, which she plans to eventually address surgically. [facility] Medical History (Updated 02/13/25 @ 22:09 by MARIA DEL ROSARIO Hill) Incarcerated inguinal hernia (10/12/24) COVID-19 virus infection Ganglion, left wrist Skin lump of arm Pancreatic cyst Cervical spinal stenosis Meningioma Osteopenia Hypothyroidism Hypertension Polymyalgia rheumatica Surgical History Hx of craniotomy History of cholecystectomy Hx of endoscopy History of colonoscopy History of tonsillectomy and adenoidectomy History of tubal ligation Family History Father Alzheimers disease Mother Breast cancer Maternal Grandmother CVD (cardiovascular disease) Maternal Grandfather No problems noted. Paternal Grandmother CVD (cardiovascular disease) Paternal Grandfather No problems noted. 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 1. Little interest or pleasure in doing things: not at all 2. Feeling down, depressed, or hopeless: not at all 3. Trouble falling or staying asleep, or sleeping too much: several days 4. Feeling tired or having little energy: several days 5. Poor appetite or overeating: not at all 6. Feeling bad about yourself - or that you are a failure or have let yourself or your family down: not at all 7. Trouble concentrating on things, such as reading the newspaper or watching television: not at all 8. Moving or speaking so slowly that other people could have noticed. Or the opposite - being so fidgety or restless that you have been moving around a lot more than usual: not at all 9. Thoughts that you would be better off or of hurting yourself in some way: not at all Total score: 2 Depression Screening Interpretation: Negative Depression Screening Done: Yes Source: Developed by Drs. Franklyn Gutiérrez, Ariane Walsh, Handy Helm and colleagues, with an educational elayne from [employer]. Thrive Questionnaire Date Thrive assessed: 02/09/25 I am a: Patient What is your living situation today?: I have a steady place to live Within the past 12 months, did the food you bought not last and you didn't have the money to get more?: Never true Within the past 12 months, did you worry whether your food would run out before you got money to buy more?: Never true Do you have trouble paying for medicines?: No Do you have trouble getting transportation to medical appointments?: No Do you have trouble paying your heating and electricity bill?: No Do you have trouble taking care of your child, family member or friend?: No Do you have trouble with day-to-day activities such as bathing, preparing meals, shopping, managing finances, etc.?: No Are you currently unemployed and looking for a job?: No Are you interested in more education?: No Please select the resources that you would like help with: None Currently or been in a relationship where the following occur: No concerns reported THRIVE Score: 0 AUDIT C Alcohol Use Questionnaire (AUDIT-C) 1. How often do you have a drink containing alcohol?: 2-3 times a week 2. How many drinks containing alcohol do you have on a typical day when you are drinking?: 1 or 2 3. How often do you have six or more drinks on one occasion?: Never Total Score: 3 Score Reviewed/Action Taken: No SILVIA-7 AMB Questionnaire SILVIA-7 Date SILVIA - 7 assessed: 02/09/25 Feeling nervous, anxious, or on edge: 0 = Not at all Not being able to stop or control worryin = Not at all Worrying too much about different things: 0 = Not at all Trouble relaxin = Not at all Being so restless that it is hard to sit still: 0 = Not at all Becoming easily annoyed or irritable: 0 = Not at all Feeling afraid as if something awful might happen: 0 = Not at all Total SILVIA-7 score (0-4 normal; 5-9 mild; 10-14 moderate; 15-21 severe): 0 Source: Developed by Drs. Franklyn Gutiérrez, Ariane Walsh, Handy Helm and colleagues, with an educational elayne from [employer]. Review of Systems Const Denies headache(s) Eyes Denies loss of vision ENT Denies vertigo, Denies dizziness, Denies headache(s) and Denies sore throat Card Denies chest pain, Reports pedal edema (and legs intermittently), Denies leg edema, Denies lightheadedness and Reports other (Occasional palpitations) Resp Denies cough, Denies hemoptysis and Denies wheezing GI Denies abdominal pain, Denies melena, Denies constipation, Denies diarrhea and Denies vomiting Denies urinary frequency, Denies dysuria and Denies urinary urgency Musc Denies arthralgias, Denies joint swelling, Reports numbness (Hands) and Denies tingling Neuro Denies Abnormal speech present, Denies behavioral changes, Denies vertigo, Denies dizziness, Denies headache(s), Denies loss of vision, Denies memory loss, Reports numbness (Hands) and Denies tingling Psych Denies anxiety, Denies behavioral changes, Denies depression, Denies memory loss and Denies panic attacks Jared/Lymph Denies easy bleeding and Denies easy bruising Aller/Immun Denies wheezing Physical exam (Primary Care) Vital Signs: Last Vital Signs Temp 98.5 F 02/09/25 15:42 Pulse 90 02/09/25 15:42 Resp 16 02/09/25 15:42 BP 106/58 L 02/09/25 15:42 Pulse Ox 98 02/09/25 15:42 Oxygen Delivery Method Room Air 02/09/25 15:42 BMI result Body Mass Index 21.9 Tobacco/Smoking Status: Tobacco use Status Tobacco use date assessed 02/09/25 02/09/25 16:01 Patient Tobacco Use Status Former Tobacco user 02/09/25 16:01 Tobacco use type Cigarette 02/09/25 16:01 e-Cigarette/Vaping Use Never Used 02/09/25 16:01 PHQ-9: PHQ-9 Score PHQ-9: Total score 2 02/09/25 16:17 Depression Screening Interpretation: Negative Thrive Assessment: Date of Thrive Assessment Date Thrive assessed 02/09/25 02/09/25 16:01 Currently or been in a relationship where the following occur: No concerns reported Const General: healthy appearing, no acute distress, alert and awake Nutritional Appearance: well nourished Orientation/consciousness: oriented to person, oriented to place and oriented to time HENMT Ears: TM's normal bilaterally General nose exam: Normal nasal mucous membranes and turbinates present Eyes Conjunctivae: conjunctivae normal Sclerae: sclerae normal Pupils: Equal, round and reactive pupils present Neck Neck: Yes no lymphadenopathy and Yes no JVD Thyroid: Thyroid normal Carotids: no bruits Resp Effort & Inspection: normal respiratory effort and not tachypneic Auscultation: no crackles, no rales, no rhonchi and no wheezes Cardio Rate: regular rate Rhythm: regular rhythm Heart sounds: no murmurs and normal S1 and S2 GI Palpation (GI): Soft to palpation, nontender, no hepatomegaly and no splenomegaly Auscultation: normal bowel sounds General: Yes no CVA tenderness Back/Spine/Pelvis Back: no CVA tenderness Skin General skin exam: no rashes or lesions noted and dry skin Neuro General: oriented to person, oriented to place and oriented to time Cranial nerves: Yes Equal, round and reactive pupils present Speech: No Abnormal speech present Gait exam (Neuro): Normal gait present Motor exam (neuro): no tremor noted Extrem Right upper extremity: full ROM and Extremity exam: right hand (Puffy fingers) Details: swelling Left upper extremity: full ROM and hand (Puffy fingers) Details: swelling Right lower extremity: full ROM and edema Details: non-pitting and 1+ Left lower extremity: full ROM and edema Details: non-pitting and 1+ Psych Mental Status: mental status grossly normal Speech and movement: Normal speech and movement present Affect: normal affect Attitude: cooperative Thought process: Normal thought process present Results Reviewed Results Reviewed: Laboratory Tests 01/13/25 01/13/25 15:06 15:13 WBC 10.3 RBC 3.85 L Hgb 11.9 L Hct 36.1 L MCV 93.8 MCH 30.9 MCHC 33.0 RDW 13.8 Plt Count 304 D Sodium 139 Potassium 4.2 Chloride 104 Carbon Dioxide 25 Anion Gap 14 BUN 16 Creatinine 0.73 Estim Creat Clear Calc 51.6 Estimated GFR > 60 Random Glucose 92 Calcium 10.4 H D Magnesium 1.7 Total Bilirubin 1.0 Direct Bilirubin 0.3 AST 29 ALT 9 Alkaline Phosphatase 80 Ammonia 25 B-Natriuretic Peptide 147 H Total Protein 8.2 H Albumin 4.0 Lipase 14 Urine Color Yellow Urine Appearance Clear Urine pH 7.0 Ur Specific [place] <= 1.005 Urine Protein Negative Urine Glucose (UA) Negative Urine Ketones Negative Urine Blood Negative Urine Nitrite Negative Ur Leukocyte Esterase Negative Urine RBC 0-2 Urine WBC 0-5 Ur Squamous Epith Cells 0-2 Urine Bacteria None Seen Hyaline Casts 0-2 Coding Level of Care Code Est Pt Level 4 (44966) Diagnoses Serum calcium elevated E83.52 Bilateral carpal tunnel syndrome G56.03 Weakness of both lower extremities R29.898 Laterality: bilateral Meningioma D32.9 Acquired hypothyroidism E03.9 Hypothyroidism type: acquired Essential hypertension I10 Hypertension type: essential hypertension Time Spent (min) 41 Assessment & Plan Assessment & Plan (1) Serum calcium elevated: Code(s): E83.52 - Hypercalcemia Category: Medical Plan: Recent calcium 10.4. Hold calcium supplement until repeat scheduled labs resulted, a decision will be made based on results. PTH ordered to further evaluate. (2) Bilateral carpal tunnel syndrome: Code(s): G56.03 - Carpal tunnel syndrome, bilateral upper limbs Category: Medical Plan: Patient reports history of bilateral carpal tunnel that has been on hold due to more pressing issues. Plans to revisit surgical intervention in the future. (3) Lower extremity weakness: Code(s): R29.898 - Other symptoms and signs involving the musculoskeletal system Category: Medical Qualifiers: Laterality: bilateral Qualified Code(s): R29.898 - Other symptoms and signs involving the musculoskeletal system Plan: Verbalized an increased lower extremity strength via physical therapy. No ataxia or extraneous movements. (4) Meningioma: Comment: July 2019 , May 2020 Code(s): D32.9 - Benign neoplasm of meninges, unspecified Category: Medical Plan: Post surgical removal of meningioma at [facility]. Incision lying go across frontoparietal region. The patient is alert and oriented x4. No dizziness, nausea, vomiting. Pupils equally reactive to light. No droop, no drift, no ataxia or lost sensation. (5) Hypothyroidism: Code(s): E03.9 - Hypothyroidism, unspecified Category: Medical Qualifiers: Hypothyroidism type: acquired Qualified Code(s): E03.9 - Hypothyroidism, unspecified Plan: Continue levothyroxine 100 mcg as ordered No recent TSH/T4 We will advise after ordered labs completed (6) Hypertension: Code(s): I10 - Essential (primary) hypertension Category: Medical Qualifiers: Hypertension type: essential hypertension Qualified Code(s): I10 - Essential (primary) hypertension Plan: Blood pressure is on lower side today in office. The patient atenolol was already discontinued previously. Encouraged patient/daughter to monitor blood pressure and contact the office with elevated or decreased blood pressure readings. Orders: Orders Complete Blood Count Auto Diff 2 Months D32.9 - Benign neoplasm of meninges, unspecified, E03.9 - Hypothyroidism, unspecified, E83.52 - Hypercalcemia, F41.1 - Generalized anxiety disorder, I10 - Essential (primary) hypertension, R29.898 - Other symptoms and signs involving the musculoskeletal system, R79.89 - Other specified abnormal findings of blood chemistry Comprehensive [place]. Panel Fast 2 Months D32.9 - Benign neoplasm of meninges, unspecified, E03.9 - Hypothyroidism, unspecified, E83.52 - Hypercalcemia, F41.1 - Generalized anxiety disorder, I10 - Essential (primary) hypertension, R29.898 - Other symptoms and signs involving the musculoskeletal system, R79.89 - Other specified abnormal findings of blood chemistry UA CC w/rflx Micro + Cult 2 Months D32.9 - Benign neoplasm of meninges, unspecified, E03.9 - Hypothyroidism, unspecified, E83.52 - Hypercalcemia, F41.1 - Generalized anxiety disorder, I10 - Essential (primary) hypertension, R29.898 - Other symptoms and signs involving the musculoskeletal system, R79.89 - Other specified abnormal findings of blood chemistry Vitamin D 25-OH Total 2 Months D32.9 - Benign neoplasm of meninges, unspecified, E03.9 - Hypothyroidism, unspecified, E83.52 - Hypercalcemia, F41.1 - Generalized anxiety disorder, I10 - Essential (primary) hypertension, R29.898 - Other symptoms and signs involving the musculoskeletal system, R79.89 - Other specified abnormal findings of blood chemistry Glucose Fasting 2 Months D32.9 - Benign neoplasm of meninges, unspecified, E03.9 - Hypothyroidism, unspecified, E83.52 - Hypercalcemia, F41.1 - Generalized anxiety disorder, I10 - Essential (primary) hypertension, R29.898 - Other symptoms and signs involving the musculoskeletal system, R79.89 - Other specified abnormal findings of blood chemistry Magnesium 2 Months D32.9 - Benign neoplasm of meninges, unspecified, E03.9 - Hypothyroidism, unspecified, E83.52 - Hypercalcemia, F41.1 - Generalized anxiety disorder, I10 - Essential (primary) hypertension, R29.898 - Other symptoms and signs involving the musculoskeletal system, R79.89 - Other specified abnormal findings of blood chemistry Lipid Panel 2 Months D32.9 - Benign neoplasm of meninges, unspecified, E03.9 - Hypothyroidism, unspecified, E83.52 - Hypercalcemia, F41.1 - Generalized anxiety disorder, I10 - Essential (primary) hypertension, R29.898 - Other symptoms and signs involving the musculoskeletal system, R79.89 - Other specified abnormal findings of blood chemistry TSH reflex Free T4 2 Months D32.9 - Benign neoplasm of meninges, unspecified, E03.9 - Hypothyroidism, unspecified, E83.52 - Hypercalcemia, F41.1 - Generalized anxiety disorder, I10 - Essential (primary) hypertension, R29.898 - Other symptoms and signs involving the musculoskeletal system, R79.89 - Other specified abnormal findings of blood chemistry PTH Intact Intraoperative 2 Months D32.9 - Benign neoplasm of meninges, unspecified, E03.9 - Hypothyroidism, unspecified, E83.52 - Hypercalcemia, F41.1 - Generalized anxiety disorder, I10 - Essential (primary) hypertension, R29.898 - Other symptoms and signs involving the musculoskeletal system, R79.89 - Other specified abnormal findings of blood chemistry
== END 2025-02-09 16:56 | disposition home or self-care (01) ==
LOC: HO.HMCH 15:30
PROVIDERS: PCP Internal Medicine
DX: E83.52 Hypercalcemia (principal); G56.03 Carpal tunnel syndrome, bilateral upper limbs; R29.898 Other symptoms and signs involving the musculoskeletal system; D32.9 Benign neoplasm of meninges, unspecified; E03.9 Hypothyroidism, unspecified; I10 Essential (primary) hypertension

== ENCOUNTER → 2025-02-09 15:29 | Outpatient (BNVA) | payer MEDICARE, SELFPAY | PROVIDERS: PCP Internal Medicine | DX: E83.52 Hypercalcemia (principal); G56.03 Carpal tunnel syndrome, bilateral upper limbs; R29.898 Other symptoms and signs involving the musculoskeletal system; D32.9 Benign neoplasm of meninges, unspecified; E03.9 Hypothyroidism, unspecified; I10 Essential (primary) hypertension | CPT/HCPCS: 99212 ==

== ENCOUNTER → 2025-02-19 23:59 | Outpatient (BNV) | payer MEDICARE, SELFPAY | PROVIDERS: PCP Internal Medicine; Visit Provider Internal Medicine | DX: N39.0 Urinary tract infection, site not specified (principal); F32.A Depression, unspecified; I95.9 Hypotension, unspecified | CPT/HCPCS: G0180 ==

== ENCOUNTER 2025-04-04 10:53 | Outpatient (AMB) | payer MEDICARE, SELFPAY ==
[2025-04-04 11:03] VITALS: BP 124/54; PULSE 95; O2SAT 99; BMI 22.2
--- NOTE | 2025-04-04 11:03 | MHC.PC.OV ---
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: No Accompanied by: Daughter Allergies sertraline Adverse Reaction (Intermediate, Verified 04/04/25 11:20) Diarrhea Medication List - Last Reconciled 04/04/25 by Clarissa Maya PA-C acetaminophen 650 mg PO Q6H PRN calcium carbonate-vitamin D3 600 mg-5 mcg (200 unit) 1 cap PO DAILY cranberry fruit 400 mg PO DAILY fluoxetine (Prozac) 10 mg PO DAILY gabapentin 100 mg PO TID levetiracetam 500 mg PO BID levothyroxine 100 mcg PO MOTUWETHFRSA@0600 [id number] 500 mcg- 750 mg (Nicotinamide (with chromium)) 1 tab PO DAILY melatonin mg PO BEDTIME pantoprazole 40 mg PO DAILY [Stair lift chair As directed] trazodone 12.5 mg (1/4 x 50 mg) PO BEDTIME 30 days Tobacco use date assessed: 02/09/25 Dental Screening Dental Screen Date: 02/09/25 HPI hypothyriod HPI Details 84-year-old female with past medical history of hypertension, hypothyroidism, osteoporosis last seen 01/2025 by [facility]GER [facility] coming in for follow up. Presenting with ongoing management of multiple chronic conditions. Initially suspected as glioblastoma following a CT scan, later confirmed as malignant meningioma after MRI and biopsy at [facility]. The patient underwent surgery and is currently receiving radiation therapy, experiencing alopecia and fatigue as side effects. The patient has been experiencing numbness and weakness in the hands, particularly affecting three fingers. Surgery was postponed and is now scheduled for April 25. The patient reports arthritis in the hands, possibly exacerbated by gardening activities. Family history includes arthritis in the father and brother. [facility] Medical History Incarcerated inguinal hernia (10/12/24) COVID-19 virus infection Ganglion, left wrist Skin lump of arm Pancreatic cyst Cervical spinal stenosis Meningioma Osteopenia Hypothyroidism Hypertension Polymyalgia rheumatica Surgical History Hx of craniotomy History of cholecystectomy Hx of endoscopy History of colonoscopy History of tonsillectomy and adenoidectomy History of tubal ligation Family History Father Alzheimers disease Mother Breast cancer Maternal Grandmother CVD (cardiovascular disease) Maternal Grandfather No problems noted. Paternal Grandmother CVD (cardiovascular disease) Paternal Grandfather No problems noted. 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 Cognitive needs: Yes (Walker) Hearing needs: No Vision needs: Yes (Glasses) Questionnaire Thrive Questionnaire Date Thrive assessed: 04/04/25 I am a: Patient What is your living situation today?: I have a steady place to live Within the past 12 months, did the food you bought not last and you didn't have the money to get more?: Never true Within the past 12 months, did you worry whether your food would run out before you got money to buy more?: Never true Do you have trouble paying for medicines?: No Do you have trouble getting transportation to medical appointments?: No Do you have trouble paying your heating and electricity bill?: No Do you have trouble taking care of your child, family member or friend?: No Do you have trouble with day-to-day activities such as bathing, preparing meals, shopping, managing finances, etc.?: No Are you currently unemployed and looking for a job?: No Are you interested in more education?: No Please select the resources that you would like help with: None Currently or been in a relationship where the following occur: No concerns reported THRIVE Score: 0 SILVIA-7 AMB Questionnaire SILVIA-7 Date SILVIA - 7 assessed: 04/04/25 Source: Developed by Drs. Franklyn Gutiérrez, Ariane Walsh, Handy Helm and colleagues, with an educational elayne from [employer]. Review of Systems Const Denies body aches, Denies chills, Denies fever(s), Denies headache(s) and Denies poor appetite Eyes Reports no additional complaints ENT Denies dysphagia, Denies dizziness, Denies headache(s) and Denies odynophagia Card Denies chest pain, Denies syncope, Denies edema, Denies irregular heart rhythm, Denies lightheadedness and Denies dyspnea Resp Denies cough and Denies dyspnea GI Denies abdominal pain, Denies constipation, Denies dysphagia, Denies diarrhea, Denies nausea, Denies odynophagia and Denies vomiting Reports no additional complaints Musc Reports no additional complaints and Denies abnormal gait Skin/Breast Reports system reviewed and no additional complaints, except as documented Neuro Denies abnormal gait, Denies dizziness, Denies syncope and Denies headache(s) Psych Reports no additional complaints Physical exam (Primary Care) Vital Signs: Last Vital Signs Pulse 95 04/04/25 11:03 BP 124/54 L 04/04/25 11:03 Pulse Ox 99 04/04/25 11:03 Oxygen Delivery Method Room Air 04/04/25 11:03 BMI result Body Mass Index 22.2 Tobacco/Smoking Status: Tobacco use Status Tobacco use date assessed 02/09/25 04/04/25 11:07 Patient Tobacco Use Status Former Tobacco user 04/04/25 11:07 Tobacco use type Cigarette 04/04/25 11:07 e-Cigarette/Vaping Use Never Used 04/04/25 11:07 Thrive Assessment: Date of Thrive Assessment Date Thrive assessed 04/04/25 04/04/25 11:11 Currently or been in a relationship where the following occur: No concerns reported Const General: cooperative, healthy appearing, comfortable and no acute distress Orientation/consciousness: patient oriented x3 HENMT Head: Yes normocephalic Ears: hearing grossly normal bilaterally General nose exam: Normal external nose present Eyes General: appearance normal, both eyes and all related structures Conjunctivae: conjunctivae normal Neck Neck: Yes full ROM and Yes no lymphadenopathy Resp Effort & Inspection: normal respiratory effort Auscultation: clear to auscultation bilaterally, no crackles, no rales, no rhonchi and no wheezes Cardio Rate: regular rate Rhythm: regular rhythm Skin General skin exam: no rashes or lesions noted Neuro General: patient oriented x3 Cranial nerves: Yes CN's II-XII intact bilaterally Gait exam (Neuro): Normal gait present Motor exam (neuro): 5/5 motor strength present throughout Extrem General: Yes normal to inspection, Yes full ROM and No edema Psych Affect: normal affect Attitude: cooperative Insight: Good insight present (Psych) Judgement: Good judgement present (Psych) Coding Level of Care Code Est Pt Level 3 (09642) Diagnoses Essential hypertension I10 Hypertension type: essential hypertension Acquired hypothyroidism E03.9 Hypothyroidism type: acquired Serum calcium elevated E83.52 Meningioma D32.9 Bilateral hand pain M79.641; M79.642 Assessment & Plan Assessment & Plan (1) Hypertension: Code(s): I10 - Essential (primary) hypertension Category: Medical Qualifiers: Hypertension type: essential hypertension Qualified Code(s): I10 - Essential (primary) hypertension Plan: Avoid salt intake and encourage healthy diet and regular exercise. Blood pressure values at home have been within normal limits with the occasional lows below 110/70. Advised patient to continue to monitor blood pressures and if they becomes symptomatically low to reach out to the office. She also recently completed a monitor with her pipe washer at [facility] plan to obtain these results. (2) Hypothyroidism: Code(s): E03.9 - Hypothyroidism, unspecified Category: Medical Qualifiers: Hypothyroidism type: acquired Qualified Code(s): E03.9 - Hypothyroidism, unspecified Plan: Reminded about blood work (3) Serum calcium elevated: Code(s): E83.52 - Hypercalcemia Category: Medical Plan: Recent calcium 10.4. Hold calcium supplement until repeat scheduled labs resulted, a decision will be made based on results. PTH ordered to further evaluate. (4) Meningioma: Comment: July 2019 , May 2020 Code(s): D32.9 - Benign neoplasm of meninges, unspecified Category: Medical Plan: Post surgical removal of meningioma at [facility]. The patient is alert and oriented x4. No dizziness, nausea, vomiting. Pupils equally reactive to light. No droop, no drift, no ataxia or lost sensation. Neurovascularly intact today continue to follow with Kaitlyn Fenton (5) Bilateral hand pain: Code(s): M79.641 - Pain in right hand; M79.642 - Pain in left hand Category: Medical Plan: Patient has known arthritis of bilateral hands. Plan to obtain rheumatoid factor for further evaluation. Plan The patient will continue radiation therapy for the management of malignant meningioma, with ongoing monitoring for side effects such as alopecia and fatigue. Blood pressure will be regularly monitored to prevent episodes of hypotension, and adjustments to medication will be considered if necessary. The patient is advised to maintain adequate hydration to support blood pressure stability. Carpal tunnel surgery is scheduled for April 25 to address hand numbness and weakness, with expectations managed regarding potential recovery outcomes. Further blood work is planned to monitor calcium and thyroid levels, with the possibility of resuming calcium supplements if levels normalize. The patient is encouraged to continue engaging in physical activities such as gardening, while being mindful of exacerbating arthritis symptoms. Follow-up appointments are scheduled for six months, with the option for earlier review if blood work results indicate the need. This note was constructed using voice recognition software. While every effort has been made to ensure accuracy and self propelled hot mix roller operator, still areas may have been included sometimes these areas may affect the content or meeting of the given symptoms. Total time spent caring for the patient today was 20 minutes. This includes time spent before the visit reviewing the chart, time spent during the visit, and time spent after the visit and documentation. Patient was informed and verbally consented to the use of an ambient scribe for clinic note documentation during this visit. Orders: Orders Rheumatoid Factor Today M79.641 - Pain in right hand, M79.642 - Pain in left hand
--- OUTSIDE RECORDS SUMMARY | 2025-04-04 11:42 | XMS_ITS | Clinical Summary ---
Author Organization [facility] Address [address] [place] [address] Care Team Providers Care Senior Manufacturing Supervisor Name Role Phone Unavailable Primary Care Provider [...] 65 06/27/2019 10:37 AM EDT Temperature 36.6 C (97.8 F) 06/27/2019 10:37 AM EDT Respiratory Rate 16 06/27/2019 10:37 AM EDT [...] 12/25/2021 12/26/2019 (Declined), 03/20/2016 Influenza Vaccine (#1) 2025 06/02/2018 DTap / Tdap / Td (2 - Td or Tdap) 03/01/2028 03/01/2018 Shingrix-Zoster Vaccine Completed 03/03/2019, 11/29 Hepatitis B Vaccines Aged Out No long er eligible based on patient's age to complete this topic RSV Ped < 20 months Aged Out No longe r eligible based on patient's age to complete this topic
--- OUTSIDE RECORDS SUMMARY | 2025-04-04 11:42 | XMS_ITS | Clinical Summary ---
Author Organization [address] Address [address] [place] [address] Phone Care Team Providers Care Optical Glass Sawyer Name Role Phone Luis Valderrama MD Primary Care Provider [phone] Encounters Date Type Department Care Team Description 02/02/2025 Lab Requisition [facility] [address] [place] [phone] Luis Valderrama MD Encounter for other general examination 01/30/2025 Lab Requisition [facility] [address] [place] [phone] Luis Valderrama MD Encounter for other general examination 01/26/2025 Lab Requisition [facility] [address] [place] [phone] Luis Valderrama MD Encounter for other general [...] 04/2017 benign, 05/2018 neg PMR (polymyalgia rheumatica) ([facility] V24) 2014 DX:PMR (polymyalgia rheumati ca) ([facility]);COMMENT:tapered off Prednisone 01/2016 Dr Smith Cervical spinal stenosis DX:Cerv ical spinal stenosis;COMMENT:02/2015 MRI-C mild stenosis C4-5 with severe cervical spondylosis Syncope DX:Syncope Meningioma, cerebral ([facility]/ C V24, [facility] V28) DX:Meningioma, cerebral ([facility] [...] 01/26/2025 Social Influencers of Health Screening 01/26/2025 Influenza Vaccine (#1) 2025 , 06/29/2023, 07/20/2022, Additional history exists Hypertension/CHF/CAD Annual BMP Blood Test 02/02/2026 02/02/2025, 01/26/2025, 01/17/2025, Additional history exists DTaP,Tdap,and Td Vaccines (3 - Td or Tdap) 03/01/2028 03/01/2018, 06/02/2016 Zoster Vaccines Completed 03/02/2019, 11/24/2018 Pneumococcal Vaccine: 50+ Years Completed 01/05/2022, 11/27/2016, 12/17/2015 HIB Vaccines Aged Out No longer eligi [...] Complete blood count (02/02/2025 6:23 AM EDT) [facility] WBC 6.2 4.8 - 10.8 K/mcL LAB HEM[facility]OLOG[facility] RBC 3.00(L) 3.80 - 4.80 M/mcL LAB HEMETOLOGY METHOD 02/02/2025 9:57 AM [facility] Hemoglobin 9.1(L) 11.5 - 16.0 g/dL LAB HEMETOLOGY METHOD 02/02/2025 9:57 AM [facility] Hematocrit 29.4(L) 35.0 - 47.0 % LAB HEMETOLOGY METHOD 02/02/2025 9:57 AM [facility] MCV 97.4 79.0 - 98.0 FL LAB HEMETOLOGY METHOD 02/02/2025 9:57 AM [facility] MCH 30.1 27.0 - 32.0 pcg LAB HEMETOLOGY METHOD 02/02/2025 9:57 AM [facility] MCHC 31.0(L) 32.0 - 37.0 g/dL LAB HEMETOLOGY METHOD 02/02/2025 9:57 AM [facility] RDW 14.6 11.0 - 15.0 % LAB HEMETOLOGY METHOD 02/02/2025 9:57 AM [facility] Platelets 405(H) 130 - 400 K/mcL LAB HEMETOLOGY METHOD 02/02/2025 9:57 AM EDT [facility] MPV 9.6 7.0 - 11.0 FL LAB HEMETOLOGY METHOD 02/02/2025 9:57 AM EDT [facility] NRBC 0.0 <1.0 % LAB [facility] 02/02/2025 9:57 AM EDT [facility] NRBC Absolute 0.00 <0.10 K/mcL [facility] 02/02/2025 9:57 AM EDT [facility] Blood Venous blood specimen / Unknown Venipuncture / Unknown 02/02/2025 6:23 AM EDT 02/02/2025 9:14 AM EDT us Luis Valderrama MD LAB BLOOD ORDERABLES Final Res ult [facility] [address] [place] [address], * (ABNORMAL) Comprehensive metabolic panel (02/02/2025 6:23 AM EDT) Only the most recent of2 resultswithin the time period is included. Sodium 140 133 - 145 mmol/L LAB CHEMISTRY METHOD 02/02/2025 10:30 AM [facility] Potassium 4.1 3.5 - 5.5 mmol/L LAB CHEMISTRY METHOD 02/02/2025 10:30 AM [facility] Chloride 106 96 - 110 mmol/L LAB CHEMISTRY METHOD 02/02/2025 10:30 AM [facility] CO2 26 21 - 32 mmol/L LAB CHEMISTRY METHOD 02/02/2025 10:30 AM [facility] Anion Gap 8 3 - 11 LAB CHEMISTRY METHOD 02/02/2025 10:30 AM [facility] Glucose 72 70 - 100 mg/dL LAB CHEMISTRY METHOD 02/02/2025 10:30 AM [facility] BUN 14 5 - 25 mg/dL LAB CHEMISTRY METHOD 02/02/2025 10:30 AM [facility] Creatinine 0.58 0.50 - 1.10 mg/dL LAB CHEMISTRY METHOD 02/02/2025 10:30 AM [facility] eGFR 89 >=60 mL/min/1. 73m2 LAB CHEMISTRY METHOD 02/02/2025 10:30 AM [facility] Comment:Calculation based on the Chronic Kidney Disease Epidemiology Collaboration (CKD-EPI) equation refit without adjustment for race. BUN/Creatinine Ratio 24.1 LAB CHEMISTRY METHOD 02/02/2025 10:30 AM [facility] Calcium 8.8 8.5 - 10.5 mg/dL LAB CHEMISTRY METHOD 02/02/2025 10:30 AM [facility] AST (SGOT) 22 10 - 42 unit/L LAB CHEMISTRY METHOD 02/02/2025 10:30 AM [facility] ALT (SGPT) 20 10 - 60 unit/L LAB CHEMISTRY METHOD 02/02/2025 10:30 AM [facility] Alkaline Phosphatase 102 42 - 121 unit/L LAB CHEMISTRY METHOD 02/02/2025 10:30 AM [facility] Total Protein 6.6 6.0 - 8.0 g/dL LAB CHEMISTRY METHOD 02/02/2025 10:30 AM [facility] Albumin 2.6(L) 3.2 - 5.0 g/dL LAB CHEMISTRY METHOD 02/02/2025 10:30 AM [facility] Total Bilirubin 0.3 0.0 - 1.4 mg/dL LAB CHEMISTRY METHOD 02/02/2025 10:30 AM [facility] Blood Venous blood specimen / Unknown Venipuncture / Unknown 02/02/2025 6:23 AM EDT 02/02/2025 9:14 AM EDT Luis Valderrama MD LAB BLOOD ORDERABLES Final Res ult [facility] [address] [place] [address], [place] [phone] * SST tube (01/30/2025 5:30 AM EDT) Extra Tube Hold for add-ons. 01/30/2025 12:01 PM EDT [facility] Comment:Auto resulted. Blood Venous blood specimen / Unknown Venipuncture / Unknown 01/30/2025 5:30 AM EDT 01/30/2025 10:07 AM EDT Luis Valderrama MD LAB BLOOD ORDERABLES Final Res ult Performing Organization Address [facility] Co de Phone Number [facility] [address] [place] [address], [place] [phone] * Levetiracetam level (01/30/2025 5:30 AM EDT) Pathologist [facility] Levetiracetam 14.6 3.0 - 60.0 ug/mL 02/01/2025 5:25 AM EDT [facility] Comment: Steady state trough serum or plasma levels following doses of 1000 to 3000 mg/Day: 3 to 37 ug/mL. The same dosage regimen will typically result in peak levels of 10 to 60 ug/mL, at approximately 1.5 hours post dose. If applicable, any drug confirmation testing reported here was developed and the performance characteristics determined by [facility]. This confirmation testing has not been cleared or approved by the FDA. The laboratory is regulated under CLIA as qualified to perform high-complexity testing. This test is used for patient testing purposes. It should not be regarded as investigational or for research. Test performed at [facility], [address] [place] [address] Theresa Nicholas MD, PhD - Plant Nursery Worker Blood Venous blood specimen / Unknown Venipuncture / Unknown 01/30/2025 5:30 AM EDT 01/30/2025 10:07 AM EDT us Luis Valderrama MD LAB BLOOD ORDERABLES Final Res ult [facility] [address] [place], [place] [id number] * (ABNORMAL) CBC auto differential (01/26/2025 6:02 AM EDT) Pathologist [facility] WBC 8.3 4.8 - 10.8 K/mcL LAB HEMETOLOGY METHOD [facility]2025 [facility] RBC 3.30(L) 3.80 - 4.80 M/mcL LAB HEMETOLOGY METHOD 01/26/2025 10:56 AM [facility] Hemoglobin 10.1(L) 11.5 - 16.0 g/dL LAB HEMETOLOGY METHOD 01/26/2025 10:56 AM [facility] Hematocrit 31.8(L) 35.0 - 47.0 % LAB HEMETOLOGY METHOD 01/26/2025 10:56 AM [facility] MCV 96.1 79.0 - 98.0 FL LAB HEMETOLOGY METHOD 01/26/2025 10:56 AM [facility] MCH 30.5 27.0 - 32.0 pcg LAB HEMETOLOGY METHOD 01/26/2025 10:56 AM [facility] MCHC 31.8(L) 32.0 - 37.0 g/dL LAB HEMETOLOGY METHOD 01/26/2025 10:56 AM [facility] RDW 14.6 11.0 - 15.0 % LAB HEMETOLOGY METHOD 01/26/2025 10:56 AM [facility] Platelets 487(H) 130 - 400 K/mcL LAB HEMETOLOGY METHOD 01/26/2025 10:56 AM [facility] MPV 9.8 7.0 - 11.0 FL LAB HEMETOLOGY METHOD 01/26/2025 10:56 AM [facility] NRBC 0.0 <1.0 % LAB HEMETOLOGY METHOD 01/26/2025 10:56 AM [facility] NRBC Absolute 0.00 <0.10 K/mcL LAB HEMETOLOGY METHOD 01/26/2025 10:56 AM [facility] Neutrophils Relative 54.3 % LAB HEMETOLOGY METHOD 01/26/2025 10:56 AM [facility] Lymphocytes Relative 32.5 % LAB HEMETOLOGY METHOD 01/26/2025 10:56 AM [facility] Monocytes Relative 8.5 % LAB HEMETOLOGY METHOD 01/26/2025 10:56 AM [facility] Eosinophils Relative 3.1 % LAB HEMETOLOGY METHOD 01/26/2025 10:56 AM [facility] Basophils Relative 0.2 % LAB HEMETOLOGY METHOD 01/26/2025 10:56 AM [facility] Immature Granulocytes Relative 1.4 % LAB HEMETOLOGY METHOD 01/26/2025 10:56 AM [facility] Neutrophils Absolute 4.49 1.50 - 7.00 K/mcL LAB HEMETOLOGY METHOD 01/26/2025 10:56 AM [facility] Lymphocytes Absolute 2.69 1.00 - 5.00 K/mcL LAB HEMETOLOGY METHOD 01/26/2025 10:56 AM [facility] Monocytes Absolute 0.70 0.20 - 1.00 K/mcL LAB HEMETOLOGY METHOD 01/26/2025 10:56 AM [facility] Eosinophils Absolute 0.26 0.00 - 0.50 K/mcL LAB HEMETOLOGY METHOD 01/26/2025 10:56 AM EDT [facility] Basophils Absolute 0.02 0.00 - 0.20 K/[facility] LAB HEMETOLOGY METHOD 01/26/2025 10:56 AM EDT [facility] Immature Granulocytes Absolute 0.12(H) 0.00 - 0.03 K/[facility] LAB HEMETOLOGY METHOD 01/26/2025 10:56 AM EDT [facility] Blood Venous blood specimen / Unknown Venipuncture / Unknown 01/26/2025 6:02 AM EDT 01/26/2025 10:07 AM EDT Luis Valderrama MD LAB BLOOD ORDERABLES Final Res ult [facility] [address] [place] [address], [place] [phone] * (ABNORMAL) Magnesium (01/26/2025 6:02 AM EDT) Magnesium 1.8(L) 1.9 - 2.6 mg/dL LAB CHEMISTRY METHOD 01/26/2025 11:34 AM EDT [facility] Blood Venous blood specimen / Unknown Venipuncture / Unknown 01/26/2025 6:02 AM EDT 01/26/2025 10:07 AM EDT us Luis Valderrama MD LAB BLOOD ORDERABLES Final Res ult [facility] [address] [place] [address], [place] [phone] from Last 3 Months Insurance MEDICARE [facility] Care Teams Optical Glass Sawyer Relationship Specialty Start Date End Date Luis Valderrama MD [address] [place] [id number] PCP - General Internal Medicine 01/26/25
== END 2025-04-04 11:53 | disposition home or self-care (01) ==
LOC: HO.HMCH 10:53
PROVIDERS: PCP Internal Medicine
DX: I10 Essential (primary) hypertension (principal); E03.9 Hypothyroidism, unspecified; E83.52 Hypercalcemia; D32.9 Benign neoplasm of meninges, unspecified; M79.641 Pain in right hand; M79.642 Pain in left hand

== ENCOUNTER → 2025-04-04 10:53 | Outpatient (BNVA) | payer MEDICARE, SELFPAY | PROVIDERS: PCP Internal Medicine | DX: E03.9 Hypothyroidism, unspecified (principal); I10 Essential (primary) hypertension; E83.52 Hypercalcemia; D32.9 Benign neoplasm of meninges, unspecified; M79.641 Pain in right hand; M79.642 Pain in left hand | CPT/HCPCS: 99212 ==

== ENCOUNTER 2025-04-06 09:27 | Outpatient (REF) | payer MEDICARE, SELFPAY ==
--- OUTSIDE RECORDS SUMMARY | 2024-12-21 07:00 | XMS_ITS ---
Author Organization [facility] Address [address] [place] [address] Care Team Providers Care Tobacco Grower Name Role Phone Claudia Smalls MD Primary Care Provider Franklyn Johnson [phone] REASON FOR VISIT pancreatitis Encounters Encounter Location Date Provider Diagnosis [facility] [address] [place] [phone] 12/21/2024 Franklyn Benton Plan Of Treatment No Information Progress Notes * DB ARRIETA CDOB:[birth year] (84 yo F)Acc No.[id number]:12/21/2024 Progress Notes Patient: DB ROSENBERG Provider: Shannan Benton MD :1940 A ge:84 Y S ex:Female Date:12/21/2024 Address:[address] [place], [place] [phone] Pcp:Claudia Smalls MD Subjective: * Chief Complaints: * 1 . Pancreatitis. * Medical History: Objective: * Vitals: Assessment: Plan: * Treatment: * * The named appointment provid er may or may not be the originator of this progress note, and it is not deemed complete until electronically signed by the appointment provider. Sign off status: Pending * Provider: Shannan Benton MD Date: 0 12/21/2024 Generated for Printi ng/Faxing/eTransmitting on: 04/06/2025 09:35 AM EDT
--- OUTSIDE RECORDS SUMMARY | 2025-04-06 09:35 | XMS_ITS | Encounter Summary ---
Author Organization [facility] Address [address] [place] [address] Phone Care Team Providers Care Press Operator Name Role Phone Claudia Smalls MD Primary Care Provider [phone] Jerrod Gray MD Unavailable [phone] Encounter Details Date Type Department Care Team (Late st Contact Info) Description 01/25/2025 Procedure Pass [facility] [address] [place] [address] Social History Tobacco Use Types Packs/Day Years Used Date Smoking Tobacco: Former Smokeless Tobacco: Never Alcohol Use Standard Drinks/Week Comments Not Currently 0 (1 standard drink = 0.6 oz pur e alcohol) Education Answer Date Recorded Are you interested in more education? Not on jaz e 01/15/2023 Are you concerned about learning? Not on file 01/15/2023 No 01/15/2023 No 01/15/2023 Food Answer Date Recorded Within the past 6 months we worried whether our food would run out before we got money to buy more. Never True 01/23/2025 Within the past 6 months the food we bought just didn't last and we didn't have enough money to get more. Never True Residential Stability Answer Date Recor ded What is your housing situation today? I have fazal erwin 01/23/2025 How many times have you move d in the past 12 months? Zero (I did not move) 01/23/2025 Paying for Meds Answer Date Recorded Do you have trouble paying for medicines? No 01/23/2025 Paying Utility Bills Answer Date Record ed Do you have trouble paying your heating or elect ricity bill? No 01/23/2025 Transportation Answer Date Recorded Has the lack of transportati on kept you from medical appointments or from getting medications? No 01/23/2025 Digital Access Answer Date Recorded No 01/23/2025 Yes 01/23/2025 Do you have reliable internet access at home? Ye s 01/23/2025 Do you have a device (e.g., phone, tablet, computer) with a working camera? Yes 01/23/2025 Intimate Partner Violence Answer Date R ecorded [...] on file documented as of this encounter Plan of Treatment Upcoming Encounters Date Type Department Care Team (Latest Contact Info) Description 03/01/2025 Procedure Pass [facility], [address] [address] 04/06/2025 12:50 PM EDT Treatment [facility] Rad Onc [address] [place] [address] 04/09/2025 12:50 PM EDT Treatment [facility] Rad Onc [address] [place] [address] Panda Graf MD [address] [place] [phone] [email or web address] 04/09/2025 1:00 PM EDT Procedure visit [facility] Onc [address] [place] [address] Panda Graf MD [address] [place] [id number] [email or web address] 04/10/2025 12:50 PM EDT Treatment [facility] Rad Onc [address] [place] [address] 04/11/2025 12:50 PM EDT Treatment [facility] Rad Onc [address] [place] [address] 04/12/2025 12:50 PM EDT Treatment [facility] Rad Onc [address] [place] [address] 04/13/2025 12:50 PM EDT Treatment [facility] Rad Onc [address] [place] [address] 04/16/2025 12:50 PM EDT Treatment [facility] Rad Onc [address] [place] [address] Panda Graf MD [address] [place] [phone] [email or web address] 04/16/2025 1:00 PM EDT Procedure visit [facility] Rad Onc [address] [place] [address] Panda Graf MD [address] [place] [id number] [email or web address] 04/17/2025 12:50 PM EDT Treatment [facility] Rad Onc [address] [place] [address] 04/18/2025 12:50 PM EDT Treatment [facility] Rad Onc [address] [place] [address] 04/19/2025 12:50 PM EDT Treatment [facility] Rad Onc [address] [place] [address] 04/20/2025 12:50 PM EDT Treatment [facility] Rad Onc [address] [place] [address] 04/23/2025 12:50 PM EDT Treatment [facility] Rad Onc [address] [place] [address] Panda Graf MD [address] [place] [phone] [email or web address] 04/23/2025 1:00 PM EDT Procedure visit [facility] Rad Onc [address] [place] [address] Panda Graf MD [address] [place] [phone] [email or web address] 05/01/2025 11:10 AM EDT Appointment [facility], [facility] - [address] [address] Karissa Valdez NP [address] [facility] [address] [place] [address] [email or web address] 05/04/2025 1:30 PM EDT Telemedicine - audio only [facility] [address]th [address], [address] [place] [address] Karissa Valdez, ROLAND [address] [facility] [address] [place] [address] [email or web address] documented as of this encounter Visit Diagnoses Not on filedocumented in this encounter Care Teams Press Operator Relationship Specialty Start Date End Date Claudia Smalls MD [address] [place] [address] [place] [phone] PCP - General Internal Medicine 07/29/20 Jerrod Gray MD [address] [place] [phone] [email or web address] Medical Oncology 01/22/25 documented as of this encounter Additional Source Comments The information contained in this document represents components of the legal health record. It is not the complete legal health record.[facility]
--- OUTSIDE RECORDS SUMMARY | 2025-04-06 09:35 | XMS_ITS | Clinical Summary ---
Author Organization [address] Address [address] [place] [address] Phone Care Team Providers Care Music Manager Name Role Phone Luis Valderrama MD Primary Care Provider [phone] Encounters Date Type Department Care Team Description 02/02/2025 Lab Requisition [facility] Lab [address] [place] [phone] Luis Valderrama MD Encounter for other general examination 01/30/2025 Lab Requisition [facility] Lab [address] [place] [phone] Luis Valderrama MD Encounter for other general examination 01/26/2025 Lab Requisition [facility] [address] [place] [phone] Luis Valderrama MD Encounter for other general [...] benign, 05/2018 neg PMR (polymyalgia rheumatica) ([facility] V24) 2014 DX:PMR (polymyalgia rheumati ca) ([facility]);COMMENT:tapered off Prednisone 01/2016 Dr Smith Cervical spinal stenosis DX:Cerv ical spinal stenosis;COMMENT:02/2015 MRI-C mild stenosis C4-5 with severe cervical spondylosis Syncope DX:Syncope Meningioma, cerebral ([facility]/ C V24, [facility] V28) DX:Meningioma, cerebral ([facility]);COMMENT:01/2019 MRI-B: small parasagittal posterior frontal meningioma: repeat [...] series) 2015 COVID-19 Vaccine ( season) 2024 Depression Screening 09/20/2024 Cholesterol Screening (Lipid Panel) 01/26/2025 01/03/2019 Falls Risk Assessment 01/26/2025 Medicare Annual Wellness [...] Complete blood count (02/02/2025 6:23 AM EDT) [facility] WBC 6.2 4.8 - 10.8 K/mcL LAB [facility] RBC 3.00(L) 3.80 - [...] LAB HEMETOLOGY METHOD 02/02/2025 9:57 AM EDT [facility] MPV 9.6 7.0 - 11.0 [place] LAB HEMETOLOGY METHOD 02/02/2025 9:57 AM EDT [facility] NRBC 0.0 <1.0 % [facility] 02/02/2025 9:57 AM EDT [facility] NRBC Absolute 0.00 <0.10 K/mcL [facility] 02/02/2025 9:57 AM EDT [facility] Blood Venous blood specimen / Unknown Venipuncture / Unknown 02/02/2025 6:23 AM EDT 02/02/2025 9:14 AM EDT us Luis Valderrama MD LAB BLOOD ORDERABLES Final Res ult [facility] [address] [place] [address], * (ABNORMAL) Comprehensive metabolic panel (02/02/2025 6:23 [...] MD LAB BLOOD ORDERABLES Final Res ult [facility] [address] [place] [address], [place] [phone] * SST tube (01/30/2025 5:30 AM EDT) Extra Tube Hold for add-ons. 01/30/2025 12:01 PM EDT [facility] Comment:Auto resulted. Blood Venous blood specimen / Unknown Venipuncture / Unknown 01/30/2025 5:30 AM EDT 01/30/2025 10:07 AM EDT Luis Valderrama MD LAB BLOOD ORDERABLES Final Res ult Performing Organization Address [facility] Co de Phone Number [facility] [address] [place] [address], [place] [phone] * Levetiracetam level (01/30/2025 5:30 AM EDT) Pathologist [facility] Levetiracetam 14.6 3.0 - 60.0 ug/mL 02/01/2025 5:25 AM EDT [facility] Comment: Steady state trough serum or plasma levels following doses of 1000 to 3000 mg/Day: 3 to 37 ug/mL. The same dosage regimen will typically result in peak levels of 10 to 60 ug/mL, at approximately 1.5 hours post dose. If applicable, any drug confirmation testing reported here was developed and the performance characteristics determined by [facility]. This confirmation testing has not been cleared or approved by the FDA. The laboratory is regulated under CLIA as qualified to perform high-complexity testing. This test is used for patient testing purposes. It should not be regarded as investigational or for research. Test performed at [facility], [address] [place] [address] Theresa Nicholas MD, PhD - Pensionholder Information Clerk Blood Venous blood specimen / Unknown Venipuncture / Unknown 01/30/2025 5:30 AM EDT 01/30/2025 10:07 AM EDT us Luis Valderrama MD LAB BLOOD ORDERABLES Final Res ult [facility] [address] [place], [place] [id number] * (ABNORMAL) CBC auto differential (01/26/2025 6:02 AM EDT) Pathologist [facility] WBC 8.3 4.8 - 10.8 K/mcL LAB [facility]Y [facility] RBC 3.30(L) 3.80 - [...] LAB HEMETOLOGY METHOD 01/26/2025 10:56 AM EDT [facility] Basophils Absolute 0.02 0.00 - 0.20 K/[facility] LAB HEMETOLOGY METHOD 01/26/2025 10:56 AM EDT [facility] Immature Granulocytes Absolute 0.12(H) 0.00 - 0.03 K/[facility] LAB HEMETOLOGY METHOD 01/26/2025 10:56 AM EDT [facility] Blood Venous blood specimen / Unknown Venipuncture / Unknown 01/26/2025 6:02 AM EDT 01/26/2025 10:07 AM EDT Luis Valderrama MD LAB BLOOD ORDERABLES Final Res ult [facility] [address] [place] [address], [place] [phone] * (ABNORMAL) Magnesium (01/26/2025 6:02 AM EDT) Magnesium 1.8(L) 1.9 - 2.6 mg/dL LAB CHEMISTRY METHOD 01/26/2025 11:34 AM EDT [facility] Blood Venous blood specimen / Unknown Venipuncture / Unknown 01/26/2025 6:02 AM EDT 01/26/2025 10:07 AM EDT us Luis Valderrama MD LAB BLOOD ORDERABLES Final Res ult [facility] [address] [place] [address], [place] [phone] from Last 3 Months Insurance [facility]IC[facility] Care Teams Music Manager Relationship Specialty Start Date End Date Luis Valderrama MD [address] [place] [phone] PCP - General Internal Medicine 01/26/25
--- OUTSIDE RECORDS SUMMARY | 2025-04-06 09:36 | XMS_ITS | Clinical Summary ---
Author Organization [facility] Address [address] [place] [address] Care Team Providers Care Meal Room Hand Name Role Phone Unavailable Primary Care Provider [...]
[2025-04-06 09:49] LABS: MANUAL DIFF FLAG NO
[2025-04-06 10:29] LABS: Hematocrit 38.7 % (37.0-47.0); Hemoglobin 12.3 g/dl (12.0-16.0); Imm Gran Abs Auto 0.02 X10*3/uL (0.00-0.03); Imm Gran Pct Auto 0.3 % (0.0-0.4); Lymphocytes Absolute Auto 2.0 X10*3/uL (1.2-4.9); Mean Corpuscular HGB Conc 31.8 g/dl (31.0-35.0); Mean Corpuscular Hemoglobin 29.4 pg (27.0-33.0); Mean Corpuscular Volume 92.4 fL (80.0-98.0); NRBC Abs Auto 0.000 X10*3/uL (0.0-0.012); NRBC Pct Auto 0.0 /100WBC (0.0-0.2); Platelet Count 343 X10*3/uL (160-400); Red Blood Count 4.19 X10*6/uL (4.20-5.50); White Blood Count 6.0 X10*3/uL (4.8-10.8)
[2025-04-06 10:31] LABS: Appearance Urine Clear; Glucose Urine UA Negative (Negative); PH 6.0 (5.0-9.0); Specific Gravity - Urine 1.015 (1.005-1.025); UMIC TRIGGER UACC YES
[2025-04-06 10:34] LABS: UACC Culture Trigger YES
[2025-04-06 11:28] LABS: Alanine Aminotransferase 8 U/L (0-31); Albumin Level 4.2 g/dL (3.5-5.0); Alkaline Phosphatase 95 U/L (39-117); Anion Gap 13 (12-20); Aspartate Amino Transferase 24 U/L (5-31); Blood Urea Nitrogen 18 mg/dL (9-16); Calcium 9.4 mg/dL (8.4-10.2); Carbon Dioxide 25 mmol/L (22-29); Chloride 107 mmol/L (96-108); Cholesterol 155 mg/dL (<200); Estimated Glomerular Filt Rate > 60; HDL Cholesterol 60 mg/dL (>40); Magnesium 1.8 mg/dL (1.6-2.6); Potassium 4.0 mmol/L (3.3-5.1); Sodium 141 mmol/L (135-145); Total Protein 8.4 g/dL (6.5-8.0); Triglycerides 126 mg/dL (<150)
[2025-04-06 11:50] LABS: Parathyroid Hormone Intact 39.3 pg/mL (8.7-77.1)
== END 2025-04-06 09:28 | disposition home or self-care (01) ==
LOC: HO.LAB 09:27
PROVIDERS: PCP Internal Medicine
DX: R22.0 Localized swelling, mass and lump, head (principal); M79.641 Pain in right hand; M79.642 Pain in left hand; R29.898 Other symptoms and signs involving the musculoskeletal system; F41.1 Generalized anxiety disorder; E03.9 Hypothyroidism, unspecified; I10 Essential (primary) hypertension; D32.9 Benign neoplasm of meninges, unspecified; R79.89 Other specified abnormal findings of blood chemistry; E83.52 Hypercalcemia
CPT/HCPCS: 36415; 80053; 80061; 81001; 82306; 83735; 83970; 84443; 85025; 85652; 86431; 87086; 87088; 87186

== ENCOUNTER 2025-04-18 10:31 | Outpatient (AMB) | payer MEDICARE, SELFPAY ==
--- NOTE | 2025-04-18 10:49 | MHC.OFFVIS ---
Vital Signs 04/18/25 10:56 Height 5 ft 5 in Weight 130 lb BMI 21.6 Intake Visit Reasons: Pre-Lt CTR 04/26/25 Intake Note: Tanisha 84 yr old right hand dominant female presents today with her daughter Christal for her pre op visit for her left carpal tunnel release that is scheduled for 04/26/[address] Smith. Allergies sertraline Adverse Reaction (Intermediate, Verified 04/18/25 10:55) Diarrhea HPI HPI Pre-Lt CTR 04/26/25: Details: Tanisha is an 84 year old right hand dominant woman who returns to discuss her bilateral carpal tunnel syndrome. She is here with her daughter. She continues to complain of numbness in the median nerve distribution bilaterally. Symptoms intermittent, but daily. She denies this being worse at night She says her symptoms have been worsening. *Please see my note from 10/24/24 for more information* [facility] Medical History Incarcerated inguinal hernia (10/12/24) COVID-19 virus infection Ganglion, left wrist Skin lump of arm Pancreatic cyst Cervical spinal stenosis Meningioma Osteopenia Hypothyroidism Hypertension Polymyalgia rheumatica Surgical History Hx of craniotomy History of cholecystectomy Hx of endoscopy History of colonoscopy History of tonsillectomy and adenoidectomy History of tubal ligation Family History Father Alzheimers disease Mother Breast cancer Maternal Grandmother CVD (cardiovascular disease) Maternal Grandfather No problems noted. Paternal Grandmother CVD (cardiovascular disease) Paternal Grandfather No problems noted. 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 Cognitive needs: Yes (Walker) Hearing needs: No Vision needs: Yes (Glasses) Review of Systems Const All systems reviewed & are unremarkable except as noted in HPI and below Physical Exam Vital Signs: BMI result Body Mass Index 21.6 Const General: cooperative, healthy appearing and no acute distress Orientation/consciousness: patient oriented x3 HEENT Head: Yes normocephalic and Yes atraumatic Eyes EOM: EOMs intact bilaterally Resp Effort & Inspection: normal respiratory effort and able to speak in complete sentences Cardio Jugular venous distension: no JVD Skin General skin exam: turgor normal Rashes: no rashes Neuro General: patient oriented x3 Extrem Other: Evaluation of Bilateral Upper Extremity: The patient is alert, oriented, and in no acute distress Neuro: Diminished sensation noted of the left hand in the median nerve distribution Normal sensation of the ulnar nerve distribution of the left hand and of the entire right hand in the office today Vascular: Cap refill brisk ROM: She can make a fist and extend all her digits Occasional subluxation of the small finger with activity, which resolves on its own. Subluxation of the left ring finger EDC tendon ulnarly when making a fist Subluxation of the left middle finger EDC tendon ulnarly when making a fist There is a Dupuytrens cord in the right hand traversing the mid-palm, without contractures There is a Dupuytrens cord in the left hand traversing the 1st webspace, without contractures. Nerve Conduction Study: IMPRESSION: 1. This is an abnormal study. 2. There is electrodiagnostic evidence for bilateral moderate-severe median neuropathy at the wrist, consistent with Carpal Tunnel Syndrome. 3. There is electrodiagnostic evidence for left ulnar neuropathy at the elbow. 4. There is electrodiagnostic evidence for left chronic C5-6 radiculopathy. Anusha Frias MD, GELY 12/21/24 Psych Appearance: grossly normal Affect: normal affect Attitude: cooperative Assessment & Plan Assessment & Plan (1) Bilateral carpal tunnel syndrome: Code(s): G56.03 - Carpal tunnel syndrome, bilateral upper limbs Category: Medical (2) Cubital tunnel syndrome on left: Code(s): G56.22 - Lesion of ulnar nerve, left upper limb Category: Medical (3) Frequent falls: Code(s): R29.6 - Repeated falls Category: Medical Plan Assessment & Plan: 1. Left carpal tunnel syndrome, moderate-severe Decreased subjective sensation in the median nerve distribution I educated her about this condition I discussed operative and non-operative treatment options The patient would like to proceed with surgery, beginning with the left hand I explained the risks of her sensation not returning, but that surgery is important to maintain muscle function and preserve any sensation possible. She expressed understanding The risks and benefits of operative treatment were discussed with the patient and the patient wishes to proceed with surgery. These risks include, but are not limited to risk of damage to blood vessels, nerves, tendons, infection, recurrence, incomplete relief of preoperative symptoms, persistent pain, possible need for further surgery and the risks associated with regional blocks and anesthesia. The plan is to take the patient to the operating room sometime on 04/26/25 for the following procedures: 1. Left carpal tunnel release, under local All of the preoperative paperwork including the consent was reviewed today. All the patient's questions were answered. She denies Diabetes, blood thinners, asthma, heart, lung, kidney issues 2. Right carpal tunnel syndrome, moderate-severe Symptoms intermittent, but daily, worse at night 3. 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 She is hesitant to proceed with surgery, given her age and the fact that she lives alone, but she is willing to consider this option if necessary 4. Left Dupuytrens disease With a cord traversing the 1st webspace No evidence of contracture 5. Right Dupuytrens disease With a cord traversing the mid-palm No evidence of contracture I educated her about this condition She is able to place her hands flat on a table surface No intervention warranted at this time, neither surgery nor Xiaflex 6. Right small finger MCP joint subluxation Occurs with certain hand motions Not particularly painful I do not recommend an arthrodesis She has an old hand orthosis from Dr. Hoskins, which unfortunately does not prevent subluxation with activities If this becomes more problematic, next steps would include sending her to OT for a new orthosis, to decrease subluxation when worn with activities 7. Left cubital tunnel syndrome Patient has no complaints of small finger numbness at this time Scribed for Christal Smith MD by Cuong Mujica, medical laboratory manager, on 04/18/25 at 11:05 AM, EST. Scribe Plan - Not visible on output: Scribed for Christal Smith MD by Cuong Mujica medical laboratory manager, on [ ] at [ ], EST. Coding Level of Care Code Est Pt Level 4 (47529) Diagnoses Bilateral carpal tunnel syndrome G56.03 Cubital tunnel syndrome on left G56.22 Frequent falls R29.6
[2025-04-18 10:56] VITALS: BMI 21.6
--- OUTSIDE RECORDS SUMMARY | 2025-04-18 11:29 | XMS_ITS | Clinical Summary ---
Author Organization [address] Address [address] [place] [address] Phone Care Team Providers Care Dye Range Feeder Name Role Phone Luis Valderrama MD Primary Care Provider Encounters Date Type Department Care Team Description 02/02/2025 Lab Requisition [facility] [address] [place] [phone] Luis Valderrama MD Encounter for other general examination 01/30/2025 Lab Requisition [facility] [address] [place] [phone] Lius Valderrama MD Encounter for other general examination 01/26/2025 Lab Requisition [facility] [address] [place] [phone] Luis Valderrama MD Encounter for other general [...] benign, 05/2018 neg PMR (polymyalgia rheumatica) ([facility] V24) 2014 DX:PMR (polymyalgia rheumati ca) ([facility]);COMMENT:tapered off Prednisone 01/2016 Dr Smith Cervical spinal stenosis DX:Cerv ical spinal stenosis;COMMENT:02/2015 MRI-C mild stenosis C4-5 with severe cervical spondylosis Syncope DX:Syncope Meningioma, cerebral ([facility]/ C V24, [facility] V28) DX:Meningioma, cerebral ([facility]);COMMENT:01/2019 MRI-B: small parasagittal posterior frontal meningioma: repeat [...] Complete blood count (02/02/2025 6:23 AM EDT) [facility] WBC 6.2 4.8 - 10.8 K/mcL LAB HEMETOLOGY METHOD [facility]25 [facility] RBC 3.00(L) 3.80 - 4.80 M/mcL LAB HEMETOLOGY METHOD 02/02/2025 9:57 AM [facility] Hemoglobin 9.1(L) 11.5 - 16.0 g/dL LAB HEMETOLOGY METHOD 02/02/2025 9:57 AM [facility] Hematocrit 29.4(L) 35.0 - 47.0 % LAB HEMETOLOGY METHOD 02/02/2025 9:57 AM [facility] MCV 97.4 79.0 - 98.0 FL LAB HEMETOLOGY METHOD 02/02/2025 9:57 AM [facility] MCH 30.1 27.0 - 32.0 pcg LAB HEMETOLOGY METHOD 02/02/2025 9:57 AM [facility] MCHC 31.0(L) 32.0 - 37.0 g/dL LAB HEMETOLOGY METHOD 02/02/2025 9:57 AM [facility] RDW 14.6 11.0 - 15.0 % LAB HEMETOLOGY METHOD 02/02/2025 9:57 AM [facility] Platelets 405(H) 130 - 400 K/mcL LAB HEMETOLOGY METHOD 02/02/2025 9:57 AM EDT [facility] MPV 9.6 7.0 - 11.0 FL LAB HEMETOLOGY METHOD 02/02/2025 9:57 AM EDT [facility] NRBC 0.0 <1.0 % [facility] 02/02/2025 9:57 AM EDT [facility] NRBC Absolute 0.00 <0.10 K/mcL [facility] 02/02/2025 9:57 AM EDT [facility] Blood Venous blood specimen / Unknown Venipuncture / Unknown 02/02/2025 6:23 AM EDT 02/02/2025 9:14 AM EDT us Luis Valderrama MD LAB BLOOD ORDERABLES Final Res ult [facility] [address] [place] [address], * (ABNORMAL) Comprehensive metabolic panel (02/02/2025 6:23 AM EDT) Only the most recent of2 resultswithin the time period is included. Sodium 140 133 - 145 mmol/L LAB CHEMISTRY METHOD 02/02/2025 10:30 AM [facility] Potassium 4.1 3.5 - 5.5 mmol/L LAB CHEMISTRY METHOD 02/02/2025 10:30 AM [facility] Chloride 106 96 - 110 mmol/L LAB CHEMISTRY METHOD 02/02/2025 10:30 AM [facility] CO2 26 21 - 32 mmol/L LAB CHEMISTRY METHOD 02/02/2025 10:30 AM [facility] Anion Gap 8 3 - 11 LAB CHEMISTRY METHOD 02/02/2025 10:30 AM [facility] Glucose 72 70 - 100 mg/dL LAB CHEMISTRY METHOD 02/02/2025 10:30 AM [facility] BUN 14 5 - 25 mg/dL LAB CHEMISTRY METHOD 02/02/2025 10:30 AM [facility] Creatinine 0.58 0.50 - 1.10 mg/dL LAB CHEMISTRY METHOD 02/02/2025 10:30 AM [facility] eGFR 89 >=60 mL/min/1. 73m2 LAB CHEMISTRY METHOD 02/02/2025 10:30 AM [facility] Comment:Calculation based on the Chronic Kidney Disease Epidemiology Collaboration (CKD-EPI) equation refit without adjustment for race. BUN/Creatinine Ratio 24.1 LAB CHEMISTRY METHOD 02/02/2025 10:30 AM [facility] Calcium 8.8 8.5 - 10.5 mg/dL LAB CHEMISTRY METHOD 02/02/2025 10:30 AM [facility] AST (SGOT) 22 10 - 42 unit/L LAB CHEMISTRY METHOD 02/02/2025 10:30 AM [facility] ALT (SGPT) 20 10 - 60 unit/L LAB CHEMISTRY METHOD 02/02/2025 10:30 AM [facility] Alkaline Phosphatase 102 42 - 121 unit/L LAB CHEMISTRY METHOD 02/02/2025 10:30 AM [facility] Total Protein 6.6 6.0 - 8.0 g/dL LAB CHEMISTRY METHOD 02/02/2025 10:30 AM [facility] Albumin 2.6(L) 3.2 - 5.0 g/dL LAB CHEMISTRY METHOD 02/02/2025 10:30 AM [facility] Total Bilirubin 0.3 0.0 - 1.4 mg/dL LAB CHEMISTRY METHOD 02/02/2025 10:30 AM [facility] Blood Venous blood specimen / Unknown Venipuncture / Unknown 02/02/2025 6:23 AM EDT 02/02/2025 9:14 AM EDT Luis Valderrama MD LAB BLOOD ORDERABLES Final Res ult [facility] [address] [place] [address], [place] [phone] * SST tube (01/30/2025 5:30 AM EDT) Extra Tube Hold for add-ons. 01/30/2025 12:01 PM EDT [facility] Comment:Auto resulted. Blood Venous blood specimen / Unknown Venipuncture / Unknown 01/30/2025 5:30 AM EDT 01/30/2025 10:07 AM EDT Luis Valderrama MD LAB BLOOD ORDERABLES Final Res ult Performing Organization Address [facility] Co de Phone Number [facility] [address] [place] [address], [place] [phone] * Levetiracetam level (01/30/2025 5:30 AM EDT) Pathologist [facility] [place] Levetiracetam 14.6 3.0 - 60.0 ug/mL 02/01/2025 5:25 AM EDT [facility] Comment: Steady state trough serum or plasma levels following doses of 1000 to 3000 mg/Day: 3 to 37 ug/mL. The same dosage regimen will typically result in peak levels of 10 to 60 ug/mL, at approximately 1.5 hours post dose. If applicable, any drug confirmation testing reported here was developed and the performance characteristics determined by [facility]. This confirmation testing has not been cleared or approved by the FDA. The laboratory is regulated under CLIA as qualified to perform high-complexity testing. This test is used for patient testing purposes. It should not be regarded as investigational or for research. Test performed at [facility], [address] [place] [address] Theresa Nicholas MD, PhD - Ordnance Technician Blood Venous blood specimen / Unknown Venipuncture / Unknown 01/30/2025 5:30 AM EDT 01/30/2025 10:07 AM EDT us Luis Valderrama MD LAB BLOOD ORDERABLES Final Res ult [facility] [address] [place], [place] [id number] * (ABNORMAL) CBC auto differential (01/26/2025 6:02 AM EDT) Pathologist [facility] [place] WBC 8.3 4.8 - 10.8 K/mcL LAB HEMETOLOGY METHOD 01/26/2025 10:56 [facility] RBC 3.30(L) 3.80 - 4.80 M/mcL LAB HEMETOLOGY METHOD 01/26/2025 10:56 AM [facility] Hemoglobin 10.1(L) 11.5 - 16.0 g/dL LAB HEMETOLOGY METHOD 01/26/2025 10:56 AM [facility] Hematocrit 31.8(L) 35.0 - 47.0 % LAB HEMETOLOGY METHOD 01/26/2025 10:56 AM [facility] MCV 96.1 79.0 - 98.0 FL LAB HEMETOLOGY METHOD 01/26/2025 10:56 AM [facility] MCH 30.5 27.0 - 32.0 pcg LAB HEMETOLOGY METHOD 01/26/2025 10:56 AM [facility] MCHC 31.8(L) 32.0 - 37.0 g/dL LAB HEMETOLOGY METHOD 01/26/2025 10:56 AM [facility] RDW 14.6 11.0 - 15.0 % LAB HEMETOLOGY METHOD 01/26/2025 10:56 AM [facility] Platelets 487(H) 130 - 400 K/mcL LAB HEMETOLOGY METHOD 01/26/2025 10:56 AM [facility] MPV 9.8 7.0 - 11.0 FL LAB HEMETOLOGY METHOD 01/26/2025 10:56 AM [facility] NRBC 0.0 <1.0 % LAB HEMETOLOGY METHOD 01/26/2025 10:56 AM [facility] NRBC Absolute 0.00 <0.10 K/mcL LAB HEMETOLOGY METHOD 01/26/2025 10:56 AM [facility] Neutrophils Relative 54.3 % LAB HEMETOLOGY METHOD 01/26/2025 10:56 AM [facility] Lymphocytes Relative 32.5 % LAB HEMETOLOGY METHOD 01/26/2025 10:56 AM [facility] Monocytes Relative 8.5 % LAB HEMETOLOGY METHOD 01/26/2025 10:56 AM [facility] Eosinophils Relative 3.1 % LAB HEMETOLOGY METHOD 01/26/2025 10:56 AM [facility] Basophils Relative 0.2 % LAB HEMETOLOGY METHOD 01/26/2025 10:56 AM [facility] Immature Granulocytes Relative 1.4 % LAB HEMETOLOGY METHOD 01/26/2025 10:56 AM [facility] Neutrophils Absolute 4.49 1.50 - 7.00 K/mcL LAB HEMETOLOGY METHOD 01/26/2025 10:56 AM [facility] Lymphocytes Absolute 2.69 1.00 - 5.00 K/mcL LAB HEMETOLOGY METHOD 01/26/2025 10:56 AM [facility] Monocytes Absolute 0.70 0.20 - 1.00 K/mcL LAB HEMETOLOGY METHOD 01/26/2025 10:56 AM [facility] Eosinophils Absolute 0.26 0.00 - 0.50 K/mcL LAB HEMETOLOGY METHOD 01/26/2025 10:56 AM EDT [facility] Basophils Absolute 0.02 0.00 - 0.20 K/[facility] LAB HEMETOLOGY METHOD 01/26/2025 10:56 AM EDT [facility] Immature Granulocytes Absolute 0.12(H) 0.00 - 0.03 K/[facility] LAB HEMETOLOGY METHOD 01/26/2025 10:56 AM EDT [facility] Blood Venous blood specimen / Unknown Venipuncture / Unknown 01/26/2025 6:02 AM EDT 01/26/2025 10:07 AM EDT Luis Valderrama MD LAB BLOOD ORDERABLES Final Res ult [facility] [address] [place] [address], [place] [phone] * (ABNORMAL) Magnesium (01/26/2025 6:02 AM EDT) Magnesium 1.8(L) 1.9 - 2.6 mg/dL LAB CHEMISTRY METHOD 01/26/2025 11:34 AM EDT [facility] Blood Venous blood specimen / Unknown Venipuncture / Unknown 01/26/2025 6:02 AM EDT 01/26/2025 10:07 AM EDT us Luis Valderrama MD LAB BLOOD ORDERABLES Final Res ult [facility] [address] [place] [address], [place] [phone] from Last 3 Months Insurance [facility] Care Teams Dye Range Feeder Relationship Specialty Start Date End Date Luis Valderrama MD [address] [place] [phone] PCP - General Internal Medicine 01/26/25
--- OUTSIDE RECORDS SUMMARY | 2025-04-18 11:29 | XMS_ITS | Encounter Summary ---
Author Organization [facility] Address [address] [place] [address] Phone Care Team Providers Care Animal Researcher Name Role Phone Claudia Smalls MD Primary Care Provider [phone] Jerrod Gray MD Unavailable Encounter Details Date Type Department Care Team (Late st Contact Info) Description 01/25/2025 Procedure Pass [facility] [address] [place] [address] Social History Tobacco Use Types Packs/Day Years [...] (Latest Contact Info) Description 03/01/2025 Procedure Pass [facility], [address] [address] 04/18/2025 12:50 PM EDT Treatment [facility] Rad Onc [address] [place] [address] 04/19/2025 1:00 PM EDT Treatment [facility] Onc [address] [place] [address] Panda rGaf MD [address] [place] [id number] [email or web address] 04/20/2025 1:00 PM EDT Treatment [facility] Rad Onc [address] [place] [address] Panda Graf MD [address] [place] [phone] [email or web address] 04/23/2025 12:40 PM EDT Treatment [facility] Onc [address] [place] [address] Panda Graf MD [address] [place] [id number] [email or web address] 04/23/2025 1:00 PM EDT Procedure visit [facility] Rad Onc [address] [place] [address] Panda Graf MD [address] [place] [id number] [email or web address] 05/01/2025 11:10 AM EDT Appointment [facility], [facility] - [address] [address] Karissa Valdez NP [address] [facility] [address] [place] [address] [email or web address] 05/04/2025 1:30 PM EDT Telemedicine - audio only [facility] [address] [facility], [address] [place] [address] Karissa Valdez, ROLAND [address] [facility] [address] [place] [address] [email or web address] 05/24/2025 2:00 PM EDT Office Visit [facility] Rad Onc [address] [place] [address] Panda Graf MD [address] [place] [address] [email or web address] documented as of this encounter Visit Diagnoses Not on filedocumented in this encounter Care Teams Animal Researcher Relationship Specialty Start Date End Date Po, Claudia Stark MD [address] [place] [address] [address] [place] [phone] PCP - General Internal Medicine 07/29/20 Jerrod Gray MD [address] [place] [phone] [email or web address] Medical Oncology 01/22/25 documented as of this encounter Additional Source Comments The information contained in this document represents components of the legal health record. It is not the complete legal health record.[facility]
--- OUTSIDE RECORDS SUMMARY | 2025-04-18 11:29 | XMS_ITS | Clinical Summary ---
Author Organization [facility] Address [address] [place] [address] Care Team Providers Care Taxation Accountant Name Role Phone Unavailable Primary Care Provider [...]
== END 2025-04-18 11:23 | disposition home or self-care (01) ==
LOC: HO.HOS 10:32
PROVIDERS: PCP Internal Medicine; Visit Provider Orthopaedic Surgery
DX: G56.03 Carpal tunnel syndrome, bilateral upper limbs (principal); G56.22 Lesion of ulnar nerve, left upper limb; R29.6 Repeated falls
CPT/HCPCS: 99214

== ENCOUNTER → 2025-04-18 10:31 | Outpatient (BNVA) | payer MEDICARE, SELFPAY | PROVIDERS: PCP Internal Medicine; Visit Provider Orthopaedic Surgery | DX: Z01.818 Encounter for other preprocedural examination (principal); G56.03 Carpal tunnel syndrome, bilateral upper limbs; G56.22 Lesion of ulnar nerve, left upper limb; R29.6 Repeated falls | CPT/HCPCS: 99212 ==

== ENCOUNTER 2025-04-26 09:49 | Day surgery (SDC) | payer MEDICARE, SELFPAY ==
--- OUTSIDE RECORDS SUMMARY | 2024-12-29 11:10 | XMS_ITS | Clinical Summary ---
Author Organization [facility] Address [address] [place] [address] Care Team Providers Care Media Relations Manager Name Role Phone Unavailable Primary Care Provider [...] neg PMR (polymyalgia rheumatica) ([facility]/HCC V24) 2014 DX:PMR (polymyalgia rheumati ca) ([facility]);COMMENT:tapered off Prednisone 01/2016 Dr Smith Cervical spinal stenosis DX:Cerv ical spinal stenosis;COMMENT:02/2015 MRI-C mild stenosis C4-5 with severe cervical spondylosis Syncope DX:Syncope Meningioma, cerebral (CMS/ C V24, CMS/HCC V28) DX:Meningioma, cerebral ([facility]);COMMENT:01/2019 MRI-B: small parasagittal posterior frontal meningioma: [...] - 2023-2 5 season) 2024 Influenza Vaccine (Season Ended) 2025 06/02/20 18 DTaP,Tdap,and Td Vaccines (2 - Td or [...]
--- OUTSIDE RECORDS SUMMARY | 2024-12-29 11:10 | XMS_ITS | Clinical Summary ---
Author Organization [facility] Address [address] [place] [address] Care Team Providers Care Manager Furniture Name Role Phone Unavailable Primary Care Provider [...]
[2025-02-05 08:34] VITALS: BMI 22.1
[2025-04-26 10:09] VITALS: BP 122/60; PULSE 84; RESP 12; TEMP 36.7; O2SAT 98; BMI 22.4
--- NOTE | 2025-04-26 10:37 | MHC.SHP ---
Pre-Procedural Eval Section A - 24 Hr Update-Section A only Date of Service: 04/26/25 The patient is an INPATIENT: No Changes since office visit: No Cold of Flu in the past 2 weeks, No New Medical Problems, No Changes in Medication and No Patient answered all questions The patient has been examined within 24 hours of the surgical procedure. The History & Physical has been completed within 30 days and I have reviewed it.: Yes Section B - Complete if H&P > 30 days Chief Complaint: Carpal tunnel syndrome, left upper limb Allergies: Allergies Allergy/AdvReac Type Severity Reaction Status Date / Time sertraline AdvReac Intermediate Diarrhea Verified 04/26/25 10:03 Plan Diagnosis/Plan: Unchanged I have reviewed the history and physical and performed a pertinent physical examination on my patient. No changes have occurred unless specified. Time Spent With Patient Time: Total time managing care of this patient today ____ minutes.
--- NOTE | 2025-04-26 10:38 | P.OP_ITS ---
Operative Note Operative Note Date of Service: 04/26/25 Narrative: Preop diagnosis: 1. Left Carpal tunnel syndrome Postop diagnosis: same Procedure: 1. Left Carpal tunnel release Surgeon: Christal Smith MD Agricultural Research Technologist: Duane BLUNT Anesthesia: local block using 1% lidocaine with epinephrine Findings: Thickened transverse carpal ligament. EBL: Less than 5 mL Specimens: None Complications: None Disposition: Brought to recovery room in stable condition Plan: Follow-up for 10-14 days for wound check and suture removal Indications: The patient is 84 years old, with left carpal tunnel syndrome that has been unresponsive to nonoperative management. The risks and benefits of operative treatment including but not limited to risk of damage to blood vessels, nerves, tendons, infection, persistent pain, persistent symptoms, or possible need for additional surgery were discussed with the patient and the patient wishes to proceed with surgery. Procedure: Once consent was obtained a local block was performed using a combination of 1% lidocaine with epinephrine. The patient was then brought back to the operating suite and placed on the operative table in supine position. The left upper extremity was prepped and draped in a standard surgical fashion. Once assured that we had a good block, a 2.0 cm longitudinal incision was made centered over the carpal tunnel. The incision was made through the skin to the subcutaneous tissues using a #15 blade. Dissection was made down to the level of the transverse carpal ligament with care being taken to protect the palmar cutaneous nerve. Once the transverse carpal ligament was clearly visualized, a longitudinal incision was made in the transverse carpal ligament 1st using a #15 blade, then using tenotomy scissors under direct visualization. Care was taken to look for and protect the motor branch of the median nerve when seen in this area. Once satisfied with our carpal tunnel release the wound was copiously irrigated with normal saline and hemostasis was obtained with a brief period of local pressure. The skin edges were reapproximated with some 5.0 nylon suture material and a sterile dressing was applied. The patient appears to have tolerated the procedure well and with no complications. All digits were well vascularized at the conclusion of the case.
[2025-04-26 12:17] VITALS: BP 125/79; PULSE 75; RESP 16; O2SAT 98
== END 2025-04-26 12:39 | disposition home or self-care (01) ==
PROVIDERS: Visit Provider Orthopaedic Surgery
PROC: (CPT 64721; principal; 2025-04-26 11:20)
DX: G56.02 Carpal tunnel syndrome, left upper limb (principal); R20.0 Anesthesia of skin; I10 Essential (primary) hypertension; E03.9 Hypothyroidism, unspecified; M35.3 Polymyalgia rheumatica; R29.6 Repeated falls; M85.80 Other specified disorders of bone density and structure, unspecified site; M48.02 Spinal stenosis, cervical region; K86.2 Cyst of pancreas; Z88.8 Allergy status to other drugs, medicaments and biological substances; D32.9 Benign neoplasm of meninges, unspecified; Z87.891 Personal history of nicotine dependence; Z98.890 Other specified postprocedural states
CPT/HCPCS: 64721; J0165; J2003

== ENCOUNTER → 2025-04-26 09:49 | Outpatient (BNV) | payer MEDICARE, SELFPAY | PROVIDERS: Visit Provider Orthopaedic Surgery | DX: G56.02 Carpal tunnel syndrome, left upper limb (principal) | CPT/HCPCS: 64721 ==

== ENCOUNTER 2025-05-09 10:54 | Outpatient (AMB) | payer MEDICARE, SELFPAY ==
[2025-05-09 11:03] VITALS: BMI 22.3
--- NOTE | 2025-05-09 11:03 | A.OFFVIS_ITS ---
Vital Signs 05/09/25 11:03 Height 5 ft 5 in Weight 134 lb BMI 22.3 Intake Visit Reasons: PO-Lt CTR 04/26/25 Intake Note: Tanisha is a 84 year old woman who presents today for post-operatively status post left carpal tunnel release, DOS: 04/26/[address] Smith. Patient reports she is doing well. She continues having numbness and tingling. She has discontinued her Percocet script. Sutures were removed and steri strips applied. Allergies sertraline Adverse Reaction (Intermediate, Verified 05/09/25 11:14) Diarrhea HPI HPI PO-Lt CTR 04/26/25: Details: Tanisha is a 84 year old woman who presents today for post-operatively status post left carpal tunnel release, DOS: 04/26/[address] Smith. Patient reports she is doing well. She continues having numbness and tingling. Patient states she is not surprised by this, as she was experiencing dense numbness prior to surgery and was told that she may not get normal sensation back. She has discontinued her Percocet script. Sutures were removed and steri strips applied. [facility] Medical History Incarcerated inguinal hernia (10/12/24) COVID-19 virus infection Ganglion, left wrist Skin lump of arm Pancreatic cyst Cervical spinal stenosis Meningioma Osteopenia Hypothyroidism Hypertension Polymyalgia rheumatica Surgical History Hx of craniotomy History of cholecystectomy Hx of endoscopy History of colonoscopy History of tonsillectomy and adenoidectomy History of tubal ligation Family History Father Alzheimers disease Mother Breast cancer Maternal Grandmother CVD (cardiovascular disease) Maternal Grandfather No problems noted. Paternal Grandmother CVD (cardiovascular disease) Paternal Grandfather No problems noted. 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 Neuro: Diminished sensation in the median nerve distribution of the left hand in the office today Vascular: Cap refill brisk Pain: No tenderness to palpation about the incision site on volar left wrist No pain with range of motion of the left hand ROM: Patient is able to make a closed fist and extend all digits of the left hand fully and without difficulty Skin: Well approximated and well healing incision site noted on the volar left wrist No lacerations or abrasions. General: No ecchymosis, erythema, or evidence of infection. Psych: Appears grossly normal Affect normal Attitude cooperative Assessment & Plan Assessment & Plan (1) Arthritis of both hands: Code(s): M19.041 - Primary osteoarthritis, right hand; M19.042 - Primary osteoarthritis, left hand Category: Medical (2) Bilateral carpal tunnel syndrome: Code(s): G56.03 - Carpal tunnel syndrome, bilateral upper limbs Category: Medical Plan 1. Status post left carpal tunnel release DOS 04/26/2025 Patient appears to be recovering very well postoperatively Patient is educated about the typical recovery course No under water or particularly dirty activities for the next week, nothing heavier than a cell phone for a further 2 weeks Patient is educated that due to her having dense numbness prior to surgery, there is an increased risk of not getting normal sensation back even after 9 months Patient understands this and is amenable to this plan Patient states that she would like to take some time to see how her recovery we will go from the left-sided carpal tunnel release prior to booking any right- sided intervention Patient states that in approximately 3 months, she feels she will have a better understanding of whether she would like to pursue further operative intervention Follow-up in 3 months for discussion of right carpal tunnel release, sooner with any acute concerns Orders: Referrals Rheumatology Referral M19.041 - Primary osteoarthritis, right hand, M19.042 - Primary osteoarthritis, left hand Coding Level of Care Code Global (78709) Diagnoses Arthritis of both hands M19.041; M19.042 Bilateral carpal tunnel syndrome G56.03
--- OUTSIDE RECORDS SUMMARY | 2025-05-09 12:15 | XMS_ITS | Clinical Summary ---
Author Organization [facility] Address [address] [place] [address] Care Team Providers Care Chemical Packager Name Role Phone Unavailable Primary Care Provider [...]
--- OUTSIDE RECORDS SUMMARY | 2025-05-09 12:15 | XMS_ITS | Encounter Summary ---
Author Organization [facility] Address [address] [place] [address] Phone Care Team Providers Care Caddymaster Name Role Phone Claudia Smalls MD Primary Care Provider [phone] Jerrod Gray MD Unavailable [phone] Encounter Details Date Type Department Care Team (Late st Contact Info) Description 01/25/2025 Procedure Pass [facility] [address] [place] [address] Social History Tobacco Use Types Packs/Day Years [...] (Latest Contact Info) Description 03/01/2025 Procedure Pass [facility], [facility] - [address] [address] 05/29/2025 2:30 PM EDT Telemedicine - audio only [facility] Rad Onc [address] [place] [address] Panda Graf MD [address] [place] [address] [email or web address] 09/03/2025 11:30 AM EST Appointment [facility], Mri - [facility] [address] [place] [address] Karissa Valdez NP [address] [facility] [address] [place] [address] [email or web address] 09/07/2025 3:00 PM EST Telemedicine - audio only [facility] Neuro[facility] [address] [facility], [address] [place] [address] Karissa Valdez NP [address] [facility] [address] [place] [address] [email or web address] documented as of this encounter Visit Diagnoses Not on filedocumented in this encounter Care Teams Caddymaster Relationship Specialty Start Date End Date Claudia Smalls MD [address] [place] [address] [place] [phone] PCP - General Internal Medicine 07/29/20 Jerrod Gray MD [address] [place] [email or web address] Medical Oncology 01/22/25 documented as of this encounter Additional Source Comments The information contained in this document represents components of the legal health record. It is not the complete legal health record.[facility]
--- OUTSIDE RECORDS SUMMARY | 2025-05-09 12:15 | XMS_ITS | Clinical Summary ---
Author Organization [address] Address [address] [place] [phone] Phone Care Team Providers Care Commodity Manager Name Role Phone Luis Valderrama MD Primary Care Provider [phone] Surgical History Surgery Date Site/Laterality Comments APPENDECTOMY [...] 04/2017 benign, 05/2018 neg PMR (polymyalgia rheumatica) (CMS/HCC V24) 2014 DX:PMR (polymyalgia rheumati ca) ([facility]);COMMENT:tapered off Prednisone 01/2016 Dr Smith Cervical spinal stenosis DX:Cerv ical spinal stenosis;COMMENT:02/2015 MRI-C mild stenosis C4-5 with severe cervical spondylosis Syncope DX:Syncope Meningioma, cerebral (CMS/HC C V24, CMS/HCC V28) DX:Meningioma, cerebral ([facility]);COMMENT:01/2019 MRI-B: small parasagittal posterior frontal meningioma: repeat [...] Procedure Name Priority Date/Time Associated Diagnosis Comments COMPREHENSIVE METABOLIC PANEL Routine 02/02/2025 6:23 AM EDT Encounter for other general examination from Last 3 Months or Most Recently Relevant to Health Maintenance Results * (ABNORMAL) Comprehensive metabolic panel (02/02/2025 6:23 AM EDT) Sodium 140 133 - 145 mmol/L LAB CHEMISTRY METHOD 02/02/2025 10:30 AM [facility] Potassium 4.1 3.5 - 5.5 mmol/L LAB CHEMISTRY METHOD 02/02/2025 10:30 AM [facility] Chloride 106 96 - 110 mmol/L LAB CHEMISTRY METHOD 02/02/2025 10:30 AM [facility] CO2 26 21 - 32 mmol/L LAB CHEMISTRY METHOD 02/02/2025 10:30 AM [facility] Anion Gap 8 3 - 11 LAB CHEMISTRY METHOD 02/02/2025 10:30 AM [facility] Glucose 72 70 - 100 mg/dL LAB CHEMISTRY METHOD 02/02/2025 10:30 AM [facility] BUN 14 5 - 25 mg/dL LAB CHEMISTRY METHOD 02/02/2025 10:30 AM [facility] Creatinine 0.58 0.50 - 1.10 mg/dL LAB CHEMISTRY METHOD 02/02/2025 10:30 AM [facility] eGFR 89 >=60 mL/min/1. 73m2 LAB CHEMISTRY METHOD 02/02/2025 10:30 AM [facility] Comment:Calculation based on the Chronic Kidney Disease Epidemiology Collaboration (CKD-EPI) equation refit without adjustment for race. BUN/Creatinine Ratio 24.1 LAB CHEMISTRY METHOD 02/02/2025 10:30 AM [facility] Calcium 8.8 8.5 - 10.5 mg/dL LAB CHEMISTRY METHOD 02/02/2025 10:30 AM [facility] AST (SGOT) 22 10 - 42 unit/L LAB CHEMISTRY METHOD 02/02/2025 10:30 AM [facility] ALT (SGPT) 20 10 - 60 unit/L LAB CHEMISTRY METHOD 02/02/2025 10:30 AM [facility] Alkaline Phosphatase 102 42 - 121 unit/L LAB CHEMISTRY METHOD 02/02/2025 10:30 AM [facility] Total Protein 6.6 6.0 - 8.0 g/dL LAB CHEMISTRY METHOD 02/02/2025 10:30 AM [facility] Albumin 2.6(L) 3.2 - 5.0 g/dL LAB CHEMISTRY METHOD 02/02/2025 10:30 AM [facility] Total Bilirubin 0.3 0.0 - 1.4 mg/dL LAB CHEMISTRY METHOD 02/02/2025 10:30 AM [facility] Blood Venous blood specimen / Unknown Venipuncture / Unknown 02/02/2025 6:23 AM EDT 02/02/2025 9:14 AM EDT us Luis Valderrama MD LAB BLOOD ORDERABLES Final Res ult [facility] [address] [place], [place] [address] [phone] from Last 3 Months or Most Recently Relevant to Health Maintenance Insurance MEDICARE [facility] Care Teams Commodity Manager Relationship Specialty Start Date End Date Luis Valderrama MD [address] [place] [id number] PCP - General Internal Medicine 01/26/25
== END 2025-05-09 11:29 | disposition home or self-care (01) ==
LOC: HO.HOS 10:54
PROVIDERS: PCP Internal Medicine
DX: M19.041 Primary osteoarthritis, right hand (principal); M19.042 Primary osteoarthritis, left hand; G56.03 Carpal tunnel syndrome, bilateral upper limbs
CPT/HCPCS: 99024

== ENCOUNTER → 2025-05-09 10:54 | Outpatient (BNVA) | payer MEDICARE, SELFPAY | PROVIDERS: PCP Internal Medicine | DX: G56.03 Carpal tunnel syndrome, bilateral upper limbs (principal); Z98.890 Other specified postprocedural states; M19.041 Primary osteoarthritis, right hand; M19.042 Primary osteoarthritis, left hand | CPT/HCPCS: 99212 ==

== ENCOUNTER 2025-08-07 13:26 | Outpatient (AMB) | payer MEDICARE, SELFPAY ==
--- OUTSIDE RECORDS SUMMARY | 2020-07-29 12:06 | XMS_ITS | Encounter Summary ---
Author Organization [facility] Address [address] [place] [address] [place] [phone] Phone Care Team Providers Care Game Design Instructor Name Role Phone Claudia Smalls MD Primary Care Provider [phone] Encounter Details Date Type Department Care Team (Late st Contact Info) Description 07/29/2020 12:06 PM [facility] Hospital Encounter [facility] [address] [place] [phone] Rosibel Morgan CNP [address] [place] [id number] [email or web address] Social History Tobacco Use Types Packs/Day Years Used Date Smoking Tobacco: Former Smokeless Tobacco: Never Alcohol Use Standard Drinks/Week Comments Not Currently 0 (1 standard drink = 0.6 oz pur e alcohol) Child or Family Care Answer Date Record ed Do you have problems with on e of the following making it difficult for you to work, study, or receive health care? No 02/01/2025 Education Answer Date Recorded Are you interested in more education? Not on jaz e 01/15/2023 Are you concerned about learning? Not on file 01/15/2023 No 01/15/2023 No 01/15/2023 Food Answer Date Recorded Within the past 6 months we worried whether our food would run out before we got money to buy more. Never True 02/01/2025 Within the past 6 months the food we bought just didn't last and we didn't have enough money to get more. Never True Residential Stability Answer Date Recor ded What is your housing situation today? I have fazal sing 02/01/2025 How many times have you move d in the past 12 months? Zero (I did not move) 02/01/2025 Paying for Meds Answer Date Recorded Do you have trouble paying for medicines? No 02/01/2025 Paying Utility Bills Answer Date Record ed Do you have trouble paying your heating or elect ricity bill? No 02/01/2025 Transportation Answer Date Recorded Has the lack of transportati on kept you from medical appointments or from getting medications? No 02/01/2025 Digital Access Answer Date Recorded No 02/01/2025 Yes 02/01/2025 Do you have reliable internet access at home? Ye s 02/01/2025 Do you have a device (e.g., phone, tablet, computer) with a working camera? Yes 02/01/2025 Intimate Partner Violence Answer Date R ecorded Are you denied basic needs s uch as food, clothing, or medical care? No 01/23/2025 In the past 12 months have y ou been in a relationship with a person who hurts, threatens, or tries to control you? No 01/23/2025 Are you denied basic needs s uch as food, clothing, or medical care? No 01/23/2025 In the past 12 months have y ou been in a relationship with a person who hurts, threatens, or tries to control you? No 01/23/2025 Comments No Sex and Gender Information Value Date Recorded Sex Assigned at Not on file Legal Sex Female 11:37 AM EST Gender Identity Not on file Sexual Orientation Not on file documented as of this encounter Functional Status * Calculated C-SSRS Risk Score (Lifetime/Recent) Answer Date of Assessment Author No Risk Indicated 01/23/2025 10:30 PM EDT Dav Lindquist RN * [place] Suicide Severity Rating Scale (Screener/Recent Self-Report) Question Answer Date of Assessment Author 1. Wish to be (Past 1 Month) No 01/23/2025 10:30 PM EDT Dav Berkowitz, MIGUEL 2. Non-Specific Active Suicidal Thoughts (Past 1 Month) No 01/23/2025 10:30 PM EDT Dav Berkowitz, MIGUEL 6. Suicidal Behavior (Lifetime) No 01/23/2025 10:30 PM EDT Dav Berkowitz RN documented as of this encounter Plan of Treatment Upcoming Encounters Date Type Department Care Team (Latest Contact Info) Description 03/01/2025 Procedure Pass [address] [place] [address] 09/03/2025 11:30 AM EST Appointment [address] [place] [address] Karissa Valdez, ROLAND [address] [facility] [address] [place] [address] [email or web address] 09/07/2025 3:00 PM EST Telemedicine - audio only [facility] [place] [facility] [address] [facility] [address], 9th Floor, [address] [place] [address] Karissa Valdez, ROLAND [address] [facility] [address] [place] [address] [email or web address] documented as of this encounter Procedures Procedure Name Priority Date/Time Associated Diagnosis Comments XR SHOULDER 2 VIEWS (RIGHT) Urgent/patient waiting 07/29/2020 12:13 PM EST Fall from slip, trip, or stumble, initial encounter documented in this encounter Results * XR SHOULDER 2 VIEWS (RIGHT) (07/29/2020 12:13 PM EST) Anatomical Region Laterality Modality Shoulder Right Radiographic Karie ging 07/29/2020 12:1 5 PM EST Impressions 07/29/2020 12:16 PM EST Comminuted and impacted fracture proximal humerus. POS - [id number] Narrative 07/29/2020 12:16 PM EST COMPARISON: None FINDINGS: Frontal, oblique, and transscapular Y-views were obtained disclosing a mildly comminuted and impacted fracture of the humeral neck. No gross glenohumeral dislocation. Remainder the visualized regional skeletal structures are intact. Visualized right upper lung field is clear. Procedure Note Dank Fowler MD - 07/29/2020 COMPARISON: None FINDINGS: Frontal, oblique, and transscapular Y-views were obtained disclosing amildly comminuted and impacted fracture of the humeral neck. No grossglenohumeral dislocation. Remainder the visualized regional skeletalstructures are intact. Visualized right upper lung field is clear. IMPRESSION: Comminuted and impacted fracture proximal humerus. POS - [id number] Rosibel Morgan RFID ENGINEER IMG XR UPPER EXTREMITY Edwige l Result documented in this encounter Visit Diagnoses Not on filedocumented in this encounter Care Teams Game Design Instructor Relationship Specialty Start Date End Date Claudia Smalls MD [address] [place] [id number] PCP - General Internal Medicine 07/29/20 documented as of this encounter Additional Source Comments The information contained in this document represents components of the legal health record. It is not the complete legal health record.[facility]
--- OUTSIDE RECORDS SUMMARY | 2024-12-21 06:00 | XMS_ITS ---
Author Organization [facility] Address [address] [place] [address] Care Team Providers Care Pouncer Machine Name Role Phone Claudia Smalls MD Primary Care Provider Franklyn Johnson [phone] REASON FOR VISIT pancreatitis Encounters Encounter Location Date Provider Diagnosis [facility] [address] [place] [phone] 12/21/2024 Franklyn Benton Plan Of Treatment No Information Progress Notes * MEENAKSHI, DB CDOB:[birth year] (85 yo F)Acc No.[id number]:12/21/2024 Progress Notes Patient: DB ROSENBERG Provider: Shannan Benton MD :1940 A ge:84 Y S ex:Female Date:12/21/2024 Address:[address] [address] [place], [place] [id number] Pcp:Claudia Smalls MD Subjective: * Chief Complaints: * P ancreatitis * The named appointment provid er may or may not be the originator of this progress note, and it is not deemed complete until electronically signed by the appointment provider. Sign off status: Pending * Provider: Shannan Benton MD Date: 0 12/21/2024 Generated for Printi ng/Faxing/eTransmitting on: 10/08/2024 06:22 AM EST
--- NOTE | 2025-08-07 13:30 | MHC.OFFVIS ---
Vital Signs 08/07/25 13:36 Height 5 ft 5 in Weight 134 lb BMI 22.3 Intake Visit Reasons: OV- discuss R CTR Intake Note: Tanisha is an 85 year old right hand dominant female who presents today for Follow Up of her Right Carpal Tunnel Syndrome. She was last evaluated by Dr. Smith on 04/18/25. At that time, her symptoms were intermittent but daily, worse at night. Today, patient reports her symptoms remain the same. She would like to hold off on scheduling Right Carpal Tunnel Release as she is afraid her numbness and tingling wont resolve. Status post Left Carpal Tunnel Release 04/26/[address] Smith. IMPRESSION 01/17/25: 1. This is an abnormal study. 2. There is electrodiagnostic evidence for bilateral moderate-severe median neuropathy at the wrist, consistent with Carpal Tunnel Syndrome. 3. There is electrodiagnostic evidence for left ulnar neuropathy at the elbow. Allergies sertraline Adverse Reaction (Intermediate, Verified 08/07/25 13:36) Diarrhea HPI HPI OV- discuss R CTR: Details: Tanisha is an 85 year old right hand dominant female who presents today for Follow Up of her Right Carpal Tunnel Syndrome. She was last evaluated by Dr. Smith on 04/18/25. At that time, her symptoms were intermittent but daily, worse at night. Today, patient reports her symptoms remain the same. She would like to hold off on scheduling Right Carpal Tunnel Release as she is afraid her numbness and tingling wont resolve. Status post Left Carpal Tunnel Release 04/26/[address] Smith. Of note, the patient does state that what is bothering her more is a right ring finger trigger finger, for which she has had an injection in the past and got good relief. IMPRESSION 01/17/25: 1. This is an abnormal study. 2. There is electrodiagnostic evidence for bilateral moderate-severe median neuropathy at the wrist, consistent with Carpal Tunnel Syndrome. 3. There is electrodiagnostic evidence for left ulnar neuropathy at the elbow. [facility] Medical History Incarcerated inguinal hernia (10/12/24) COVID-19 virus infection Ganglion, left wrist Skin lump of arm Pancreatic cyst Cervical spinal stenosis Meningioma Osteopenia Hypothyroidism Hypertension Polymyalgia rheumatica Surgical History Hx of craniotomy History of cholecystectomy Hx of endoscopy History of colonoscopy History of tonsillectomy and adenoidectomy History of tubal ligation Family History Father Alzheimers disease Mother Breast cancer Maternal Grandmother CVD (cardiovascular disease) Maternal Grandfather No problems noted. Paternal Grandmother CVD (cardiovascular disease) Paternal Grandfather No problems noted. 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 Neuro: Diminished sensation of the tips of the median nerve distribution of bilateral hands in the office today Normal sensation of the tips of the ulnar nerve distribution of bilateral hands in the office today Vascular: Cap refill brisk Pain: Pain with locking and catching of bilateral ring fingers Tenderness to palpation of bilateral ring finger A1 pulleys ROM: Visible and palpable locking and catching of bilateral ring fingers Patient is able to flex and extend all other digits of bilateral hands fully and without difficulty Skin: Well approximated and well healed incision site noted on the volar left wrist No lacerations or abrasions. General: No ecchymosis, erythema, or evidence of infection. Psych: Appears grossly normal Affect normal Attitude cooperative Office Procedures AMB Tendon Injection Tendon Injection 95310-[id number] Tendon Sheath Injection All charges added?: Procedure code (CPT) selection complete Assessment & Plan Assessment & Plan (1) Acquired trigger finger of both ring fingers: Code(s): M65.341 - Trigger finger, right ring finger; M65.342 - Trigger finger, left ring finger Category: Medical Plan 1. Right ring finger trigger finger The risks and benefits of a steroid injection including but not limited to risk of damage to blood vessels, nerves, tendons, infection, skin bleaching, failure to improve symptoms, increased pain, and possible need for further injections or other intervention were discussed with the patient and the patient wishes to proceed with the steroid injection. Once consent was obtained, I sterilely prepped the area over the A1 debbie of the flexor tendon sheath of the right ring finger. I then injected the flexor tendon sheath with a combination of 1 mL of dexamethasone (4mg/ml), and 1% lidocaine. The patient tolerated the procedure well with no complications. If the patient continues to have locking and catching 4-6 weeks following this injection, they may call to schedule appointment to discuss alternative treatment options Follow-up prn Coding Level of Care Code Est Pt Level 3 (67503) Diagnoses Acquired trigger finger of both ring fingers M65.341; M65.342 CPT Codes Tendon Injection - Tendon Injection 1: 64380-[id number] Tendon Sheath Injection ([id number])
[2025-08-07 13:36] VITALS: BMI 22.3
--- OUTSIDE RECORDS SUMMARY | 2025-08-08 06:22 | XMS_ITS | Patient Health Record ---
Author Organization [facility] Address [address] [place] [address] Care Team Providers Care Coil Winder Name Role Phone Claudia Smalls MD Primary Care Provider Franklyn Johnson Unavailable [phone] Allergies No Known Allergies Results Component Value Reference Range Flag Notes Complete Blood Count Auto Di ff Reviewed date:08/15/2024 01:01:42 PM Interpretation: Performing Lab:[facility], [address] [place] [phone] Notes/Report: White Blood Count 13.4 4.8-10.8 X10*3/uL H Red Blood Count 3.79 4.20-5.50 X10*6/uL L Hemoglobin 12.1 12.0-16.0 g/dl N Hematocrit 36.7 37.0-47.0 % L Mean Corpuscular Volume 96.8 80.0-98.0 fL N Mean Corpuscular Hemoglobin 31.9 27.0-33.0 pg N Mean Corpuscular HGB Conc 33.0 31.0-35.0 g/dl N Red Cell Distribution Width 13.4 11.0-16.0 % N Platelet Count 239 160-400 X10*3/uL N Mean Platelet Volume 10.2 9.4-12.3 fL N Neutrophils Percent Auto 82.3 45-73 % H Imm Gran Pct Auto 0.5 0.0-0.4 % H Lymphocytes Percent Auto 10.3 20-40 % L Monocytes Percent Auto 6.6 2-11 % N Eosinophils Percent Auto 0.1 0-4 % N Basophils Percent Auto 0.2 0-2 % N NRBC Pct Auto 0.0 0.0-0.2 /100WBC N Neutrophils Absolute Auto 11.0 2.0-8.3 x10*3/uL H Imm Gran Abs Auto 0.07 0.00-0.03 X10*3/uL H Lymphocytes Absolute Auto 1.4 1.2-4.9 X10*3/uL N Monocytes Absolute Auto 0.9 0.1-1.2 X10*3/uL N Eosinophils Absolute Auto 0.0 0.0-0.4 X10*3/uL N Basophils Absolute Auto 0.0 0.0-0.2 X10*3/uL N NRBC Abs Auto 0.000 0.0-0.012 X10*3/uL N Liver Panel Reviewed date:08/15/2024 01:02:00 PM Interpretation: Performing Lab:[facility], [address] [place] [phone] Notes/Report: Bilirubin Total 1.5 0.0-1.0 mg/dL H Bilirubin Direct 0.6 0.0-0.5 mg/dL H Aspartate Amino Transferase 27 5-31 U/L N Alanine Aminotransferase 13 0-31 U/L N Total Protein 6.4 6.5-8.0 g/dL L Albumin Level 3.4 3.5-5.0 g/dL L Alkaline Phosphatase 54 39-117 U/L N Basic Metabolic Panel Fastin g Reviewed date:08/15/2024 01:02:23 PM Interpretation: Performing Lab:[facility], [address] [place] [phone] Notes/Report: Sodium 135 135-145 mmol/L N Potassium 3.7 3.3-5.1 mmol/L N Chloride 101 96-108 mmol/L N Carbon Dioxide 23 22-29 mmol/L N Anion Gap 15 12-20 N Blood Urea Nitrogen 8 9-16 mg/dL L Creatinine 0.73 0.5-1.4 mg/dL N Creatinine Clr Calc Pharmacy 51.6 Provided height [...] 15 mL/min/1.73m2 Glucose Fasting 96 60-99 mg/dL N Calcium 8.7 8.4-10.2 mg/dL Lipase Reviewed date:08/15/2024 01:02:31 PM Interpretation: Performing Lab:[facility], [address] [place] [phone] Notes/Report: Lipase 175 8-78 U/L H US abdomen limited Reviewed date:08/16/2024 11:49:39 PM Interpretation: Performing Lab: Notes/Report: [address] [place] [address] Ultrasound Report Signed Patient: Tanisha Arrieta MR#: [id number] : 1940 Acct:[id number] Age/Sex: 84 / F ADM Date: 08/13/24 Loc: .S3 368-[address]: Carlotta BLUNT Ordering Physician: Franklyn Benton MD Date of Service: 08/15/24 Procedure(s): US abdomen limited Accession Number(s): [id number] cc: Claudia Smalls MD; Franklyn Benton MD [...] by: Linda Voss MD 08/16/2024 10:05 AM [facility] Dictated By: Linda Voss MD Signed By: <Electronically signed by Linda Voss MD in OV> 08/16/24 1005 DD/ 0737 TD/TT: 08/15/24 0751 Quartz Miner: Liver Panel Reviewed date:08/16/2024 11:49:04 PM Interpretation: Performing Lab:[address] [phone] Notes/Report: Bilirubin Total 1.6 0.0-1.0 mg/dL H Bilirubin Direct 0.6 0.0-0.5 mg/dL H Aspartate Amino Transferase 24 5-31 U/L N Alanine Aminotransferase 8 0-31 U/L N Total Protein 6.8 6.5-8.0 g/dL N Albumin Level 3.4 3.5-5.0 g/dL L Alkaline Phosphatase 62 39-117 U/L N Basic Metabolic Panel Reviewed date:08/16/2024 11:49:11 PM Interpretation: Performing Lab:[address] [phone] Notes/Report: Sodium 136 135-145 mmol/L N Potassium 3.6 3.3-5.1 mmol/L N Chloride 100 96-108 mmol/L N Carbon Dioxide 25 22-29 mmol/L N Anion Gap 15 12-20 N Blood Urea Nitrogen 6 9-16 mg/dL L Creatinine 0.66 0.5-1.4 mg/dL N Creatinine Clr Calc Pharmacy 57.0 Provided height [...] 15 mL/min/1.73m2 Glucose Random 95 60-115 mg/dL N Calcium 8.8 8.4-10.2 mg/dL N Lipase Reviewed date:08/16/2024 11:49:19 PM Interpretation: Performing Lab:[facility], [address] [place] [phone] Notes/Report: Lipase 33 8-78 U/L N Liver Panel Reviewed date:11/08/2024 07:14:00 AM Interpretation: Performing Lab:[facility], [address] [place] [phone] Notes/Report: Bilirubin Total 0.5 0.0-1.0 mg/dL N Bilirubin Direct 0.2 0.0-0.5 mg/dL N Aspartate Amino Transferase 23 5-31 U/L N Alanine Aminotransferase 10 0-31 U/L N Total Protein 8.0 6.5-8.0 g/dL N Albumin Level 3.8 3.5-5.0 g/dL N Alkaline Phosphatase 77 39-117 U/L N Reason For Referral Reason pancreatitis gallsto taina Diagnosis 1 Pancreatitis, gallst one (K85.10) Referral Organization [facility] Referring Provider First Name Franklyn Referring Provider Last Name Chetan Referring Provider Speciality Gastroente rology Referred Provider German Blunt Referral Priority Routine Referral Appointment Date 09/25/2024 Medications Medication SIG (Take, Route, Frequency, Duration) Notes Start Date End Date Status Nicotinamide w/Eeju-Fxamxm-EM Active Cranberry 425 MG Capsule as directed Orally Active Atenolol 50 MG Tablet 1 tablet and half Oral Once a day Active Levothyroxine Sodium 100 MCG Tablet Oral; Duration: 90 Active Calcium + Vitamin D3 600-5 MG-MCG Tablet 1 tablet with a meal Orally Once a day; Duration: 30 day(s) Active Immunizations Vaccine Route Administration Date Status Comme nts Influenza Unknown 05/21/2020 Administered Influenza Unknown 05/21/2021 Administered Influenza Unknown 06/23/2023 Administered Social History Tobacco Use: Social History Observation Description Date Details (start date - stop date) Never Smoker NA - NA Social History Drugs/Alcohol: Social Info Question Answer Notes Alcohol Screen Did you have a drink containing alcohol in the past year? Yes How often did you have a drink containing alcohol in the past year? Never (0 point) How many drinks did you have on a typical day when you were drinking in the past year? 1 or 2 drinks (0 point) How often did you have 6 or more drinks on one occasion in the past year? Never (0 point) Points 0 Interpretation Negative Tobacco Use: Social Info Question Answer Notes Tobacco Use/Smoking Patient is a nonsmoker Additional Details Category Social Info Options Details Miscellaneous: Marital status: --her from pancreatic cancer Occupation: retired Section Notes: Nonsmoker; drinks a glass of wine per day Nonsmoker; drinks a glass of wine per day Nonsmoker; drinks a glass of wine per day Nonsmoker; drinks a glass of wine per day Nonsmoker; drinks a glass of wine per day Problems Problem Type SNOMED Code ICD Code Onset Dates Problem Status W/U Status Risk Notes Problem Elevated liver enzymes level (113992052) Elevated liver function tests (R79.89) Active confirmed Problem Pancreatic cyst (38728584) Pancreatic cyst (K86.2) Active confirmed Problem History of gastrointestinal disease (561083839) History of acute pancreatitis (Z87.19) Active confirmed Vital Signs Blood pressure diastolic 00 mm Hg 10/24/2024 Height 65 in 10/24/2024 Blood pressure systolic 00 mm Hg 10/24/2024 Weight 131 lbs 10/24/2024 BMI 21.80 kg/m2 10/24/2024 Encounters Encounter Location Date Provider Diagnosis [address] [place] [address] 10/24/2024 Franklyn Benton Elevated liver function tests R79.89 ; Pancreatic cyst K86.2 and History of acute pancreatitis Z87.19 [facility] [address] [place] [address] 08/19/2024 Franklyn Benton [facility] [address] [place] [address] 09/08/2024 Franklyn Benton Assessments Encounter Date Diagnosis [...] Pending Test Test Name Order Date BUN 04/17/2021 BUN 04/14/2022 BUN 07/07/2023 CREATININE 04/14/2022 CREATININE 04/17/2021 LIVER PROFILE 04/17/2021 LIVER PROFILE 10/24/2024 CA 19-9 04/14/2022 CA 19-9 07/07/2023 CA 19-9 04/17/2021 CT ABD WITH CONTRAST 04/14/2022 CT ABD & PELVIS WITH CONTRAST 04/17/2021 CT ABD & PELVIS WITH CONTRAST 07/07/2023 Creatinine 07/07/2023 Insurance Providers Payer Name Payer Address Payer Phone Subscriber Number Group Number Insured Name Patient Relationship to Insured Coverage Start Date Coverage End Date MEDICARE OF [place] [address] [place] [address] [id number] TANISHA ARRIETA Self - patient is the insured [employer] CLAIMS [address] [place] [address] [phone] [id number] MEENAKSHI TANISHA Self - patient is the insured Medical (General) History Medical History History ICD Code Hypertension Hypothyroidism Denies NV,DM,CVA,Lung disease,renal dise ase Meningioma Negative screening colonoscopy [...] an endoscopic ultrasound with Dr. Franco at [facility] who described some evidence of microlithiasis [...]
--- OUTSIDE RECORDS SUMMARY | 2025-08-08 06:22 | XMS_ITS | Clinical Summary ---
Author Organization [facility] Address [address] [place] [address] Phone Care Team Providers Care Elevator Constructor Supervisor Name Role Phone Claudia Smalls MD Primary Care Provider [phone] Jerrod Gray MD Unavailable [phone] Allergies No known active allergies Medications levothyroxine (SYNTHROID, LEVOTHROID) 100 MCG tablet 0 Active calcium carbonate-vitam in D3 (CALCIUM 600 WITH VITAMIN D3) 600 mg-12.5 mcg (500 unit) Cap 1 tablet with a meal Active FLUoxetine (PROZAC) 10 MG capsuleIndicati ons:anxiety with depression Take 10 mg by mouth daily. Indications: anxiousness associated with depression 5 Active cranberry fruit 400 mg Tab Take 400 mg by mouth daily. Prevent UTI Active acetaminophen (TYLENOL) 325 mg tablet Take 1-2 tablets (325-650 mg total) by mouth every 6 (six) hours as needed for pain (specific location in comments). 5 Active gabapentin (NEURONTIN) 100 MG capsule Take 1 capsule (100 mg total) by mouth every 8 (eight) hours. 42 capsule 5 Active Active Problems Problem Noted Date Diagnosed Date Meningioma, cerebral 02/15/2025 Syncope 01/23/2025 Assessment & Plan (01/24/2025 10:29 AM EDT): Unclear etiology: Orthostatic versus vasovagal exacerbated by underlying UTI/dehydration Given her recent craniotomy CT head and CTA head and neck were performed and showed post op changes. [facility] neuro[facility] recommended MRI brain which showed postsurgical changes Orthostatics negative No seizure activity was noted during the syncopal episode, no tongue biting, pt has chronic bladder incontinence, she was alert once she regained consciousness. EEG performed, read pending Patient continues to be monitored on telemetry Troponins flat, cardiology consult pending Assessment & Plan (01/23/2025 10:44 PM EDT): -Unclear etiology -Given her recent craniotomy CT head and CTA head and neck were performed and showed post op changes -ED discussed case with her neuro surgery team and it was felt that she did not require transfer and could continue her syncope work up at [facility] including MRI brain -No seizure activity was noted during the syncopal episode, no tongue biting, pt has chronic bladder incontinence, she was alert once she regained consciousness. Follow up EEG -Monitor on tele, she had mild bradycardia in the ED HR 50's -Troponin flat -Follow up cardio consult -Check orthostatic vital signs UTI (urinary tract infection) 01/23/2025 Assessment & Plan (01/24/2025 10:29 AM EDT): UA positive for nitrites, leukocytes and 21-49 wbc Started on iv rocephin Follow up urine cx Assessment & Plan (01/23/2025 10:44 PM EDT): -UA positive for nitrites, leukocytes and 21-49 wbc -Started on iv rocephin -Follow up urine cx Frontal mass of brain 01/14/2025 Assessment & Plan (01/24/2025 10:29 AM EDT): Recently hospitalized at [facility] 01/13-01/20 and underwent a craniotomy on 01/17 She has completed her course of decadron and keppra Assessment & Plan (01/23/2025 10:44 PM EDT): -Recently hospitalized at [facility] 01/13-01/20 and underwent a craniotomy on 01/17 -She has completed her course of decadron and keppra Osteopenia 07/29/2020 Essential hypertension 03/01/2018 Assessment & Plan (01/24/2025 10:29 AM EDT): BP controlled Continue atenolol Assessment & Plan (01/23/2025 10:44 PM EDT): -BP controlled -Continue atenolol Hypothyroidism 03/01/2018 Encounters Date Type Department Care Team Description 05/29/2025 2:30 PM EDT Telemedicine - audio only [facility] Rad Onc [address] [place] [address] Panda Graf MD Meningioma, cerebral (Primary Dx) from Last 3 Months Immunizations Immunization Administration Dates Next Due INFLUENZA, SPLIT VIRUS, TRIVALENT W/ PRESERVATIV E IM 06/20/2015 Influenza High-Dose Quadrivalent Preservative Fr ee IM 06/29/2023,06/19/2021 Influenza High-Dose Trivalent Preservative Free IM 06/30/2017,08/10/2016 Influenza Quadrivalent Adjuvanted Preservative F ree IM 07/20/2022,06/15/2020 Influenza Trivalent Adjuvanted Preservative free IM 07/03/2024,06/27/2019 Pneumococcal conjugate PCV13 11/27/2016 Pneumococcal polysaccharide PPSV23 01/05/2022, Td (adult) 5 Lf Tetanus Toxoid, PF, Adsorbed Tdap 03/01/2018 Zoster recombinant 03/02/2019,11/24/2018 Family History Medical History Relation Comments Cancer Daughter Cancer Mother Relation Status Comments Daughter Alive Mother Social History Tobacco Use Types Packs/Day Years [...] on file Sexual Orientation Not on file Last Filed Vital Signs Vital Sign Reading Time Taken Comments Blood Pressure 123/83 04/16/2025 12:58 PM EDT Pulse 67 04/16/2025 12:58 PM EDT Temperature 36.5 C (97.7 F) 03/26/2025 2:18 PM EDT Respiratory Rate 18 01/25/2025 11:00 AM EDT Oxygen Saturation 99% 04/16/2025 12:58 PM EDT Inhaled Oxygen Concentration - - Weight 60.3 kg (133 lb) 04/09/2025 12:49 PM EDT Height 165.1 cm (5' 5 ) 01/23/2025 1:06 PM EDT Body Mass Index 22.13 01/23/2025 1:06 PM EDT Plan of Treatment Upcoming Encounters Date Type Department Care Team (Latest Contact Info) Description 03/01/2025 Procedure Pass [address] [place] [address] 09/03/2025 11:30 AM EST Appointment [address] [place] [address] Karissa Valdez, ROLAND 55 [facility] [address] [place] [address] [email or web address] 09/07/2025 3:00 PM EST Telemedicine - audio only [facility] [address] [facility], 9th Floor, [address] [place] [address] Karissa Valdez, ROLAND [address] [address] [email or web address] Health Maintenance Due Date Last Done Comments DEPRESSION SCREENING 1952 OSTEOPOROSIS SCREENING INITIAL (ONE-TIME) 2005 RSV VACCINE (1 - 1-dose 75+ series) 2015 INFLUENZA VACCINE (#1) 2025 , 06/29/2023, 07/20/2022, Additional history exists COVID-19 VACCINE (2024- season) 2025 08/17/2022, 08/06/2021, 11/12/2020, Additional history exists BLOOD PRESSURE 08/17/2025 02/14/2025 TSH LEVEL 01/25/2026 01/25/2025, 01/03/2019 Adult Td,Tdap Booster 03/01/2028 03/01/2018, 016 ZOSTER VACCINES Completed 03/02/2019, 11/24/2018 PNEUMOCOCCAL VACCINES (50+ years) Completed 01/05/2022, 11/27/2016, 12/17/2015 HEPATITIS A VACCINES Aged Out No long er eligible based on patient's age to complete this topic HIB VACCINES Aged Out No longer eligi ble based on patient's age to complete this topic MENINGOCOCCAL VACCINES (ACWY) Aged Out No longer eligible based on patient's age to complete this topic MENINGOCOCCAL VACCINES (B) Aged Out N o longer eligible based on patient's age to complete this topic Medical Devices Implanted Type Area Chummer Device Identifier Shelf Expiration Date Model / Serial / Lot Screw Bone 1.5x4mm Ti Self Drilling Matrixneuro Pk/5ea - [id number] Implanted:Qty: 51 on 01/17/2025 by Devyn Collazo MD at [facility] N/A: Brain [employer] 503. [id number] / / Plate Craniomaxillofacial .4mm Med Matrixneuro Titanium Contourable Mesh Malleable Temporal Silver - [id number] Implanted:Qty: 2 on 01/17/2025 by Devyn Collazo MD at [facility] N/A: Brain [employer] 503. 057 / / Matrix Dura 3x3in Onlay Plus - [id number] Implanted:Qty: 1 on 01/17/2025 by Devyn Collazo MD at [facility] N/A: Brain KRISTI CRANIOMAXILLOFACIAL DI 11/18/2027 DMOP33 / / [id number] Matrix Dura 3x3in Onlay Plus - [id number] Implanted:Qty: 1 on 01/17/2025 by Devyn Collazo MD at [facility] N/A: Brain KRISTI CRANIOMAXILLOFACIAL DI 11/18/2027 DMOP33 / / [id number] Cover [place] 17mm Hole Cranial Matrixneuro Titanium Ultra Low Profile - [id number] Implanted:Qty: 6 on 01/17/2025 by Devyn Collazo MD at [facility] N/A: Brain DEPUY SYNTHES [employer] . 023 / / Cover [place] 24mm Hole Cranial Matrixneuro Ti Ultra Low Profile - [id number] Implanted:Qty: 2 on 01/17/2025 by Devyn Collazo MD at [facility] N/A: Brain DEPUY SYNTHES [employer] 024 / / Procedures Procedure Name Priority Date/Time Associated Diagnosis Comments TSH WITH REFLEX Routine 01/25/2025 7:13 AM EDT from Last 3 Months or Most Recently Relevant to Health Maintenance Results * (ABNORMAL) TSH with reflex (01/25/2025 7:13 AM EDT) TSH 8.22(H) 0.27 - 4.20 uIU/mL [facility] Blood 01/25/2025 7:13 AM EDT 01/25/2025 7:26 AM EDT us Gayle oCllado MD LAB BLOOD BKR ORDERABLES Final R esult [facility] [address] [place], [place] [id number] from Last 3 Months or Most Recently Relevant to Health Maintenance Insurance MEDICARE PART A & B [employer] MEDEX SUPPLEMENT MEDICARE PART A & B [employer] MEDEX SUPPLEMENT MEDICARE PART A & B [employer] MED[employer] SUPPLEMENT MEDICARE PART A & B [employer] MED[employer] SUPPLEMENT MEDICARE PART A & B [employer] MEDEX SUPPLEMENT MEDICARE PART A & B [employer] MEDEX SUPPLEMENT MEDICARE PART A & B [facility] MEDEX SUPPLEMENT MEDICARE PART A & B [employer] MEDEX SUPPLEMENT MEDICARE PART A & B [employer] MEDEX SUPPLEMENT Advance Directives For more information, please contact: [phone] (9AM - 5PM Supriya/[place], Wednesday-Wednesday) Documents on File Type Date Recorded Patient Hanger Expl anation Healthcare Proxy 01/15/2025 5:35 PM * Full Code (Latest Code Status on File) Date Activated Date Inactivated Comments 01/23/2025 10:12 PM Question Answer Comments Code Status Confirmed With: Patient * Full Code Date Activated Date Inactivated Comments 01/17/2025 1:16 PM 01/23/2025 10:12 PM Question Answer Comments Code Status Confirmed With: Other (specify below ) Code Discussion Comments: prior * Full Code Date Activated Date Inactivated Comments 01/14/2025 2:10 AM 01/17/2025 1:16 PM Question Answer Comments Code Status Confirmed With: FamilyPatient Care Teams Elevator Constructor Supervisor Relationship Specialty Start Date End Date Po, Claudia Stark MD [address] [place] [address] [place] [phone] PCP - General Internal Medicine 07/29/20 Jerrod Gray MD [address] [place] [id number] Medical Oncology 01/22/25 Additional Source Comments The information contained in this document represents components of the legal health record. It is not the complete legal health record.[facility]
--- OUTSIDE RECORDS SUMMARY | 2025-08-08 06:22 | XMS_ITS | Clinical Summary ---
Author Organization [facility] Address [address] [place] [address] Care Team Providers Care Cardiology Coordinator Name Role Phone Unavailable Primary Care Provider [...]
--- OUTSIDE RECORDS SUMMARY | 2025-08-08 06:22 | XMS_ITS | Clinical Summary ---
Author Organization [address] Address [address] [place] [phone] Phone Care Team Providers Care Doughmaker Name Role Phone Luis Valderrama MD Primary Care Provider [phone] Surgical History Surgery Date Site/Laterality Comments APPENDECTOMY [...] (CMS/HCC V24) 2014 DX:PMR (polymyalgia rheumati ca) ([facility]);COMMENT:tapered off Prednisone 01/2016 Dr Smith Cervical spinal stenosis DX:Cerv ical spinal stenosis;COMMENT:02/2015 MRI-C mild stenosis C4-5 with severe cervical spondylosis Syncope DX:Syncope Meningioma, cerebral (CMS/HC C V24, CMS/HCC V28) DX:Meningioma, cerebral ([facility]);COMMENT:01/2019 MRI-B: small parasagittal posterior frontal [...] Years Used Date Smoking Tobacco: Former Cigarettes 0 Q uit: 03/01/2008 Smokeless Tobacco: Never Alcohol [...] Patients (1 - 1-dose 75+ series) 2015 Depression Screening 09/20/2024 Cholesterol Screening (Lipid Panel) 01/26/2025 01/03/2019 Falls Risk Assessment 01/26/2025 Medicare Annual Wellness Visit 01/26/2025 Osteoporosis Screening (Bone Density Screening) 01/26/2025 Social Influencers of Health Screening 01/26/2025 COVID-19 Vaccine (2024- season) 2025 Influenza Vaccine (#1) 2025 , 06/29/2023, 07/20/2022, [...] mmol/L LAB CHEMISTRY METHOD 02/02/2025 10:30 AM [facility] Potassium 4.1 3.5 - 5.5 mmol/L LAB CHEMISTRY METHOD 02/02/2025 10:30 AM [facility] Chloride 106 96 - 110 mmol/L LAB CHEMISTRY METHOD 02/02/2025 10:30 AM [facility] CO2 26 21 - 32 mmol/L LAB CHEMISTRY METHOD 02/02/2025 10:30 AM [facility] Anion Gap 8 3 - 11 LAB CHEMISTRY METHOD 02/02/2025 10:30 AM [facility] Glucose 72 70 - 100 mg/dL LAB CHEMISTRY METHOD 02/02/2025 10:30 AM [facility] BUN 14 5 - 25 mg/dL LAB CHEMISTRY METHOD 02/02/2025 10:30 AM [facility] Creatinine 0.58 0.50 - 1.10 mg/dL LAB CHEMISTRY METHOD 02/02/2025 10:30 AM [facility] eGFR 89 >=60 mL/min/1. 73m2 LAB CHEMISTRY METHOD 02/02/2025 10:30 AM [facility] Comment:Calculation based on the Chronic Kidney Disease Epidemiology Collaboration (CKD-EPI) equation refit without adjustment for race. BUN/Creatinine Ratio 24.1 LAB CHEMISTRY METHOD 02/02/2025 10:30 AM [facility] Calcium 8.8 8.5 - 10.5 mg/dL LAB CHEMISTRY METHOD 02/02/2025 10:30 AM [facility] AST (SGOT) 22 10 - 42 unit/L LAB CHEMISTRY METHOD 02/02/2025 10:30 AM [facility] ALT (SGPT) 20 10 - 60 unit/L LAB CHEMISTRY METHOD 02/02/2025 10:30 AM [facility] Alkaline Phosphatase 102 42 - 121 unit/L LAB CHEMISTRY METHOD 02/02/2025 10:30 AM [facility] Total Protein 6.6 6.0 - 8.0 g/dL LAB CHEMISTRY METHOD 02/02/2025 10:30 AM [facility] Albumin 2.6(L) 3.2 - 5.0 g/dL LAB CHEMISTRY METHOD 02/02/2025 10:30 AM [facility] Total Bilirubin 0.3 0.0 - 1.4 mg/dL LAB CHEMISTRY METHOD 02/02/2025 10:30 AM [facility] Blood Venous blood specimen / Unknown Venipuncture / Unknown 02/02/2025 6:23 AM EDT 02/02/2025 9:14 AM EDT us Luis Valderrama MD LAB BLOOD ORDERABLES Final Res ult [facility] [address] [place], [place] [address] [phone] from Last 3 Months or Most Recently Relevant to Health Maintenance Insurance MEDICARE [facility] Care Teams Doughmaker Relationship Specialty Start Date End Date Luis Valderrama MD [address] [place] [address] PCP - General Internal Medicine 01/26/25
--- OUTSIDE RECORDS SUMMARY | 2025-08-08 06:23 | XMS_ITS | Encounter Summary ---
Author Organization [facility] Address [address] [place] [address] Phone Care Team Providers Care Forming Process Line Worker Name Role Phone Claudia Smalls MD Primary Care Provider [phone] Jerrod Gray MD Unavailable [phone] Encounter Details Date Type Department Care Team (Late st Contact Info) Description 01/23/2025 Procedure Pass [facility], Ct Scan - [address] [address] Social History Tobacco Use Types Packs/Day Years [...] Risk Indicated 01/23/2025 10:30 PM EDT Dav Lindquist, MIGUEL * [place] Suicide Severity Rating Scale (Screener/Recent Self-Report) Question [...] (Latest Contact Info) Description 03/01/2025 Procedure Pass [address] [place] [address] 09/03/2025 11:30 AM EST Appointment [address] [place] [address] Karissa Vladez, ROLAND [address] [facility] [address] [place] [address] [email or web address] 09/07/2025 3:00 PM EST Telemedicine - audio only [facility] [address] [facility], 9th Floor, [address] [place] [address] Karissa Valdez, ROLAND [address] [facility] [address] [place] [address] [email or web address] documented as of this encounter Visit Diagnoses Not on filedocumented in this encounter Care Teams Forming Process Line Worker Relationship Specialty Start Date End Date Claudia Smalls MD [address] [place] [address] Drive [address] [place] [phone] PCP - General Internal Medicine 07/29/20 Jerrod Gray MD [address] [place] [id number] [email or web address] Medical Oncology 01/22/25 documented as of this encounter Additional Source Comments The information contained in this document represents components of the legal health record. It is not the complete legal health record.[facility]
--- OUTSIDE RECORDS SUMMARY | 2025-08-08 06:23 | XMS_ITS | Encounter Summary ---
Author Organization [facility] Address [address] [facility] [address] [place] [address] Phone Care Team Providers Care Magazine Keeper Name Role Phone Claudia Smalls MD Primary Care Provider [phone] Jerrod Gray MD Unavailable [phone] Encounter Details Date Type Department Care Team (Late st Contact Info) Description 01/23/2025 Procedure Pass [facility], Ct Scan - [address] [address] Social History Tobacco Use Types Packs/Day Years [...] 10:30 PM EDT Dav Lindquist, MIGUEL * [place] Suicide Severity Rating Scale (Screener/Recent Self-Report) Question [...] (Latest Contact Info) Description 03/01/2025 Procedure Pass [address] [place] [address] 09/03/2025 11:30 AM EST Appointment [address] [place] [address] Karissa Valdez, ROLAND [address] [facility] [address] [place] [address] [email or web address] 09/07/2025 3:00 PM EST Telemedicine - audio only [facility] [address] [facility], 9th Floor, [address] [place] [address] Karissa Valdez, ROLAND [address] [facility] [address] [place] [address] [email or web address] documented as of this encounter Visit Diagnoses Not on filedocumented in this encounter Care Teams Magazine Keeper Relationship Specialty Start Date End Date Claudia Smalls MD [address] [place] [address] Drive [address] [place] [phone] PCP - General Internal Medicine 07/29/20 Jerrod Gray MD [address] [place] [id number] [email or web address] Medical Oncology 01/22/25 documented as of this encounter Additional Source Comments The information contained in this document represents components of the legal health record. It is not the complete legal health record.[facility]
--- OUTSIDE RECORDS SUMMARY | 2025-08-08 06:23 | XMS_ITS | Encounter Summary ---
Author Organization [facility] Address [address] [facility] [address] [place] [address] Phone Care Team Providers Care Beading Sawyer Name Role Phone Claudia Smalls MD Primary Care Provider [phone] Jerrod Gray MD Unavailable [phone] Encounter Details Date Type Department Care Team (Late st Contact Info) Description 01/25/2025 Procedure Pass [facility] [address] [place] [address] Social History Tobacco Use Types Packs/Day Years [...] (Latest Contact Info) Description 03/01/2025 Procedure Pass [address] [place] [address] 09/03/2025 11:30 AM EST Appointment [address] [place] [address] Karissa Valdez, ROLAND [address] [facility] [address] [place] [address] [email or web address] 09/07/2025 3:00 PM EST Telemedicine - audio only [facility] [address] [facility], 9th Floor, [address] [place] [address] Karissa Valdez, ROLAND [address] [facility] [address] [place] [address] [email or web address] documented as of this encounter Visit Diagnoses Not on filedocumented in this encounter Care Teams Beading Sawyer Relationship Specialty Start Date End Date Po, Claudia Stark MD [address] [place] [address] Drive [address] [place] [address] PCP - General Internal Medicine 07/29/20 Jerrod Gray MD [address] [place] [phone] [email or web address] Medical Oncology 01/22/25 documented as of this encounter Additional Source Comments The information contained in this document represents components of the legal health record. It is not the complete legal health record.[facility]
--- OUTSIDE RECORDS SUMMARY | 2025-08-08 06:23 | XMS_ITS | Encounter Summary ---
Author Organization [facility] Address [address] [facility] [address] [place] [address] Phone Care Team Providers Care Twisting Frame Changer Name Role Phone Claudia Smalls MD Primary Care Provider [phone] Jerrod Gray MD Unavailable [phone] Encounter Details Date Type Department Care Team (Late st Contact Info) Description 01/23/2025 Procedure Pass [facility], [address] [address] Social History Tobacco Use Types Packs/Day Years [...] 10:30 PM EDT Dav Lindquist, MIGUEL * [place] Suicide Severity Rating Scale (Screener/Recent Self-Report) Question [...] (Latest Contact Info) Description 03/01/2025 Procedure Pass [address] [place] [address] 09/03/2025 11:30 AM EST Appointment [address] [place] [address] Karissa Valdez, ROLAND [address] [facility] [address] [place] [address] [email or web address] 09/07/2025 3:00 PM EST Telemedicine - audio only [facility] [address] [facility], 9th Floor, [address] [place] [address] Karissa Valdez, ROLAND 55 [facility] [address] [place] [address] [email or web address] documented as of this encounter Visit Diagnoses Not on filedocumented in this encounter Care Teams Twisting Frame Changer Relationship Specialty Start Date End Date Claudia Smalls MD [address] [place] [address] Drive [address] [place] [phone] PCP - General Internal Medicine 07/29/20 Jerrod Gray MD [address] [place] [phone] [email or web address] Medical Oncology 01/22/25 documented as of this encounter Additional Source Comments The information contained in this document represents components of the legal health record. It is not the complete legal health record.[facility]
--- OUTSIDE RECORDS SUMMARY | 2025-08-08 06:23 | XMS_ITS | Encounter Summary ---
Author Organization [facility] Address [address] [facility] [address] [place] [address] Phone Care Team Providers Care Cut File Clerk Name Role Phone Claudia Smalls MD Primary Care Provider [phone] Jerrod Gray MD Unavailable [phone] Encounter Details Date Type Department Care Team (Late st Contact Info) Description 01/25/2025 Procedure Pass Non-Invasive Cardiology 30 [place] [address] Social History Tobacco Use Types Packs/Day Years [...] housing situation today? I have fazal sing 01/23/2025 How many times have you move [...] Contact Info) Description 03/01/2025 Procedure Pass [address] [place] [address] 09/03/2025 11:30 AM EST Appointment [address] [place] [address] Karissa Valdez, ROLAND [address] [facility] [address] [place] [address] [email or web address] 09/07/2025 3:00 PM EST Telemedicine - audio only [facility] Neuro[facility] 55 [facility], 9th Floor, [address] [place] [address] Karissa Valdez, ROLAND [address] [facility] [address] [place] [address] [email or web address] documented as of this encounter Visit Diagnoses Not on filedocumented in this encounter Care Teams Cut File Clerk Relationship Specialty Start Date End Date Po, Claudia Stark MD [address] [place] [address] Drive [address] [place] [address] PCP - General Internal Medicine 07/29/20 Jerrod Gray MD [address] [place] [address] [id number] [email or web address] Medical Oncology 01/22/25 documented as of this encounter Additional Source Comments The information contained in this document represents components of the legal health record. It is not the complete legal health record.[facility]
--- OUTSIDE RECORDS SUMMARY | 2025-08-08 06:24 | XMS_ITS | Encounter Summary ---
Author Organization [facility] Address [address] [facility] [address] [place] [address] Phone Care Team Providers Care Institutional Asset Manager Name Role Phone Claudia Smalls MD Primary Care Provider [phone] Jerrod Gray MD Unavailable [phone] Encounter Details Date Type Department Care Team (Late st Contact Info) Description 01/14/2025 Procedure Pass [facility], [place] [address] [facility], 6th [place] [address] Social History Tobacco Use Types Packs/Day Years [...] got money to buy more. Never True 01/14/2025 Within the past 6 months the food we bought just didn't last and we didn't have enough money to get more. Never True Residential Stability Answer Date Recor ded What is your housing situation today? I have fazal erwin 01/14/2025 How many times have you move d in the past 12 months? Zero (I did not move) 01/14/2025 Paying for Meds Answer Date Recorded Do you have trouble paying for medicines? No 01/14/2025 Paying Utility Bills Answer Date Record ed Do you have trouble paying your heating or elect ricity bill? No 01/14/2025 Transportation Answer Date Recorded Has the lack of transportati on kept you from medical appointments or from getting medications? No 01/14/2025 Digital Access Answer Date Recorded No 01/14/2025 Yes 01/14/2025 Do you have reliable internet access at home? Ye s 01/14/2025 Do you have a device (e.g., phone, tablet, computer) with a working camera? Yes 01/14/2025 Intimate Partner Violence Answer Date R ecorded Are you denied basic needs s uch as food, clothing, or medical care? Deferred 01/17/2025 In the past 12 months have y ou been in a relationship with a person who hurts, threatens, or tries to control you? Deferred 01/17/2025 Are you denied basic needs s uch as food, clothing, or medical care? Deferred 01/17/2025 In the past 12 months have y ou been in a relationship with a person who hurts, threatens, or tries to control you? Deferred 01/17/2025 Comments Unknown Sex and Gender Information Value Date Recorded Sex Assigned at Not on file Legal Sex Female 11:37 AM EST Gender Identity Not on file Sexual Orientation Not on file documented as of this encounter Functional Status * Calculated C-SSRS Risk Score (Lifetime/Recent) Answer Date of Assessment Author No Risk Indicated 01/14/2025 12:00 AM Rosalia Torres RN * [place] Suicide Severity Rating Scale (Screener/Recent Self-Report) Question Answer Date of Assessment Author 1. Wish to be (Past 1 Month) No 025 12:00 AM Rosalia Torres RN 2. Non-Specific Active Suici marcello Thoughts (Past 1 Month) No 01/14/2025 12:00 AM EDT Len, Nicole n M, RN 6. Suicidal Behavior (Lifetime) No 12:00 AM EDT Rosalia Harrington RN documented as of this encounter Plan of Treatment Upcoming Encounters Date Type Department Care Team (Latest Contact Info) Description 03/01/2025 Procedure Pass [address] [place] [address] 09/03/2025 11:30 AM EST Appointment [address] [place] [address] Karissa Valdez, ROLAND [address] [facility] [address] [place] [address] [email or web address] 09/07/2025 3:00 PM EST Telemedicine - audio only [facility] 55 [facility], 9th Floor, [address] [place] [address] Karissa Valdez NP 55 [facility] [address] [place] [address] [email or web address] documented as of this encounter Visit Diagnoses Not on filedocumented in this encounter Care Teams Institutional Asset Manager Relationship Specialty Start Date End Date Slim, Claudia Stark MD [address] [place] [address] [address] [place] [address] PCP - General Internal Medicine 07/29/20 Jerrod Gray MD [address] [place] [address] [email or web address] Medical Oncology 01/22/25 documented as of this encounter Additional Source Comments The information contained in this document represents components of the legal health record. It is not the complete legal health record.[facility]
--- OUTSIDE RECORDS SUMMARY | 2025-08-08 06:24 | XMS_ITS | Encounter Summary ---
Author Organization [facility] Address [address] [facility] [address] [place] [address] Phone Care Team Providers Care Sleeve Wheel Maker Name Role Phone Claudia Smalls MD Primary Care Provider [phone] Jerrod Gray MD Unavailable [phone] Encounter Details Date Type Department Care Team (Late st Contact Info) Description 01/14/[address] [facility] IMG PETMR BLK2 [address] [facility], 2nd [place] [address] Social History Tobacco Use Types Packs/Day Years [...] 01/14/2025 12:00 AM Rosalia Torres RN * [place] Suicide Severity Rating Scale (Screener/Recent Self-Report) Question [...] (Latest Contact Info) Description 03/01/2025 Procedure Pass [address] [place] [address] 09/03/2025 11:30 AM EST Appointment [address] [place] [address] Karissa Valdez, ROLAND [address] [facility] [address] [place] [address] [email or web address] 09/07/2025 3:00 PM EST Telemedicine - audio only [facility] 55 [facility], 9th Floor, [address] [place] [address] Karissa Valdez NP 55 [facility] [address] [place] [address] [email or web address] documented as of this encounter Visit Diagnoses Not on filedocumented in this encounter Care Teams Sleeve Wheel Maker Relationship Specialty Start Date End Date Slim, Claudia Stark MD [address] [place] [address] Drive [address] [place] [address] PCP - General Internal Medicine 07/29/20 Jerrod Gray MD [address] [place] [address] [email or web address] Medical Oncology 01/22/25 documented as of this encounter Additional Source Comments The information contained in this document represents components of the legal health record. It is not the complete legal health record.[facility]
--- OUTSIDE RECORDS SUMMARY | 2025-08-08 06:24 | XMS_ITS | Encounter Summary ---
Author Organization [facility] Address [address] [place] [address] Care Team Providers Care Edi Consultant Name Role Phone Luis Valderrama MD Primary Care Provider Encounter Details Date Type Department Care Team (Late st Contact Info) Description 01/26/2025 Lab Requisition [facility] - Main Lab [address] [facility] [place] [address] Luis Valderrama MD [address] [place] [address] Encounter for other general examination Social History Tobacco Use Types Packs/Day Years [...] as of this encounter Plan of Treatment Not on file documented as of this encounter Procedures Procedure Name Priority Date/Time Associated Diagnosis Comments CBC WITH AUTO DIFFERENTIAL Routine 01/26/2025 6:02 AM EDT Encounter for other general examination CBC AND DIFFERENTIAL Routine 01/26/2025 6:02 AM EDT Encounter for other general examination MAGNESIUM Routine 01/26/2025 6:02 AM EDT Encounter for other general examination COMPREHENSIVE METABOLIC PANEL Routine 01/26/2025 6:02 AM EDT Encounter for other general examination documented in this encounter Results * (ABNORMAL) CBC auto differential (01/26/2025 6:02 AM EDT) [facility] WBC 8.3 4.8 - 10.8 K/mcL LAB HEMETOLOGY METHOD 01/26/2025 10:56 AM [facility] RBC 3.30(L) 3.80 - 4.80 M/mcL LAB HEMETOLOGY METHOD 01/26/2025 10:56 AM [facility] Hemoglobin 10.1(L) 11.5 - 16.0 g/dL LAB HEMETOLOGY METHOD 01/26/2025 10:56 AM [facility] Hematocrit 31.8(L) 35.0 - 47.0 % LAB HEMETOLOGY METHOD 01/26/2025 10:56 AM [facility] MCV 96.1 79.0 - 98.0 FL LAB HEMETOLOGY METHOD 01/26/2025 10:56 AM [facility] MCH 30.5 27.0 - 32.0 pcg LAB HEMETOLOGY METHOD 01/26/2025 10:56 AM [facility] MCHC 31.8(L) 32.0 - 37.0 g/dL LAB HEMETOLOGY METHOD 01/26/2025 10:56 AM [facility] RDW 14.6 11.0 - 15.0 % LAB HEMETOLOGY METHOD 01/26/2025 10:56 AM [facility] Platelets 487(H) 130 - 400 K/mcL LAB HEMETOLOGY METHOD 01/26/2025 10:56 AM [facility] MPV 9.8 7.0 - 11.0 FL LAB HEMETOLOGY METHOD 01/26/2025 10:56 AM [facility] NRBC 0.0 <1.0 % LAB HEMETOLOGY METHOD 01/26/2025 10:56 AM [facility] NRBC Absolute 0.00 <0.10 K/mcL LAB HEMETOLOGY METHOD 01/26/2025 10:56 AM [facility] Neutrophils Relative 54.3 % LAB HEMETOLOGY METHOD 01/26/2025 10:56 AM [facility] Lymphocytes Relative 32.5 % LAB HEMETOLOGY METHOD 01/26/2025 10:56 AM [facility] Monocytes Relative 8.5 % LAB HEMETOLOGY METHOD 01/26/2025 10:56 AM [facility] Eosinophils Relative 3.1 % LAB HEMETOLOGY METHOD 01/26/2025 10:56 AM [facility] Basophils Relative 0.2 % LAB HEMETOLOGY METHOD 01/26/2025 10:56 AM [facility] Immature Granulocytes Relative 1.4 % LAB HEMETOLOGY METHOD 01/26/2025 10:56 AM [facility] Neutrophils Absolute 4.49 1.50 - 7.00 K/mcL LAB HEMETOLOGY METHOD 01/26/2025 10:56 AM [facility] Lymphocytes Absolute 2.69 1.00 - 5.00 K/mcL LAB HEMETOLOGY METHOD 01/26/2025 10:56 AM [facility] Monocytes Absolute 0.70 0.20 - 1.00 K/mcL LAB HEMETOLOGY METHOD 01/26/2025 10:56 AM [facility] Eosinophils Absolute 0.26 0.00 - 0.50 K/mcL LAB HEMETOLOGY METHOD 01/26/2025 10:56 AM [facility] Basophils Absolute 0.02 0.00 - 0.20 K/mcL LAB HEMETOLOGY METHOD 01/26/2025 10:56 AM [facility] Immature Granulocytes Absolute 0.12(H) 0.00 - 0.03 K/mcL LAB HEMETOLOGY METHOD 01/26/2025 10:56 AM EDT [facility] Blood Venous blood specimen / Unknown Venipuncture / Unknown 01/26/2025 6:02 AM EDT 01/26/2025 10:07 AM EDT Luis Valderrama MD LAB BLOOD ORDERABLES Final Res ult Performing Organization Address City/[facility]/ZIP Co de Phone Number [facility] [address] [place] [address], [place] [phone] * (ABNORMAL) Magnesium (01/26/2025 6:02 AM EDT) Pathologist [facility] Magnesium 1.8(L) 1.9 - 2.6 mg/dL LAB CHEMISTRY METHOD 01/26/2025 11:34 AM EDT [facility] Blood Venous blood specimen / Unknown Venipuncture / Unknown 01/26/2025 6:02 AM EDT 01/26/2025 10:07 AM EDT Luis Valderrama MD LAB BLOOD ORDERABLES Final Res ult Performing Organization Address [facility] Co de Phone Number [facility] [address] [place] [address], [place] [phone] * (ABNORMAL) Comprehensive metabolic panel (01/26/2025 6:02 AM EDT) Sodium 137 133 - 145 mmol/L LAB CHEMISTRY METHOD 01/26/2025 11:34 AM EDT [facility] Potassium 4.4 3.5 - 5.5 mmol/L LAB CHEMISTRY METHOD 01/26/2025 11:34 AM EDT [facility] Chloride 103 96 - 110 mmol/L LAB CHEMISTRY METHOD 01/26/2025 11:34 AM EDT [facility] CO2 27 21 - 32 mmol/L LAB CHEMISTRY METHOD 01/26/2025 11:34 AM [facility] Anion Gap 7 3 - 11 LAB CHEMISTRY METHOD 01/26/2025 11:34 AM [facility] Glucose 65(L) 70 - 100 mg/dL LAB CHEMISTRY METHOD 01/26/2025 11:34 AM [facility] BUN 9 5 - 25 mg/dL LAB CHEMISTRY METHOD 01/26/2025 11:34 AM [facility] Creatinine 0.55 0.50 - 1.10 mg/dL LAB CHEMISTRY METHOD 01/26/2025 11:34 AM [facility] eGFR 91 >=60 mL/min/1. 73m2 LAB CHEMISTRY METHOD 01/26/2025 11:34 AM [facility] Comment:Calculation based on the Chronic Kidney Disease Epidemiology Collaboration (CKD-EPI) equation refit without adjustment for race. BUN/Creatinine Ratio 16.4 LAB CHEMISTRY METHOD 01/26/2025 11:34 AM [facility] Calcium 9.0 8.5 - 10.5 mg/dL LAB CHEMISTRY METHOD 01/26/2025 11:34 AM [facility] AST (SGOT) 21 10 - 42 unit/L LAB CHEMISTRY METHOD 01/26/2025 11:34 AM [facility] ALT (SGPT) 35 10 - 60 unit/L LAB CHEMISTRY METHOD 01/26/2025 11:34 AM [facility] Alkaline Phosphatase 95 42 - 121 unit/L LAB CHEMISTRY METHOD 01/26/2025 11:34 AM [facility] Total Protein 6.7 6.0 - 8.0 g/dL LAB CHEMISTRY METHOD 01/26/2025 11:34 AM [facility] Albumin 2.7(L) 3.2 - 5.0 g/dL LAB CHEMISTRY METHOD 01/26/2025 11:34 AM [facility] Total Bilirubin 0.5 0.0 - 1.4 mg/dL LAB CHEMISTRY METHOD 01/26/2025 11:34 AM EDT [facility] Blood Venous blood specimen / Unknown Venipuncture / Unknown 01/26/2025 6:02 AM EDT 01/26/2025 10:07 AM EDT us Luis Valderrama MD LAB BLOOD ORDERABLES Final Res ult [facility] [address] [place] [address], documented in this encounter Visit Diagnoses Diagnosis Encounter for other general examination documented in this encounter Care Teams Edi Consultant Relationship Specialty Start Date End Date Luis Valderrama MD [address] [place] [address] PCP - General Internal Medicine 01/26/25 documented as of this encounter
--- OUTSIDE RECORDS SUMMARY | 2025-08-08 06:24 | XMS_ITS | Encounter Summary ---
Author Organization [facility] Address [address] [facility] [address] [place] [address] Phone Care Team Providers Care Home Teaching Grades 7 And 8 Teacher Name Role Phone Claudia Smalls MD Primary Care Provider [phone] Jerrod Gray MD Unavailable [phone] Encounter Details Date Type Department Care Team (Late st Contact Info) Description 01/17/2025 Procedure Pass [facility] PERIOPERATIVE DEPT [address] [place] [phone] Social History Tobacco Use Types Packs/Day Years [...] tries to control you? Deferred 01/17/2025 Comments No Sex and Gender Information Value Date Recorded Sex Assigned at Not on file Legal Sex Female 11:37 AM EST Gender Identity Not on file Sexual Orientation Not on file documented as of this encounter Plan of Treatment Upcoming Encounters Date Type Department Care Team (Latest Contact Info) Description 03/01/2025 Procedure Pass [address] [place] [address] 09/03/2025 11:30 AM EST Appointment [address] [place] [address] Karissa Valdez, ROLAND [address] [facility] [address] [place] [address] [email or web address] 09/07/2025 3:00 PM EST Telemedicine - audio only [facility] Neuro[facility] [address] [facility], 9th Floor, [address] [place] [address] Karissa Valdez, ROLAND [address] [facility] [address] [place] [address] [email or web address] documented as of this encounter Visit Diagnoses Not on filedocumented in this encounter Care Teams Home Teaching Grades 7 And 8 Teacher Relationship Specialty Start Date End Date Po, Claudia Stark MD [address] [place] [address] Drive [address] [place] [address] PCP - General Internal Medicine 07/29/20 Jerrod Gray MD [address] [place] [address] [email or web address] Medical Oncology 01/22/25 documented as of this encounter Additional Source Comments The information contained in this document represents components of the legal health record. It is not the complete legal health record.[facility]
--- OUTSIDE RECORDS SUMMARY | 2025-08-08 06:24 | XMS_ITS | Encounter Summary ---
Author Organization [facility] Address [address] [place] [address] Phone Care Team Providers Care Digital Media Intern Name Role Phone Claudia Smalls MD Primary Care Provider [phone] Jerrod Gray MD Unavailable Encounter Details Date Type Department Care Team (Late st Contact Info) Description 01/14/[address] [facility], 2nd Floor, [address] [place] [address] Social History Tobacco Use Types Packs/Day Years [...] 01/14/2025 12:00 AM Rosalia Torres RN * [place] Suicide Severity Rating Scale (Screener/Recent Self-Report) Question [...] (Latest Contact Info) Description 03/01/2025 Procedure Pass [address] [place] [address] 09/03/2025 11:30 AM EST Appointment [address] [place] [address] Karissa Valdez, ROLAND [address] [facility] [address] [place] [address] [email or web address] 09/07/2025 3:00 PM EST Telemedicine - audio only [facility] [address] [facility], 9th Floor, [address] [place] [address] Karissa Valdez NP [address] [facility] [address] [place] [address] [email or web address] documented as of this encounter Visit Diagnoses Not on filedocumented in this encounter Care Teams Digital Media Intern Relationship Specialty Start Date End Date Claudia Smalls MD [address] [place] [address] Drive [address] [place] [address] PCP - General Internal Medicine 07/29/20 Jerrod Gray MD [address] [place] [address] [email or web address] Medical Oncology 01/22/25 documented as of this encounter Additional Source Comments The information contained in this document represents components of the legal health record. It is not the complete legal health record.[facility]
--- OUTSIDE RECORDS SUMMARY | 2025-08-08 06:25 | XMS_ITS | Encounter Summary ---
Author Organization [facility] Address [address] [facility] [address] [place] [address] Phone Care Team Providers Care Marketing Database Consultant Name Role Phone Claudia Smalls MD Primary Care Provider [phone] Jerrod Gray MD Unavailable [phone] Encounter Details Date Type Department Care Team (Late st Contact Info) Description 01/14/2025 Procedure Pass [facility] IMG PETMR BLK2 [address] [facility], 2nd [place] [address] Social History Tobacco Use Types Packs/Day Years [...] 01/14/2025 12:00 AM Rosalia Torres RN * [place] Suicide Severity Rating Scale (Screener/Recent Self-Report) Question [...] (Latest Contact Info) Description 03/01/2025 Procedure Pass [address] [place] [address] 09/03/2025 11:30 AM EST Appointment [address] [place] [address] Karissa Valdez, ROLAND [address] [facility] [address] [place] [address] [email or web address] 09/07/2025 3:00 PM EST Telemedicine - audio only [facility] Neuro[facility] 55 [facility], 9th Floor, [address] [place] [address] Karissa Valdez NP 55 [facility] [address] [place] [address] [email or web address] documented as of this encounter Visit Diagnoses Not on filedocumented in this encounter Care Teams Marketing Database Consultant Relationship Specialty Start Date End Date Slim, Claudia Stark MD [address] [place] [address] Drive [address] [place] [address] PCP - General Internal Medicine 07/29/20 Jerrod Gray MD [address] [place] [address] [email or web address] Medical Oncology 01/22/25 documented as of this encounter Additional Source Comments The information contained in this document represents components of the legal health record. It is not the complete legal health record.[facility]
--- OUTSIDE RECORDS SUMMARY | 2025-08-08 06:25 | XMS_ITS | Encounter Summary ---
Author Organization [facility] Address [address] [place] [address] Care Team Providers Care Gravity Prospecting Operator Name Role Phone Luis Valderrama MD Primary Care Provider [phone] Encounter Details Date Type Department Care Team (Late st Contact Info) Description 02/02/2025 Lab Requisition [facility] - Main Lab [address] [facility] [place] [address] Luis Valderrama MD [address] [place] [address] Encounter for other general examination Social History [...] documented in this encounter Results * (ABNORMAL) Complete blood count (02/02/2025 6:23 AM EDT) WBC 6.2 4.8 - 10.8 K/[facility] LAB HEMETOLOGY METHOD 02/02/2025 9:57 AM [facility] RBC 3.00(L) 3.80 - 4.80 M/mcL LAB HEMETOLOGY METHOD 02/02/2025 9:57 AM [facility] Hemoglobin 9.1(L) 11.5 - 16.0 g/dL LAB HEMETOLOGY METHOD 02/02/2025 9:57 AM [facility] Hematocrit 29.4(L) 35.0 - 47.0 % LAB HEMETOLOGY METHOD 02/02/2025 9:57 AM [facility] MCV 97.4 79.0 - 98.0 FL LAB HEMETOLOGY METHOD 02/02/2025 9:57 AM [facility] MCH 30.1 27.0 - 32.0 pcg LAB HEMETOLOGY METHOD 02/02/2025 9:57 AM [facility] MCHC 31.0(L) 32.0 - 37.0 g/dL LAB HEMETOLOGY METHOD 02/02/2025 9:57 AM [facility] RDW 14.6 11.0 - 15.0 % LAB HEMETOLOGY METHOD 02/02/2025 9:57 AM [facility] Platelets 405(H) 130 - 400 K/mcL LAB HEMETOLOGY METHOD 02/02/2025 9:57 AM [facility] MPV 9.6 7.0 - 11.0 FL LAB HEMETOLOGY METHOD 02/02/2025 9:57 AM [facility] NRBC 0.0 <1.0 % LAB HEMETOLOGY METHOD 02/02/2025 9:57 AM [facility] NRBC Absolute 0.00 <0.10 K/mcL LAB HEMETOLOGY METHOD 02/02/2025 9:57 AM [facility] Blood Venous blood specimen / Unknown Venipuncture / Unknown 02/02/2025 6:23 AM EDT 02/02/2025 9:14 AM EDT us Luis Valderrama MD LAB BLOOD ORDERABLES Final Res ult [facility] [address] [place] [address], [place] [phone] * (ABNORMAL) Comprehensive metabolic panel (02/02/2025 6:23 AM EDT) Sodium 140 133 - 145 mmol/L LAB CHEMISTRY METHOD 02/02/2025 10:30 AM [facility] Potassium 4.1 3.5 - 5.5 mmol/L LAB CHEMISTRY METHOD 02/02/2025 10:30 AM [facility] Chloride 106 96 - 110 mmol/L LAB CHEMISTRY METHOD 02/02/2025 10:30 AM [facility] CO2 26 21 - 32 mmol/L LAB CHEMISTRY METHOD 02/02/2025 10:30 AM [facility] Anion Gap 8 3 - 11 LAB CHEMISTRY METHOD 02/02/2025 10:30 AM [facility] Glucose 72 70 - 100 mg/dL LAB CHEMISTRY METHOD 02/02/2025 10:30 AM [facility] BUN 14 5 - 25 mg/dL LAB CHEMISTRY METHOD 02/02/2025 10:30 AM [facility] Creatinine 0.58 0.50 - 1.10 mg/dL LAB CHEMISTRY METHOD 02/02/2025 10:30 AM [facility] eGFR 89 >=60 mL/min/1. 73m2 LAB CHEMISTRY METHOD 02/02/2025 10:30 AM [facility] Comment:Calculation based on the Chronic Kidney Disease Epidemiology Collaboration (CKD-EPI) equation refit without adjustment for race. BUN/Creatinine Ratio 24.1 LAB CHEMISTRY METHOD 02/02/2025 10:[address] [facility] Calcium 8.8 8.5 - 10.5 mg/dL LAB CHEMISTRY METHOD 02/02/2025 10:[address] [facility] AST (SGOT) 22 10 - 42 unit/L LAB CHEMISTRY METHOD 02/02/2025 10:30 AM [facility] ALT (SGPT) 20 10 - 60 unit/L LAB CHEMISTRY METHOD 02/02/2025 10:[address] [facility] Alkaline Phosphatase 102 42 - 121 unit/L LAB CHEMISTRY METHOD 02/02/2025 10:30 AM [facility] Total Protein 6.6 6.0 - 8.0 g/dL LAB CHEMISTRY METHOD 02/02/2025 10:30 AM [facility] Albumin 2.6(L) 3.2 - 5.0 g/dL LAB CHEMISTRY METHOD 02/02/2025 10:30 AM [facility] Total Bilirubin 0.3 0.0 - 1.4 mg/dL LAB CHEMISTRY METHOD 02/02/2025 10:30 AM [facility] Blood Venous blood specimen / Unknown Venipuncture / Unknown 02/02/2025 6:23 AM EDT 02/02/2025 9:14 AM EDT us Luis Valderrama MD LAB BLOOD ORDERABLES Final Res ult [facility] [address] [place] [address], [place] [phone] documented in this encounter Visit Diagnoses Diagnosis Encounter for other general examination documented in this encounter Care Teams Gravity Prospecting Operator Relationship Specialty Start Date End Date Luis Valderrama MD [address] [place] [address] PCP - General Internal Medicine 01/26/25 documented as of this encounter
--- OUTSIDE RECORDS SUMMARY | 2025-08-08 06:25 | XMS_ITS | Encounter Summary ---
Author Organization [facility] Address [address] [place] [address] Care Team Providers Care Programs Manager Name Role Phone Luis Valderrama MD Primary Care Provider Encounter Details Date Type Department Care Team (Late st Contact Info) Description 01/30/2025 Lab Requisition [facility] - Main Lab 299 [facility] [place] [address] Luis Valderrama MD [address] [place] [address] Encounter for other general examination Social History [...] Procedure Name Priority Date/Time Associated Diagnosis Comments SST - GOLD Routine 01/30/2025 5:30 AM EDT Encounter for other general examination LEVETIRACETAM LEVEL Routine 01/30/2025 5 :30 AM EDT Encounter for other general examination documented in this encounter Results * SST tube (01/30/2025 5:30 AM EDT) Extra Tube Hold for add-ons. 01/30/2025 12:01 PM EDT [facility] Comment:Auto resulted. Blood Venous blood specimen / Unknown Venipuncture / Unknown 01/30/2025 5:30 AM EDT 01/30/2025 10:07 AM EDT us Luis Valderrama MD LAB BLOOD ORDERABLES Final Res ult Performing Organization Address [facility]/ZIP Co de Phone Number [facility] [address] [place] [address], [place] [phone] * Levetiracetam level (01/30/2025 5:30 AM EDT) Levetiracetam 14.6 3.0 - 60.0 ug/mL 02/01/2025 5:25 AM EDT [facility] Comment: Steady state trough serum or plasma levels following doses of 1000 to 3000 mg/Day: 3 to 37 ug/mL. The same dosage regimen will typically result in peak levels of 10 to 60 ug/mL, at approximately 1.5 hours post dose. If applicable, any drug confirmation testing reported here was developed and the performance characteristics determined by [facility]. This confirmation testing has not been cleared or approved by the FDA. The laboratory is regulated under CLIA as qualified to perform high-complexity testing. This test is used for patient testing purposes. It should not be regarded as investigational or for research. Test performed at [facility], [address] , [place], [place] [id number] Theresa Nicholas MD, PhD - Access Rn Blood Venous blood specimen / Unknown Venipuncture / Unknown 01/30/2025 5:30 AM EDT 01/30/2025 10:07 AM EDT us Luis Valderrama MD LAB BLOOD ORDERABLES Final Res ult [facility] [address] [place] [address] documented in this encounter Visit Diagnoses Diagnosis Encounter for other general examination documented in this encounter Care Teams Programs Manager Relationship Specialty Start Date End Date Luis Valderrama MD [address] [place] [address] PCP - General Internal Medicine 01/26/25 documented as of this encounter
== END 2025-08-07 14:06 | disposition home or self-care (01) ==
LOC: HO.HOS 13:27
PROVIDERS: PCP Internal Medicine
DX: M65.341 Trigger finger, right ring finger (principal); M65.342 Trigger finger, left ring finger
CPT/HCPCS: 20550; 99213

== ENCOUNTER → 2025-08-07 13:26 | Outpatient (BNVA) | payer MEDICARE, SELFPAY | PROVIDERS: PCP Internal Medicine | DX: M65.341 Trigger finger, right ring finger (principal); M65.342 Trigger finger, left ring finger | CPT/HCPCS: 20550; 99212; J1100; J2003 ==

== ENCOUNTER 2025-08-13 14:40 | Outpatient (REF) | payer MEDICARE, SELFPAY ==
--- OUTSIDE RECORDS SUMMARY | 2020-07-29 12:06 | XMS_ITS | Encounter Summary ---
Author Organization [facility] Address [address] [place] [address] [place] [address] Phone Care Team Providers Care Tabulating Machine Mechanic Name Role Phone Claudia Smalls MD Primary Care Provider [phone] Encounter Details Date Type Department Care Team (Late st Contact Info) Description 07/29/2020 12:06 PM [facility] Hospital Encounter [facility] [address] [place] [phone] Rosibel Morgan CNP [address] [place] [phone] [email or web address] Social History Tobacco Use Types Packs/Day Years [...] 10:30 PM EDT Dav Lindquist RN * [facility] Suicide Severity Rating Scale (Screener/Recent Self-Report) Question [...] (Latest Contact Info) Description 03/01/2025 Procedure Pass [address] [place] [address] 09/03/2025 11:30 AM EST Appointment [address] [place] [address] Karissa Valdez, ROLAND [address] [facility] [address] [place] [address] [email or web address] 09/07/2025 3:00 PM EST Telemedicine - audio only [facility] [place] [facility] [address] [facility] [address], 9th Floor, [address] [place] [address] Karissa Valdez, ROLAND [address] [facility] [address] [place] [address] [email or web address] documented as of this encounter Procedures Procedure [...] proximal humerus. POS - [id number] Rosibel Morgan CONCRETE SCULPTOR IMG XR UPPER EXTREMITY Edwige l Result documented in this encounter Visit Diagnoses Not on filedocumented in this encounter Care Teams Tabulating Machine Mechanic Relationship Specialty Start Date End Date Claudia Smalls MD [address] [place] [id number] PCP - General Internal Medicine 07/29/20 documented as of this encounter Additional Source Comments The information contained in this document represents components of the legal health record. It is not the complete legal health record.[facility]
--- OUTSIDE RECORDS SUMMARY | 2023-04-03 12:20 | XMS_ITS | Encounter Summary ---
Author Organization [facility] Address [address] [place] [address] [address] [place] [address] Phone Care Team Providers Care Framing Mill Operator Helper Name Role Phone Claudia Smalls MD Primary Care Provider [phone] Encounter Details Date Type Department Care Team (Late st Contact Info) Description 04/03/2023 1:20 PM EDT Hospital Encounter [facility] [address] [place] [phone] Eva Alberto, [address], [address] [place] [id number] [email or web address] Social History [...] 10:30 PM EDT Dav Lindquist RN * [place] Suicide Severity Rating Scale (Screener/Recent Self-Report) Question Answer Date of Assessment Author 1. Wish to be (Past 1 Month) No 01/23/2025 10:30 PM EDT Dav Berkowitz RN 2. Non-Specific Active Suicidal Thoughts (Past 1 Month) No 01/23/2025 10:30 PM EDT Dav Berkowitz RN 6. Suicidal Behavior (Lifetime) No 01/23/2025 10:30 PM EDT Dav Berkowitz RN documented as of this encounter Plan of Treatment Upcoming Encounters Date Type Department Care Team (Latest Contact Info) Description 03/01/2025 Procedure Pass [address] [place] [address] 09/03/2025 11:30 AM EST Appointment [address] [place] [address] Karissa Valdez, ROLAND [address] [facility] [address] [place] [address] [email or web address] 09/07/2025 3:00 PM EST Telemedicine - audio only [facility] [place] [address] [facility], 9th Floor, [address] [place] [address] Karissa Valdez, ROLAND [address] [facility] [address] [place] [address] [email or web address] documented as of this encounter Procedures Procedure Name Priority Date/Time Associated Diagnosis Comments XR FOOT 3 OR MORE VIEWS (LEFT) Urgent/patient waiting 04/03/2023 1:26 PM EDT Foot sprain, left, initial encounter documented in this encounter Results * XR FOOT 3 OR MORE VIEWS (LEFT) (04/03/2023 1:26 PM EDT) Anatomical Region Laterality Modality Foot Left Computed Radiogr aphy 04/03/2023 1:34 PM EDT Impressions 04/03/2023 1:35 PM EDT No fracture or dislocation. Narrative 04/03/2023 1:35 PM EDT XR FOOT 3 OR MORE VIEWS (LEFT) COMPARISON: None FINDINGS: No fracture. Normal alignment. Degenerative changes at first MTP joint. No soft tissue swelling. Procedure Note [facility] - 04/03/2023 XR FOOT 3 OR MORE VIEWS (LEFT) COMPARISON: None FINDINGS: No fracture. Normal alignment. Degenerative changes at first MTP joint. Nosoft tissue swelling. IMPRESSION: No fracture or dislocation. Eva Alberto ENVIRONMENTAL COMPLIANCE INSPECTOR IMG XR LOWER EXTREMITY Final Result documented in this encounter Visit Diagnoses Not on filedocumented in this encounter Care Teams Framing Mill Operator Helper Relationship Specialty Start Date End Date Claudia Smalls MD [address] [place] [address] [place] [phone] PCP - General Internal Medicine 07/29/20 documented as of this encounter Additional Source Comments The information contained in this document represents components of the legal health record. It is not the complete legal health record.[facility]
--- NOTE | ~2025-08-13 | MM_ITS ---
EXAMINATION: MM SCREENING DIGITAL BREAST TOMOSYNTHESIS, BILATERAL CLINICAL INFORMATION: Screening. Asymptomatic. COMPARISON: Mammography: Comparison is made with available priors TECHNIQUE: Digital breast mammography with tomosynthesis is performed in both the craniocaudal and mediolateral oblique views along with computer-aided detection (CAD). FINDINGS: There are scattered areas of fibroglandular density. There are no significant masses, abnormal calcifications, or other abnormalities. MM/MM tomosynthesis screening BI IMPRESSION: No mammographic evidence of malignancy. ASSESSMENT: BI-RADS Category 1: Negative RECOMMENDATION: Routine annual mammography screening. 1 year F/U This examination should not preclude the clinical evaluation of a suspicious palpable abnormality. This patient's information was entered into a reminder system with a target due date for their next mammogram. Electronically signed by: Edith Tapia DO 08/14/2025 03:32 PM ADDIE
--- OUTSIDE RECORDS SUMMARY | 2025-08-13 19:32 | XMS_ITS | Clinical Summary ---
Author Organization [facility] Address [address] [place] [address] Care Team Providers Care Simulation Technician Name Role Phone Unavailable Primary Care [...]
--- OUTSIDE RECORDS SUMMARY | 2025-08-13 19:32 | XMS_ITS | Encounter Summary ---
Author Organization [facility] Address [address] [place] [address] Care Team Providers Care Manager Lab Name Role Phone Luis Valderrama MD Primary Care Provider [phone] Encounter Details Date Type Department Care Team (Late st Contact Info) Description 01/26/[address] [facility] - Main Lab 299 [facility] [address] Luis Valderrama MD [address] [place] [address] Encounter for other general examination Social History [...] CBC auto differential (01/26/2025 6:02 AM EDT) [facility] WBC 8.3 4.8 - 10.8 K/mcL LAB HEMETOLOGY METHOD 01/26/2025 10:56 AM [facility] RBC 3.30(L) 3.80 - 4.80 M/mcL LAB HEMETOLOGY METHOD 01/26/2025 10:56 AM [facility] Hemoglobin 10.1(L) 11.5 - 16.0 g/dL LAB HEMETOLOGY METHOD 01/26/2025 10:56 AM [facility] Hematocrit 31.8(L) 35.0 - 47.0 % LAB HEMETOLOGY METHOD 01/26/2025 10:56 AM [facility] MCV 96.1 79.0 - 98.0 FL LAB HEMETOLOGY METHOD 01/26/2025 10:56 AM [facility] MCH 30.5 27.0 - 32.0 pcg LAB HEMETOLOGY METHOD 01/26/2025 10:56 AM [facility] MCHC 31.8(L) 32.0 - 37.0 g/dL LAB HEMETOLOGY METHOD 01/26/2025 10:56 AM [facility] RDW 14.6 11.0 - 15.0 % LAB HEMETOLOGY METHOD 01/26/2025 10:56 AM [facility] Platelets 487(H) 130 - 400 K/mcL LAB HEMETOLOGY METHOD 01/26/2025 10:56 AM [facility] MPV 9.8 7.0 - 11.0 FL LAB HEMETOLOGY METHOD 01/26/2025 10:56 AM [facility] NRBC 0.0 <1.0 % LAB HEMETOLOGY METHOD 01/26/2025 10:56 AM [facility] NRBC Absolute 0.00 <0.10 K/mcL LAB HEMETOLOGY METHOD 01/26/2025 10:56 AM [facility] Neutrophils Relative 54.3 % LAB HEMETOLOGY METHOD 01/26/2025 10:56 AM [facility] Lymphocytes Relative 32.5 % LAB HEMETOLOGY METHOD 01/26/2025 10:56 AM [facility] Monocytes Relative 8.5 % LAB HEMETOLOGY METHOD 01/26/2025 10:56 AM [facility] Eosinophils Relative 3.1 % LAB HEMETOLOGY METHOD 01/26/2025 10:56 AM [facility] Basophils Relative 0.2 % LAB HEMETOLOGY METHOD 01/26/2025 10:56 AM [facility] Immature Granulocytes Relative 1.4 % LAB HEMETOLOGY METHOD 01/26/2025 10:56 AM [facility] Neutrophils Absolute 4.49 1.50 - 7.00 K/mcL LAB HEMETOLOGY METHOD 01/26/2025 10:56 AM [facility] Lymphocytes Absolute 2.69 1.00 - 5.00 K/mcL LAB HEMETOLOGY METHOD 01/26/2025 10:56 AM [facility] Monocytes Absolute 0.70 0.20 - 1.00 K/mcL LAB HEMETOLOGY METHOD 01/26/2025 10:56 AM [facility] Eosinophils Absolute 0.26 0.00 - 0.50 K/mcL LAB HEMETOLOGY METHOD 01/26/2025 10:56 AM [facility] Basophils Absolute 0.02 0.00 - 0.20 K/mcL LAB HEMETOLOGY METHOD 01/26/2025 10:56 AM [facility] Immature Granulocytes Absolute 0.12(H) 0.00 - 0.03 K/mcL LAB HEMETOLOGY METHOD 01/26/2025 10:56 AM EDT [facility] Blood Venous blood specimen / Unknown Venipuncture / Unknown 01/26/2025 6:02 AM EDT 01/26/2025 10:07 AM EDT Luis Valderrama MD LAB BLOOD ORDERABLES Final Res ult Performing Organization Address City/[facility]/ZIP Co de Phone Number [facility] [address] [place] [address], [place] [phone] * (ABNORMAL) Magnesium (01/26/2025 6:02 AM EDT) Pathologist [facility] Magnesium 1.8(L) 1.9 - 2.6 mg/dL LAB CHEMISTRY METHOD 01/26/2025 11:34 AM EDT [facility] Blood Venous blood specimen / Unknown Venipuncture / Unknown 01/26/2025 6:02 AM EDT 01/26/2025 10:07 AM EDT Luis Valderrama MD LAB BLOOD ORDERABLES Final Res ult Performing Organization Address [facility] Co de Phone Number [facility] [address] [place] [address], [place] [phone] * (ABNORMAL) Comprehensive metabolic panel (01/26/2025 6:02 AM EDT) Sodium 137 133 - 145 mmol/L LAB CHEMISTRY METHOD 01/26/2025 11:34 AM EDT [facility] Potassium 4.4 3.5 - 5.5 mmol/L LAB CHEMISTRY METHOD 01/26/2025 11:34 AM EDT [facility] Chloride 103 96 - 110 mmol/L LAB CHEMISTRY METHOD 01/26/2025 11:34 AM EDT [facility] CO2 27 21 - 32 mmol/L LAB CHEMISTRY METHOD 01/26/2025 11:34 AM [facility] Anion Gap 7 3 - 11 LAB CHEMISTRY METHOD 01/26/2025 11:34 AM [facility] Glucose 65(L) 70 - 100 mg/dL LAB CHEMISTRY METHOD 01/26/2025 11:34 AM [facility] BUN 9 5 - 25 mg/dL LAB CHEMISTRY METHOD 01/26/2025 11:34 AM [facility] Creatinine 0.55 0.50 - 1.10 mg/dL LAB CHEMISTRY METHOD 01/26/2025 11:34 AM [facility] eGFR 91 >=60 mL/min/1. 73m2 LAB CHEMISTRY METHOD 01/26/2025 11:34 AM [facility] Comment:Calculation based on the Chronic Kidney Disease Epidemiology Collaboration (CKD-EPI) equation refit without adjustment for race. BUN/Creatinine Ratio 16.4 LAB CHEMISTRY METHOD 01/26/2025 11:34 AM [facility] Calcium 9.0 8.5 - 10.5 mg/dL LAB CHEMISTRY METHOD 01/26/2025 11:34 AM [facility] AST (SGOT) 21 10 - 42 unit/L LAB CHEMISTRY METHOD 01/26/2025 11:34 AM [facility] ALT (SGPT) 35 10 - 60 unit/L LAB CHEMISTRY METHOD 01/26/2025 11:34 AM [facility] Alkaline Phosphatase 95 42 - 121 unit/L LAB CHEMISTRY METHOD 01/26/2025 11:34 AM [facility] Total Protein 6.7 6.0 - 8.0 g/dL LAB CHEMISTRY METHOD 01/26/2025 11:34 AM [facility] Albumin 2.7(L) 3.2 - 5.0 g/dL LAB CHEMISTRY METHOD 01/26/2025 11:34 AM [facility] Total Bilirubin 0.5 0.0 - 1.4 mg/dL LAB CHEMISTRY METHOD 01/26/2025 11:34 AM EDT [facility] Blood Venous blood specimen / Unknown Venipuncture / Unknown 01/26/2025 6:02 AM EDT 01/26/2025 10:07 AM EDT us Luis Valderrama MD LAB BLOOD ORDERABLES Final Res ult [facility] [address] [place] [address], documented in this encounter Visit Diagnoses Diagnosis Encounter for other general examination documented in this encounter Care Teams Manager Lab Relationship Specialty Start Date End Date Luis Valderrama MD [address] [place] [address] PCP - General Internal Medicine 01/26/25 documented as of this encounter
--- OUTSIDE RECORDS SUMMARY | 2025-08-13 19:32 | XMS_ITS | Encounter Summary ---
Author Organization [facility] Address [address] [place] [address] Phone Care Team Providers Care Glass Decorator Name Role Phone Claudia Smalls MD Primary Care Provider [phone] Jerrod Gray MD Unavailable [phone] Encounter Details Date Type Department Care Team (Late st Contact Info) Description 01/23/2025 Procedure Pass [facility], Ct Scan - [address] [address] Social History Tobacco Use Types Packs/Day Years [...] 10:30 PM EDT Dav Lindquist, MIGUEL * [place] Suicide Severity Rating Scale (Screener/Recent Self-Report) Question [...] (Latest Contact Info) Description 03/01/2025 Procedure Pass [address] [place] [address] 09/03/2025 11:30 AM EST Appointment [address] [place] [address] Karissa Valdez, ROLAND [address] [facility] [address] [place] [address] [email or web address] 09/07/2025 3:00 PM EST Telemedicine - audio only [facility] [address] [facility], 9th Floor, [address] [place] [address] Karissa Valdez, ROLAND [address] [facility] [address] [place] [address] [email or web address] documented as of this encounter Visit Diagnoses Not on filedocumented in this encounter Care Teams Glass Decorator Relationship Specialty Start Date End Date Claudia Smalls MD [address] [place] [address] Drive [address] [place] [phone] PCP - General Internal Medicine 07/29/20 Jerrod Gray MD [address] [place] [address] [email or web address] Medical Oncology 01/22/25 documented as of this encounter Additional Source Comments The information contained in this document represents components of the legal health record. It is not the complete legal health record.[facility]
--- OUTSIDE RECORDS SUMMARY | 2025-08-13 19:32 | XMS_ITS | Encounter Summary ---
Author Organization [facility] Address [address] [place] [address] Care Team Providers Care Instrument Repairer Helper Name Role Phone Luis Valderrama MD Primary Care Provider [phone] Encounter Details Date Type Department Care Team (Late st Contact Info) Description 01/30/2025 Lab Requisition [facility] - Main Lab 299 [facility] [place] [address] Luis Valderrama MD [address] [place] [address] Encounter for other general examination Social History [...] ORDERABLES Final Res ult Performing Organization Address [facility]/ZIP Co de Phone Number [facility] [address] [place] [address], [place] [phone] * Levetiracetam level (01/30/2025 5:30 AM EDT) Levetiracetam 14.6 3.0 - 60.0 ug/mL 02/01/2025 5:25 AM EDT [facility] Comment: Steady state trough serum or plasma levels following doses of 1000 to 3000 mg/Day: 3 to 37 ug/mL. The same dosage regimen will typically result in peak levels of 10 to 60 ug/mL, at approximately 1.5 hours post dose. If applicable, any drug confirmation testing reported here was developed and the performance characteristics determined by [facility]. This confirmation testing has not been cleared or approved by the FDA. The laboratory is regulated under CLIA as qualified to perform high-complexity testing. This test is used for patient testing purposes. It should not be regarded as investigational or for research. Test performed at [facility], [address] , [place], [place] [id number] Theresa Nicholas MD, PhD - Paintings Conservator Blood Venous blood specimen / Unknown Venipuncture / Unknown 01/30/2025 5:30 AM EDT 01/30/2025 10:07 AM EDT us Luis Valderrama MD LAB BLOOD ORDERABLES Final Res ult [facility] [address] [place] [address] documented in this encounter Visit Diagnoses Diagnosis Encounter for other general examination documented in this encounter Care Teams Instrument Repairer Helper Relationship Specialty Start Date End Date Luis Valderrama MD [address] [place] [address] PCP - General Internal Medicine 01/26/25 documented as of this encounter
--- OUTSIDE RECORDS SUMMARY | 2025-08-13 19:32 | XMS_ITS | Clinical Summary ---
Author Organization [address] Address [address] [place] [address] Phone Care Team Providers Care Waxer Name Role Phone Luis Valderrama MD Primary Care Provider [phone] Surgical History Surgery Date Site/Laterality Comments APPENDECTOMY [...] (CMS/HCC V24) 2014 DX:PMR (polymyalgia rheumati ca) ([facility]);COMMENT:tapered off Prednisone 01/2016 Dr Smith Cervical spinal stenosis DX:Cerv ical spinal stenosis;COMMENT:02/2015 MRI-C mild stenosis C4-5 with severe cervical spondylosis Syncope DX:Syncope Meningioma, cerebral (CMS/HC C V24, CMS/HCC V28) DX:Meningioma, cerebral ([facility]);COMMENT:01/2019 MRI-B: small parasagittal posterior frontal meningioma: [...] mmol/L LAB CHEMISTRY METHOD 02/02/2025 10:30 AM [facility] Potassium 4.1 3.5 - 5.5 mmol/L LAB CHEMISTRY METHOD 02/02/2025 10:30 AM [facility] Chloride 106 96 - 110 mmol/L LAB CHEMISTRY METHOD 02/02/2025 10:30 AM [facility] CO2 26 21 - 32 mmol/L LAB CHEMISTRY METHOD 02/02/2025 10:30 AM [facility] Anion Gap 8 3 - 11 LAB CHEMISTRY METHOD 02/02/2025 10:30 AM [facility] Glucose 72 70 - 100 mg/dL LAB CHEMISTRY METHOD 02/02/2025 10:30 AM [facility] BUN 14 5 - 25 mg/dL LAB CHEMISTRY METHOD 02/02/2025 10:30 AM [facility] Creatinine 0.58 0.50 - 1.10 mg/dL LAB CHEMISTRY METHOD 02/02/2025 10:30 AM [facility] eGFR 89 >=60 mL/min/1. 73m2 LAB CHEMISTRY METHOD 02/02/2025 10:30 AM [facility] Comment:Calculation based on the Chronic Kidney Disease Epidemiology Collaboration (CKD-EPI) equation refit without adjustment for race. BUN/Creatinine Ratio 24.1 LAB CHEMISTRY METHOD 02/02/2025 10:30 AM [facility] Calcium 8.8 8.5 - 10.5 mg/dL LAB CHEMISTRY METHOD 02/02/2025 10:30 AM [facility] AST (SGOT) 22 10 - 42 unit/L LAB CHEMISTRY METHOD 02/02/2025 10:30 AM [facility] ALT (SGPT) 20 10 - 60 unit/L LAB CHEMISTRY METHOD 02/02/2025 10:30 AM [facility] Alkaline Phosphatase 102 42 - 121 unit/L LAB CHEMISTRY METHOD 02/02/2025 10:30 AM [facility] Total Protein 6.6 6.0 - 8.0 g/dL LAB CHEMISTRY METHOD 02/02/2025 10:30 AM [facility] Albumin 2.6(L) 3.2 - 5.0 g/dL LAB CHEMISTRY METHOD 02/02/2025 10:30 AM [facility] Total Bilirubin 0.3 0.0 - 1.4 mg/dL LAB CHEMISTRY METHOD 02/02/2025 10:30 AM [facility] Blood Venous blood specimen / Unknown Venipuncture / Unknown 02/02/2025 6:23 AM EDT 02/02/2025 9:14 AM EDT us Luis Valderrama MD LAB BLOOD ORDERABLES Final Res ult [facility] [address] [place], [place] [address] [phone] from Last 3 Months or Most Recently Relevant to Health Maintenance Insurance [facility] Care Teams Waxer Relationship Specialty Start Date End Date Luis Valderrama MD [address] [place] [address] PCP - General Internal Medicine 01/26/25
--- OUTSIDE RECORDS SUMMARY | 2025-08-13 19:32 | XMS_ITS | Encounter Summary ---
Author Organization [facility] Address [address] [place] [address] [place] [address] Phone Care Team Providers Care Parachute Inspector Name Role Phone Claudia Smalls MD Primary Care Provider [phone] Jerrod Gray MD Unavailable [phone] Encounter Details Date Type Department Care Team (Late st Contact Info) Description 01/23/2025 Procedure Pass [facility], [address] [address] Social History Tobacco Use Types Packs/Day Years [...] 10:30 PM EDT Dav Lindquist, MIGUEL * [place] Suicide Severity Rating Scale (Screener/Recent Self-Report) Question [...] (Latest Contact Info) Description 03/01/2025 Procedure Pass [address] [place] [address] 09/03/2025 11:30 AM EST Appointment [address] [place] [address] Karissa Valdez, ROLAND [address] [facility] [address] [place] [address] [email or web address] 09/07/2025 3:00 PM EST Telemedicine - audio only [facility] [address] [facility], 9th Floor, [address] [place] [address] Karissa Valdez, ROLAND [address] [facility] [address] [place] [address] [email or web address] documented as of this encounter Visit Diagnoses Not on filedocumented in this encounter Care Teams Parachute Inspector Relationship Specialty Start Date End Date Claudia Smalls MD [address] [place] [address] Drive [address] [place] [phone] PCP - General Internal Medicine 07/29/20 Jerrod Gray MD [address] [place] [address] [email or web address] Medical Oncology 01/22/25 documented as of this encounter Additional Source Comments The information contained in this document represents components of the legal health record. It is not the complete legal health record.[facility]
--- OUTSIDE RECORDS SUMMARY | 2025-08-13 19:32 | XMS_ITS | Encounter Summary ---
Author Organization [facility] Address [address] [facility] [address] [place] [address] Phone Care Team Providers Care Garden Center Manager Name Role Phone Claudia Smalls MD Primary Care Provider [phone] Jerrod Gray MD Unavailable [phone] Encounter Details Date Type Department Care Team (Late st Contact Info) Description 01/14/2025 Procedure Pass [facility] IMG PETMR BLK2 [address] [facility], 2nd [place] [address] Social History Tobacco Use Types Packs/Day Years [...] 01/14/2025 12:00 AM Rosalia Torres RN * [place] Suicide Severity Rating Scale (Screener/Recent Self-Report) Question [...] (Latest Contact Info) Description 03/01/2025 Procedure Pass [address] [place] [address] 09/03/2025 11:30 AM EST Appointment [address] [place] [address] Karissa Valdez, ROLAND 55 [address] [facility] [address] [place] [address] [email or web address] 09/07/2025 3:00 PM EST Telemedicine - audio only [facility] 55 [facility], 9th Floor, [address] [place] [address] Karissa Valdez NP 55 [facility] [address] [place] [address] [email or web address] documented as of this encounter Visit Diagnoses Not on filedocumented in this encounter Care Teams Garden Center Manager Relationship Specialty Start Date End Date Slim, Claudia Stark MD [address] [place] [address] Drive [address] [place] [address] PCP - General Internal Medicine 07/29/20 Jerrod Gray MD [address] [place] [address] [email or web address] Medical Oncology 01/22/25 documented as of this encounter Additional Source Comments The information contained in this document represents components of the legal health record. It is not the complete legal health record.[facility]
--- OUTSIDE RECORDS SUMMARY | 2025-08-13 19:32 | XMS_ITS | Clinical Summary ---
Author Organization [facility] Address [address] [facility] [address] [place] [address] Phone Care Team Providers Care Business Management Manager Name Role Phone Claudia Smalls MD Primary Care Provider [phone] Jerrod Gray MD Unavailable [phone] Allergies No known active allergies Medications [...] were performed and showed post op changes. [facility] neurosurgery recommended MRI brain which showed postsurgical [...] could continue her syncope work up at [facility] including MRI brain -No seizure activity [...] (01/24/2025 10:29 AM EDT): Recently hospitalized at [facility] 01/13-01/20 and underwent a craniotomy on 01/17 She has completed her course of decadron and keppra Assessment & Plan (01/23/2025 10:44 PM EDT): -Recently hospitalized at [facility] 01/13-01/20 and underwent a craniotomy on 01/17 -She has completed her course of decadron and keppra Osteopenia 07/29/2020 Essential hypertension 03/01/2018 Assessment & Plan (01/24/2025 10:29 AM EDT): BP controlled Continue atenolol Assessment & Plan (01/23/2025 10:44 PM EDT): -BP controlled -Continue atenolol Hypothyroidism 03/01/2018 Encounters Date Type Department Care Team Description 05/29/2025 2:30 PM EDT Telemedicine - audio only [facility] Rad Onc [address] [place] [address] Panda Graf MD Meningioma, cerebral (Primary Dx) [...] Contact Info) Description 03/01/2025 Procedure Pass [address] [place] [address] 09/03/2025 11:30 AM EST Appointment [address] [place] [address] Karissa Valdez, ROLAND 55 [facility] [address] [place] [address] [email or web address] 09/07/2025 3:00 PM EST Telemedicine - audio only [facility] Neurosurgery Brain Tumor Center 55 [facility], 9th Floor, [address] [place] [address] Karissa Valdez, ROLAND [address] [address] [email or web address] Health Maintenance Due Date Last Done [...] this topic Medical Devices Implanted Type Area Sound Ranging Crewmember Device Identifier Shelf Expiration Date Model / Serial / Lot Screw Bone 1.5x4mm Ti Self Drilling Matrixneuro Pk/5ea - [id number] Implanted:Qty: 51 on 01/17/2025 by Devyn Collazo MD at [facility] N/A: Brain [employer] 503. 104.05 / / Plate Craniomaxillofacial .4mm Med Matrixneuro Titanium Contourable Mesh Malleable Temporal Silver - [id number] Implanted:Qty: 2 on 01/17/2025 by Devyn Collazo MD at [facility] N/A: Brain [employer] 503. 057 / / Matrix Dura 3x3in Onlay Plus - [id number] Implanted:Qty: 1 on 01/17/2025 by Devyn Collazo MD at [facility] N/A: Brain KRISTI CRANIOMAXILLOFACIAL DI 11/18/2027 DMOP33 / / [id number] Matrix Dura 3x3in Onlay Plus - [id number] Implanted:Qty: 1 on 01/17/2025 by Devyn Collazo MD at [facility] N/A: Brain KRISTI CRANIOMAXILLOFACIAL DI 11/18/2027 DMOP33 / / [id number] Cover [place] 17mm Hole Cranial Matrixneuro Titanium Ultra Low Profile - [id number] Implanted:Qty: 6 on 01/17/2025 by Devyn Collazo MD at [facility] N/A: Brain DEPUY SYNTHES [employer] . 023 / / Cover [place] 24mm Hole Cranial Matrixneuro Ti Ultra Low Profile - [id number] Implanted:Qty: 2 on 01/17/2025 by Devyn Collazo MD at [facility] N/A: Brain DEPU[employer] SY[employer] 024 / / Procedures Procedure Name Priority Date/Time Associated Diagnosis Comments TSH WITH REFLEX Routine 01/25/2025 7:13 AM EDT from Last 3 Months or Most Recently Relevant to Health Maintenance Results * (ABNORMAL) TSH with reflex (01/25/2025 7:13 AM EDT) TSH 8.22(H) 0.27 - 4.20 uIU/mL [facility] Blood 01/25/2025 7:13 AM EDT 01/25/2025 7:26 AM EDT us Gayle Collado MD LAB BLOOD BKR ORDERABLES Final R esult [facility] [address] [place], [place] [id number] from Last 3 Months or Most Recently Relevant to Health Maintenance Insurance MEDICARE PART A & B [employer]OSS MEDEX SUPPLEMENT MEDICARE PART A & B [employer] MEDEX SUPPLEMENT MEDICARE PART A & B [employer] MEDEX SUPPLEMENT MEDICARE PART A & B [employer] MEDEX SUPPLEMENT MEDICARE PART A & B [employer] MEDEX SUPPLEMENT MEDICARE PART A & B [employer] MEDEX SUPPLEMENT MEDICARE PART A & B [facility] MEDEX SUPPLEMENT MEDICARE PART A & B [employer] MEDEX SUPPLEMENT MEDICARE PART A & B [employer] MEDEX SUPPLEMENT Advance Directives For more information, please contact: [phone] (9AM - 5PM Supri[place], Wednesday-Wednesday) Documents on File Type Date Recorded Patient Strand Forming Machine Operator Expl anation Healthcare Proxy 01/15/2025 5:35 PM [...] Code Status Confirmed With: FamilyPatient Care Teams Business Management Manager Relationship Specialty Start Date End Date Po, Claudia Stark MD [address] [place] [address] [place] [phone] PCP - General Internal Medicine 07/29/20 Jerrod Gray MD [address] [place] [address] Medical Oncology 01/22/25 Additional Source Comments The information contained in this document represents components of the legal health record. It is not the complete legal health record.[facility]
--- OUTSIDE RECORDS SUMMARY | 2025-08-13 19:32 | XMS_ITS | Encounter Summary ---
Author Organization [facility] Address [address] [place] [address] Phone Care Team Providers Care Vocational Aide Name Role Phone Claudia Smalls MD Primary Care Provider [phone] Jerrod Gray MD Unavailable [phone] Encounter Details Date Type Department Care Team (Late st Contact Info) Description 01/14/[address], [address] [facility], 2nd Floor, [address] [place] [address] Social History Tobacco Use Types Packs/Day Years [...] 01/14/2025 12:00 AM Rosalia Torres RN * [place] Suicide Severity Rating Scale (Screener/Recent Self-Report) Question [...] (Latest Contact Info) Description 03/01/2025 Procedure Pass [address] [place] [address] 09/03/2025 11:30 AM EST Appointment [address] [place] [address] Karissa Valdez, ROLAND 55 [address] [facility] [address] [place] [address] [email or web address] 09/07/2025 3:00 PM EST Telemedicine - audio only [facility] Neuro[facility] [address] [facility], 9th Floor, [address] [place] [address] Karissa Valdez NP [address] [facility] [address] [place] [address] MATILDA@[email or web address] documented as of this encounter Visit Diagnoses Not on filedocumented in this encounter Care Teams Vocational Aide Relationship Specialty Start Date End Date Claudia Smalls MD [address] [place] [address] Drive [address] [place] [address] PCP - General Internal Medicine 07/29/20 Jerrod Gray MD [address] [place] [id number] [email or web address] Medical Oncology 01/22/25 documented as of this encounter Additional Source Comments The information contained in this document represents components of the legal health record. It is not the complete legal health record.[facility]
--- OUTSIDE RECORDS SUMMARY | 2025-08-13 19:32 | XMS_ITS | Encounter Summary ---
Author Organization [facility] Address [address] [facility] [address] [place] [address] Phone Care Team Providers Care Paper Tube Cutter Name Role Phone Claudia Smalls MD Primary Care Provider [phone] Jerrod Gray MD Unavailable [phone] Encounter Details Date Type Department Care Team (Late st Contact Info) Description 01/14/2025 Procedure Pass [facility] IMG PETMR BLK2 [address] [facility], 2nd [place] [address] Social History Tobacco Use Types Packs/Day Years [...] 01/14/2025 12:00 AM Rosalia Torres RN * [place] Suicide Severity Rating Scale (Screener/Recent Self-Report) Question [...] (Latest Contact Info) Description 03/01/2025 Procedure Pass [address] [place] [address] 09/03/2025 11:30 AM EST Appointment [address] [place] [address] Karissa Valdez, ROLAND [address] [facility] [address] [place] [address] [email or web address] 09/07/2025 3:00 PM EST Telemedicine - audio only [facility] Neuro[facility] 55 [facility], 9th Floor, [address] [place] [address] Karissa Valdez NP 55 [facility] [address] [place] [address] [email or web address] documented as of this encounter Visit Diagnoses Not on filedocumented in this encounter Care Teams Paper Tube Cutter Relationship Specialty Start Date End Date Slim, Claudia Stark MD [address] [place] [address] Drive [address] [place] [address] PCP - General Internal Medicine 07/29/20 Jerrod Gray MD [address] [place] [address] [email or web address] Medical Oncology 01/22/25 documented as of this encounter Additional Source Comments The information contained in this document represents components of the legal health record. It is not the complete legal health record.[facility]
--- OUTSIDE RECORDS SUMMARY | 2025-08-13 19:32 | XMS_ITS | Encounter Summary ---
Author Organization [facility] Address [address] [place] [address] Phone Care Team Providers Care Lithograph Operator Name Role Phone Claudia Smalls MD Primary Care Provider [phone] Jerord Gray MD Unavailable [phone] Encounter Details Date Type Department Care Team (Late st Contact Info) Description 01/25/2025 Procedure Pass Non-Invasive Cardiology 30 [place] [address] Social History Tobacco Use Types Packs/Day Years [...] (Latest Contact Info) Description 03/01/2025 Procedure Pass [address] [place] [address] 09/03/2025 11:30 AM EST Appointment [address] [place] [address] Karissa Valdez, ROLAND 55 [facility] [address] [place] [address] [email or web address] 09/07/2025 3:00 PM EST Telemedicine - audio only [facility] 55 [facility], 9th Floor, [address] [place] [address] Karissa Valdez, ROLAND 55 [facility] [address] [place] [address] [email or web address] documented as of this encounter Visit Diagnoses Not on filedocumented in this encounter Care Teams Lithograph Operator Relationship Specialty Start Date End Date Po, Claudia Stark MD [address] [place] [address] Drive [address] [place] [address] PCP - General Internal Medicine 07/29/20 Jerrod Gray MD [address] [place] [id number] [email or web address] Medical Oncology 01/22/25 documented as of this encounter Additional Source Comments The information contained in this document represents components of the legal health record. It is not the complete legal health record.[facility]
--- OUTSIDE RECORDS SUMMARY | 2025-08-13 19:32 | XMS_ITS | Encounter Summary ---
Author Organization [facility] Address [address] [facility] [address] [place] [address] Phone Care Team Providers Care Circuit Breaker Mechanic Name Role Phone Claudia Smalls MD Primary Care Provider [phone] Jerrod Gray MD Unavailable [phone] Encounter Details Date Type Department Care Team (Late st Contact Info) Description 01/17/2025 Procedure Pass [facility] PERIOPERATIVE DEPT 55 [place] [phone] Social History Tobacco Use Types Packs/Day Years [...] (Latest Contact Info) Description 03/01/2025 Procedure Pass [address] [place] [address] 09/03/2025 11:30 AM EST Appointment [address] [place] [address] Karissa Valdez, ROLAND 55 [facility] [address] [place] [address] MATILDA@[email or web address] 09/07/2025 3:00 PM EST Telemedicine - audio only [facility] Neurosurgery Brain Tumor Center 55 [facility], 9th Floor, [address] [place] [address] Karissa Valdez, ROLAND 55 [facility] [address] [place] [address] [email or web address] documented as of this encounter Visit Diagnoses Not on filedocumented in this encounter Care Teams Circuit Breaker Mechanic Relationship Specialty Start Date End Date Po, Claudia Stark MD [address] [place] [address] Drive [address] [place] [address] PCP - General Internal Medicine 07/29/20 Jerrdo Gray MD [address] [place] [address] [email or web address] Medical Oncology 01/22/25 documented as of this encounter Additional Source Comments The information contained in this document represents components of the legal health record. It is not the complete legal health record.[facility]
--- OUTSIDE RECORDS SUMMARY | 2025-08-13 19:32 | XMS_ITS | Encounter Summary ---
Author Organization [facility] Address [address] [place] [address] Care Team Providers Care Brusher Operator Name Role Phone Luis Valderrama MD Primary Care Provider [phone] Encounter Details Date Type Department Care Team (Late st Contact Info) Description 02/02/2025 Lab Requisition [facility] [address] [facility] [place] [address] Luis Valderrama MD [address] [place] [address] Encounter for other general examination Social History [...] AM EDT) WBC 6.2 4.8 - 10.8 K/[facility] LAB HEMETOLOGY METHOD 02/02/2025 9:57 AM [facility] LAB RBC 3.00(L) 3.80 - 4.80 M/mcL LAB HEMETOLOGY METHOD 02/02/2025 9:57 AM [facility] LAB Hemoglobin 9.1(L) 11.5 - 16.0 g/dL LAB HEMETOLOGY METHOD 02/02/2025 9:57 AM [facility] LAB Hematocrit 29.4(L) 35.0 - 47.0 % LAB HEMETOLOGY METHOD 02/02/2025 9:57 AM [facility] LAB MCV 97.4 79.0 - 98.0 FL LAB HEMETOLOGY METHOD 02/02/2025 9:57 AM [facility] LAB MCH 30.1 27.0 - 32.0 pcg LAB HEMETOLOGY METHOD 02/02/2025 9:57 AM [facility] LAB MCHC 31.0(L) 32.0 - 37.0 g/dL LAB HEMETOLOGY METHOD 02/02/2025 9:57 AM [facility] LAB RDW 14.6 11.0 - 15.0 % LAB HEMETOLOGY METHOD 02/02/2025 9:57 AM [facility] LAB Platelets 405(H) 130 - 400 K/mcL LAB HEMETOLOGY METHOD 02/02/2025 9:57 AM [facility] LAB MPV 9.6 7.0 - 11.0 FL LAB HEMETOLOGY METHOD 02/02/2025 9:57 AM [facility] LAB NRBC 0.0 <1.0 % LAB HEMETOLOGY METHOD 02/02/2025 9:57 AM [facility] LAB NRBC Absolute 0.00 <0.10 K/mcL LAB HEMETOLOGY METHOD 02/02/2025 9:57 AM [facility] LAB Blood Venous blood specimen / Unknown Venipuncture / Unknown 02/02/2025 6:23 AM EDT 02/02/2025 9:14 AM EDT us Luis Valderrama MD LAB BLOOD ORDERABLES Final Res ult [facility] [address] [place] [address], [place] [phone] * (ABNORMAL) Comprehensive metabolic panel (02/02/2025 6:23 AM EDT) Sodium 140 133 - 145 mmol/L LAB CHEMISTRY METHOD 02/02/2025 10:30 AM [facility] Potassium 4.1 3.5 - 5.5 mmol/L LAB CHEMISTRY METHOD 02/02/2025 10:30 AM [facility] Chloride 106 96 - 110 mmol/L LAB CHEMISTRY METHOD 02/02/2025 10:30 AM [facility] CO2 26 21 - 32 mmol/L LAB CHEMISTRY METHOD 02/02/2025 10:30 AM [facility] Anion Gap 8 3 - 11 LAB CHEMISTRY METHOD 02/02/2025 10:30 AM [facility] Glucose 72 70 - 100 mg/dL LAB CHEMISTRY METHOD 02/02/2025 10:30 AM [facility] BUN 14 5 - 25 mg/dL LAB CHEMISTRY METHOD 02/02/2025 10:30 AM [facility] Creatinine 0.58 0.50 - 1.10 mg/dL LAB CHEMISTRY METHOD 02/02/2025 10:30 AM [facility] LAB eGFR 89 >=60 mL/min/1. 73m2 LAB CHEMISTRY METHOD 02/02/2025 10:30 AM [facility] LAB Comment:Calculation based on the Chronic Kidney Disease Epidemiology Collaboration (CKD-EPI) equation refit without adjustment for race. BUN/Creatinine Ratio 24.1 LAB CHEMISTRY METHOD 02/02/2025 10:30 AM EDT [facility] Calcium 8.8 8.5 - 10.5 mg/dL LAB CHEMISTRY METHOD 02/02/2025 10:30 AM T [facility] AST (SGOT) 22 10 - 42 unit/L LAB CHEMISTRY METHOD 02/02/2025 10:30 AM [facility] ALT (SGPT) 20 10 - 60 unit/L LAB CHEMISTRY METHOD 02/02/2025 10:30 AM T [facility] Alkaline Phosphatase 102 42 - 121 unit/L LAB CHEMISTRY METHOD 02/02/2025 10:30 AM [facility] Total Protein 6.6 6.0 - 8.0 g/dL LAB CHEMISTRY METHOD 02/02/2025 10:30 AM [facility] Albumin 2.6(L) 3.2 - 5.0 g/dL LAB CHEMISTRY METHOD 02/02/2025 10:30 AM [facility] Total Bilirubin 0.3 0.0 - 1.4 mg/dL LAB CHEMISTRY METHOD 02/02/2025 10:30 AM [facility] Blood Venous blood specimen / Unknown Venipuncture / Unknown 02/02/2025 6:23 AM EDT 02/02/2025 9:14 AM EDT us Luis Valderrama MD LAB BLOOD ORDERABLES Final Res ult [facility] [address] [place] [address], [place] [phone] documented in this encounter Visit Diagnoses Diagnosis Encounter for other general examination documented in this encounter Care Teams Brusher Operator Relationship Specialty Start Date End Date Luis Valderrama MD [address] [place] [address] PCP - General Internal Medicine 01/26/25 documented as of this encounter
--- OUTSIDE RECORDS SUMMARY | 2025-08-13 19:32 | XMS_ITS | Encounter Summary ---
Author Organization [facility] Address [address] [facility] [address] [place] [address] Phone Care Team Providers Care Edi Analyst Name Role Phone Claudia Smalls MD Primary Care Provider [phone] Jerrod Gray MD Unavailable [phone] Encounter Details Date Type Department Care Team (Late st Contact Info) Description 01/14/2025 Procedure Pass [facility], [place] [address] [facility], 6th [place] [address] Social History Tobacco Use Types Packs/Day Years [...] 01/14/2025 12:00 AM Rosalia Torres RN * [place] Suicide Severity Rating Scale (Screener/Recent Self-Report) Question [...] (Latest Contact Info) Description 03/01/2025 Procedure Pass [address] [place] [address] 09/03/2025 11:30 AM EST Appointment [address] [place] [address] Karissa Valdez, ROLAND [address] [facility] [address] [place] [address] [email or web address] 09/07/2025 3:00 PM EST Telemedicine - audio only [facility] Neuro[facility] 55 [facility], 9th Floor, [address] [place] [address] Karissa Valdez NP 55 [facility] [address] [place] [address] [email or web address] documented as of this encounter Visit Diagnoses Not on filedocumented in this encounter Care Teams Edi Analyst Relationship Specialty Start Date End Date Slim, Claudia Stark MD [address] [place] [address] Drive [address] [place] [address] PCP - General Internal Medicine 07/29/20 Jerrod Gray MD [address] [place] [address] [email or web address] Medical Oncology 01/22/25 documented as of this encounter Additional Source Comments The information contained in this document represents components of the legal health record. It is not the complete legal health record.[facility]
--- OUTSIDE RECORDS SUMMARY | 2025-08-13 19:32 | XMS_ITS | Encounter Summary ---
Author Organization [facility] Address [address] [place] [address] Phone Care Team Providers Care Medical Technologist Hematology Name Role Phone Claudia Smalls MD Primary Care Provider [phone] Jerrod Gray MD Unavailable [phone] Encounter Details Date Type Department Care Team (Late st Contact Info) Description 01/23/2025 Procedure Pass [facility], Ct Scan - [address] [address] Social History Tobacco Use Types Packs/Day Years [...] 10:30 PM EDT Dav Lindquist, MIGUEL * [place] Suicide Severity Rating Scale (Screener/Recent Self-Report) Question [...] (Latest Contact Info) Description 03/01/2025 Procedure Pass [address] [place] [address] 09/03/2025 11:30 AM EST Appointment [address] [place] [address] Karissa Valdez, ROLAND [address] [facility] [address] [place] [address] [email or web address] 09/07/2025 3:00 PM EST Telemedicine - audio only [facility] [address] [facility], 9th Floor, [address] [place] [address] Karissa Valdez, ROLAND [address] [facility] [address] [place] [address] [email or web address] documented as of this encounter Visit Diagnoses Not on filedocumented in this encounter Care Teams Medical Technologist Hematology Relationship Specialty Start Date End Date Claudia Smalls MD [address] [place] [address] Drive [address] [place] [id number] PCP - General Internal Medicine 07/29/20 Jerrod Gray MD [address] [place] [id number] [email or web address] Medical Oncology 01/22/25 documented as of this encounter Additional Source Comments The information contained in this document represents components of the legal health record. It is not the complete legal health record.[facility]
--- OUTSIDE RECORDS SUMMARY | 2025-08-13 19:32 | XMS_ITS | Encounter Summary ---
Author Organization [facility] Address [address] [facility] [address] [place] [address] Phone Care Team Providers Care Dog Bather Name Role Phone Claudia Smalls MD Primary Care Provider [phone] Jerrod Gray MD Unavailable [phone] Encounter Details Date Type Department Care Team (Late st Contact Info) Description 01/23/2025 Procedure Pass [facility], Ct Scan - [address] [address] Social History Tobacco Use Types Packs/Day Years [...] 10:30 PM EDT Dav Lindquist, MIGUEL * [place] Suicide Severity Rating Scale (Screener/Recent Self-Report) Question [...] (Latest Contact Info) Description 03/01/2025 Procedure Pass [address] [place] [address] 09/03/2025 11:30 AM EST Appointment [address] [place] [address] Karissa Valdez, ROLAND [address] [facility] [address] [place] [address] [email or web address] 09/07/2025 3:00 PM EST Telemedicine - audio only [facility] [place] [place] [facility] [address] [facility], 9th Floor, [address] [place] [address] Karissa Valdez, ROLAND [address] [facility] [address] [place] [address] [email or web address] documented as of this encounter Visit Diagnoses Not on filedocumented in this encounter Care Teams Dog Bather Relationship Specialty Start Date End Date Claudia Smalls MD [address] [place] [address] Drive [address] [place] [id number] PCP - General Internal Medicine 07/29/20 Jerrod Gray MD [address] [place] [id number] [email or web address] Medical Oncology 01/22/25 documented as of this encounter Additional Source Comments The information contained in this document represents components of the legal health record. It is not the complete legal health record.[facility]
--- OUTSIDE RECORDS SUMMARY | 2025-08-13 19:32 | XMS_ITS | Encounter Summary ---
Author Organization [facility] Address [address] [facility] [address] [place] [address] Phone Care Team Providers Care Migration Agent Name Role Phone Claudia Smalls MD Primary Care Provider [phone] Jerrod Gray MD Unavailable [phone] Encounter Details Date Type Department Care Team (Late st Contact Info) Description 01/25/2025 Procedure Pass [facility] [address] [place] [address] Social History Tobacco Use Types Packs/Day Years [...] Contact Info) Description 03/01/2025 Procedure Pass [address] [place] [address] 09/03/2025 11:30 AM EST Appointment [address] [place] [address] Karissa Valdez, ROLAND [address] [facility] [address] [place] [address] [email or web address] 09/07/2025 3:00 PM EST Telemedicine - audio only [facility] [address] [facility], 9th Floor, [address] [place] [address] Karissa Valdez, ROLAND [address] [facility] [address] [place] [address] [email or web address] documented as of this encounter Visit Diagnoses Not on filedocumented in this encounter Care Teams Migration Agent Relationship Specialty Start Date End Date Po, Claudia Stark MD [address] [place] [address] Drive [address] [place] [address] PCP - General Internal Medicine 07/29/20 Jerrod Gray MD [address] [place] [id number] [email or web address] Medical Oncology 01/22/25 documented as of this encounter Additional Source Comments The information contained in this document represents components of the legal health record. It is not the complete legal health record.[facility]
== END 2025-08-13 14:41 | disposition home or self-care (01) ==
LOC: HO.MAMMO 14:40
PROVIDERS: Visit Provider Internal Medicine
DX: Z12.31 Encounter for screening mammogram for malignant neoplasm of breast (principal)
CPT/HCPCS: 77063; 77067

== ENCOUNTER → 2025-08-13 14:45 | Outpatient (BNV) | payer MEDICARE, SELFPAY | PROVIDERS: Visit Provider Internal Medicine | DX: Z12.31 Encounter for screening mammogram for malignant neoplasm of breast (principal) | CPT/HCPCS: 77063; 77067 ==